=== PATIENT | female | born 1955 | race Caucasian/White ===

== ENCOUNTER → 2018-03-06 11:48 | Outpatient (CLI) | payer OTHER, SELFPAY ==
--- NOTE | 2018-03-06 12:05 | CT_ITS ---
STUDY: CT ABDOMEN AND PELVIS WITH CONTRAST REASON FOR EXAM: Female, 63 years old. History of diverticulitis. RADIATION DOSAGE (If Supplied By Facility): CTDIvol = ( 11.87 ) mGy, DLP = ( 319.41 ) mGycm TECHNIQUE: Transaxial images were obtained from the dome of the diaphragm to the symphysis pubis with oral contrast. 100CC ml of Isovue 300 contrast was administered. Sagittal and coronal images were reconstructed. Individualized dose optimization techniques were used for this CT. COMPARISON: Comparison is made with prior examination dated March 26, 2011. FINDINGS: The visualized lung bases are unremarkable. The visualized portions of the heart are within normal limits. Normal liver. There are surgical clips in the gallbladder fossa consistent with a prior cholecystectomy. Minimal degree of central intrahepatic biliary ductal dilatation. The common bile duct measures 7 mm in transverse dimension. Normal spleen. Normal pancreas. Normal bilateral adrenal glands. Several tiny nonobstructive right intrarenal calculi. There are several tiny nonobstructive left intrarenal calculi. Normal visualized stomach. Normal small intestine. Moderate amount of fecal material is seen in the colon. The appendix is visualized and appears normal. There is diffuse atherosclerotic calcification of the abdominal aorta, without a demonstrated aneurysm. Normal inferior vena cava. Normal retroperitoneum. Normal urinary bladder. Normal abdominal wall. Minimal anterior listhesis of L4 on L5 without spondylolysis. CT/Abdomen/Pelvis WITH Contrast IMPRESSION: Small bilateral nonobstructive intrarenal calculi. Electronically Signed: Amrit Langford MD at 15:44 EDT Tel [phone], Service support ,
[2018-03-06 12:30] LABS: AST(SGOT) 13 U/L (15-37); Alanine Aminotransfer ALT/SGPT 22 U/L (13-56); Albumin, Serum 3.7 g/dL (3.2-5.0); Alkaline Phosphatase 70 U/L (45-117); Anion Gap 3 (5-15); BUN 18 mg/dL (7-18); BUN/Creat Ratio 22.8 RATIO (10-20); Chloride 108 mmol/L (98-107); Creatinine, Serum 0.79 mg/dL (0.55-1.02); EST Glomerular Filtration Rate 78 mL/min (>60); Est Glom Filt Rate - Afr Amer 95 mL/min (>60); Globulin 3.8 g/dL (2.2-4.2); Glucose 111 mg/dL (74-106); Potassium 3.9 mmol/L (3.5-5.1); Protein, Total 7.5 g/dL (6.4-8.2); Sodium Level 141 mmol/L (136-145)
== END ==
PROVIDERS: Family Provider Internal Medicine; PCP Internal Medicine; Visit Provider Nurse Practitioner Gerontology
DX: R10.9 Unspecified abdominal pain (principal); R35.0 Frequency of micturition
CPT/HCPCS: 36415; 74177; 80053; 87086; Q9967

== ENCOUNTER → 2018-04-08 14:41 | Outpatient (CLI) | payer OTHER, SELFPAY | PROVIDERS: Family Provider Internal Medicine; PCP Internal Medicine; Visit Provider Internal Medicine Pulmonary Disease | DX: J44.9 Chronic obstructive pulmonary disease, unspecified (principal); R05 Cough | CPT/HCPCS: 87070; 87077; 87205 ==

== ENCOUNTER → 2018-10-30 12:53 | Outpatient (CLI) | payer OTHER, SELFPAY ==
--- NOTE | 2018-10-30 12:56 | US_ITS ---
STUDY: THYROID ULTRASOUND REASON FOR EXAM: Female, 63 years old. Thyroid nodules TECHNIQUE: Ultrasound evaluation of the thyroid was performed with real-time and static hendrickson-scale imaging. COMPARISON: CT chest 05/15/2017, 08/20/2014. Low-dose CT chest 10/22/2018. FINDINGS: RIGHT LOBE: The right thyroid gland measures 45 x 28 x 25 mm with homogeneous background echotexture is normal vascularity. There is a complex dominant nodule, predominately solid, multiple small cystic components, heterogeneously hypoechoic compared to the surrounding gland, lori-nodular vascular flow, 2.5 x 2.5 x 2.1 cm. LEFT LOBE: The left thyroid measures 41 x 12 x 16 mm with homogeneous echotexture and normal vascularity. There is a lower pole solitary circumscribed oval hypoechoic solid nodule measuring 6.4 x 4 mm with both perinodular and intranodular vascular flow. ISTHMUS: The isthmus measures 2 mm, normal echotexture . US/Thyroid IMPRESSION: The solid left pulmonary nodule with a greatest dimension of 6 mm falls into the Intermediate Suspicion Pattern based on the [place] [employer] Guidelines for assessment of thyroid nodules. Based on size criteria, biopsy is not indicated and follow-up surveillance imaging in one year would be appropriate. The dominant right thyroid nodule with a greatest dimension of 25 mm falls into the High Suspicion Pattern, hypoechoic solid nodule with partially cystic components. Based on echo features and size criteria, biopsy is indicated. In comparison to CT scans, that nodule has enlarged since prior CT chest imaging of 08/20/2014. Malignancy must be excluded. Ultrasound guided FNA biopsy is recommended. Electronically Signed: Kvng Irizarry MD at 12:08 EDT Tel , Service support ,
--- NOTE | 2018-10-30 13:24 | CT_ITS ---
STUDY: LOW DOSE CT LUNG CANCER SCREENING REASON FOR EXAM: Female, 63 years old. Smoking 2 packs per day, 45 years. Lung cancer screening. RADIATION DOSAGE (If Supplied By Facility): CTDIvol = ( 2.01 ) mGy, DLP = ( 70.47 ) mGycm TECHNIQUE: No contrast was administered. Low dose technique was utilized (average mAS-38 and kVp 120). 1.25 mm axial source images with a slice interval of 1.25-mm were reconstructed in lung windows. Coronal and sagittal 2-D MPR. Nodule measured using lung windows on PACS and/or independent workstation with automated measurement of minimum and maximum diameter. Nodule measurement reported as average diameter rounded to the nearest whole number. Growth is defined as an increase ins size of greater than 1.5 mm. COMPARISON: CT chest 05/15/2017, 08/20/2014. Chest x-ray 11/10/2015.. FINDINGS: Supraclavicular: Dominant nodule right thyroid measuring approximately 2.2 cm. This was present on prior imaging of 08/20/2014 measuring 1.7 cm at that time. Ultrasound characterization is required to assess malignant potential for this enlarging thyroid nodule. Body wall soft tissues: No acute process. Upper abdomen: No acute process. Osseous structures: Osteopenia, kyphoscoliosis, mild thoracic spondylosis, no lytic or blastic lesions. Mediastinum: Normal esophagus. Several small lymph nodes, none pathologically enlarged, similar pattern seen on prior imaging, acute lymphadenopathy not suspected. Heart: No cardiomegaly or pericardial effusion. Prominent three-vessel coronary calcifications. Aorta: Nondilated, mild arch atherosclerosis. Pulmonary arteries: Nondilated. Lungs: There is generalized hyperlucency and hyperinflation of the lungs, mild features of centrilobular emphysema the apices, minimal features of paraseptal emphysema at the apices, stable pattern of COPD concordant with smoking history. The pulmonary pattern of scattered subpleural reticulation, and apical pleural parenchymal scar is stable. Subpleural fissural nodule right lower lobe apical segment series 2 image 82, measuring approximately 3 mm, unchanged since 2017. There is a 3 mm endobronchial lesion within the left lower lobe segmental bronchus centered on axial image 129, sagittal image 174, vogel image saved to the PACS archive. This is very slightly increased conspicuity since imaging of 2017. Endobronchial 3 mm pulmonary nodule right lower lobe lateral basilar segmental bronchus, axial image 152, sagittal image 86, increased in conspicuity/size since imaging of 2017. There are no other discrete pulmonary nodules in the left lung. CT/Low Dose CT Lung Screening IMPRESSION: 1. The pattern of a few tiny intraparenchymal pulmonary nodules, subpleural reticulation and apical subpleural scarring is stable compared to prior imaging of 2017. COPD, mild features of centrilobular and paraseptal emphysema at the apices. 2. Endobronchial nodular lesions are identified, left lower lobe subsegmental bronchus, right lower lobe subsegmental bronchus. Each measures approximately 3 mm. These have increased in size and conspicuity as compared to imaging of 2017. On prior imaging these were nearly and visible, much smaller. 3. Prominent three-vessel coronary atherosclerosis. L4 Enlarging right thyroid nodule. AND characterization is recommended to assess malignant potential. Based on size criteria alone, biopsy is likely indicated. IMPORTANT NOTES FOR USE: ACR Lung-RADS Version 1.0 Assessment Categories Release Date: November 30, 2013 Category: Coded 0-4 bases on nodule(s) with highest degree of suspicion. Negative screen is defined as categories 1 and 2; a positive screen is defined as categories 3 and 4. Category 3 and 4A nodules that are unchanged on interval CT should be coded as category 2, and individuals returned to screening in 12 months. Category 4X: Category 3 or 4 nodules with additional imaging findings that increase the suspicion of lung cancer, such as spiculation, GGN that doubles in size in 1 year, enlarged lymph notes, etc. Category Modifiers: S (significant finding unrelated to lung cancer) and C (prior history of treated lung cancer) may be added to the 0-4 Lung-RADS Electronically Signed: Kvng Irizarry MD at 11:44 EDT Tel , Service support ,
== END ==
PROVIDERS: Family Provider Internal Medicine; PCP Internal Medicine; Referring Provider Internal Medicine; Visit Provider Internal Medicine
DX: E04.1 Nontoxic single thyroid nodule (principal); J44.9 Chronic obstructive pulmonary disease, unspecified
CPT/HCPCS: 76536; G0297

== ENCOUNTER → 2018-11-14 15:48 | Outpatient (CLI) | payer OTHER, SELFPAY ==
--- NOTE | 2018-11-14 | ASPS_PTH ---
PATIENT: LIBBY NAIDU LOC: NURY U#:[id number] AGE/SX: 70/F ROOM: RE11/14/[address]: Dr. Benny Koehler MD : 1955 BED: DIS: SPEC #: [id number] RECD: 11/14/18 15:36 STATUS: JACQUE ANGELINA #: [id number] BC: 11/14/18 00:[address]: Benny Koehler DEPT: CYTOLOGY RECD BY: Sedrick Yi ENTERED: 11/17/18 12:58 SP TYPE: ASPIRATION OTHR DR: Dr. Esther Malik, DO Tissues: Thyroid gland, NOS Procedures: Special Stain Group II Cytology Other HEADER OPERATION: Ultrasound-guided fine needle aspiration right thyroid PRE-OP DIAGNOSIS: Multinodular goiter E04.2 TISSUE SUBMITTED: Fine needle aspiration right thyroid slides x12 DIAGNOSIS CYTOLOGY Right thyroid nodule, ultrasound-guided FNA (smears): Consistent with benign colloid nodule. Adequate for evaluation. SJ:rg 11/18/18 COMMENT Correlation with clinical, radiologic findings and appropriate follow up are necessary. Please make reference to previous specimen ([id number]) right thyroid, FNA with diagnosis of consistent with adenomatoid colloid nodule. CYTOLOGY STUDY Slides are reviewed. CYTOLOGY GROSS Received are 12 smears labeled with the patient's name and designated per the requisition as right thyroid. Submitted for staining. / 11/18/18 TC:5 CPT: 53768
== END ==
PROVIDERS: Family Provider Internal Medicine; PCP Internal Medicine; Referring Provider Surgery; Visit Provider Surgery
DX: E04.2 Nontoxic multinodular goiter (principal)
CPT/HCPCS: 88161; 88313

== ENCOUNTER → 2019-03-03 06:28 | Outpatient (CLI) | payer OTHER, SELFPAY ==
--- NOTE | 2019-03-03 09:33 | STRESSREP_ITS ---
Stress Test Report Date: 03-03-19 Procedure: Exercise tolerance test/imaging study Indications: Chest pain Consent: Per the patient Procedure: The patient exercised on a Kyree protocol for 7 minutes and 45 seconds completing Stage II and 1 minute and 45 seconds of Stage III achieving a peak heart rate of 141 bpm (90 % predicted maximal heart rate) with a peak blood pressure 142/82 mmHg and a peak MET capacity of 9 METs. The baseline ECG demonstrated normal sinus rhythm. The peak exercise ECG demonstrated no obvious ECG changes. There were no cardiac dysrhythmias pretest, during exercise, or recovery. The functional capacity was considered good. There was no complaint of chest discomfort during exercise or recovery. The examination was discontinued secondary to leg discomfort and dyspnea. Impression: 1. Technically adequate (percent predicted maximal heart rate greater than 85%) exercise tolerance test 2. Peak exercise ECG demonstrated no obvious ECG changes 3. There were no cardiac dysrhythmias pretest, during exercise, or recovery 4. Nuclear images pending Myocardial perfusion imaging study: Technique: The patient was injected with 11.1 mCi of technetium 99m Cardiolite and subsequently rest SPECT Cardiolite nuclear imaging was obtained in the horizontal long, vertical long, and short axis views. The patient exercised on a Kyree protocol for 7 minutes and 45 seconds completing Stage II and 1 minute and 45 seconds of Stage III achieving a peak heart rate of 141 bpm (90 % predicted maximal heart rate) with a peak blood pressure 142/82 mmHg and a peak MET capacity of 9 METs. The patient was injected with 31.8 mCi of technetium 99m Cardiolite and subsequently stress SPECT Cardiolite nuclear imaging was obtained in the horizontal long, vertical long, and short axis views. A gated Cardiolite study at peak stress was obtained. Interpretation: Rest and stress SPECT Cardiolite nuclear imaging status post realignment, normalization, and attenuation correction, demonstrates the appearance of relative uniform tracer uptake and myocardial perfusion appearing within normal limits. There is end systolic thickening and brightening. The gated Cardiolite study demonstrates myocardial thickening and inward wall motion. The reported LVEF is 76 %. Impression: 1. Rest and stress SPECT Cardiolite nuclear imaging demonstrate relative uniform tracer uptake and myocardial perfusion appearing within normal limits. 2. The gated Cardiolite study reports an LVEF of 76 %. This note was generated with [employer] software. It may contain incorrect words, spelling, and punctuation that were not noted in checking the note before signing.
== END ==
PROVIDERS: Family Provider Internal Medicine; PCP Internal Medicine; Referring Provider Internal Medicine Cardiovascular Disease; Visit Provider Internal Medicine Cardiovascular Disease
DX: R07.9 Chest pain, unspecified (principal); R06.02 Shortness of breath; R93.1 Abnormal findings on diagnostic imaging of heart and coronary circulation
CPT/HCPCS: 78452; 93017; A9500; A4216

== ENCOUNTER → 2019-03-19 13:59 | Outpatient (CLI) | payer OTHER, SELFPAY ==
--- NOTE | 2019-03-19 14:01 | ART_ITS ---
Reason For Study: claudication Left Segmental Pressures Left brachial= 123mmHg. Left posterior tibial artery = 139mmHg. Left dorsalis pedis artery = 131mmHg. The left dorsalis pedis waveforms are triphasic. The left posterior tibial artery waveforms are triphasic. Right Segmental Pressures Right brachial= 116mmHg. Right posterior tibial artery = 139mmHg. Right dorsalis pedis artery = 134mmHg. The right dorsalis pedis waveforms are triphasic. The right posterior tibial artery waveforms are triphasic. Indices The right ankle brachial index by the dorsalis pedis is 1.09. The right ankle brachial index by the posterior tibial artery is 1.13. The right ankle brachial index by the posterior tibial artery post exercise is 1.07. The left ankle brachial index by the dorsalis pedis is 1.07. The left ankle brachial index by the posterior tibial artery is 1.13. The left posterior tibial artery index post exercise is 1.05. Interpretation Summary Triphasic Doppler waveforms are noted at ankle level bilaterally. Pulse-volume recording waveform amplitudes are satisfactory at ankle level bilaterally. Resting ankle-brachial indices are normal bilaterally. Following a period of exercise, ankle pressures are sustained bilaterally. There is no evidence of significant arterial occlusive disease in the lower extremities bilaterally. Ordering Physician: Esther Malik Performed By: YOLETTE HOLT T
== END ==
PROVIDERS: Family Provider Internal Medicine; PCP Internal Medicine; Referring Provider Internal Medicine; Visit Provider Internal Medicine
DX: I73.9 Peripheral vascular disease, unspecified (principal)
CPT/HCPCS: 93922

== ENCOUNTER → 2019-12-10 12:27 | Outpatient (CLI) | payer MEDICARE, SELFPAY ==
[2019-05-18 13:57] VITALS: BMI 21.0
--- NOTE | 2019-12-10 12:29 | BI_ITS ---
MAMMOGRAPHY - BILATERAL SCREENING REASON FOR EXAM: Female, 64 years old. Routine annual screening examination. PERTINENT HISTORY: Non-contributory. Minimal right excisional breast biopsy. TECHNIQUE: Digital bilateral breast kaitlin (3D mammographic acquisition) in the CC and MLO projections. 2-D mediolateral oblique (MLO) and craniocaudad (CC) views of both breasts were obtained. CAD: Full Field Digital Mammography with Computer Added Detection was performed. COMPARISON: Comparison is made with prior study dated February 24, 2018 and May 14, 2016. FINDINGS: Breast Composition: The breasts are extremely dense, which lowers the sensitivity of mammography. There are no dominant masses or suspicious calcifications. Stable bilateral calcifications. No other significant abnormalities are identified. There has been no significant change since the prior study. BI/SCREEN MAMM (CAD) W/KAITLIN BILAT IMPRESSION: Stable bilateral screening mammogram. Yearly follow-up mammogram recommended. (A) ASSESSMENT CATEGORY: BIRADS Category 2: Benign. A letter regarding these results will be sent to the patient by the facility within 30 days. Approximately 10% of breast cancers are not detected by mammography. A normal mammogram should not delay biopsy of a clinically suspicious abnormality. [id number] Electronically Signed: Amrit Langford, at 13:27 EDT , Service support ,
--- NOTE | 2019-12-10 12:33 | BD_ITS ---
STUDY: DUAL ENERGY X-RAY ABSORPTIOMETRY / DXA REASON FOR EXAM: Female, 64 years old. 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 COMPARISON: Comparison is made with prior study dated August 27, 2017. FINDINGS: Lumbar Spine (L1-L4): g/cm2 (0.697) / T-score (-3.9) / Z-score (-2.3) Findings are suggestive of osteoporosis with a high fracture risk. Left Femur Total: g/cm2 (0.691) / T-score (-2.5) / Z-score (-1.3) Left Femoral Neck: g/cm2 (0.729) / T-score (-2.2) / Z-score (-0.8) Right Femur Total: g/cm2 (0.716) / T-score (-2.3) / Z-score (-1.1) Right Femoral Neck: g/cm2 (0.707) / T-score (-2.4) / Z-score (-0.9) The T-Scores on the most recent prior examination were: Lumbar Spine (L1-L4): There has been improvement of bone density since the previous examination. Left Femur Total: which represents an improvement of 1.3%. Right Femur Total: which represents a worsening of 1.6%. BD/Dexa Bone Density Study IMPRESSION: The patient is considered osteoporotic as outlined below according to World Omero Organization (WHO) criteria with a high fracture risk. There has been improvement of bone density since the previous examination. Reference Information: The T-score is the number of standard deviations above or below the standard which is normal for young adults at their peak bone mineral density. The World Health Organization (WHO) interprets the T-scores as follows: Above -1 Normal bone density Between -1 and -2.5 Osteopenia Equal to / or below -2.5 Osteoporosis As a practical clinical guideline, osteopenia may be graded as follows: Mild -1 through -1.5 Moderate -1.6 through -2.0 Severe -2.1 through -2.4 The Z-score is the number of standard deviations above or below age-matched controls. A Z-score of less than -1.5 would be considered abnormal. References: 1. NIH Osteoporosis and Related Bone Diseases http://www.osteo.org 2. International Society for Clinical Densitometry http://www.iscd.org 3. National Osteoporosis Foundation http://www.nof.org Electronically Signed: Amrit Langford, at 13:42 EDT , Service support ,
== END ==
PROVIDERS: PCP Internal Medicine; Referring Provider Internal Medicine; Visit Provider Internal Medicine
DX: Z12.31 Encounter for screening mammogram for malignant neoplasm of breast (principal); Z78.0 Asymptomatic menopausal state; M81.0 Age-related osteoporosis without current pathological fracture
CPT/HCPCS: 77063; 77067; 77080

== ENCOUNTER → 2019-12-19 | Outpatient (CLI) | payer MEDICARE, BC, SELFPAY ==
[2019-05-18 13:57] VITALS: BMI 21.0
== END | disposition home or self-care (01) ==
LOC: LAB 11:41 → LABSPEC 11:42
PROVIDERS: PCP Internal Medicine; Referring Provider Internal Medicine Pulmonary Disease; Visit Provider Internal Medicine Pulmonary Disease
DX: R05 Cough (principal); J44.9 Chronic obstructive pulmonary disease, unspecified
CPT/HCPCS: 87070; 87205

== ENCOUNTER → 2019-12-23 11:53 | Outpatient (CLI) | payer MEDICARE, BC, SELFPAY ==
[2019-05-18 13:57] VITALS: BMI 21.0
--- NOTE | 2019-12-23 11:56 | RAD_ITS ---
STUDY: X-RAY CHEST REASON FOR EXAM: Female, 64 years old. COPD TECHNIQUE: PA and lateral views of the chest. COMPARISON: 2015 FINDINGS: The lungs are mildly hyperexpanded.. There is no demonstrated pleural abnormality. Normal size heart. Normal mediastinum and janessa. Normal visualized pulmonary arteries. Normal visualized aortic arch and descending thoracic aorta. There are diffuse degenerative changes of the visualized thoracic spine. Normal visualized ribs, clavicles, and shoulders. There is no demonstrated abnormality of the visualized soft tissue structures of the upper abdomen. RAD/Chest PA and Lateral IMPRESSION: Hyperexpanded lungs, no superimposed acute pulmonary process. Electronically Signed: Gregory Rivers MD at 12:09 EDT , Service support ,
== END ==
PROVIDERS: PCP Internal Medicine; Referring Provider Internal Medicine Pulmonary Disease; Visit Provider Internal Medicine Pulmonary Disease
DX: J44.9 Chronic obstructive pulmonary disease, unspecified (principal)
CPT/HCPCS: 71046

== ENCOUNTER → 2020-02-25 13:56 | Outpatient (CLI) | payer MEDICARE, BC, SELFPAY ==
[2020-02-23 13:27] VITALS: BMI 21.0
[2020-02-25 14:08] VITALS: BP 108/58; PULSE 90; RESP 16; TEMP 36.5; O2SAT 93; BMI 21.2
[2020-02-25] MEDS: DENOSUMAB 60 MG/ML SQ (14:20)
== END ==
PROVIDERS: PCP Internal Medicine; Referring Provider Internal Medicine Endocrinology, Diabetes & Metabolism; Visit Provider Internal Medicine Endocrinology, Diabetes & Metabolism
DX: M81.0 Age-related osteoporosis without current pathological fracture (principal)
CPT/HCPCS: 96372; J0897

== ENCOUNTER → 2020-03-17 13:27 | Outpatient (CLI) | payer MEDICARE, BC, SELFPAY ==
[2020-02-25 14:08] VITALS: BMI 21.2
[2020-03-17 15:36] LABS: Free T3 1.6 pg/mL (2.18-3.98); T4 Free Direct 0.92 ng/dL (0.76-1.46); Thyroid Stim Hormone (TSH) 0.59 uIU/mL (0.358-3.74)
== END ==
PROVIDERS: PCP Internal Medicine; Referring Provider Internal Medicine Endocrinology, Diabetes & Metabolism; Visit Provider Internal Medicine Endocrinology, Diabetes & Metabolism
DX: E05.20 Thyrotoxicosis with toxic multinodular goiter without thyrotoxic crisis or storm (principal); E04.1 Nontoxic single thyroid nodule
CPT/HCPCS: 36415; 84439; 84443; 84481

== ENCOUNTER → 2020-04-29 11:19 | Outpatient (CLI) | payer MEDICARE, BC, SELFPAY ==
[2020-02-25 14:08] VITALS: BMI 21.2
== END ==
PROVIDERS: PCP Internal Medicine; Referring Provider Internal Medicine Pulmonary Disease; Visit Provider Internal Medicine Pulmonary Disease
DX: J44.9 Chronic obstructive pulmonary disease, unspecified (principal); R05 Cough
CPT/HCPCS: 87070; 87205

== ENCOUNTER → 2020-05-19 13:15 | Outpatient (CLI) | payer MEDICARE, BC, SELFPAY ==
[2020-02-25 14:08] VITALS: BMI 21.2
[2020-05-16 11:09] VITALS: BMI 22.8
--- NOTE | 2020-05-19 13:16 | CT_ITS ---
STUDY: LOW DOSE CT LUNG CANCER SCREENING REASON FOR EXAM: Female, 65 years old. CURRENT SMOKER, 2 PPD X 45 YEARS. H/O COPD RADIATION DOSAGE (If Supplied By Facility): CTDIvol = ( 1.70 ) mGy, DLP = ( 62.53 ) mGycm TECHNIQUE: No contrast was administered. Low dose technique was utilized (average mAS-38 and kVp 120). 1.25 mm axial source images with a slice interval of 1.25-mm were reconstructed in lung windows. 2.5 mm axial source images with a slice interval of 2.5-mm were reconstructed in lung windows. 5.0 mm axial source images with a slice interval of 5.0-mm were reconstructed in soft tissue windows. Nodule measured using lung windows on PACS and/or independent workstation with automated measurement of minimum and maximum diameter. Nodule measurement reported as average diameter rounded to the nearest whole number. Growth is defined as an increase ins size of greater than 1.5 mm. COMPARISON: Comparison is made with prior study of 10/30/2018. NODULES: Stable scarring in the lung apices bilaterally more prominent along the peripheral aspect of the right upper lobe. There has been no change. Emphysema: Hyperinflation. Mild degree of emphysematous changes more prominent in the upper lobes. Aorta: Atherosclerotic plaque formation. Coronary arteries: Coronary artery calcification. Mediastinal nodes: Small benign appearing mediastinal lymph nodes. Other chest and abdominal findings: Degenerative changes of the thoracic spine. CT/Low Dose CT Lung Screening IMPRESSION: Lung-RADS category 2 - Continue annual screening with LDCT in 12 months. IMPORTANT NOTES FOR USE: ACR Lung-RADS Version 1.0 Assessment Categories Release Date: November 30, 2013 Category: Coded 0-4 bases on nodule(s) with highest degree of suspicion. Negative screen is defined as categories 1 and 2; a positive screen is defined as categories 3 and 4. Category 3 and 4A nodules that are unchanged on interval CT should be coded as category 2, and individuals returned to screening in 12 months. Category 4X: Category 3 or 4 nodules with additional imaging findings that increase the suspicion of lung cancer, such as spiculation, GGN that doubles in size in 1 year, enlarged lymph notes, etc. Category Modifiers: S (significant finding unrelated to lung cancer) and C (prior history of treated lung cancer) may be added to the 0-4 Lung-RADS Electronically Signed: Amrit Langford, at 14:38 EDT , Service support ,
== END ==
PROVIDERS: PCP Internal Medicine; Referring Provider Internal Medicine Pulmonary Disease; Visit Provider Internal Medicine Pulmonary Disease
DX: Z87.891 Personal history of nicotine dependence (principal)
CPT/HCPCS: G0297

== ENCOUNTER 2020-10-14 10:08 | Outpatient (RCR) | payer MEDICARE, BC, SELFPAY ==
[2020-05-16 11:09] VITALS: BMI 22.8
[2020-10-14] MEDS: COVID-19 VACC, MRNA(PFIZER)/PF 30 MCG/0.3 ML SYRINGE IM (14:17)
[2020-11-04] MEDS: COVID-19 VACC, MRNA(PFIZER)/PF 30 MCG/0.3 ML SYRINGE IM (14:10)
== END 2021-01-10 23:59 ==
LOC: IMMUN 10:08
PROVIDERS: PCP Internal Medicine; Visit Provider Family Medicine
DX: Z23 Encounter for immunization (principal)
CPT/HCPCS: 0001A; 0002A; 91300

== ENCOUNTER → 2020-12-02 14:42 | Outpatient (CLI) | payer MEDICARE, BC, SELFPAY ==
[2020-05-16 11:09] VITALS: BMI 22.8
--- NOTE | 2020-12-02 14:49 | RAD_ITS ---
STUDY: X-RAY - RIGHT FEMUR REASON FOR STUDY: Female, 65 years old. Thigh pain. TECHNIQUE: 4 view(s) of the femur. COMPARISON: None. FINDINGS: Normal visualized femur. Normal visualized soft tissue structure. RAD/Femur Min 2 Views IMPRESSION: No abnormality of the right femur. Electronically Signed: Gilberto Ramos MD at 15:13 EDT , Service support ,
--- NOTE | 2020-12-02 14:49 | RAD_ITS ---
STUDY: X-RAY - LUMBAR SPINE REASON FOR EXAM: Female, 65 years old. Leg and thigh pain for months. No known injury. TECHNIQUE: 5 view(s) of the lumbar spine were obtained. COMPARISON: None FINDINGS: Normal lumbar lordosis. Mild levoscoliosis. 6 mm of anterolisthesis of L4 on L5 from facet degeneration. Normal vertebral bodies and endplates. Diffuse facet sclerosis. Marked intervertebral disc space narrowing at L4-5 with subchondral sclerosis and osteophyte formation. Cholecystectomy clips. Vascular calcification. RAD/L/S Spine Min 4 Views IMPRESSION: Levoscoliosis with lower lumbar spondylosis most marked at L4-5, as described. No acute abnormality. Electronically Signed: Gilberto Ramos MD at 15:15 EDT , Service support ,
== END ==
PROVIDERS: PCP Internal Medicine; Referring Provider Internal Medicine; Visit Provider Internal Medicine
DX: M79.651 Pain in right thigh (principal)
CPT/HCPCS: 72110; 73552

== ENCOUNTER → 2020-12-05 13:56 | Outpatient (CLI) | payer MEDICARE, BC, SELFPAY ==
[2020-05-16 11:09] VITALS: BMI 22.8
--- NOTE | 2020-12-05 13:58 | US_ITS ---
STUDY: ULTRASOUND OF THE FEMALE PELVIS - COMPLETE REASON FOR EXAM: Female, 65 years old. PELVIC PAIN LMP: The patient is postmenopausal. TECHNIQUE: Transabdominal and Transvaginal TECHNICAL QUALITY: Adequate. COMPARISON: None. FINDINGS: The uterus is anteverted and is in a midline position. The uterus measures 5.1 cm x 4 cm x 2.3 cm. Normal uterine cervix. The endometrium measures 3 mm in thickness, and is hyperechoic. There is no demonstrated endometrial mass. There is no demonstrated myometrial mass. I.U.D. - The patient does not have an I.U.D. The right ovary is visualized. The right ovary measures 2.5 cm x 2.2 cm x 1.1 cm. There is no right ovarian cyst or ovarian mass. There is no visualized right adnexal mass or complex lesion. There is normal arterial and normal venous vascularity. The left ovary is visualized. The left ovary measures 1.7 cm x 1.9 cm x 1 cm. There is no left ovarian cyst or ovarian mass. There is no visualized left adnexal mass or complex lesion. There is normal arterial and normal venous vascularity. There is no fluid in the cul-de-sac. The pre void volume of the bladder was 131 ml. US/Transvaginal Non- IMPRESSION: Normal female pelvis. Electronically Signed: Amrit Langford MD at 15:17 EDT , Service support ,
--- NOTE | 2020-12-05 13:58 | US_ITS ---
STUDY: ULTRASOUND OF THE FEMALE PELVIS - COMPLETE REASON FOR EXAM: Female, 65 years old. PELVIC PAIN LMP: The patient is postmenopausal. TECHNIQUE: Transabdominal and Transvaginal TECHNICAL QUALITY: Adequate. COMPARISON: None. FINDINGS: The uterus is anteverted and is in a midline position. The uterus measures 5.1 cm x 4 cm x 2.3 cm. Normal uterine cervix. The endometrium measures 3 mm in thickness, and is hyperechoic. There is no demonstrated endometrial mass. There is no demonstrated myometrial mass. I.U.D. - The patient does not have an I.U.D. The right ovary is visualized. The right ovary measures 2.5 cm x 2.2 cm x 1.1 cm. There is no right ovarian cyst or ovarian mass. There is no visualized right adnexal mass or complex lesion. There is normal arterial and normal venous vascularity. The left ovary is visualized. The left ovary measures 1.7 cm x 1.9 cm x 1 cm. There is no left ovarian cyst or ovarian mass. There is no visualized left adnexal mass or complex lesion. There is normal arterial and normal venous vascularity. There is no fluid in the cul-de-sac. The pre void volume of the bladder was 131 ml. US/Pelvic (Non ) IMPRESSION: Normal female pelvis. Electronically Signed: Amrit Langford MD at 15:17 EDT , Service support ,
== END ==
PROVIDERS: PCP Internal Medicine; Referring Provider Internal Medicine; Visit Provider Internal Medicine
DX: R10.2 Pelvic and perineal pain (principal)
CPT/HCPCS: 76830; 76856

== ENCOUNTER → 2020-12-21 12:57 | Outpatient (CLI) | payer MEDICARE, BC, SELFPAY ==
[2020-05-16 11:09] VITALS: BMI 22.8
--- NOTE | 2020-12-21 13:00 | CT_ITS ---
STUDY: CT ABDOMEN AND PELVIS WITHOUT CONTRAST REASON FOR EXAM: Female, 65 years old. RLQ ABD PAIN RADIATION DOSAGE (If Supplied By Facility): CTDIvol = ( 6.06 ) mGy, DLP = ( 261.92 ) mGycm TECHNIQUE: Transaxial images were obtained from the dome of the diaphragm to the symphysis pubis without oral contrast, and without intravenous contrast. Sagittal and coronal images were reconstructed. Individualized dose optimization techniques were used for this CT. COMPARISON: 2017 FINDINGS: The visualized lung bases are unremarkable. The visualized portions of the heart are within normal limits. Normal liver. There are surgical clips in the gallbladder fossa consistent with a prior cholecystectomy. Normal spleen. Normal pancreas. Normal bilateral adrenal glands. Stable bilateral nonobstructing nephrolithiasis. No obstructive uropathy or suspicious solid lesion noted. Normal visualized stomach. Normal small intestine. Retained stool noted throughout the colon. There is non-visualization of the appendix. There is diffuse atherosclerotic calcification of the abdominal aorta, without a demonstrated aneurysm. Normal inferior vena cava. Normal retroperitoneum. Normal urinary bladder. Uterus is present, the endometrium cannot be accurately evaluated with CT. Normal abdominal wall. There are diffuse degenerative changes of the visualized lumbar spine, and pelvis. CT/Abdomen/Pelvis without Cont IMPRESSION: Bilateral nonobstructing nephrolithiasis No free intraperitoneal fluid, air, or suspicious adenopathy Retained stool in the colon Electronically Signed: Gregory Rivers MD at 13:26 EDT , Service support ,
== END ==
PROVIDERS: PCP Internal Medicine; Referring Provider Internal Medicine; Visit Provider Internal Medicine
DX: R10.30 Lower abdominal pain, unspecified (principal)
CPT/HCPCS: 74176

== ENCOUNTER → 2021-02-17 14:19 | Outpatient (CLI) | payer MEDICARE, BC, SELFPAY ==
[2020-05-16 11:09] VITALS: BMI 22.8
[2021-02-17 16:43] LABS: Free T3 2.3 pg/mL (2.18-3.98); T4 Free Direct 0.83 ng/dL (0.76-1.46); Thyroid Stim Hormone (TSH) 0.82 uIU/mL (0.358-3.74)
== END ==
PROVIDERS: PCP Internal Medicine; Referring Provider Nurse Practitioner Family; Visit Provider Nurse Practitioner Family
DX: E05.90 Thyrotoxicosis, unspecified without thyrotoxic crisis or storm (principal)
CPT/HCPCS: 36415; 84439; 84443; 84481

== ENCOUNTER 2021-03-29 13:30 | Outpatient (RCR) | payer MEDICARE, BC, SELFPAY ==
[2020-05-16 11:09] VITALS: BMI 22.8
--- NOTE | 2021-03-01 14:07 | HP.PTEVAL_ITS ---
Patient's Visit Information LIBBY NAIDU is a 66 year old F referred to Physical Therapy by Dr. Esther Hobbs, with a diagnosis of SCIATICA AND LBP WITH RADICULOPATHY. Date of Evaluation: 03/01/21 Physical Therapist: Olena Lares, PT, Cert MDT - Visit Plan Frequency: 2-3x /Week Duration: 4-6 Weeks Plan: US. POSTURE CORRECTION/STRENGTHENING, INSTRUCTION IN APPROPRIATE BODY MECHANICS AND ACTIVITY MODIFICATIONS. DLS STARTING WITH A NEUTRAL SPINE PROGRESSING ROM TOLERATED. LEODAN LE ROM, STRETCHING AND STRENGTHENING. HEP INSTRUCTION. 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 Present symptoms: LOW BACK R > L. RIGHT THIGH DULL PAIN. NO NUMBNESS OR TINGLIING. Present since: APPROX DECEMBER 2020. Pain Scale: WORST 8/10, LEAST 1/10. Currently: 3/10. Commenced as a result of: VACUUMING AND REACHED DOWN TO PICK SOMETHING UP OFF THE FLOOR ON February. A COUPLE MONTHS BEFORE THAT WAS FEELING A DULL ACHE IN RIGHT THIGH IN THE MORNIGS. Symptoms at onset: RIGHT THIGH. Worse: SITTING FOR A LONG TIME, ANY BENDING, PICKING ANYTHING UP OFF THE FLOOR, BENDING DOWN TO SCRATCH THE DOG, BEDNING DOWN TO GET LAUNDRY OUT OF WASHER OR DRYER, BENDING DOWN TO HOOK DOG UP TO PUT HIM OUTSIDE. RISING FROM SITTING. INCREASED PAIN TRYING TO LIFT RIGHT LEG TO WALK AND TO GET IN/OUT OF CAR. THESE THINGS ALSO HURT BACK. 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 Disturbed sleep: YES. Previous history/Previous treatment: CHRONIC INTERMITTENT LBP. MAINLY TREATED BY CHIROPRACTOR. LAST CHIROPRACTIC VISIT WAS ABOUT 2 WEEKS AGO - IT HELPED A LITTLE. NO BACK SURGERY. NO RIGHT LE SX. NO BACK OR HIP INJECTIONS. WENT TO DR. HOBBS BACK IN DECEMBER 2020 FOR PAIN IN LEG AND CAT SCAN SHOWED ARTHRITIS. PT CONSULT LAST WEEK ORDERED BY DR. HOBBS. Coughing/sneezing/straining: POSITIVE. Gait: PATIENT REPORTS SHE HAS TO LIMP A LITTLE BIT TO FAVOR HER RIGHT LEG TO TOLERATE THE PAIN. STATES THAT WHEN HER BACK IS REALLY FLARED UP SHE WALKS BENT OVER. AT TIMES SHE CAN ALMOST WALK STRAIGHT BUT ALWAYS LIMPS ON RIGHT LE. Difficulty initiating urinatin: NO. Accidents: NO. Unexplained weight loss: NO. Imaging: NORMAL X-RAY IN NOVEMBER 2020 OF R [facility]. LUMBAR X-RAY NOVEMBER 2020 - Levoscoliosis with lower lumbar spondylosis most marked at L4-5, as. described. No acute abnormality. . Electronically Signed: Gilberto Ramos MD. . PMH/Recent major surgery: COPD, OSTEOPENIA, PRE-DIABETIC. OTHER: PATIENT REPORTS SHE WAS ALSO HAVING SOME ABDOMINAL PAIN AND TESTING WAS NORMAL AND THAT PAIN IS GONE NOW. C/O CHRONIC KNEE PAIN FOR ABOUT 2 YEARS - ESPECIALLY GOING UP STAIRS. - Objective Sitting/Standing Posture: SCOLIOSIS. RIGHT ILIAC CREST HIGHER THAN LEFT. Lordosis: REDUCED. Lateral shift: NO. Relevant shift: N/A. Active Correction of posture: WORSE. Other Observations: INDEP GAIT INTO PT LIMPING ON R LE, DECREASED CADANCE AND INCREASED TRUNK FLEXION. DIFFICULTY TRANSITIONING FROM SIT TO STAND WITHOUT UE'S AND DIFFICULTY INITIATINIG GAIT AFTER SITTING. Motor deficit: LEODAN LE'S GROSSLY 5/5 WITH MMT'ING EXCEPT HIPS GRADED 4-/5 RIGHT AND 4/5 LEFT. Sensory deficit: LEODAN LE LIGHT TOUCH SENSATION INTACT AND SYMMETRICAL. ROM deficit: TIGHTNESS LEODAN HIP FLEXORS. Reflexes: 3/3 LEODAN LE'S. Dural Signs: POSITIVE RIGHT LE. Lumbar mvmt loss: flex - MIN. RIGHT RIB HUMP EVIDENT. INCREASED PAIN RETURN TO STANDING. ext - LEROY. R SG - MIN. L SG - MOD. INCREASED C/O PAIN WITH LUMBAR ROM TESTING ALL PLANES. Core strength: POOR. Palpation: TENDERNESS WITH LIGHT PALPATION OF THE [id number] REGIONS. INCREASED MUSCLE TONE LEODAN LUMBAR PARASPINALS. TREATMENT: NEUROMUSCULAR REEDUCATION - RETRAINING OF MVMT AND POSTURE FOR SITTING, LYING AND STANDING ACTIVITIES. - Balance/Special Test Scores Oswestry Low Back Score: 27 - Goals Goal 1:: DECREASE C/O LOW BACK AND RIGHT LE SX'S. Goal Time Frame: 4-6 Weeks Goal 2:: IMPROVE PERSONAL CARE, LIFTING, WALKING, SITTING, STANDING, SLEEP, SOCIAL LIFE, TRAVEL AND HOMEMAKING FUNCTION. Goal Time Frame: 4-6 Weeks Goal 3:: INSTRUCT IN PROPHYLAXIS Goal Time Frame: 4-6 Weeks - Anticipated Interventions Patient/Client Instruction: Educate patient on: Condition, Plan of Care, Risk Factors, Benefits of Fitness Program For the Purpose of:: To improve self management Therapeutic Exercise to Include: Strength training, Body mechanics, Postural training, Flexibilty training, Neuromotor development, Dynamic Lumbar Stabilization Comment: PATIENT HAS A POOL BUT REFUSED AQUATIC THERAPY. For the Purpose of:: To decrease pain, To improve muscle performance and motor function, To increase tolerance to activity/condition/position, To improve ability of physical actions for home/community/work/leisure, To improve gait and locomotor functions Cryotherapy (ice pack, ice massage): Yes Thermo therapy (hot pack): Yes Ultrasound (thermal/non thermal): Yes For the Purpose of:: To decrease pain, To improve nutrient delivery to tissue Thank you for the opportunity to evaluate your patient. For Medicare and Medicare HMO plans, please review the plan of care and approve it. It will need to be FAXED BACK to us at [phone] for Medicare purposes. For Medicare only, by signing this I certify the plan of care. Please let me know if there are questions or concerns regarding this plan of care. Physician Signature: Date:
--- NOTE | 2021-03-30 10:01 | HP.PTDCSUM ---
It has been my pleasure to treat LIBBY NAIDU referred by Dr. Esther Malik DO, with the diagnosis of SCIATICA AND LBP WITH RADICULOPATHY for a total of 9 visit(s). Discharge Date: Please see the following information for a summary of their discharge status. Subjective: PATIENT REPORTS SHE IS ABOUT 85% BETTER AND WANTS TO CONTINUE HER HEP ON HER OWN AT THIS POINT AND GIVE IT MORE TIME TO GET BETTER BEFORE DOING ANYTHING ELSE. LBP Pain Intensity (Out of 10): 2 RIGHT LE Pain Intensity (Out of 10): 0 % Improvement: 85 Objective/Function: PATIENT WAS SEEN TODAY FOR RE-ASSESSMENT OF PROGRESS TOWARD THE SET PT GOALS AND THE NEED FOR FURTHER PHYSICAL THERAPY VS READINESS FOR DISCHARGE. PATIENT IS MAKING PROGRESS TOWARD GOALS BUT STILL HAS SIGNIFICANT FUNCTINAL LIMITATIONS AND LE SX'S ARE OF CONCERN. THIS WAS COMMUNICATED TO PATIENT. PATIENT IS TOLERATING CURRENT HEP WELL BUT ATTEMPTS AT PROGRESSION INCREASE PAIN. TRIED PRONE HIP EXT AND BRIDGES TODAY BUT STOPPED DUE TO PROVOKING PAIN. OVER-ALL SHE IS MUCH BETTER AND SHE HAS INCREASED PAINFREE LUMBAR ROM. THIS PT RECOMMENDS PHYSICIAN FOLLOW UP IF SX'S DO NOT COMPLETELY RESOLVE OR REQUESTED BY PHYSICIAN. UPON EXAM TODAY: LUMBAR MVMT LOSS: FLEX - NIL. EXT - MOD. R SG - MIN TO MOD. L SG - VERY MINIMAL Goal 1:: DECREASE C/O LOW BACK AND RIGHT LE SX'S. Goal Progress: Progressing Goal 2:: IMPROVE PERSONAL CARE, LIFTING, WALKING, SITTING, STANDING, SLEEP, SOCIAL LIFE, TRAVEL AND HOMEMAKING FUNCTION. Goal Progress: Progressing Goal 3:: INSTRUCT IN PROPHYLAXIS Goal Progress: Progressing Plan: D/C TO INDEP EX. PATIENT IS AGREEABLE. If there are questions or concerns regarding this patient's physical therapy, please feel free to call me at [phone]. Thank you for the referral of this patient. Sincerely, Olena Lares, PT, Cert MDT Balance/Gait/Functional tests - Balance/Special Test Scores Oswestry Low Back Score: 25
== END 2021-03-29 19:00 | disposition home or self-care (01) ==
LOC: PT 13:30
PROVIDERS: PCP Internal Medicine; Referring Provider Internal Medicine; Visit Provider Internal Medicine
DX: M54.40 Lumbago with sciatica, unspecified side (principal); M54.16 Radiculopathy, lumbar region
CPT/HCPCS: 97035; 97110; 97112; 97162; 97164; 97530

== ENCOUNTER → 2021-05-19 12:47 | Outpatient (CLI) | payer MEDICARE, BC, SELFPAY ==
[2020-05-16 11:09] VITALS: BMI 22.8
--- NOTE | 2021-05-19 12:49 | CT_ITS ---
STUDY: LOW DOSE CT LUNG CANCER SCREENING REASON FOR EXAM: Female, 66 years old. TOBACCO USE. 2 packs per day for 45 years. History of COPD. RADIATION DOSAGE (If Supplied By Facility): CTDIvol = ( 2.01 ) mGy, DLP = ( 70.22 ) mGycm TECHNIQUE: No contrast was administered. Low dose technique was utilized (average mAS-38 and kVp 120). 1.25 mm axial source images with a slice interval of 1.25-mm were reconstructed in lung windows. 2.5 mm axial source images with a slice interval of 2.5-mm were reconstructed in lung windows. 5.0 mm axial source images with a slice interval of 5.0-mm were reconstructed in soft tissue windows. Nodule measured using lung windows on PACS and/or independent workstation with automated measurement of minimum and maximum diameter. Nodule measurement reported as average diameter rounded to the nearest whole number. Growth is defined as an increase ins size of greater than 1.5 mm. COMPARISON: Comparison is made with prior study dated 05/19/2020. NODULES: No suspicious nodular densities seen. Stable scarring at the lung apices. This is more prominent along the peripheral aspect of the right upper lobe. Emphysema: Stable emphysematous changes. Endobronchial lesion: None Aorta: Atherosclerotic calcification of the aortic arch. Coronary arteries: Coronary artery calcification. Heart: Unremarkable Pulmonary artery: Unremarkable Mediastinal nodes: Stable small benign-appearing mediastinal lymph nodes. Other chest and abdominal findings: Degenerative changes of the thoracic vertebrae. CT/Low Dose CT Lung Screening IMPRESSION: Lung-RADS category 2 - Continue annual screening with LDCT in 12 months. IMPORTANT NOTES FOR USE: ACR Lung-RADS Version 1.1 Assessment Categories Release Date: 2018 Category: Coded 0-4 bases on nodule(s) with highest degree of suspicion. Negative screen is defined as categories 1 and 2; a positive screen is defined as categories 3 and 4. Category 3 and 4A nodules that are unchanged on interval CT should be coded as category 2, and individuals returned to screening in 12 months. Category 4X: Category 3 or 4 nodules with additional imaging findings that increase the suspicion of lung cancer, such as spiculation, GGN that doubles in size in 1 year, enlarged lymph notes, etc. Category Modifiers: S (significant finding unrelated to lung cancer) Electronically Signed: Amrit Langford MD at 15:19 EDT , Service support ,
== END ==
PROVIDERS: PCP Internal Medicine; Visit Provider Internal Medicine Pulmonary Disease
DX: Z87.891 Personal history of nicotine dependence (principal); Z12.2 Encounter for screening for malignant neoplasm of respiratory organs
CPT/HCPCS: 71271

== ENCOUNTER 2021-10-05 13:28 | Outpatient (CLI) | payer MEDICARE, BC, SELFPAY ==
[2021-10-05 16:08] LABS: Free T3 1.3 pg/mL (2.18-3.98); T4 Free Direct 0.81 ng/dL (0.76-1.46); Thyroid Stim Hormone (TSH) 0.81 uIU/mL (0.358-3.74)
[2021-10-05 16:15] LABS: Vitamin D,25 Hydroxy 54.9 ng/mL
== END 2021-10-05 23:59 | disposition home or self-care (01) ==
LOC: BIMLAB 13:29
PROVIDERS: PCP Internal Medicine; Referring Provider Internal Medicine Endocrinology, Diabetes & Metabolism; Visit Provider Internal Medicine Endocrinology, Diabetes & Metabolism
DX: E05.90 Thyrotoxicosis, unspecified without thyrotoxic crisis or storm (principal); F41.9 Anxiety disorder, unspecified; E55.9 Vitamin D deficiency, unspecified
CPT/HCPCS: 36415; 82306; 84439; 84443; 84481

== ENCOUNTER → 2021-12-28 | Outpatient (CLI) | payer MEDICARE, BC, SELFPAY ==
[2021-12-28 15:58] LABS: Erythrocyte Sedimentation Rate 12 mm/hr (0-30)
[2021-12-28 16:47] LABS: Hemoglobin A1c 5.7 % (3.8-5.6)
[2021-12-28 16:53] LABS: CRP < 2.90 mg/L (0.0-3.0)
== END | disposition home or self-care (01) ==
LOC: LAB 14:35
PROVIDERS: PCP Internal Medicine; Referring Provider Ophthalmology; Visit Provider Ophthalmology
DX: H35.11 Retinopathy of prematurity, stage 0 (principal)
CPT/HCPCS: 36415; 83036; 85652; 86140

== ENCOUNTER → 2022-01-05 | Outpatient (CLI) | payer MEDICARE, BC, SELFPAY ==
[2022-01-05 17:17] LABS: Absolute Neutrophil Count 3.8 X10^3/uL (2.0-7.7); Basophil# 0.09 X10^3/uL; Basophil% 1.4 % (0-1); Eosinophil# 0.23 X10^3/uL; Eosinophils% 3.6 % (0-5); Hematocrit 43.2 % (37-47); Hemoglobin 14.1 g/dL (12.0-15.0); Lymphocyte % 27.9 % (19-41); Mean Corp Hgb Conc 32.6 g/dL (32-36); Mean Corpuscular Hgb 31.5 pg (27.0-32.0); Mean Corpuscular Volume 96.4 fL (81-99); Mean Platelet Vol. 11.3 fl (6.2-12.0); Monocyte# 0.49 X10^3/uL; Monocyte% 7.6 % (0-10); NRBC Flagged by Analyzer 0 % (0-5); Neutrophil # 3.83 X10^3/uL (2.7-7.7); Neutrophil % 59.2 % (47-70); Platelet Count 252 K/mm3 (150-450); RBC Distribution Width CV 13.3 % (11.6-14.6); RBC Distribution Width SD 47.5 fl (35.1-43.9); Red Blood Count 4.48 M/mm3 (4.2-5.4); White Blood Count 6.5 K/mm3 (4.4-11.0)
[2022-01-05 17:31] LABS: Hemoglobin A1c 5.7 % (3.8-5.6)
[2022-01-05 18:13] LABS: CRP < 2.90 mg/L (0.0-3.0)
== END | disposition home or self-care (01) ==
LOC: LAB 14:45
PROVIDERS: PCP Internal Medicine; Visit Provider Ophthalmology
DX: H35.81 Retinal edema (principal)
CPT/HCPCS: 36415; 83036; 85025; 86140

== ENCOUNTER → 2022-03-13 | Outpatient (CLI) | payer MEDICARE, BC, SELFPAY ==
--- NOTE | 2022-03-12 | MISC_PTH ---
PATIENT: LIBBY NAIDU LOC: NURY U#:[id number] AGE/SX: 67/F ROOM: RE03/13/[address]: Dr. Ángel Dove DDS : 1955 BED: DIS: 03/13/2022 SPEC #: [id number] RECD: 03/13/22 11:48 STATUS: JACQUE REVirgil #: [id number] BC: 03/12/22 00:[address]: Ángel Dove DEPT: SURGICAL PATHOLOGY RECD BY: Sedrick Yi ENTERED: 03/13/22 11:49 SP TYPE: MISC OTHR DR: Dr. Esther Malik DO Tissues: Cheek, NOS Procedures: Special Stain Group I Surgery Specimen Level IV GMS Stain (control) HEADER OPERATION: Biopsy left cheek PRE-OP DIAGNOSIS: Chronic pain, did not respond to topical steroid rinse TISSUE SUBMITTED: Left cheek MICROSCOPIC DIAGNOSIS Skin of left cheek, biopsy: Verrucoid keratosis, inflamed. Negative for fungal organisms. See comment. AM:arlene 03/14/2022 COMMENT GMS stain with matched control was used in the evaluation of this case. MICROSCOPIC DESCRIPTION Slides are reviewed. GROSS DESCRIPTION Received in fixative is one container labeled with the patient's name and designated cheek. The specimen consists of a piece of márquez-white skin measuring 0.7 x 0.6 x 0.3 cm. The specimen is inked, bisected and submitted entirely in one cassette. / SJ:arlene 03/13/2022 TC:5 CPT: 70266, 65910
== END | disposition home or self-care (01) ==
LOC: LABSPEC 10:58
PROVIDERS: PCP Internal Medicine; Referring Provider Dentist Oral and Maxillofacial Surgery; Visit Provider Dentist Oral and Maxillofacial Surgery
DX: L57.0 Actinic keratosis (principal)
CPT/HCPCS: 88305; 88312

== ENCOUNTER → 2022-04-02 | Outpatient (CLI) | payer MEDICARE, BC, SELFPAY ==
[2022-04-02 18:32] LABS: Free T3 2.9 pg/mL (2.18-3.98); T4 Free Direct 0.96 ng/dL (0.76-1.46); Thyroid Stim Hormone (TSH) 0.14 uIU/mL (0.358-3.74)
== END | disposition home or self-care (01) ==
LOC: MTLAB 14:43
PROVIDERS: PCP Internal Medicine; Visit Provider Internal Medicine Endocrinology, Diabetes & Metabolism
DX: E05.20 Thyrotoxicosis with toxic multinodular goiter without thyrotoxic crisis or storm (principal); F41.9 Anxiety disorder, unspecified
CPT/HCPCS: 36415; 84439; 84443; 84481

== ENCOUNTER → 2022-09-14 | Outpatient (CLI) | payer MEDICARE, BC, SELFPAY ==
[2022-09-14 15:06] LABS: Free T3 1.9 pg/mL (2.18-3.98); T4 Free Direct 0.79 ng/dL (0.76-1.46); Thyroid Stim Hormone (TSH) 3.09 uIU/mL (0.358-3.74)
== END | disposition home or self-care (01) ==
LOC: LAB 14:00
PROVIDERS: PCP Internal Medicine; Visit Provider Internal Medicine Endocrinology, Diabetes & Metabolism
DX: E05.20 Thyrotoxicosis with toxic multinodular goiter without thyrotoxic crisis or storm (principal); R73.03 Prediabetes; F41.9 Anxiety disorder, unspecified
CPT/HCPCS: 36415; 84439; 84443; 84481

== ENCOUNTER → 2022-11-28 | Outpatient (CLI) | payer MEDICARE, BC, SELFPAY ==
--- NOTE | 2022-11-28 13:57 | BI_ITS ---
MAMMOGRAPHY - BILATERAL SCREENING REASON FOR EXAM: Female, 67 years old. Routine annual screening examination. PERTINENT HISTORY: Non-contributory. Remote right excisional breast biopsy. TECHNIQUE: Digital bilateral breast kaitlin (3D mammographic acquisition) in the CC and MLO projections. 2-D mediolateral oblique (MLO) and craniocaudad (CC) views of both breasts were obtained. CAD: Full Field Digital Mammography with Computer Added Detection was performed. COMPARISON: Comparison is made with prior study dated December 10, 2019 and August 27, 2017. FINDINGS: Breast Composition: The breasts are extremely dense, which lowers the sensitivity of mammography. There are no dominant masses or suspicious calcifications. Stable scattered bilateral macrocalcifications. Stable appearance of the bilateral axillary lymph nodes. No other significant abnormalities are identified. There has been no significant change since the prior study. BI/SCRN MAMM (CAD)W/KAITLIN BILAT IMPRESSION: Stable bilateral screening mammogram. Yearly follow-up mammogram recommended. (A) ASSESSMENT CATEGORY: BIRADS Category 2: Benign. A letter regarding these results will be sent to the patient by the facility within 30 days. Approximately 10% of breast cancers are not detected by mammography. A normal mammogram should not delay biopsy of a clinically suspicious abnormality. [id number] Electronically Signed: Amrit Langford MD at 14:41 EDT ,
== END | disposition home or self-care (01) ==
LOC: OPBI 13:56
PROVIDERS: PCP Internal Medicine; Referring Provider Internal Medicine; Visit Provider Internal Medicine
DX: Z12.31 Encounter for screening mammogram for malignant neoplasm of breast (principal)
CPT/HCPCS: 77063; 77067

== ENCOUNTER → 2022-12-21 | Outpatient (CLI) | payer MEDICARE, BC, SELFPAY ==
--- NOTE | 2022-12-21 13:00 | CT_ITS ---
STUDY: LOW DOSE CT LUNG CANCER SCREENING REASON FOR EXAM: Female, 67 years old. PERSONAL HISTORY OF NICOTINE DEPENDENCE. Patient smoked 1 pack per day for 56 years. RADIATION DOSAGE (If Supplied By Facility): CTDIvol = ( 2.01 ) mGy, DLP = ( 72.48 ) mGycm TECHNIQUE: No contrast was administered. Low dose technique was utilized (average mAS-38 and kVp 120). 1.25 mm axial source images with a slice interval of 1.25-mm were reconstructed in lung windows. 2.5 mm axial source images with a slice interval of 2.5-mm were reconstructed in lung windows. 5.0 mm axial source images with a slice interval of 5.0-mm were reconstructed in soft tissue windows. COMPARISON: Comparison is made with prior study May 19, 2021. NODULES: Emphysema: Hyperinflation. Stable scarring in the lung apices are prominent within the right upper lobe. Small bullous formation in the medial aspect of the left upper lobe. Endobronchial lesion: Unremarkable. Aorta: Atherosclerotic calcific plaques of the aortic arch. CORONARY ARTERIES: Coronary artery calcification is seen. Heart: Unremarkable. Pulmonary artery: Unremarkable. Mediastinal nodes: Stable small benign appearing mediastinal lymph nodes. Other chest and abdominal findings: CT/Low Dose CT Lung Screening IMPRESSION: IMPORTANT NOTES FOR USE: ACR Lung-RADS Version 1.1 Assessment Categories Release Date: 2018 Category: Coded 0-4 bases on nodule(s) with highest degree of suspicion. Negative screen is defined as categories 1 and 2; a positive screen is defined as categories 3 and 4. Category 3 and 4A nodules that are unchanged on interval CT should be coded as category 2, and individuals returned to screening in 12 months. Category 4X: Category 3 or 4 nodules with additional imaging findings that increase the suspicion of lung cancer, such as spiculation, GGN that doubles in size in 1 year, enlarged lymph notes, etc. Category Modifiers: S (significant finding unrelated to lung cancer) Electronically Signed: Amrit Langford MD at 13:19 EDT ,
== END | disposition home or self-care (01) ==
LOC: CT 12:47
PROVIDERS: PCP Internal Medicine; Referring Provider Internal Medicine Pulmonary Disease; Visit Provider Internal Medicine Pulmonary Disease
DX: Z87.891 Personal history of nicotine dependence (principal)
CPT/HCPCS: 71271

== ENCOUNTER → 2023-01-03 | Outpatient (CLI) | payer MEDICARE, BC, SELFPAY ==
--- NOTE | 2023-01-03 13:07 | BD_ITS ---
STUDY: DUAL ENERGY X-RAY ABSORPTIOMETRY / DXA REASON FOR EXAM: Female, 68 years old. [id number] TECHNIQUE: Bone Mineral Density (BMD) measurements of lumbar spine and bilateral hips were obtained. COMPARISON: Comparison is made with prior study dated December 10, 2019. FINDINGS: Lumbar Spine (L1-L4): g/cm2 (0.634) / T-score (-3.1) / Z-score (-1.3) Findings are suggestive of osteoporosis with a high fracture risk. Left Femur Total: g/cm2 (0.657) / T-score (-2.3) / Z-score (-0.9) Left Femoral Neck: g/cm2 (0.568) / T-score (-2.5) / Z-score (-0.9) Right Femur Total: g/cm2 (0.678) / T-score (-2.2) / Z-score (-0.8) Right Femoral Neck: g/cm2 (0.582) / T-score (-2.4) / Z-score (-0.7) The T-Scores on the most recent prior examination were: Lumbar Spine (L1-L4): There has been improvement of bone density since the previous examination. Left Femur Total: which represents an improvement of 3.7%. Right Femur Total: which represents an improvement of 3%. BD/Dexa Bone Density Study IMPRESSION: The patient is considered osteoporotic as outlined below according to World Omero Organization (WHO) criteria with a high fracture risk. There has been improvement of bone density since the previous examination. Reference Information: The T-score is the number of standard deviations above or below the standard which is normal for young adults at their peak bone mineral density. The World Health Organization (WHO) interprets the T-scores as follows: Above -1 Normal bone density Between -1 and -2.5 Osteopenia Equal to / or below -2.5 Osteoporosis As a practical clinical guideline, osteopenia may be graded as follows: Mild -1 through -1.5 Moderate -1.6 through -2.0 Severe -2.1 through -2.4 The Z-score is the number of standard deviations above or below age-matched controls. A Z-score of less than -1.5 would be considered abnormal. References: 1. NIH Osteoporosis and Related Bone Diseases www osteo.org 2. International Society for Clinical Densitometry www iscd.org 3. National Osteoporosis Foundation www nof.org Electronically Signed: Amrit Langford MD at 14:38 EDT ,
== END | disposition home or self-care (01) ==
LOC: OPBD 12:56
PROVIDERS: PCP Internal Medicine; Referring Provider Internal Medicine; Visit Provider Internal Medicine
DX: Z78.0 Asymptomatic menopausal state (principal)
CPT/HCPCS: 77080

== ENCOUNTER → 2023-01-24 | Outpatient (CLI) | payer MEDICARE, BC, SELFPAY ==
[2023-01-24 16:40] LABS: Free T3 2.7 pg/mL (2.18-3.98); T4 Free Direct 0.71 ng/dL (0.76-1.46); Thyroid Stim Hormone (TSH) 3.63 uIU/mL (0.358-3.74)
== END | disposition home or self-care (01) ==
LOC: LAB 14:39
PROVIDERS: PCP Internal Medicine; Referring Provider Nurse Practitioner Family; Visit Provider Nurse Practitioner Family
DX: E05.90 Thyrotoxicosis, unspecified without thyrotoxic crisis or storm (principal)
CPT/HCPCS: 36415; 84439; 84443; 84481

== ENCOUNTER → 2023-03-26 | Outpatient (CLI) | payer MEDICARE, BC, SELFPAY ==
[2023-03-26 15:59] LABS: Vitamin D,25 Hydroxy 126.4 ng/mL
[2023-03-26 16:20] LABS: ALB/GLOB Ratio 0.9 RATIO (0.9-2.4); AST(SGOT) 15 U/L (15-37); Alanine Aminotransfer ALT/SGPT 19 U/L (13-56); Albumin, Serum 3.4 g/dL (3.2-5.0); Alkaline Phosphatase 86 U/L (45-117); Anion Gap 7 (5-15); BUN 22 mg/dL (7-18); BUN/Creat Ratio 27.3 RATIO (10-20); Calcium,Total 9.2 mg/dL (8.5-10.1); Chloride 107 mmol/L (98-107); EST Glomerular Filtration Rate 75 mL/min (>60); Est Glom Filt Rate - Afr Amer 91 mL/min (>60); Free T3 2.7 pg/mL (2.18-3.98); Globulin 3.7 g/dL (2.2-4.2); Glucose 97 mg/dL (74-106); Potassium 3.8 mmol/L (3.5-5.1); Protein, Total 7.1 g/dL (6.4-8.2); Sodium Level 142 mmol/L (136-145); T4 Free Direct 0.77 ng/dL (0.76-1.46); Thyroid Stim Hormone (TSH) 2.25 uIU/mL (0.358-3.74)
== END | disposition home or self-care (01) ==
LOC: BIMLAB 14:12
PROVIDERS: PCP Internal Medicine; Referring Provider Internal Medicine Endocrinology, Diabetes & Metabolism; Visit Provider Internal Medicine Endocrinology, Diabetes & Metabolism
DX: E05.90 Thyrotoxicosis, unspecified without thyrotoxic crisis or storm (principal); E55.9 Vitamin D deficiency, unspecified; M81.0 Age-related osteoporosis without current pathological fracture
CPT/HCPCS: 36415; 80053; 82306; 84439; 84443; 84481

== ENCOUNTER → 2023-05-14 | Outpatient (CLI) | payer MEDICARE, BC, SELFPAY ==
[2023-05-14 16:06] LABS: Vitamin D,25 Hydroxy 75.4 ng/mL
[2023-05-14 16:14] LABS: Free T3 2.7 pg/mL (2.18-3.98); T4 Free Direct 0.77 ng/dL (0.76-1.46); Thyroid Stim Hormone (TSH) 2.68 uIU/mL (0.358-3.74)
== END | disposition home or self-care (01) ==
LOC: BIMLAB 13:58
PROVIDERS: PCP Internal Medicine; Visit Provider Internal Medicine Endocrinology, Diabetes & Metabolism
DX: E05.90 Thyrotoxicosis, unspecified without thyrotoxic crisis or storm (principal); E55.9 Vitamin D deficiency, unspecified
CPT/HCPCS: 36415; 82306; 84439; 84443; 84481

== ENCOUNTER 2023-06-06 07:16 | Inpatient (IN) | payer MEDICARE, BC, SELFPAY ==
--- NOTE | 2023-05-22 13:30 | RAD_ITS ---
INDICATION: PRE OP EXAMINATION/TECHNIQUE: X-RAY - XR Chest 2 Views COMPARISON: December 23, 2019 FINDINGS: LINES/DEVICES: None. LUNGS: No consolidation, edema or effusion. No pneumothorax. MEDIASTINUM AND CARDIOVASCULAR STRUCTURES: Cardiac silhouette not enlarged. Central airways and mediastinal contour are unremarkable. BONES AND SOFT TISSUES: Unremarkable. RAD/Chest PA and Lateral IMPRESSION: No radiographic evidence of acute cardiopulmonary disease. Electronically Signed: Hallie Braswell MD at 13:47 EDT ,
[2023-05-22 14:23] LABS: Absolute Lymphocyte Count 1.44 X10^3/uL (0.83-4.51); Basophil# 0.09 X10^3/uL; Basophil% 1.5 % (0-1); Eosinophil# 0.13 X10^3/uL; Eosinophils% 2.1 % (0-5); Hematocrit 43.3 % (37-47); Hemoglobin 13.8 g/dL (12.0-15.0); Lymphocyte # 1.44 X10^3/ul (0.83-4.51); Lymphocyte % 23.5 % (19-41); Mean Corp Hgb Conc 31.9 g/dL (32-36); Mean Corpuscular Hgb 30.5 pg (27.0-32.0); Mean Corpuscular Volume 95.6 fL (81-99); Mean Platelet Vol. 10.5 fl (6.2-12.0); Monocyte# 0.44 X10^3/uL; Monocyte% 7.2 % (0-10); NRBC Flagged by Analyzer 0 % (0-5); Neutrophil # 4.03 X10^3/uL (2.7-7.7); Neutrophil % 65.5 % (47-70); Platelet Count 261 K/mm3 (150-450); RBC Distribution Width CV 13.4 % (11.6-14.6); RBC Distribution Width SD 47.6 fl (35.1-43.9); Red Blood Count 4.53 M/mm3 (4.2-5.4); White Blood Count 6.1 K/mm3 (4.4-11.0)
[2023-05-22 14:33] LABS: Partial Thromboplast Time 25.1 Seconds (24.1-36.2)
[2023-05-22 14:52] LABS: Anion Gap 4 (5-15); BUN 26 mg/dL (7-18); BUN/Creat Ratio 26.1 RATIO (10-20); Calcium,Total 9.4 mg/dL (8.5-10.1); Chloride 109 mmol/L (98-107); EST Glomerular Filtration Rate 59 mL/min (>60); Est Glom Filt Rate - Afr Amer 71 mL/min (>60); Glucose 100 mg/dL (74-106); Sodium Level 142 mmol/L (136-145)
[2023-06-06] VITALS (15 sets, daily range): BP systolic 113–128; BP diastolic 46–73; PULSE 83–94; RESP 14–18; TEMP 36.4–37; O2SAT 94–99; BMI 22.4
[2023-06-06] MEDS: Lactated Ringers 1,000 ML 15 ML IV (06:20)
--- NOTE | 2023-06-06 07:13 | DS.PCM_ITS ---
Providers Date of Admission: 06/06/23 Primary Care Physician: Dr. Esther Malik, DO Reason For Visit: LUMBAR 3 - LUMBAR 4, LUMBAR 4 - LUM Medications at Discharge Home Medications citalopram 20 mg tablet 20 mg PO DAILY anxiety 11/10/15 albuterol sulfate 2.5 mg/3 mL (0.083 %) solution for nebulization 2.5 mg inhalation Q6H PRN Wheezing 01/20/20 fluticasone fur. 100 mcg-umeclid 62.5 mcg-vilant 25 mcg inhalat.powder 1 ea IH DAILY COPD 02/25/20 denosumab 60 mg/mL subcutaneous syringe (Prolia) 60 mg subcut [id number] thinning of the arteries 05/16/20 multivitamin (Daily Multi-Vitamin tablet) 2 tab PO DAILY supplement 04/06/21 rosuvastatin 10 mg tablet 10 mg PO DAILY cholesterol 04/06/21 zinc 50 mg tablet 50 mg PO DAILY supplement 04/06/21 esomeprazole magnesium 20 mg capsule,delayed release (Nexium) 40 mg PO DAILY stomach 06/16/21 sucralfate 1 gram tablet 1 g PO BID stomach 06/16/21 ondansetron 4 mg disintegrating tablet 2 mg PO Q12H PRN nausea and vomiting 06/20/22 acetaminophen 650 mg tablet,extended release (Tylenol Arthritis Pain) 650 mg PO DAILY arthritis pain 03/15/23 Lactobacillus acidophilus 20 billion cell capsule (Florajen Acidophilus) 100 mmu cells PO DAILY probiotic 05/24/23 calcium polycarbophil 625 mg tablet (Fiber-Tabs) 1,250 mg PO DAILY digestion 05/24/23 cyanocobalamin (vitamin B-12) 1,000 mcg tablet (Vitamin B-12) 1,000 mcg PO DAILY supplement 05/24/23 methimazole 5 mg tablet 5 mg PO DAILY thyroid 05/24/23 lorazepam 0.5 mg tablet 0.5 mg PO DAILY PRN anxiety 06/09/23 Hospital Course Operations - (L3-4, L4-5 posterior lumbar interbody fusion, decompression, posterior spinal fusion with instrumentation, use of allograft) Summary of Care Provided Minutes Spent on Discharge: 15 Hospital Course: The patient is a 68-year-old female who underwent L3-L5 fusion on 06/06/2023. She was subsequently admitted. The hospitalist was consulted for medical management. The patient progressed well. Her pain was controlled and she was mobilizing well. Her drain was pulled on postoperative day 1. No significant medical issues were reported. She was subsequently discharged home on 06/08/2023 to follow-up with Dr. Morley in 3 weeks Physical Exam Const alert, oriented x3 and no apparent distress General Appearance: cooperative, comfortable and well kempt Neck full ROM General: normal visual inspection Chest inspection of chest normal and palpation of chest normal Resp normal respiratory effort and normal air movement Effort and Inspection: able to speak in complete sentences Cardio regular rate and peripheral pulses 2+ throughout GI soft to palpation, non-tender and non-distended Back/Spine Back/Spine Narrative: Dressing clean dry and intact. Incision well approximated with interrupted sutures in place. No tenderness erythema drainage or fluctuance. Drain removed Cervical Spine: cervical ROM normal Thoracic Spine / Upper Back: normal to inspection Lumbar Spine / Lower Back: normal to inspection Extremity normal to inspection, full ROM, normal capillary refill, no clubbing, cyanosis or edema and no calf tenderness Skin no rashes or lesions noted General Skin Exam: no breakdown Neuro oriented x3, CN's II-XII intact bilaterally, moves all extremities, no focal motor deficits, no sensory deficits noted and deep tendon reflexes 2+ bilateral ly Motor Exam: strength 5/5 throughout and muscle tone normal throughout Weight / BMI Weight Weight: 119 lb 0.794 oz Body Mass Index (BMI) 22.4 ABG / Lab / Microbiology Data 05/22/23 13:42 05/22/23 13:42 D/C Instructions Discharge Diet: No restrictions Additional Activity Instructions: Wear back brace at all times. No repetitive bending twisting or lifting greater than 5 pounds. Okay to remove brace to s leep Call your doctor if your incision/area has: Continuous Slow Oozing, Sudden Increased Bleeding, Increased Pain/ Swelling, Increased Redness, Foul Smelling Discharge and Swelling at the incision site Call your doctor if you observe: Fever of 101 or Higher, Coldness, Increased Pain, Numbness or Tingling, Change in Color, Inability to urinate, Inability to have a bowel movement, Using more than 1 pad per hour, Shortness of breath, Dizziness, Fainting spells, Swelling in the ankles, Chest pain, Prolonged hiccupping, Increased palpitations (irregular heartbeat), Calf discomfort and Uncontrolled pain Cleanse incision/area with: Do not get Incision Wet and Keep Dressing Clean & Dry Additional Dressing/Incision Instructions: Change dressing daily with iodine gauze and tape. Use waterproof dressing to shower Additional Instructions: 1. During your procedure, you received sedation through your IV. Please follow these instructions for the next 24 hours: Do not drive a motor vehicle, do not drink any alcoholic beverages, and do not sign any legal documents or make personal or business decisions. A responsible adult should stay with you at least 6 hours after the procedure. 2. Keep your surgical site/incision clean and the dressing dry and intact. You may use an ice pack at the surgical site to reduce any swelling or discomfort. 3. Monitor the incision site for any signs or symptoms of infection. Watch for redness, excessive swelling or drainage, or continued pain at the incision site after 3 days. Contact your physician immediately for a fever, chills or a temperature of 101.5? F or greater. 4. Take your medication exactly as prescribed by your physician. Do not attempt to wean yourself off any of your medications even though your pain is improving. This process needs to be carefully monitored by your doctor. Take any antibiotics prescribed exactly as directed and until they are gone. 5. Avoid stretching, bending, pulling, twisting or any sudden movements. Do not bend or twist at the waist. Wear back brace at all times 6. No lifting greater than 5 pounds. 7. Do not operate a motor vehicle, equipment or a power tool while taking pain medication 8. Do not have any manipulation done by a chiropractor or any other physician without first consulting with the surgeon 9. Please contact our office if you are even scheduled for a CT scan or an MRI. 10. Please call us if you have any questions, problems or concerns. Please Follow Up With: Chinmay Morley DO When: 3 weeks Meaningful Use Info Meaningful Use Diagnoses (Choose all that apply): None applicable Discharge Plan Admission Admit Date/Time: 06/06/23 07:16 Primary Reason for Your Visit: lumbar 3- lumbar-4 Attending Provider: Chinmay Morley Primary Care Provider: Esther Malik Consulting Providers: Jose Sow Discharge Orders/Prescriptions Prescriptions: Continued esomeprazole magnesium [Nexium] 20 mg capsule,delayed release(DR/EC) 40 mg PO DAILY Prolia 60 mg/mL syringe 60 mg SC [id number] albuterol sulfate 2.5 mg /3 mL (0.083 %) solution for nebulization 2.5 mg INHALATION Q6H PRN (Reason: Wheezing) Patient Comments: has not used in forever rosuvastatin 10 mg tablet 10 mg PO DAILY Patient Comments: unsure of dosage multivitamin [Daily Multi-Vitamin] Tablet 2 tab PO DAILY zinc 50 mg tablet 50 mg PO DAILY ondansetron 4 mg tablet,disintegrating 2 mg PO Q12H PRN (Reason: nausea and vomiting) Patient Comments: patient states she only takes 1/2 tablet acetaminophen [Tylenol Arthritis Pain] 650 mg tablet extended release 650 mg PO DAILY citalopram 20 MG tablet 20 mg PO DAILY Patient Comments: depression sucralfate 1 gram tablet 1 g PO BID Patient Comments: patient takes 1 tablet twice a day, while script states to take 4 times day. unsure of dosage [id number] 1 EACH blister with device 1 ea IH DAILY calcium polycarbophil [Fiber-Tabs] 625 mg tablet 1,250 mg PO DAILY cyanocobalamin (vitamin B-12) [Vitamin B-12] 1,000 mcg tablet 1,000 mcg PO DAILY Florajen Acidophilus 20 billion cell capsule 100 mmu cells PO DAILY methimazole 5 mg tablet 5 mg PO DAILY Patient Comments: script states to take 1/2 tab daily while pt states she takes 1 tab daily. unsure of dosage Discontinued lorazepam 0.5 MG tablet 0.5 mg PO DAILY PRN PRN (Reason: Anxiety) Patient Comments: anxiety aspirin 81 MG tablet,delayed release (DR/EC) 81 mg PO DAILY Qty: 30 1RF Patient Comments: heart health No Action lorazepam 0.5 mg tablet 0.5 mg PO DAILY PRN (Reason: anxiety) Patient Comments: script states to take 1 tablet daily prn, pt states only states 1/2 tablet prn Referrals / Follow Up: Chinmay Morley DO [Med Staff - Active Staff] - Esther Malik DO [Primary Care Provider] - Disposition Disposition (needs filled in before D/C Order can be placed): Home, Self Care
--- NOTE | 2023-06-06 07:13 | PN.ORTHO_ITS ---
Subjective Subjective Seen and examined postop. Resting comfortably. Pain controlled. No complaints Objective Data Objective Data Vital Signs: Vital Signs Temp Pulse Resp BP Pulse Ox O2 Del Method 97.8 F 92 18 127/69 H 96 Room Air 06/06/23 06:20 06/06/23 06:20 06/06/23 06:20 06/06/23 06:20 06/06/23 06:20 06/06/23 06:20 Oxygen Delivery Method Room Air Weight: 119 lb 0.794 oz Body Mass Index (BMI) 22.4 Lab / Micro Data 05/22/23 13:42 05/22/23 13:42 Physical Exam Const alert and no apparent distress General Appearance: cooperative, comfortable and well kempt HEENT normocephalic and head/scalp atraumatic Head and Scalp: normal to inspection Eyes EOMs intact bilaterally and conjunctivae normal Neck full ROM General: normal visual inspection Chest inspection of chest normal and palpation of chest normal Resp normal respiratory effort and normal air movement Cardio regular rate, regular rhythm and peripheral pulses 2+ throughout GI soft to palpation, non-tender and non-distended Back/Spine Back/Spine Narrative: Dressing clean dry and intact. Drain in place and functioning Cervical Spine: cervical ROM normal Thoracic Spine / Upper Back: normal to inspection Lumbar Spine / Lower Back: normal to inspection Extremity normal to inspection, full ROM, normal capillary refill, no clubbing, cyanosis or edema and no calf tenderness Skin no rashes or lesions noted General Skin Exam: no breakdown Neuro oriented x3, CN's II-XII intact bilaterally, moves all extremities, no focal motor deficits, no sensory deficits noted and deep tendon reflexes 2+ bilate rally Motor Exam: muscle tone normal throughout Assessment & Plan Assessment/Plan (1) Lumbar stenosis: PLAN: Okay to admit See orders Discharge planning, likely home tomorrow
--- NOTE | 2023-06-06 07:13 | OP.PCM_ITS ---
Report of Operation Date of Procedure: 06/06/23 Description of Surgical Findings:: Preop diagnosis: 1. Lumbar stenosis, L3-4, L4-5 with spondylosis 2. Lumbar degenerative disc disease L3-4, L4-5 3. L4-5 spondylolisthesis Postop diagnosis: 1. Lumbar stenosis, L3-4, L4-5 with spondylosis 2. Lumbar degenerative disc disease L3-4, L4-5 3. L4-5 spondylolisthesis 4. Durotomy Procedures performed: 1. L3-4 posterior lumbar interbody fusion 2. L4-5 posterior lumbar interbody fusion 3. Insertion of intervertebral biomechanical device x2 3. Structural allograft for spinal fusion 4. L3 bilateral laminectomies, foraminotomies, facetectomies, decompression of bilateral nerve roots 5. L4 bilateral laminectomies, foraminotomies, facetectomies, decompression of bilateral nerve roots 6. L5 partial bilateral laminectomies, foraminotomies, facetectomies, decompression of bilateral nerve roots 7. L3-4 posterolateral fusion 8. L4-5 posterolateral fusion 9. Pedicle screw fixation 10. Local autograft for spinal fusion 11. Neuro monitoring bilateral upper and bilateral lower extremities 12. Repair of durotomy Statement of medical necessity: The patient is a 68-year-old female with intractable back and leg pain. Image studies confirm the above diagnoses. They have failed conservative treatments to include medications physical therapy and injections and have opted for operative intervention understanding the risk to include but not limited to infection, bleeding, damage to nerves arteries and veins, possibility of spinal fluid leak, nonunion, hardware failure, continued pain, need for further surgery, deep vein thrombosis, pulmonary embolism, heart attack, risk of stroke or . Description of the procedure: The patient was identified in the preoperative holding area. There they received preoperative IV antibiotics and was then transferred to the operative suite. Once in the operative suite after general endotracheal anesthesia was established, the patient was positioned prone on the [place] operating table. All bony prominences were padded accordingly. The lumbar spine was prepped and draped in a standard fashion. Bear hugger's were not turned on until the drapes were placed and sealed with Ioban. A midline incision was made and taken down to the fascia. The fascia was divided and subperiosteal dissection was taken down to the level of the transverse processes of L3, L4, and L5 bilaterally. Deep retractors were placed. A bone scalpel was used to make cuts in the lamina and then a series of rongeurs and Kerrisons were used removing the spinous process and lamina of L3, L4, and partially of L5. Then facetectomies of greater than 50% were performed as well as foraminotomies decompressing the bilateral nerve roots. Given the severity of the stenosis I needed to perform wide bilateral laminectomies and near complete facetectomies in order to decompress the neural elements. Disc created instability necessitating the fusion. I then proceeded with interbody fusion. At this time a small durotomy was noted on the dorsal dural sac to the right of the midline. This was repaired without complication using 6-0 silk suture. A Valsalva maneuver was then done which showed no CSF leakage. The nerve roots and dura were identified and retracted medially. A knife was utilized to perform an annulotomy at L3-4 on the right. Endplate elevators, curettes, and pituitaries were utilized to remove disc material. Endplates were prepared with a rasp. An appropriate sized intervertebral peek cage device measuring 8 mm was packed with structural allograft and impacted into position completing the posterior lumbar interbody fusion at the L3-4 level. The same steps were repeated at the L4-5 level and an intervertebral peek cage device measuring 8 mm was packed with structural allograft and impacted into position completing the posterior lumbar interbody fusion at the L4-5 level. I then proceeded with pedicle screw fixation. Starting points were found at the junction of the superior articular process and transverse processes of L3, L4, and L5 bilaterally. A power bur was used for the starting points. Pedicle probes were placed bilaterally and then 6.5 x 50 mm screws were placed bilaterally at L3, L4, and L5. The screws were tested with intraoperative neurophysiologic monitoring and tested within normal limits. Connector rods were applied and secured with set screws. I then proceeded with the posterolateral fusion. This was accomplished by decorticating the transverse processes bilaterally at L3, L4, and L5. This decorticated bone was then bridged with local autograft from the decompression as well as morselized cancellous allograft completing the posterolateral fusion of the L3-4 and L4-5 levels. The incision was thoroughly irrigated. Tisseel was placed over the dura as a hemostatic agent. A deep drain was placed. The fascia was closed with #1 Vicryl, subcutaneous with 2-0 Vicryl and skin with 2-0 nylon. A sterile dressing was applied with 4 x 4's ABD and tape. Sponge instrument and needle counts were correct at the end of the case. Neurophysiologic monitoring was maintained at baseline throughout the duration of the case. The patient was extubated and taken to the PACU without incident Surgeon: Chinmay Morley Type of Anesthesia: General Drains: Hemovac Estimated Blood Loss (mL): 325 cc Fluids Replaced: 2000 cc Grafts/Implants Used: Unified spine Complications None Admit VTE Documentation VTE Present on Admission: No
[2023-06-06] MEDS: Heparin 10,000 UNITS/10 ML Vial 10000 UNITS (07:30)
[2023-06-06] MEDS: Cefazolin 2 GM in 0.9% Normal Saline (100mL Bag) 100 ML IV (07:30)
--- NOTE | 2023-06-06 07:43 | RAD_ITS ---
INDICATION: L3-4, L4-5 POSTERIOR FUSION EXAMINATION/TECHNIQUE: X-RAY - XR Spine Lumbar 2 or 3 Views COMPARISON: Prior study dated: 12/02/2022. FINDINGS: 5 views of the lumbar spine were obtained intraoperatively. Status post fusion of L4, L5 and S1 considering 5 lumbar type vertebrae. The examination was not performed for diagnostic purposes and is not diagnostic. RAD/Lumbar Spine 2 or 3 Views IMPRESSION: Intraoperative exam as described above. Electronically Signed: Sunil Mojica MD at 13:51 EDT ,
[2023-06-06] MEDS: THROMBIN (RECOMBINANT) 20,000 UNIT VIAL 20000 UNIT TOPICAL (09:05)
[2023-06-06] MEDS: Bupivacaine 0.25% 30 ML Vial (11:35)
[2023-06-06] MEDS: Morphine 4 MG/ML Syringe IV ×2 (16:03→21:31)
--- NOTE | 2023-06-06 16:14 | PN.HOSP_ITS ---
Reason for Visit Reason for Visit: Diagnoses Spinal stenosis, lumbar region without neurogenic claudication (06/06/23) Subjective Subjective Patient was seen and examined today, she is postop lumbar fusion at L3-4 and L4- L5 posterior lumbar fusion, she is complaining of back pain at this time and some tingling in her left foot. Patient's medical history includes COPD, GERD, chronic depression, chronic anxiety, hyperlipidemia, and hyperthyroidism. I have reviewed her medications at this time and will make adjustments as needed. Objective Data Objective Data Vital Signs: Vital Signs Temp Pulse Resp BP Pulse Ox O2 Del Method O2 Flow Rate 98.2 F 88 16 121/57 H 97 Nasal Cannula 2 06/06/23 14:00 06/06/23 14:00 06/06/23 14:00 06/06/23 14:00 06/06/23 14:00 06/06/23 14:00 06/06/23 14:00 Oxygen Flow Rate (L/min) 2 Oxygen Delivery Method Nasal Cannula Weight: 54 kg Body Mass Index (BMI) 22.4 Intake & Output: Intake and Output for Last 24 Hours 06/04/23 06/05/23 06/06/23 23:59 23:59 23:59 Intake Total 1110 / 1110 Output Total 475 / 475 Balance 635 / 635 Lab / Micro Data 05/22/23 13:42 05/22/23 13:42 Radiography Diagnostic Testing: Radiology Impression Lumbar Spine X-Ray 06/06/23 07:43 IMPRESSION: Intraoperative exam as described above. Electronically Signed: Sunil Mojica MD at 13:51 EDT , Physical Exam Const alert, oriented x3, average body habitus and healthy appearing Constitutional Narrative: Patient is resting in bed at this time, she is in moderate pain due to incisional pain General Appearance: cooperative, well kempt and well developed Orientation / Consciousness: awake, oriented to person, oriented to place and oriented to time HEENT normocephalic, head/scalp atraumatic and moist oral mucous membranes Eyes PERRL, EOMs intact bilaterally and conjunctivae normal Neck supple, no JVD, thyroid normal and no carotid bruits General: trachea midline Resp normal respiratory effort, no retractions, no use of accessory muscles and clear to auscultation bilaterally Auscultation: Negative for rales, rhonchi or wheezes Cardio regular rate, regular rhythm, S1 normal heart sound, S2 normal heart sound, no murmurs, no rub and no gallops GI normal to inspection, nondistended, normoactive bowel sounds, soft to palpation, non-tender and non-distended Extremity no clubbing, cyanosis or edema Skin no rashes or lesions noted General Skin Exam: no breakdown Neuro oriented x3, CN's II-XII intact bilaterally, moves all extremities, no focal motor deficits and no sensory deficits noted Sensorium / Orientation: awake, alert, oriented to person, oriented to place and oriented to time Speech: speech normal Psych affect normal Assessment & Plan Assessment/Plan (1) COPD (chronic obstructive pulmonary disease): PLAN: Plan 1. Chronic obstructive pulmonary disease-patient is on a trilogy inhaler, I will place her on budesonide aerosol treatments twice daily and DuoNeb aerosols every 6 hours while awake, she will be given albuterol aerosols as needed #2 chronic depression-patient is on Celexa at this time, this will be continued #3 hyperlipidemia-patient is on a statin #4 GERD-patient is on a PPI and Carafate #5 hypothyroidism-patient is on methimazole #6 degenerative joint disease of the lumbar spine-postop day 0 L3-L4 and L4-L5 posterior fusion-PT and OT will see the patient, spinal surgery is participating in her care, I discussed with the family the need for her to have a commode riser when she was at home Total clinical time spent by myself addressing the patient's medical issues, reviewing all of her data, and collaborating with patient's care team: 35- minutes Charges/Coding Visit Charges Inpatient E&M: 74472 Subs Hosp L2
[2023-06-06] MEDS: Cefazolin 1 GM/50 ML BAG IV ×2 (16:24→23:30)
[2023-06-06] MEDS: Lactated Ringers 1,000 ML 100 ML IV (16:24)
[2023-06-06] MEDS: oxyCODONE 5 MG Tablet PO ×2 (18:41→23:30)
[2023-06-06] MEDS: Budesonide Respules 0.5 MG/2 ML AMPUL.NEB. INHALATION (19:33)
[2023-06-06] MEDS: Ipratropium/Albuterol Sulfate 3 ML AMPUL.NEB INHALATION (19:33)
[2023-06-06] MEDS: Atorvastatin Calcium 40 MG Tablet PO (21:29)
[2023-06-06] MEDS: Acetaminophen 500 MG Tablet 1000 MG PO (21:29)
[2023-06-07] VITALS (7 sets, daily range): BP systolic 103–128; BP diastolic 47–57; PULSE 75–90; RESP 15–18; TEMP 36.7–37.2; O2SAT 90–95
[2023-06-07] MEDS: Lactated Ringers 1,000 ML 100 ML IV (03:41)
[2023-06-07] MEDS: oxyCODONE 5 MG Tablet PO ×4 (03:46→18:29)
[2023-06-07] MEDS: Ondansetron ODT 4 MG Tablet PO ×2 (03:51→18:26)
[2023-06-07] MEDS: Sucralfate 1 GM Tablet PO ×2 (06:23→16:27)
[2023-06-07] MEDS: Acetaminophen 500 MG Tablet 1000 MG PO ×3 (06:24→21:23)
[2023-06-07] MEDS: Ipratropium/Albuterol Sulfate 3 ML AMPUL.NEB INHALATION (07:12)
[2023-06-07] MEDS: Budesonide Respules 0.5 MG/2 ML AMPUL.NEB. INHALATION ×2 (07:15→19:37)
--- NOTE | 2023-06-07 07:47 | PCM.PN.ORT ---
Subjective Subjective The patient was seen and examined postoperative day 1. She is lying in bed resting comfortably. She is complaining of some pain and discomfort in the lower back at her surgery site. She also complains of some paresthesias in the right anterior thigh. She states she has not yet been out of bed walking because of subjective weakness in her legs. She denies any other complaints at this time. Objective Data Objective Data Vital Signs: Vital Signs Temp Pulse Resp BP Pulse Ox O2 Del Method O2 Flow Rate 98.4 F 90 15 110/56 L 90 Room Air 2 06/07/23 03:30 06/07/23 07:12 06/07/23 07:12 06/07/23 03:30 06/07/23 07:12 06/07/23 07:12 06/06/23 19:06 Oxygen Flow Rate (L/min) 2 Oxygen Delivery Method Room Air Weight: 119 lb 0.794 oz Body Mass Index (BMI) 22.4 Intake & Output: Intake and Output for Last 24 Hours 06/05/23 06/06/23 06/07/23 23:59 23:59 23:59 Intake Total 1511.67 / 1511.67 1626.66 / 1626.66 Output Total 475 / 475 650 / 650 Balance 1036.67 / 1036.67 976.66 / 976.66 Lab / Micro Data 05/22/23 13:42 05/22/23 13:42 Radiography Diagnostic Testing: Radiology Impression Lumbar Spine X-Ray 06/06/23 07:43 IMPRESSION: Intraoperative exam as described above. Electronically Signed: Sunil Mojica MD at 13:51 EDT , Physical Exam Const alert, oriented x3 and no apparent distress General Appearance: cooperative, comfortable and well kempt Neck full ROM General: normal visual inspection Resp normal respiratory effort and normal air movement Effort and Inspection: able to speak in complete sentences Cardio regular rate and peripheral pulses 2+ throughout GI soft to palpation, non-tender and non-distended Back/Spine no CVA tenderness Back/Spine Narrative: Dressing clean dry and intact. Incision well approximated with interrupted sutures in place. Drain was removed without complication Cervical Spine: cervical ROM normal Thoracic Spine / Upper Back: normal to inspection Lumbar Spine / Lower Back: normal to inspection Extremity normal to inspection, full ROM, normal capillary refill, no clubbing, cyanosis or edema and no calf tenderness Skin no rashes or lesions noted General Skin Exam: no breakdown Neuro oriented x3, CN's II-XII intact bilaterally, moves all extremities, no focal motor deficits, no sensory deficits noted and deep tendon reflexes 2+ bilaterally Neuro Narrative: 4 out of 5 strength in right hip flexion. Otherwise 5- out of 5 strength throughout the lower extremities Motor Exam: muscle tone normal throughout Assessment & Plan Assessment/Plan (1) Lumbar stenosis: PLAN: I had a lengthy discussion with the patient. I did remove her drain. I do encourage her to work with physical therapy today. If her pain is controlled and she is mobilizing well I am okay with her going home today. I do recommend a walker for her at home and she told me that she does have one. However if her pain is not controlled and she is not mobilizing well I recommend staying another day. We will see how she does today. She understands and agrees with the treatment plan
[2023-06-07] MEDS: Multivitamins,Therapeutic Tablet 1 TABLET PO (08:06)
[2023-06-07] MEDS: Citalopram 20 MG Tablet PO (08:07)
[2023-06-07] MEDS: Cyanocobalamin 500 MCG Tablet 1000 MCG PO (08:08)
[2023-06-07] MEDS: Zinc Sulfate 50 mg zinc (220 mg) ORAL capsule PO (08:08)
[2023-06-07] MEDS: Pantoprazole Sodium 40 MG Tablet PO (08:09)
--- NOTE | 2023-06-07 08:25 | NURSING ---
pt dropped 1 vit b on floor. this nurse pulled 2 from 5by and gave 1 to pt.
--- NOTE | 2023-06-07 08:46 | NURSING ---
pox 88% on ra, o2@2l applied, pox 92%. will notify dr jimenez
--- NOTE | 2023-06-07 10:28 | CASEMGMT ---
MANOLO GUILLERMO Assessment: Face to Face with pt for initial transition planning/care coordination assessment. MANOLO GUILLERMO introduced self and role at [facility], pt voices understanding and consents to assessment. Pt is A&O x4 and answers all questions appropriately at this time. Pt sitting up in chair with oxygen on in no distress. Care providers, pharmacy, and demographics verified/updated. Admitting Dx: lumbar stenosis PCP:King Specialists:cecilia Morley; Za pulquin; meryl Martin [facility]erred [facility]: [facility] Benef[facility]: yes LNOK: Benny Otero, Living Arrangements: Pt lives with in a two story home with 2 steps to enter without a rail. Pt reports she will be staying on the first floor initially. able to assist. Pt denies concerns at home. Transportation: Pt drives self and denies concerns with transportation. Pt family will transport pt until she can drive again. DME:Nebulizer, FWW HHC/SNF: Denies hx of Pt states no concerns with going home at time of dc. Pt has not had oxygen before. Pt states no further concerns/needs. CM to follow. Advised pt to ask CM if any further question/concerns/needs arise, voices understanding. Pt Goal: Home Plan: Home, follow for oxygen
[2023-06-07] MEDS: methIMAzole 5 MG TABLET PO (10:39)
--- NOTE | 2023-06-07 10:47 | PN_ITS ---
Subjective Subjective Patient seen and examined. She complained of pain at the site of the surgery. Review of systems is otherwise Objective Data Objective Data Vital Signs: Vital Signs Temp Pulse Resp BP Pulse Ox O2 Del Method O2 Flow Rate 98.5 F 81 17 110/47 L 93 Nasal Cannula 1 06/07/23 09:11 06/07/23 09:11 06/07/23 09:11 06/07/23 09:11 06/07/23 09:11 06/07/23 09:11 06/07/23 10:00 Oxygen Flow Rate (L/min) 1 Oxygen Delivery Method Nasal Cannula Weight: 119 lb 0.794 oz Body Mass Index (BMI) 22.4 Intake & Output: Intake and Output for Last 24 Hours 06/05/23 06/06/23 06/07/23 23:59 23:59 23:59 Intake Total 1511.67 / 1511.67 1626.66 / 1626.66 Output Total 475 / 475 1050 / 1050 Balance 1036.67 / 1036.67 576.66 / 576.66 Lab / Micro Data 05/22/23 13:42 05/22/23 13:42 Radiography Diagnostic Testing: Radiology Impression Lumbar Spine X-Ray 06/06/23 07:43 IMPRESSION: Intraoperative exam as described above. Electronically Signed: Sunil Mojica MD at 13:51 EDT , Physical Exam Const alert, oriented x3 and no apparent distress General Appearance: cooperative HEENT normocephalic, head/scalp atraumatic, moist oral mucous membranes and oropharynx normal Eyes PERRL and EOMs intact bilaterally Neck no lymphadenopathy and supple Lymph Lymphatic: no lymphadenopathy noted and no lymphedema noted Resp normal respiratory effort, normal air movement and clear to auscultation bilaterally Cardio regular rate, regular rhythm, S1 normal heart sound, S2 normal heart sound and no murmurs GI normal to inspection, nondistended, normoactive bowel sounds, soft to palpation, non-tender and non-distended GI Narrative: abdominal binder in place. Extremity normal capillary refill, no clubbing, cyanosis or edema and no calf tenderness General Extremity: no tenderness to palpation of joints or extremities Skin General Skin Exam: no breakdown Neuro CN's II-XII intact bilaterally, no focal motor deficits, no sensory deficits noted and deep tendon reflexes 2+ bilaterally Motor Exam: strength 5/5 throughout Psych thought process normal and cooperative Appearance: appropriate Assessment & Plan Assessment/Plan (1) Lumbar stenosis: PLAN: Plan #Lumbar stenosis s/p L3-4 and L4-5 * complains of pain. * management as per orthopedics * on PO tylenol, PO oxycodone and IV morphine prn for pain. * PT/OT on board * fall precautions * #COPD: on breathing treatments with bronchodilators #GERD: on PPI and carafate #Hypothyroidism: on methimazole DVT prophylaxis: SCDs Charges/Coding Visit Charges Inpatient E&M: 44156 Subs Hosp L2
[2023-06-07] MEDS: Bisacodyl 10 MG Suppository RC (15:22)
[2023-06-07] MEDS: Atorvastatin Calcium 40 MG Tablet PO (21:23)
[2023-06-07] MEDS: Docusate Sodium 100 MG Capsule PO (21:23)
[2023-06-08] MEDS: oxyCODONE 5 MG Tablet PO ×3 (02:11→14:38)
[2023-06-08 02:15] VITALS: BP 137/61; PULSE 92; RESP 16; TEMP 36.9; O2SAT 94
[2023-06-08] MEDS: Ondansetron ODT 4 MG Tablet PO (04:52)
[2023-06-08] MEDS: Budesonide Respules 0.5 MG/2 ML AMPUL.NEB. INHALATION (07:18)
[2023-06-08 07:19] VITALS: PULSE 90; RESP 18; O2SAT 97
[2023-06-08 08:00] VITALS: O2SAT 95
[2023-06-08] MEDS: Sucralfate 1 GM Tablet PO (09:03)
[2023-06-08] MEDS: Multivitamins,Therapeutic Tablet 1 TABLET PO (09:04)
[2023-06-08] MEDS: Pantoprazole Sodium 40 MG Tablet PO (10:30)
[2023-06-08] MEDS: Citalopram 20 MG Tablet PO (10:30)
[2023-06-08] MEDS: Cyanocobalamin 500 MCG Tablet 1000 MCG PO (10:31)
[2023-06-08] MEDS: Docusate Sodium 100 MG Capsule PO (10:31)
[2023-06-08] MEDS: methIMAzole 5 MG TABLET PO (10:32)
[2023-06-08] MEDS: Zinc Sulfate 50 mg zinc (220 mg) ORAL capsule PO (10:32)
--- NOTE | 2023-06-08 10:40 | CPS ---
only pulmicort given. Patient currently refusing duoneb and albuterol due to making her HR increase, and becoming jittery
[2023-06-08 13:09] VITALS: O2SAT 86; O2SAT 87; O2SAT 92
[2023-06-08 15:10] VITALS: BP 129/65; PULSE 91; RESP 16; TEMP 36.6; O2SAT 94
--- NOTE | 2023-06-10 14:49 | PCM.PN.ORT ---
Subjective Subjective Seen and examined. Accompanied by her family. Pt complains of paresthesias and weakness in the right lower leg and had urinary incontinence at home after discharge. She presented to the ED and was subsequently admitted. Lumbar MRI performed. Her pain is well controlled at this time. She is lying in bed resting comfortably. She states that when she tries to ambulate, her right leg gives out. Objective Data Objective Data Vital Signs: Vital Signs Temp Pulse Resp BP Pulse Ox O2 Del Method O2 Flow Rate 97.9 F 91 16 129/65 H 94 Nasal Cannula 1 06/08/23 15:10 06/08/23 15:10 06/08/23 15:10 06/08/23 15:10 06/08/23 15:10 06/08/23 15:10 06/08/23 15:10 Oxygen Flow Rate (L/min) [ 1 AMBULATING with Oxygen #1] Oxygen Flow Rate (L/min) [ 0 AMBULATING on Room Air] Oxygen Flow Rate (L/min) [At 0 REST on Room Air] Oxygen Flow Rate (L/min) 1 Oxygen Delivery Method Nasal Cannula Weight: 119 lb 0.794 oz Body Mass Index (BMI) 22.4 Intake & Output: Intake and Output for Last 24 Hours 06/09/23 06/09/23 06/10/23 00:59 23:59 23:59 Intake Total Output Total Balance Lab / Micro Data 05/22/23 13:42 05/22/23 13:42 Physical Exam Const alert, oriented x3 and no apparent distress General Appearance: cooperative, comfortable and well kempt Neck full ROM General: normal visual inspection Resp normal respiratory effort and normal air movement Effort and Inspection: able to speak in complete sentences Cardio regular rate and peripheral pulses 2+ throughout GI soft to palpation, non-tender and non-distended Back/Spine Back/Spine Narrative: dressing CDI. incision well approximated. No TTP, erythema, or fluctuance Cervical Spine: cervical ROM normal Thoracic Spine / Upper Back: normal to inspection Lumbar Spine / Lower Back: normal to inspection Extremity normal to inspection, full ROM, normal capillary refill, no clubbing, cyanosis or edema and no calf tenderness Neuro oriented x3, CN's II-XII intact bilaterally, moves all extremities and deep tendon reflexes 2+ bilaterally Neuro Narrative: decreased sensation to the right anterior reardon and dorsum of the foot. weakness in right hip flexion and knee extension of 4+/5, right ankle DF and EHL of 3/5. LLE Strength 5/5 Motor Exam: muscle tone normal throughout Assessment & Plan Assessment/Plan (1) Lumbar stenosis: PLAN: I had a lengthy discussion with the patient. I reviewed her lumbar MRI with her which was normal. I recommend placement for inpatient rehab as she is having difficulty with ambulation. Pain control and PT until then. Patient can follow up with me in clinic in 3 weeks for suture removal. she understands and agrees with the treatment plan
== END 2023-06-08 15:28 | disposition home or self-care (01) | DRG 454 ==
LOC: SDC 14:02 → MS3 17:41
PROVIDERS: Admitting Provider Orthopaedic Surgery; PCP Internal Medicine; Referring Provider Orthopaedic Surgery; Visit Provider Orthopaedic Surgery
PROC: 0SG10AJ Fusion of 2 or more Lumbar Vertebral Joints with Interbody Fusion Device, Posterior Approach, Anterior Column, Open Approach (ICD-10-PCS; CPT 22630; principal; 2023-06-06 07:00)
DX: M48.061 Spinal stenosis, lumbar region without neurogenic claudication (principal); G97.41 Accidental puncture or laceration of dura during a procedure; M41.86 Other forms of scoliosis, lumbar region; J43.9 Emphysema, unspecified; E11.9 Type 2 diabetes mellitus without complications; M46.96 Unspecified inflammatory spondylopathy, lumbar region; M46.98 Unspecified inflammatory spondylopathy, sacral and sacrococcygeal region; E03.9 Hypothyroidism, unspecified; F32.A Depression, unspecified; M43.16 Spondylolisthesis, lumbar region; M47.26 Other spondylosis with radiculopathy, lumbar region; M51.36 Other intervertebral disc degeneration, lumbar region; F41.9 Anxiety disorder, unspecified; E78.00 Pure hypercholesterolemia, unspecified; K21.9 Gastro-esophageal reflux disease without esophagitis; F17.210 Nicotine dependence, cigarettes, uncomplicated; Z79.899 Other long term (current) drug therapy; Y92.234 Operating room of hospital as the place of occurrence of the external cause
CPT/HCPCS: 36415; 71046; 72100; 76000; 80048; 85025; 85610; 85730; 94640; 94668; 97116; 97162; 97530; 99252; 99406; C1713; J7120; G0463; J2405; J3475

== ENCOUNTER 2023-06-09 14:14 | Inpatient (IN) | payer MEDICARE, BC, SELFPAY ==
[2023-06-09 14:17] VITALS: BP 119/57; PULSE 86; RESP 18; TEMP 36.6; O2SAT 95
[2023-06-09 14:30] VITALS: BMI 22.6
[2023-06-09 15:02] LABS: Bacteria 0 SEEN /hpf (None Seen); Mucous, Urine 0 SEEN /hpf (<or=2+)
[2023-06-09 15:06] LABS: Color, Urine Yellow (Yellow); Glucose, Dipstick Normal (Normal); Ketone-Dipstick 50 mg/dl (Negative); Leukocyte Esterase-Dipstick 25 /ul (Negative); Nitrite-Dipstick Negative (Negative); Occult Blood-Urine 10 /ul (Negative); Protein-Dipstick 15 mg/dl (Negative); Specific Gravity, Urine 1.015 (1.002-1.030); Urine Bilirubin Dipstick Negative (Negative); Urine Clarity Clear (Clear); Urine Urobilinogen Normal (Normal)
--- NOTE | 2023-06-09 15:09 | MRI_ITS ---
EXAM: MR LUMBAR SPINE WITHOUT INTRAVENOUS CONTRAST CLINICAL INDICATION: recent surgery, concern for cauda equina syndrome -- acute urinary retention, leg weakness TECHNIQUE: Multiplanar and multisequence MR images of the lumbar spine without intravenous contrast. COMPARISON: X-ray L-spine 12/02/2020. FINDINGS: VERTEBRAE: Unremarkable. Vertebral body heights are preserved. Normal vertebral bodies and posterior elements. Normal alignment. No spondylolisthesis. There is preservation of the normal lumbar lordosis. SPINAL CORD: Unremarkable. Normal position and signal intensity of the conus medullaris. SOFT TISSUES: Unremarkable. DISCS/SPINAL CANAL/NEURAL FORAMINA: T12-L1: Normal disc height and morphology. Normal bilateral facet joints. Normal central canal. Normal bilateral lateral recesses. Normal intervertebral neural foramina. L1-2: Normal disc height and morphology. Normal bilateral facet joints. Normal central canal. Normal bilateral lateral recesses. Normal intervertebral neural foramina. L2-3: Disc dehydration. Normal bilateral facet joints. Normal central canal. Normal bilateral lateral recesses. Normal intervertebral neural foramina. L3-4: Disc dehydration and mild disc space narrowing. Prior laminectomy and posterior instrumentation. Normal central canal. Foramina are patent. L4-5: Mild disc space narrowing. Prior laminectomy and posterior instrumentation. Normal central canal. Mild left foraminal encroachment due to spurring and facet hypertrophy. L5-S1: Normal disc height and morphology. Normal bilateral facet joints. Normal central canal. Normal bilateral lateral recesses. Normal intervertebral neural foramina. 3.8 x 1.9 cm fluid collection in the posterior soft tissues at the L3-L5 levels. MRI/Spine Lumbar (Routine) IMPRESSION: Postsurgical changes at L3-4 and L4-5. Fluid collection in the posterior soft tissues, likely postsurgical fluid. Clinical correlation is required to exclude abscess. Electronically Signed: Niharika Young MD at 18:05 EST Reading Location ID and State: [id number] / Tel , Service support ,
[2023-06-09] MEDS: 0.9% Normal Saline (1000mL) 1,000 ML 1000 ML IV (15:20)
[2023-06-09] MEDS: Morphine 4 MG/ML Syringe IV ×2 (15:21→16:52)
[2023-06-09 15:31] LABS: Absolute Lymphocyte Count 0.93 X10^3/uL (0.83-4.51); Absolute Neutrophil Count 6.3 X10^3/uL (2.0-7.7); Basophil# 0.02 X10^3/uL; Basophil% 0.3 % (0-1); Eosinophil# 0.03 X10^3/uL; Eosinophils% 0.4 % (0-5); Hematocrit 31.9 % (37-47); Hemoglobin 10.6 g/dL (12.0-15.0); Lymphocyte # 0.93 X10^3/ul (0.83-4.51); Lymphocyte % 11.6 % (19-41); Mean Corp Hgb Conc 33.2 g/dL (32-36); Mean Corpuscular Hgb 31.4 pg (27.0-32.0); Mean Corpuscular Volume 94.4 fL (81-99); Mean Platelet Vol. 10.3 fl (6.2-12.0); Monocyte# 0.73 X10^3/uL; Monocyte% 9.1 % (0-10); NRBC Flagged by Analyzer 0 % (0-5); Neutrophil # 6.25 X10^3/uL (2.7-7.7); Neutrophil % 78.2 % (47-70); Platelet Count 183 K/mm3 (150-450); RBC Distribution Width SD 44.6 fl (35.1-43.9); Red Blood Count 3.38 M/mm3 (4.2-5.4)
[2023-06-09 15:33] LABS: Amorphous Sediment 1+ URATE; Red Blood Cells-Urine 0-5 SEEN /hpf (0-5); Squamous Epithelial Cells - UA 0-5 SEEN /hpf (5-10); White Blood Cells 0-5 SEEN /hpf (0-5)
[2023-06-09] MEDS: LORazepam 0.5 MG Tablet PO (15:39)
[2023-06-09] MEDS: Ondansetron 4 MG/2 ML Vial IV (15:39)
--- NOTE | 2023-06-09 15:46 | EX.ED.DYSGE1 ---
HPI History of Present Illness Chief Complaint: Complaint Informant: patient Narrative Narrative: Patient is a 68-year-old female status post L3/L4 and L4/L5 lumbar fusion performed on 06/06/2023 (3 days postop) performed by Dr. Morley presenting with urinary incontinence and leg weakness. Patient states that she has been unable to urinate for the last 24 hours. She is having a lot of pressure in her suprapubic region and has a sensation of needing to urinate. She states the only time she pees is when she stands up and then she has some urinary incontinence. It is on a significant amount. She notes that over her life span she has had a couple episodes of urinary retention but not like this. In addition she is having significant weakness and pain. She states that she is having some numbness in her right leg has been present since the surgery. In addition she cannot stand up even with the aid of a walker for more than a couple seconds before her legs give out. She feels it is a mixture of weakness and pain. Denies any stool incontinence. Denies any fever or chills. Denies any increase in her incisional pain. Denies any vomiting but had some mild nausea. Was discharged home from the hospital yesterday. Patient was discharged on home O2. [facility] Medical History Abnormal cardiac CT angiography Abnormal GTT (glucose tolerance test) Abnormal thyroid ultrasound Abnormal TSH Anxiety Arthritis Back pain Cancer Cardiology follow-up encounter Chronic cough COPD (chronic obstructive pulmonary disease) Depression Emphysema of lung Gastric reflux GERD (gastroesophageal reflux disease) History of pain when walking History of skin cancer History of stress test HLD (hyperlipidemia) Hyperthyroidism Insomnia Migraine Osteopenia Post-menopausal Pre-diabetes Pre-diabetes Restless legs Shortness of breath on exertion Smoker Thyroid disease Thyroid nodule Wears glasses Home Medications citalopram 20 mg tablet 20 mg PO DAILY 11/10/15 [History Last Taken 11/09/15] albuterol sulfate 2.5 mg/3 mL (0.083 %) solution for nebulization 2.5 mg inhalation Q6H PRN Wheezing 01/20/20 [History Last Taken 06/06/23 05:00] fluticasone fur. 100 mcg-umeclid 62.5 mcg-vilant 25 mcg inhalat.powder 1 ea IH DAILY 02/25/20 [History Last Taken Unknown] denosumab 60 mg/mL subcutaneous syringe (Prolia) 60 mg subcut [id number] 05/16/20 [History Last Taken Unknown] multivitamin (Daily Multi-Vitamin tablet) 2 tab PO DAILY 04/06/21 [History Last Taken Unknown] rosuvastatin 10 mg tablet 10 mg PO DAILY 04/06/21 [History Last Taken Unknown] zinc 50 mg tablet 50 mg PO DAILY 04/06/21 [History Last Taken Unknown] esomeprazole magnesium 20 mg capsule,delayed release (Nexium) 40 mg PO DAILY 06/16/21 [History Last Taken 06/06/23 05:00] sucralfate 1 gram tablet 1 g PO BID 06/16/21 [History Last Taken Unknown] ondansetron 4 mg disintegrating tablet 4 mg PO Q12H PRN nausea and vomiting 06/20/22 [History Last Taken 06/06/23 05:00] acetaminophen 650 mg tablet,extended release (Tylenol Arthritis Pain) 650 mg PO DAILY 03/15/23 [History Last Taken Unknown] Lactobacillus acidophilus 20 billion cell capsule (Florajen Acidophilus) 100 mmu cells PO DAILY 05/24/23 [History Last Taken Unknown] calcium polycarbophil 625 mg tablet (Fiber-Tabs) 1,250 mg PO DAILY 05/24/23 [History Last Taken Unknown] cyanocobalamin (vitamin B-12) 1,000 mcg tablet (Vitamin B-12) 1,000 mcg PO DAILY 05/24/23 [History Last Taken Unknown] methimazole 5 mg tablet 5 mg PO DAILY 05/24/23 [History Last Taken 06/06/23 05:00] hydrocodone-acetaminophen 5-325mg 5mg-325mg 1 tab PO Q6H 7 days #28 tabs 06/06/23 [Rx Last Taken Unknown] Allergy/AdvReac Type Severity Reaction Status Date / Time Tetracyclines AdvReac Unknown GI upset Verified 06/09/23 14:16 sulfamethoxazole AdvReac Upset Verified 06/09/23 14:16 [From Bactrim] Stomach trimethoprim [From Bactrim] AdvReac Upset Verified 06/09/23 14:16 Stomach Family History Brother Heart disease Father Cirrhosis Mother Cancer lung Grandmother Cancer leukemia Grandmother CVA (cerebral vascular accident) Other Alcoholism Diabetes H/O emotional problems Liver disease Surgical History History of cholecystectomy History of colonoscopy History of dilation and curettage History of esophagogastroduodenoscopy (EGD) History of lumpectomy History of surgery on wrist Status post biopsy of thyroid gland (~11/2018) Social History Smoking Status: Current every day smoker tobacco type: cigarettes alcohol intake: never substance use type: does not use caffeine: Yes Type: carbonated beverages Number of servings: 1 ROS ROS ED Constitutional Constitutional ED: Denies chills or fever(s) Cardiovascular Cardiovascular: Denies chest pain Respiratory/Chest Respiratory/Chest: Denies cough Gastrointestinal Gastrointestinal: Reports abdominal pain and nausea; Denies vomiting Genitourinary Genitourinary ED: Reports other Details: Urinary incontinence, urinary retention Musculoskeletal Musculoskeletal: Reports back pain and other Details: Postoperative back pain ; Denies arthralgias or myalgias Integumentary Denies rash Neurologic Neurologic: Reports paresthesias RLE and weakness; Denies headache(s) Psychiatric Psychiatric: Denies anxiety Hematologic/Lymphatic Hematologic/Lymphatic: Denies easy bleeding or easy bruising EXAM Physical Exam Const Vital Signs: 06/09/23 14:17 06/09/23 17:50 Temperature 97.9 F Temperature Source Temporal Pulse Rate 86 87 Respiratory Rate 18 16 Blood Pressure 119/57 L 110/97 H Blood Pressure Mean 77 101 Pulse Ox 95 93 Oxygen Delivery Method Room Air Nasal Cannula Oxygen Flow Rate (L/min) 1 Positive well nourished and well developed General Appearance ED: well developed HEENT Reports moist mucous membranes Eyes PERRL and EOMs intact bilaterally Neck supple Chest Wall inspection of chest normal and palpation of chest normal Resp normal respiratory effort and clear to auscultation bilaterally Cardio regular rate, regular rhythm and no murmurs GI normal to inspection, nondistended, normoactive bowel sounds and non-tender GI Narrative: Izquierdo catheter in place on my exam, normal rectal tone Narrative: Izquierdo catheter in place with greater than 500 cc of urine out. Dark urine. Back/Spine Back/Spine Narrative: Mild tenderness around approximately L4. Midline lumbar surgical incision present. No associated drainage. No abnormal erythema present. Extremity normal to inspection General Extremety ED: Negative for edema or tenderness General Extremity: Negative for edema Neuro oriented x3 Neuro Narrative: Subjective paresthesias diffusely of the right lower extremity. 5/5 strength with plantar and dorsiflexion of the feet. Patient is able to raise her left leg off the bed but struggles with raising her right leg. Psych mental status grossly normal Skin Skin Narrative: Midline lumbar surgical incision, sutures in place. No associated drainage or abnormal erythema at this time MDM MDM MDM Narrative Medical decision making narrative: Patient is evaluated for urinary incontinence as well as weakness of her right leg greater than left. She is status post L3-L5 surgery. Differential includes urinary retention, medication reaction, cauda equina syndrome and less likely infection. She is not having any fever, chills or other infectious symptoms. Case discussed with Dr. Morley, her surgeon. He recommends MRI without contrast. He recommends Izquierdo catheter and Flomax. Likely patient will need admission for rehab if she does not have cauda equina syndrome. He thinks is less likely but does think it needs to be ruled out. Patient is given IV morphine, Zofran and IV fluids in the ER. Patient is given 1 dose of 0.5 mg oral Ativan prior to MRI to help her tolerate it better. On the MRI table she does require another dose of IV morphine (4 mg). CBC shows a normal white blood cell count with no acute shift. There is mild neutrophil predominance. Hemoglobin shows a mild anemia with level of 10.6 which I suspect is postoperative and expected anemia. BMP largely normal with no signs of CARMELITA despite her urinary retention. Urinalysis is not consistent with UTI but did show some findings of mild dehydration. MRI does not show any acute cauda equina syndrome and does show postsurgical changes, there is a fluid collection in the posterior soft tissues which is most likely postsurgical fluid. Given she does not have a fever, external signs of abscess or cellulitis I have a low suspicion for an acute postsurgical infection. Discussed admission versus discharge home. Given patient generalized debility and inability to even stand with a walker because of pain I do think she would benefit from evaluation for PT/OT and possible rehab placement. Patient and family agreeable this plan of care. Patient is given her home [place] as well in the ER. Will be admitted to medicine service. She is agreeable this plan of care. Urinary retention might be due to medications received during her hospitalization however at this time I do not think it is secondary to cauda equina syndrome given her MRI results. Lab Data Attestation: I reviewed the patient's lab results. Labs: Laboratory Results - last 24 hr 06/09/23 06/09/23 14:57 15:12 WBC 8.0 RBC 3.38 L Hgb 10.6 L Hct 31.9 L MCV 94.4 MCH 31.4 MCHC 33.2 RDW Std Deviation 44.6 H RDW Coeff of Wilder 13.0 Plt Count 183 MPV 10.3 Immature Gran % (Auto) 0.400 Neut % (Auto) 78.2 H Lymph % (Auto) 11.6 L Mckean % (Auto) 9.1 Eos % (Auto) 0.4 Baso % (Auto) 0.3 Absolute Neuts (auto) 6.3 Absolute Lymphs (auto) 0.93 Nucleated RBC % 0 Sodium 139 Potassium 3.3 L Chloride 102 Carbon Dioxide 33.0 H Anion Gap 4 L BUN 19 H Creatinine 0.62 Estim Creat Clear Calc 40.63 Est GFR (MDRD) Af Amer 122 Est GFR (MDRD) Non-Af 101 BUN/Creatinine Ratio 30.5 H Glucose 128 H Calcium 8.6 Urine Color Yellow Urine Clarity Clear Urine pH 6.0 Ur Specific [place] 1.015 Urine Protein 15 H Urine Glucose (UA) Normal Urine Ketones 50 H Urine Occult Blood 10 H Urine Nitrite Negative Urine Bilirubin Negative Urine Urobilinogen Normal Ur Leukocyte Esterase 25 H Urine RBC 0-5 SEEN Urine WBC 0-5 SEEN Ur Squamous Epith Cells 0-5 SEEN Amorphous Sediment 1+ URATE Urine Bacteria 0 SEEN Urine Mucus 0 SEEN Radiography Diagnostic Testing: Clinical Impression(s) from Imaging Studies Lumbar Spine MRI 06/09/23 15:09 IMPRESSION: Postsurgical changes at L3-4 and L4-5. Fluid collection in the posterior soft tissues, likely postsurgical fluid. Clinical correlation is required to exclude abscess. Electronically Signed: Niharika Young MD at 18:05 EST Reading Location ID and State: [id number] / Tel , Service support , Management Discussion w/another healthcare provider: Hospitalist and Maintenance Mgr (Spine-Dr. Morley) Discharge Plan Triage Chief Complaint: Complaint ED Provider: Sandhya Sauceda Dx/Rx/DC Orders Clinical Impression: Debility, Leg weakness, Acute urinary retention Primary Care Provider: Esther Malik Disposition Disposition: Acute Care Hospital [facility]
[2023-06-09 15:49] LABS: Anion Gap 4 (5-15); BUN 19 mg/dL (7-18); BUN/Creat Ratio 30.5 RATIO (10-20); Calcium,Total 8.6 mg/dL (8.5-10.1); Chloride 102 mmol/L (98-107); Creatinine, Serum 0.62 mg/dL (0.55-1.02); EST Glomerular Filtration Rate 101 mL/min (>60); Est Glom Filt Rate - Afr Amer 122 mL/min (>60); Estimated Creatinine Clearance 40.63 ml/min; Glucose 128 mg/dL (74-106); Potassium 3.3 mmol/L (3.5-5.1); Sodium Level 139 mmol/L (136-145)
[2023-06-09 17:50] VITALS: BP 110/97; PULSE 87; RESP 16; O2SAT 93
[2023-06-09] MEDS: HYDROcodone Bitartrate/Apap 5/325 Tablet PO (18:35)
--- NOTE | 2023-06-09 18:43 | HP.PCM.HOS_ITS ---
HPI - General General Date of Admission: 06/09/23 Date of Service: 06/09/23 Chief Complaint: Urinary retention, back pain, weakness HPI Narrative LIBBY NAIDU, is a 68-year-old female history of GERD, hyperthyroidism, mood disorder, lumbar stenosis with fusion 06/06/2023 and subsequently discharged 06/08 who presented to [facility] 06/09/2023 with loss of bladder control/inability to urinate x24 hrs with leaking and distention with additional complaints of bilateral leg pain and weakness with inability to ambulate effectively. Patient's surgeon was contacted in the ED who recommended Izquierdo catheter and Flomax and MRI w/o contrast to r/o cauda equina syndrome. MRI demonstrated unremarkable spinal cord with normal position and signal intensity of conus medullaris but did note a 3.8 x 1.9 cm fluid collection posterior soft tissues and L3-L5 which is likely postsurgical fluid but recommended clinical correlation to exclude abscess, given lack of infectious signs or symptoms it is felt that this is postsurgical in nature, monitor closely. Given lack of cauda equina syndrome it was recommended hospitalist be contacted for admission as patient will likely require placement. Patient evaluated at bedside with family present. She reports that the numb spots on her right leg are actually improved from previous but the pain and weakness is somewhat worse/not improving. Patient has not had bowel movement additionally since last and has been having some abdominal cramping and generalized pain as well as the fullness from her inability to urinate which she did report she has had intermittently in the past, also has intermittent problems initiating swallowing pills and gags on occasion. Denied any new focal complaints. FOR[facility]LY [facility], LATER [facility] Medical History Abnormal cardiac CT angiography Abnormal GTT (glucose tolerance test) Abnormal thyroid ultrasound Abnormal TSH Anxiety Arthritis Back pain Cancer Cardiology follow-up encounter Chronic cough COPD (chronic obstructive pulmonary disease) Depression Emphysema of lung Gastric reflux GERD (gastroesophageal reflux disease) History of pain when walking History of skin cancer History of stress test HLD (hyperlipidemia) Hyperthyroidism Insomnia Migraine Osteopenia Post-menopausal Pre-diabetes Pre-diabetes Restless legs Shortness of breath on exertion Smoker Thyroid disease Thyroid nodule Wears glasses Home Medications citalopram 20 mg tablet 20 mg PO DAILY 11/10/15 [History Last Taken 11/09/15] albuterol sulfate 2.5 mg/3 mL (0.083 %) solution for nebulization 2.5 mg inhalation Q6H PRN Wheezing 01/20/20 [History Last Taken 06/06/23 05:00] fluticasone fur. 100 mcg-umeclid 62.5 mcg-vilant 25 mcg inhalat.powder 1 ea IH DAILY 02/25/20 [History Last Taken Unknown] denosumab 60 mg/mL subcutaneous syringe (Prolia) 60 mg subcut [id number] 05/16/20 [History Last Taken Unknown] multivitamin (Daily Multi-Vitamin tablet) 2 tab PO DAILY 04/06/21 [History Last Taken Unknown] rosuvastatin 10 mg tablet 10 mg PO DAILY 04/06/21 [History Last Taken Unknown] zinc 50 mg tablet 50 mg PO DAILY 04/06/21 [History Last Taken Unknown] esomeprazole magnesium 20 mg capsule,delayed release (Nexium) 40 mg PO DAILY 07/25 [History Last Taken 06/06/23 05:00] sucralfate 1 gram tablet 1 g PO BID 06/16/21 [History Last Taken Unknown] ondansetron 4 mg disintegrating tablet 4 mg PO Q12H PRN nausea and vomiting 06/20/22 [History Last Taken 06/06/23 05:00] acetaminophen 650 mg tablet,extended release (Tylenol Arthritis Pain) 650 mg PO DAILY 03/15/23 [History Last Taken Unknown] Lactobacillus acidophilus 20 billion cell capsule (Florajen Acidophilus) 100 mmu cells PO DAILY 05/24/23 [History Last Taken Unknown] calcium polycarbophil 625 mg tablet (Fiber-Tabs) 1,250 mg PO DAILY 05/24/23 [History Last Taken Unknown] cyanocobalamin (vitamin B-12) 1,000 mcg tablet (Vitamin B-12) 1,000 mcg PO DAILY 05/24/23 [History Last Taken Unknown] methimazole 5 mg tablet 5 mg PO DAILY 05/24/23 [History Last Taken 06/06/23 05:00] hydrocodone-acetaminophen 5-325mg 5mg-325mg 1 tab PO Q6H 7 days #28 tabs 06/06/23 [Rx Last Taken Unknown] Allergy/AdvReac Type Severity Reaction Status Date / Time Tetracyclines AdvReac Unknown GI upset Verified 06/09/23 14:16 sulfamethoxazole AdvReac Upset Verified 06/09/23 14:16 [From Bactrim] Stomach trimethoprim [From Bactrim] AdvReac Upset Verified 06/09/23 14:16 Stomach Family History Brother Heart disease Father Cirrhosis Mother Cancer lung Grandmother Cancer leukemia Grandmother CVA (cerebral vascular accident) Other Alcoholism Diabetes H/O emotional problems Liver disease Surgical History History of cholecystectomy History of colonoscopy History of dilation and curettage History of esophagogastroduodenoscopy (EGD) History of lumpectomy History of surgery on wrist Status post biopsy of thyroid gland (~11/2018) Social History Smoking Status: Current every day smoker tobacco type: cigarettes alcohol intake: never substance use type: does not use caffeine: Yes Type: carbonated beverages Number of servings: 1 ROS ROS Narrative General: Denies fever/chills HENT: Denies headache, denies stuffy nose, denies sore throat EYES: Denies changes in vision Resp: Chronic slight cough, denies shortness of breath Cardiac: Denies chest pain GI: No BM in several days, some abdominal cramping : Difficulty with urination over the past day with abdominal fullness Extremity: Denies swelling MSK: Bilateral lower extremity weakness does feel right is greater than left Neuro: Patches of numbness in right leg improving Heme: Denies any bleeding or bruising Skin: Denies rashes Psychiatric: No complaints voiced Vital Signs Vital Signs Vital Signs: 06/09/23 14:17 06/09/23 17:50 Temperature 97.9 F Temperature Source Temporal Pulse Rate 86 87 Respiratory Rate 18 16 Blood Pressure 119/57 L 110/97 H Blood Pressure Mean 77 101 Pulse Ox 95 93 Oxygen Delivery Method Room Air Nasal Cannula Oxygen Flow Rate (L/min) 1 Weight Weight: 54.431 kg Body Mass Index (BMI) 22.6 Physical Exam Narrative General: Alert, oriented, no apparent distress though slow to answer questions on occasion HEENT: Atraumatic, normocephalic Eyes: Anicteric, normal conjunctiva, extraocular movements grossly intact Neck: Supple Respiratory: Clear to auscultation bilaterally, normal respiratory effort Cardiovascular: Regular rate and rhythm GI: Soft, nontender, nondistended Extremities: No edema Musculoskeletal: Moving all extremities, resistant to me lifting up right leg and holding it she reports it is weak and would not even tried to move it, was able to lift and hold left leg without significant difficulty, was able to push down on hands bilaterally with good and symmetric strength Neuro: No overt focal neurological deficits, no sustained clonus in lower extremities, no significant a symmetry reflexes Skin: No rashes appreciated Psych: Cooperative Results Lab / Micro Data 06/09/23 15:12 06/09/23 15:12 Labs: Laboratory Results - last 24 hr 06/09/23 14:57: Urine Color Yellow, Urine Clarity Clear, Urine pH 6.0, Ur Specific [place] 1.015, Urine Protein 15 H, Urine Glucose (UA) Normal, Urine Ketones 50 H, Urine Occult Blood 10 H, Urine Nitrite Negative, Urine Bilirubin Negative, Urine Urobilinogen Normal, Ur Leukocyte Esterase 25 H, Urine RBC 0-5 SEEN, Urine WBC 0-5 SEEN, Ur Squamous Epith Cells 0-5 SEEN, Amorphous Sediment 1+ URATE, Urine Bacteria 0 SEEN, Urine Mucus 0 SEEN 06/09/23 15:12: WBC 8.0, RBC 3.38 L, Hgb 10.6 L, Hct 31.9 L, MCV 94.4, MCH 31.4, MCHC 33.2, RDW Std Deviation 44.6 H, RDW Coeff of Wilder 13.0, Plt Count 183, MPV 10.3, Immature Gran % (Auto) 0.400, Neut % (Auto) 78.2 H, Lymph % (Auto) 11.6 L, [place] % (Auto) 9.1, Eos % (Auto) 0.4, Baso % (Auto) 0.3, Absolute Neuts (auto) 6.3, Absolute Lymphs (auto) 0.93, Nucleated RBC % 0, Sodium 139, Potassium 3.3 L , Chloride 102, Carbon Dioxide 33.0 H, Anion Gap 4 L, BUN 19 H, Creatinine 0.62, Estim Creat Clear Calc 40.63, Est GFR (MDRD) Af Amer 122, Est GFR (MDRD) Non-Af 101, BUN/Creatinine Ratio 30.5 H, Glucose 128 H, Calcium 8.6 Radiology Impression Lumbar Spine MRI 06/09/23 15:09 IMPRESSION: Postsurgical changes at L3-4 and L4-5. Fluid collection in the posterior soft tissues, likely postsurgical fluid. Clinical correlation is required to exclude abscess. Electronically Signed: Niharika Young MD at 18:05 EST , Assessment & Plan Assessment/Plan (1) Lumbar stenosis: (2) Urinary retention: (3) Leg weakness: PLAN: Plan #Bilateral leg weakness and pain -MRI lumbar w/o contrast demonstrated unremarkable spinal cord with normal position and normal signal intensity of conus medullaris -did note a 3.8 x 1.9 cm fluid collection posterior soft tissues and L3-L5 which is likely postsurgical fluid, patient with no infectious signs or symptoms, given patient is postsurgical suspect ESR and CRP would still be elevated, can always consider obtaining and trending if concerns for infection arise however again suspect this postsurgical changes -Pt seen by her surgeon 06/07 -Symptom control -Consult Ortho -PT/OT #Urinary leakage/difficulty voiding and distention -UA not suggestive of infection -No spinal cord impingement -Izquierdo placed in ED and placed on Flomax per instructions -Pt has had this problem before -Suspect constipation may play a role, hasn't had BP since and has some abd cramping, bowel regimen #Hx hyperthyroidism -Continue home medications #GERD -Continue PPI #Hypokalemia -Replaced #DVT ppx: SCDS Radhika Reed MD Time spent in the patient's overall evaluation,decision-making process, review of diagnostic data, adjustment of management, discussion with other providers, nursing nursing and ancillary staff involved in patient's care documentation, 56 Minutes Charges/Coding Visit Charges Inpatient E&M: 40548 Init Hosp L2
--- NOTE | 2023-06-09 18:50 | ED.RN ---
Food given to patient. Awaiting bed assignment
[2023-06-09 19:44] VITALS: BP 112/57; PULSE 76; RESP 16; O2SAT 95
[2023-06-09 20:07] VITALS: BMI 22.7
[2023-06-09 20:08] VITALS: BP 116/61; PULSE 85; RESP 18; TEMP 37.3; O2SAT 97
[2023-06-09] MEDS: Potassium Chloride Oral Soln 20 MEQ/15 ML UDC 40 MEQ PO (22:23)
[2023-06-09] MEDS: Acetaminophen 500 MG Tablet 1000 MG PO (22:23)
[2023-06-09] MEDS: Atorvastatin Calcium 20 MG Tablet PO (22:23)
[2023-06-09] MEDS: MELATONIN 3 MG TABLET PO (22:24)
[2023-06-09] MEDS: Psyllium 1 PACKET PO (22:24)
[2023-06-10] VITALS (7 sets, daily range): BP systolic 107–114; BP diastolic 54–73; PULSE 72–95; RESP 16–18; TEMP 36.7–37.3; O2SAT 88–98
[2023-06-10] MEDS: Acetaminophen 500 MG Tablet 1000 MG PO ×3 (05:29→21:41)
[2023-06-10] MEDS: Psyllium 1 PACKET PO ×3 (05:30→21:41)
[2023-06-10 07:20] LABS: Absolute Lymphocyte Count 1.16 X10^3/uL (0.83-4.51); Absolute Neutrophil Count 4.5 X10^3/uL (2.0-7.7); Basophil# 0.02 X10^3/uL; Basophil% 0.3 % (0-1); Eosinophil# 0.12 X10^3/uL; Eosinophils% 1.9 % (0-5); Hemoglobin 9.3 g/dL (12.0-15.0); Lymphocyte # 1.16 X10^3/ul (0.83-4.51); Lymphocyte % 18.2 % (19-41); Mean Corp Hgb Conc 32.1 g/dL (32-36); Mean Corpuscular Hgb 30.7 pg (27.0-32.0); Mean Corpuscular Volume 95.7 fL (81-99); Mean Platelet Vol. 10.7 fl (6.2-12.0); Monocyte# 0.53 X10^3/uL; Monocyte% 8.3 % (0-10); NRBC Flagged by Analyzer 0 % (0-5); Neutrophil # 4.51 X10^3/uL (2.7-7.7); Neutrophil % 70.7 % (47-70); Platelet Count 218 K/mm3 (150-450); RBC Distribution Width CV 13.1 % (11.6-14.6); RBC Distribution Width SD 45.8 fl (35.1-43.9); Red Blood Count 3.03 M/mm3 (4.2-5.4); White Blood Count 6.4 K/mm3 (4.4-11.0)
[2023-06-10 08:08] LABS: Anion Gap 4 (5-15); BUN 21 mg/dL (7-18); BUN/Creat Ratio 37.1 RATIO (10-20); Calcium,Total 8.4 mg/dL (8.5-10.1); Chloride 108 mmol/L (98-107); Creatinine, Serum 0.57 mg/dL (0.55-1.02); EST Glomerular Filtration Rate 113 mL/min (>60); Est Glom Filt Rate - Afr Amer 137 mL/min (>60); Estimated Creatinine Clearance 40.63 ml/min; Glucose 109 mg/dL (74-106); Potassium 3.7 mmol/L (3.5-5.1); Sodium Level 140 mmol/L (136-145)
--- NOTE | 2023-06-10 08:43 | PN.HOSP_ITS ---
Reason for Visit Reason for Visit: Diagnoses Spinal stenosis, lumbar region without neurogenic claudication (06/09/23) Other symptoms and signs involving the musculoskeletal system (06/09/23) Retention of urine, unspecified (06/09/23) Subjective Subjective Patient feeling better than yesterday but still feeling somewhat weak and tired, she is agreeable to placement today Objective Data Objective Data Vital Signs: Vital Signs Temp Pulse Resp BP Pulse Ox O2 Del Method O2 Flow Rate 99.1 F 95 18 114/73 97 Nasal Cannula 2 06/10/23 02:25 06/10/23 02:25 06/10/23 02:25 06/10/23 02:25 06/10/23 07:40 06/10/23 07:40 06/10/23 07:40 Oxygen Flow Rate (L/min) 2 Oxygen Delivery Method Nasal Cannula Weight: 54.6 kg Body Mass Index (BMI) 22.7 Intake & Output: Intake and Output for Last 24 Hours 06/09/23 06/09/23 06/10/23 00:59 23:59 23:59 Intake Total 260 / 260 Output Total 225 / 225 Balance 35 / 35 Lab / Micro Data 06/10/23 06:40 06/10/23 06:40 Labs: Laboratory Results - last 24 hr 06/09/23 14:57: Urine Color Yellow, Urine Clarity Clear, Urine pH 6.0, Ur Specific [place] 1.015, Urine Protein 15 H, Urine Glucose (UA) Normal, Urine Ketones 50 H, Urine Occult Blood 10 H, Urine Nitrite Negative, Urine Bilirubin Negative, Urine Urobilinogen Normal, Ur Leukocyte Esterase 25 H, Urine RBC 0-5 SEEN, Urine WBC 0-5 SEEN, Ur Squamous Epith Cells 0-5 SEEN, Amorphous Sediment 1+ URATE, Urine Bacteria 0 SEEN, Urine Mucus 0 SEEN 06/09/23 15:12: WBC 8.0, RBC 3.38 L, Hgb 10.6 L, Hct 31.9 L, MCV 94.4, MCH 31.4, MCHC 33.2, RDW Std Deviation 44.6 H, RDW Coeff of Wilder 13.0, Plt Count 183, MPV 10.3, Immature Gran % (Auto) 0.400, Neut % (Auto) 78.2 H, Lymph % (Auto) 11.6 L, [place] % (Auto) 9.1, Eos % (Auto) 0.4, Baso % (Auto) 0.3, Absolute Neuts (auto) 6.3, Absolute Lymphs (auto) 0.93, Nucleated RBC % 0, Sodium 139, Potassium 3.3 L , Chloride 102, Carbon Dioxide 33.0 H, Anion Gap 4 L, BUN 19 H, Creatinine 0.62, Estim Creat Clear Calc 40.63, Est GFR (MDRD) Af Amer 122, Est GFR (MDRD) Non-Af 101, BUN/Creatinine Ratio 30.5 H, Glucose 128 H, Calcium 8.6 06/10/23 06:40: WBC 6.4, RBC 3.03 L, Hgb 9.3 L, Hct 29.0 L, MCV 95.7, MCH 30.7, MCHC 32.1, RDW Std Deviation 45.8 H, RDW Coeff of Wilder 13.1, Plt Count 218, MPV 10.7, Immature Gran % (Auto) 0.600, Neut % (Auto) 70.7 H, Lymph % (Auto) 18.2 L, [place] % (Auto) 8.3, Eos % (Auto) 1.9, Baso % (Auto) 0.3, Absolute Neuts (auto) 4.5, Absolute Lymphs (auto) 1.16, Nucleated RBC % 0, Sodium 140, Potassium 3.7, Chloride 108 H, Carbon Dioxide 28.0, Anion Gap 4 L, BUN 21 H, Creatinine 0.57, Estim Creat Clear Calc 40.63, Est GFR (MDRD) Af Amer 137, Est GFR (MDRD) Non-Af 113, BUN/Creatinine Ratio 37.1 H, Glucose 109 H, Calcium 8.4 L Radiography Diagnostic Testing: Radiology Impression Lumbar Spine MRI 06/09/23 15:09 IMPRESSION: Postsurgical changes at L3-4 and L4-5. Fluid collection in the posterior soft tissues, likely postsurgical fluid. Clinical correlation is required to exclude abscess. Electronically Signed: Niharika Young MD at 18:05 EST Reading Location ID and State: [id number] / Tel , Service support , Physical Exam Narrative General: Alert, oriented, no apparent distress HEENT: Atraumatic, normocephalic Eyes: Anicteric, normal conjunctiva, extraocular movements grossly intact Neck: Supple Respiratory: Clear to auscultation bilaterally, normal respiratory effort Cardiovascular: Regular rate and rhythm GI: Soft, nontender, nondistended Extremities: No edema Musculoskeletal: Moving all extremities Neuro: Upon side of bed with back brace moving all extremities Skin: No rashes appreciated Psych: Cooperative Assessment & Plan Assessment/Plan (1) Lumbar stenosis: (2) Urinary retention: (3) Leg weakness: PLAN: Plan #Bilateral leg weakness and pain -MRI lumbar w/o contrast demonstrated unremarkable spinal cord with normal position and normal signal intensity of conus medullaris -did note a 3.8 x 1.9 cm fluid collection posterior soft tissues and L3-L5 which is likely postsurgical fluid, patient with no infectious signs or symptoms, given patient is postsurgical suspect ESR and CRP would still be elevated, can always consider obtaining and trending if concerns for infection arise however again suspect this postsurgical changes -Pt seen by her surgeon 06/07 -Symptom control -Consult Ortho -PT/OT -06/10: Spoke with Ortho yesterday, it is felt that fluid collection is all postsurgical, patient initially planned to go back home however after working with physical therapy and speaking with orthopedics patient changed her mind and is now agreeable to placement which I think she would benefit from #Urinary leakage/difficulty voiding and distention -UA not suggestive of infection -No spinal cord impingement -Izquierdo placed in ED and placed on Flomax per instructions -Pt has had this problem before -Suspect constipation may play a role, hasn't had BP since and has some abd cramping, bowel regimen -06/10: We will maintain Izquierdo and continue Flomax #Hx hyperthyroidism -Continue home medications #GERD -Continue PPI #Hypokalemia -Replaced #DVT ppx: SCDS Radhika Reed MD Time spent in the patient's overall evaluation,decision-making process, review of diagnostic data, adjustment of management, discussion with other providers, nursing nursing and ancillary staff involved in patient's care documentation, 36 Minutes Charges/Coding Visit Charges Inpatient E&M: 11483 Subs Hosp L2
[2023-06-10] MEDS: Polyethylene Glycol 3350 17 GM PACKET PO (10:27)
[2023-06-10] MEDS: methIMAzole 5 MG TABLET PO (10:27)
[2023-06-10] MEDS: Pantoprazole Sodium 40 MG Tablet PO (10:27)
[2023-06-10] MEDS: Citalopram 20 MG Tablet PO (10:27)
--- NOTE | 2023-06-10 11:22 | CASEMGMT ---
Addendum entered by Seda Levy 06/10/23 16:51: Received notification from hospitalist that pt would like SNF. Updated SW. Original Note: MANOLO GUILLERMO Chart Review Index Diagnosis:lumbar stenosis with planned surgery Index Admission Dates:06/06/23-06/08/23 Disposition: Home with oxygen and assist Current Diagnosis: urinary retention, intractable pain and weakness Admission Date: 06/09/23 Pt had planned surgery and was dc'd home with use of walker and assist as well as oxygen through [employer]. Pt reports once home, she needed the walker and two assist to ambulate. She also reports that her right leg was numb and kept buckling and she could not urinate so she reported back to ER. Pt currently lying in bed in no distress with dtr at bedside. Pt has villagomez in and is on RA. Pt reports she was taking all of her medications as ordered. Pt feels her strength has improved since being at home initially. She states she feels she can return home with her 's help as long as she can urinate. MANOLO GUILLERMO to follow. DC Plan: Home
[2023-06-10] MEDS: oxyCODONE 5 MG Tablet PO ×2 (13:12→20:26)
[2023-06-10] MEDS: Tamsulosin HCl 0.4 MG Capsule PO (17:44)
--- NOTE | 2023-06-10 18:37 | CASEMGMT ---
Social Work This hand sign writer apprised by physician and RN MIMA that patient is now requesting to somewhere for short term rehab. Met with patient, introducing to self and social work role. Explored with patient home versus a facility, and what patient thinks is needed in order to return home. Patient reports to feel to need just a few more days of care and recovery before being home, and is concerned about managing at this point. Patient reported that hoped could stat at [facility] for some type of rehab. Educated to inpatient RU level of care, need for 3 hours of therapy daily, and then to retirement level of care. This hand sign writer had a list of SNF's in patient's geographic region, including quality star and data ratings from Medicare, in patient's insurance network. Educated patient to Medicare coverage for SNF and requirement for 3 midnight inpatient stay to qualify for Medicare covered SNF stay. Answered patient's question and offered supportive listening. Educated to approximate cost to private pay at SNF. Patient asked about private duty home care to help with personal care. Educated to approximate cost for this. Briefly touched on skilled home therapy at [facility], under Medicare benefit. Patient reports would like SW to explore [facility] TCU as first choice. If patient can be accepted and has a qualifying stay, would want this. If cannot be accepted to TCU, patient agreed to have other choices from list for SW tomorrow. Patient expressed understanding that may not get qualifying stay at hospital for SNF. If this is the case, then patient reports would go home and would like Skilled HHC if able, and a private duty HHC list. Message left for Ariadna at [facility] admissions regarding referral. Plan: SNF vs home with support from and home care. -RAFIQ Crews
[2023-06-10] MEDS: 0.9% Saline Lock 10 ML Syringe IV (21:40)
[2023-06-10] MEDS: MELATONIN 3 MG TABLET PO (21:40)
[2023-06-10] MEDS: Atorvastatin Calcium 20 MG Tablet PO (21:41)
[2023-06-11 05:15] VITALS: BP 125/57; PULSE 81; RESP 18; TEMP 36.6; O2SAT 94
[2023-06-11] MEDS: Psyllium 1 PACKET PO ×2 (05:19→21:06)
[2023-06-11] MEDS: Acetaminophen 500 MG Tablet 1000 MG PO ×3 (05:20→21:06)
[2023-06-11 08:03] VITALS: BP 110/54; PULSE 80; RESP 16; TEMP 36.7; O2SAT 91
[2023-06-11 08:03] LABS: Absolute Lymphocyte Count 1.29 X10^3/uL (0.83-4.51); Absolute Neutrophil Count 3.9 X10^3/uL (2.0-7.7); Basophil# 0.03 X10^3/uL; Basophil% 0.5 % (0-1); Eosinophil# 0.16 X10^3/uL; Eosinophils% 2.7 % (0-5); Hematocrit 30.1 % (37-47); Hemoglobin 9.9 g/dL (12.0-15.0); Lymphocyte # 1.29 X10^3/ul (0.83-4.51); Lymphocyte % 21.8 % (19-41); Mean Corp Hgb Conc 32.9 g/dL (32-36); Mean Corpuscular Hgb 31.2 pg (27.0-32.0); Monocyte% 8.4 % (0-10); NRBC Flagged by Analyzer 0 % (0-5); Neutrophil # 3.93 X10^3/uL (2.7-7.7); Neutrophil % 66.4 % (47-70); Platelet Count 243 K/mm3 (150-450); RBC Distribution Width CV 12.9 % (11.6-14.6); RBC Distribution Width SD 45.1 fl (35.1-43.9); Red Blood Count 3.17 M/mm3 (4.2-5.4); White Blood Count 5.9 K/mm3 (4.4-11.0)
[2023-06-11 08:30] LABS: Anion Gap 2 (5-15); BUN 18 mg/dL (7-18); BUN/Creat Ratio 31.6 RATIO (10-20); Calcium,Total 8.2 mg/dL (8.5-10.1); Chloride 106 mmol/L (98-107); Creatinine, Serum 0.57 mg/dL (0.55-1.02); EST Glomerular Filtration Rate 112 mL/min (>60); Est Glom Filt Rate - Afr Amer 136 mL/min (>60); Estimated Creatinine Clearance 40.63 ml/min; Glucose 110 mg/dL (74-106); Potassium 3.5 mmol/L (3.5-5.1); Sodium Level 138 mmol/L (136-145)
[2023-06-11] MEDS: oxyCODONE 5 MG Tablet PO ×3 (09:39→21:19)
[2023-06-11] MEDS: Citalopram 20 MG Tablet PO (09:39)
[2023-06-11] MEDS: Pantoprazole Sodium 40 MG Tablet PO (09:39)
[2023-06-11] MEDS: methIMAzole 5 MG TABLET PO (09:39)
[2023-06-11] MEDS: Bisacodyl 10 MG Suppository RC (11:34)
[2023-06-11] MEDS: Fleet Enema 1 ML RC (14:06)
[2023-06-11 14:20] VITALS: BP 106/50; PULSE 81; RESP 18; TEMP 36.9; O2SAT 96
--- NOTE | 2023-06-11 15:27 | PN.HOSP_ITS ---
Reason for Visit Reason for Visit: Diagnoses Spinal stenosis, lumbar region without neurogenic claudication (06/09/23) Other symptoms and signs involving the musculoskeletal system (06/09/23) Retention of urine, unspecified (06/09/23) Subjective Subjective Patient still having a lot of pain that is limiting her mobility, Izquierdo remains in place and patient reports she has not had a bowel movement in several days and is having some abdominal discomfort Objective Data Objective Data Vital Signs: Vital Signs Temp Pulse Resp BP Pulse Ox O2 Del Method O2 Flow Rate 98.4 F 81 18 106/50 L 96 Room Air 2 06/11/23 14:20 06/11/23 14:20 06/11/23 14:20 06/11/23 14:20 06/11/23 14:20 06/11/23 14:44 06/10/23 07:40 Oxygen Flow Rate (L/min) 2 Oxygen Delivery Method Room Air Weight: 54.6 kg Body Mass Index (BMI) 22.7 Intake & Output: Intake and Output for Last 24 Hours 06/09/23 06/10/23 06/11/23 23:59 23:59 23:59 Intake Total 1160 / 1160 200 / 200 Output Total 1475 / 1475 650 / 650 Balance -315 / -315 -450 / -450 Lab / Micro Data 06/11/23 07:40 06/11/23 07:40 Labs: Laboratory Results - last 24 hr 06/11/23 07:40: WBC 5.9, RBC 3.17 L, Hgb 9.9 L, Hct 30.1 L, MCV 95.0, MCH 31.2, MCHC 32.9, RDW Std Deviation 45.1 H, RDW Coeff of Wilder 12.9, Plt Count 243, MPV 10.0, Immature Gran % (Auto) 0.200, Neut % (Auto) 66.4, Lymph % (Auto) 21.8, [place] % (Auto) 8.4, Eos % (Auto) 2.7, Baso % (Auto) 0.5, Absolute Neuts (auto) 3.9, Absolute Lymphs (auto) 1.29, Nucleated RBC % 0, Sodium 138, Potassium 3.5, Chloride 106, Carbon Dioxide 30.0, Anion Gap 2 L, BUN 18, Creatinine 0.57, Estim Creat Clear Calc 40.63, Est GFR (MDRD) Af Amer 136, Est GFR (MDRD) Non-Af 112, BUN/Creatinine Ratio 31.6 H, Glucose 110 H, Calcium 8.2 L Physical Exam Narrative General: Alert, oriented, no apparent distress HEENT: Atraumatic, normocephalic Eyes: Anicteric, normal conjunctiva, extraocular movements grossly intact Neck: Supple Respiratory: Clear to auscultation bilaterally, normal respiratory effort Cardiovascular: Regular rate and rhythm GI: Soft, a bit firm without rebound, guarding, rigidity Extremities: No edema Musculoskeletal: Moving all extremities Neuro: No overt focal neurological deficits Skin: No rashes appreciated Psych: Cooperative Assessment & Plan Assessment/Plan (1) Lumbar stenosis: (2) Urinary retention: (3) Leg weakness: PLAN: Plan #Bilateral leg weakness and pain -MRI lumbar w/o contrast demonstrated unremarkable spinal cord with normal position and normal signal intensity of conus medullaris -did note a 3.8 x 1.9 cm fluid collection posterior soft tissues and L3-L5 which is likely postsurgical fluid, patient with no infectious signs or symptoms, given patient is postsurgical suspect ESR and CRP would still be elevated, can always consider obtaining and trending if concerns for infection arise however again suspect this postsurgical changes -Pt seen by her surgeon 06/07 -Symptom control -Consult Ortho -PT/OT -06/10: Spoke with Ortho yesterday, it is felt that fluid collection is all postsurgical, patient initially planned to go back home however after working with physical therapy and speaking with orthopedics patient changed her mind and is now agreeable to placement which I think she would benefit from -06/11: Still continues to have a lot of pain and feels her leg gives out and has some generalized weakness on top of this, patient surgeon and I both think will be necessary for patient to go to SNF prior to going home for safe discharge. #Urinary leakage/difficulty voiding and distention -UA not suggestive of infection -No spinal cord impingement -Izquierdo placed in ED and placed on Flomax per instructions -Pt has had this problem before -Suspect constipation may play a role, hasn't had BP since and has some abd cramping, bowel regimen -06/10: We will maintain Izquierdo and continue Flomax -06/11: Considering void trial given the thought that this was not due to any lumbar pathology specifically but probably a combination of patient's intermittent problems with retention in addition to postop and constipation however need patient have decent sized bowel movement prior to taking out Izquierdo as I suspect if she does not move her bowels she will continue to have retention. Given suppository and enema on top of her oral medications without significant bowel movement, will further escalate bowel regimen #Hx hyperthyroidism -Continue home medications #GERD -Continue PPI #Hypokalemia -Replaced #DVT ppx: SCDS Radhika Reed MD Time spent in the patient's overall evaluation,decision-making process, review of diagnostic data, adjustment of management, discussion with other providers, nursing nursing and ancillary staff involved in patient's care documentation, 36 Minutes Charges/Coding Visit Charges Inpatient E&M: 95154 Subs Hosp L2
[2023-06-11] MEDS: Tamsulosin HCl 0.4 MG Capsule PO (17:31)
[2023-06-11] MEDS: Senna/Docusate Sodium 1 Tablet 2 TABLET PO (21:05)
[2023-06-11] MEDS: MELATONIN 3 MG TABLET PO (21:05)
[2023-06-11] MEDS: Polyethylene Glycol 3350 17 GM PACKET PO (21:06)
[2023-06-11] MEDS: Atorvastatin Calcium 20 MG Tablet PO (21:06)
[2023-06-11] MEDS: Ondansetron 4 MG/2 ML Vial IV (21:21)
[2023-06-11 21:26] VITALS: BP 112/48; PULSE 84; RESP 16; TEMP 36.5; O2SAT 96
[2023-06-12 03:58] VITALS: BP 109/54; PULSE 81; RESP 16; TEMP 36.6; O2SAT 94
[2023-06-12] MEDS: Psyllium 1 PACKET PO (05:46)
[2023-06-12] MEDS: Acetaminophen 500 MG Tablet 1000 MG PO (05:46)
[2023-06-12 07:07] VITALS: O2SAT 96
[2023-06-12 08:14] VITALS: BP 107/53; PULSE 78; RESP 16; TEMP 37.1; O2SAT 96
[2023-06-12 09:00] VITALS: RESP 18
[2023-06-12] MEDS: oxyCODONE 5 MG Tablet PO (09:11)
[2023-06-12] MEDS: Polyethylene Glycol 3350 17 GM PACKET PO (09:12)
[2023-06-12] MEDS: Pantoprazole Sodium 40 MG Tablet PO (09:12)
[2023-06-12] MEDS: Senna/Docusate Sodium 1 Tablet 2 TABLET PO (09:12)
[2023-06-12] MEDS: Citalopram 20 MG Tablet PO (09:13)
--- NOTE | 2023-06-12 10:44 | TREXTCAR_ITS ---
Diet Diet Order/Speech Therapy: 06/09/23 20:07 Diet: Regular - General Food consistency:: Regular Liquid Consistency:: Regular/Thin Type of Dietary Supplement:: Ensure Plus High Protein Diet Comments: 8 oz chocolate w/ lunch Routine Orders/Code Status Suppository Type: Dulcolax 10mg Suppository Frequency: Daily PRN O2 Liters per Minute: 2 O2 Frequency: Continuous Keep PO Greater than or Equal to (%): 92 Code Status: Full Code Wound(s) Back: Wound Type: Surgical Incision Therapies Physical Therapy: Eval and Treat Occupational Therapy: Eval and Treat Problem/Diagnosis (1) Lumbar stenosis: Status: Acute Code(s): M48.061 - Spinal stenosis, lumbar region without neurogenic claudication (2) Urinary retention: Status: Acute Code(s): R33.9 - Retention of urine, unspecified (3) Leg weakness: Status: Acute Code(s): R29.898 - Other symptoms and signs involving the musculoskeletal system Plan #Bilateral leg weakness and pain #Urinary leakage/difficulty voiding and distention- urinary retention #Hx hyperthyroidism #GERD #Hypokalemia- resolved LIBBY NAIDU, is a 68-year-old female history of GERD, hyperthyroidism, mood disorder, lumbar stenosis with fusion 06/06/2023 and subsequently discharged 06/08 who presented to [facility] 06/09/2023 with loss of bladder control/inability to urinate x24 hrs with leaking and distention with additional complaints of bilateral leg pain and weakness with inability to urinate effectively. Patient's surgeon was contacted in the ED who recommended Izquierdo catheter and Flomax and MRI w/o contrast to r/o cauda equina syndrome. MRI demonstrated unremarkable spinal cord with normal position and signal intensity of conus medullaris but did note a 3.8 x 1.9 cm fluid collection posterior soft tissues and L3-L5 which is likely postsurgical fluid. Patient required Izquierdo catheter placement and did have some significant constipation for which bowel regimen was started prior to considering removing Izquierdo for void trial. Patient worked with physical therapy and it was deemed she would benefit from SNF prior to DC which patient was agreeable. Patient transferred to SNF in stable condition. Allergies/Procedures Done in Hospital Allergies Tetracyclines Adverse Reaction (Unknown, Verified 06/09/23 14:16) GI upset sulfamethoxazole [From Bactrim] Adverse Reaction (Verified 06/09/23 14:16) Upset Stomach trimethoprim [From Bactrim] Adverse Reaction (Verified 06/09/23 14:16) Upset Stomach Type of Care/Length of Stay Estimated LOS: Convalescent Care Less Than 30 days Type of Care Needed: Skilled Rehab Potential: Fair Prognosis: Fair Additional Orders/Day of Discharge Day of Discharge: 06/12/23 Dietary and Speech Recommendations Dietitian Recommendations/Changes: Will continue liberal Regular diet to help optimize pt po intake Will provide 8 oz chocolate ensure plus high protein w/ lunch per pt request Continue to follow and monitor for changes in pt nutritional status Discharge Plan Admission Admit Date/Time: 06/09/23 18:43 Primary Reason for Your Visit: Intractable back pain and urinary retention Attending Provider: Radhika Reed Primary Care Provider: Esther Malik Consulting Providers: Chinmay Morley Instructions Patient Instructions: ED Fall Prevention Additional Instructions / Restrictions: DISCHARGE INSTRUCTIONS PLEASE READ *Please take this with you to your next doctors appointment* -Please follow with Dr. Morley in the clinic in 3 weeks -Continue Flomax, you will be discharged with Izquierdo catheter- can consider void trial in next 1 to 2 days if constipation improves, if unable to proceed with void trial or if there is uncertainty can follow-up with urology -Please call your primary care provider's office upon discharge to schedule a hospital follow up within 1 week. -For any concerning signs or symptoms please call 911 or proceed to the nearest emergency department Discharge Orders/Prescriptions Prescriptions: New polyethylene glycol 3350 17 gram Powder In Packet 17 g PO BID Qty: 0 0RF tamsulosin 0.4 mg Capsule 0.4 mg PO DAILY Qty: 0 0RF oxycodone 5 mg Tablet 5 mg PO Q4H PRN PRN (Reason: Pain Score 4-10) 3 Days Qty: 12 0RF gabapentin 100 mg Capsule 100 mg PO TIDCM 3 Days Qty: 9 0RF Continued esomeprazole magnesium [Nexium] 20 mg capsule,delayed release(DR/EC) 40 mg PO DAILY Prolia 60 mg/mL syringe 60 mg SC [id number] albuterol sulfate 2.5 mg /3 mL (0.083 %) solution for nebulization 2.5 mg INHALATION Q6H PRN (Reason: Wheezing) Patient Comments: has not used in forever rosuvastatin 10 mg tablet 10 mg PO DAILY Patient Comments: unsure of dosage multivitamin [Daily Multi-Vitamin] Tablet 2 tab PO DAILY zinc 50 mg tablet 50 mg PO DAILY ondansetron 4 mg tablet,disintegrating 2 mg PO Q12H PRN (Reason: nausea and vomiting) Patient Comments: patient states she only takes 1/2 tablet acetaminophen [Tylenol Arthritis Pain] 650 mg tablet extended release 650 mg PO DAILY citalopram 20 MG tablet 20 mg PO DAILY Patient Comments: depression sucralfate 1 gram tablet 1 g PO BID Patient Comments: patient takes 1 tablet twice a day, while script states to take 4 times day. unsure of dosage fzktllcfbah-hflsdjlye-hcpunscl 1 EACH blister with device 1 ea IH DAILY calcium polycarbophil [Fiber-Tabs] 625 mg tablet 1,250 mg PO DAILY cyanocobalamin (vitamin B-12) [Vitamin B-12] 1,000 mcg tablet 1,000 mcg PO DAILY Florajen Acidophilus 20 billion cell capsule 100 mmu cells PO DAILY methimazole 5 mg tablet 5 mg PO DAILY Patient Comments: script states to take 1/2 tab daily while pt states she takes 1 tab daily. unsure of dosage Held lorazepam 0.5 mg tablet 0.5 mg PO DAILY PRN (Reason: anxiety) Hold Instructions: Resume on 06/14/23. Hold while still requiring narcotics if possible Patient Comments: script states to take 1 tablet daily prn, pt states only states 1/2 tablet prn Referrals / Follow Up: Anish Andrade MD [Med Staff - Active Staff] - Chinmay Morley DO [Med Staff - Active Staff] - Within 2 Weeks Esther Malik DO [Primary Care Provider] - Within 1 Week Disposition Disposition (needs filled in before D/C Order can be placed): Detention Facility
--- NOTE | 2023-06-12 10:48 | DS.PCM_ITS ---
Providers Date of Admission: 06/09/23 Date of Discharge: 06/12/23 Primary Care Physician: Dr. Esther Malik, Consultations 06/09/23 20:07 Consult: Orthopedics Routine Consulting Provider: Chinmay Morley Reason for Consult: post lumbar surgery, intractable pain and weakness EMERGENT Consult: No MD Notified: Yes Date Notified: 06/09/23 Time Notified: 18:49 Method of Notification: ED Physician Initiated Reason For Visit: URINARY RETENTION, INTRACTABLE PAIN & WEAKNESS Diagnosis Discharge Diagnosis (1) Lumbar stenosis: Status: Acute Code(s): M48.061 - Spinal stenosis, lumbar region without neurogenic claudication (2) Urinary retention: Status: Acute Code(s): R33.9 - Retention of urine, unspecified (3) Leg weakness: Status: Acute Code(s): R29.898 - Other symptoms and signs involving the musculoskeletal system Plan #Bilateral leg weakness and pain after surgery for lumbar stenosis #Urinary leakage/difficulty voiding and distention- urinary retention #Hx hyperthyroidism #GERD #Hypokalemia- resolved Medications at Discharge Home Medications citalopram 20 mg tablet 20 mg PO DAILY anxiety 11/10/15 albuterol sulfate 2.5 mg/3 mL (0.083 %) solution for nebulization 2.5 mg inhalation Q6H PRN Wheezing 01/20/20 fluticasone fur. 100 mcg-umeclid 62.5 mcg-vilant 25 mcg inhalat.powder 1 ea IH DAILY COPD 02/25/20 denosumab 60 mg/mL subcutaneous syringe (Prolia) 60 mg subcut [id number] thinning of the arteries 05/16/20 multivitamin (Daily Multi-Vitamin tablet) 2 tab PO DAILY supplement 04/06/21 rosuvastatin 10 mg tablet 10 mg PO DAILY cholesterol 04/06/21 zinc 50 mg tablet 50 mg PO DAILY supplement 04/06/21 esomeprazole magnesium 20 mg capsule,delayed release (Nexium) 40 mg PO DAILY stomach 06/16/21 sucralfate 1 gram tablet 1 g PO BID stomach 06/16/21 ondansetron 4 mg disintegrating tablet 2 mg PO Q12H PRN nausea and vomiting 06/20/22 acetaminophen 650 mg tablet,extended release (Tylenol Arthritis Pain) 650 mg PO DAILY arthritis pain 03/15/23 Lactobacillus acidophilus 20 billion cell capsule (Florajen Acidophilus) 100 mmu cells PO DAILY probiotic 05/24/23 calcium polycarbophil 625 mg tablet (Fiber-Tabs) 1,250 mg PO DAILY digestion 05/24/23 cyanocobalamin (vitamin B-12) 1,000 mcg tablet (Vitamin B-12) 1,000 mcg PO DAILY supplement 05/24/23 methimazole 5 mg tablet 5 mg PO DAILY thyroid 05/24/23 lorazepam 0.5 mg tablet 0.5 mg PO DAILY PRN anxiety 06/09/23 gabapentin 100 mg capsule 100 mg PO TIDCM 3 days #9 caps 06/12/23 oxycodone 5 mg tablet 5 mg PO Q4H PRN PRN Pain Score 4-10 3 days #12 tabs 06/12/23 polyethylene glycol 3350 17 gram oral powder packet 17 g PO BID #0 ea 06/12/23 tamsulosin 0.4 mg capsule 0.4 mg PO DAILY #0 caps 06/12/23 Hospital Course Summary of Care Provided Minutes Spent on Discharge: 32 Hospital Course: LIBBY NAIDU, is a 68-year-old female history of GERD, hyperthyroidism, mood disorder, lumbar stenosis with fusion 06/06/2023 and subsequently discharged 06/08 who presented to [facility] 06/09/2023 with loss of bladder co ntrol/inability to urinate x24 hrs with leaking and distention with additional complaints of bilateral leg pain and weakness with inability to urinate effectively. Patient's surgeon was contacted in the ED who recommended Izquierdo catheter and Flomax and MRI w/o contrast to r/o cauda equina syndrome. MRI demonstrated unremarkable spinal cord with normal position and signal intensity of conus medullaris but did note a 3.8 x 1.9 cm fluid collection posterior soft tissues and L3-L5 which is likely postsurgical fluid. Patient required Izquierdo catheter placement and did have some significant constipation for which bowel regimen was started prior to considering removing Izquierdo for void trial. Patient worked with physical therapy and it was deemed she would benefit from SNF prior to DC which patient was agreeable. Patient transferred to SNF in stable condition. Physical Exam Narrative General: Alert, oriented, no apparent distress HEENT: Atraumatic, normocephalic Eyes: Anicteric, normal conjunctiva, extraocular movements grossly intact Neck: Supple Respiratory: Clear to auscultation bilaterally, normal respiratory effort Cardiovascular: Regular rate and rhythm GI: Soft, a bit firm without rebound, guarding, rigidity Extremities: No edema Musculoskeletal: Moving all extremities Neuro: No overt focal neurological deficits Skin: No rashes appreciated Psych: Cooperative Weight / BMI Weight Weight: 54.6 kg Body Mass Index (BMI) 22.7 ABG / Lab / Microbiology Data 06/11/23 07:40 06/11/23 07:40 D/C Instructions Discharge Diet: No restrictions Meaningful Use Info Meaningful Use Diagnoses (Choose all that apply): None applicable Discharge Plan Admission Admit Date/Time: 06/09/23 18:43 Primary Reason for Your Visit: Intractable back pain and urinary retention Attending Provider: Radhika Reed Primary Care Provider: Esther Malik Consulting Providers: Chinmay Morley Instructions Patient Instructions: ED Fall Prevention Additional Instructions / Restrictions: DISCHARGE INSTRUCTIONS PLEASE READ *Please take this with you to your next doctors appointment* -Please follow with Dr. Morley in the clinic in 3 weeks -Continue Flomax, you will be discharged with Izquierdo catheter- can consider void trial in next 1 to 2 days if constipation improves, if unable to proceed with void trial or if there is uncertainty can follow-up with urology -Please call your primary care provider's office upon discharge to schedule a hospital follow up within 1 week. -For any concerning signs or symptoms please call 911 or proceed to the nearest emergency department Discharge Orders/Prescriptions Prescriptions: New polyethylene glycol 3350 17 gram Powder In Packet 17 g PO BID Qty: 0 0RF tamsulosin 0.4 mg Capsule 0.4 mg PO DAILY Qty: 0 0RF oxycodone 5 mg Tablet 5 mg PO Q4H PRN PRN (Reason: Pain Score 4-10) 3 Days Qty: 12 0RF gabapentin 100 mg Capsule 100 mg PO TIDCM 3 Days Qty: 9 0RF Continued esomeprazole magnesium [Nexium] 20 mg capsule,delayed release(DR/EC) 40 mg PO DAILY Prolia 60 mg/mL syringe 60 mg SC [id number] albuterol sulfate 2.5 mg /3 mL (0.083 %) solution for nebulization 2.5 mg INHALATION Q6H PRN (Reason: Wheezing) Patient Comments: has not used in forever rosuvastatin 10 mg tablet 10 mg PO DAILY Patient Comments: unsure of dosage multivitamin [Daily Multi-Vitamin] Tablet 2 tab PO DAILY zinc 50 mg tablet 50 mg PO DAILY ondansetron 4 mg tablet,disintegrating 2 mg PO Q12H PRN (Reason: nausea and vomiting) Patient Comments: patient states she only takes 1/2 tablet acetaminophen [Tylenol Arthritis Pain] 650 mg tablet extended release 650 mg PO DAILY citalopram 20 MG tablet 20 mg PO DAILY Patient Comments: depression sucralfate 1 gram tablet 1 g PO BID Patient Comments: patient takes 1 tablet twice a day, while script states to take 4 times day. unsure of dosage ezsosyjkeic-yeihmnwby-kvjdxowh 1 EACH blister with device 1 ea IH DAILY calcium polycarbophil [Fiber-Tabs] 625 mg tablet 1,250 mg PO DAILY cyanocobalamin (vitamin B-12) [Vitamin B-12] 1,000 mcg tablet 1,000 mcg PO DAILY Florajen Acidophilus 20 billion cell capsule 100 mmu cells PO DAILY methimazole 5 mg tablet 5 mg PO DAILY Patient Comments: script states to take 1/2 tab daily while pt states she takes 1 tab daily. unsure of dosage Held lorazepam 0.5 mg tablet 0.5 mg PO DAILY PRN (Reason: anxiety) Hold Instructions: Resume on 06/14/23. Hold while still requiring narcotics if possible Patient Comments: script states to take 1 tablet daily prn, pt states only states 1/2 tablet prn Referrals / Follow Up: Anish Andrade MD [Med Staff - Active Staff] - Chinmay Morley DO [Med Staff - Active Staff] - Within 2 Weeks Esther Malik DO [Primary Care Provider] - Within 1 Week Disposition Disposition (needs filled in before D/C Order can be placed): [facility] Facility Charges/Coding Visit Charges Inpatient E&M: 84800 Disch Hosp >30min
--- NOTE | 2023-06-12 11:09 | CASEMGMT ---
Social Work Per physician, pt is ready for discharge today. EDUARDO notified Ariadna in TCU that pt will admit and discharge orders faxed. EDUARDO met with pt and and dgt and notified of discharge to TCU today and pt is agreeable. Nursing updated. Disposition: TCU, skilled level of care ADRIANNE i[facility]
[2023-06-12] MEDS: Gabapentin 100 MG Capsule PO (12:04)
[2023-06-12] MEDS: methIMAzole 5 MG TABLET PO (12:04)
--- NOTE | 2023-06-12 12:32 | PCM.HOSP.N ---
Hospitalist Note The date of this entry is 06/06/2023: Patient is ambulatory in the home and community and requires home oxygen with portability, she requires 1 L of oxygen per nasal cannula.
[2023-06-12 13:36] VITALS: BP 103/80; PULSE 70; RESP 18; TEMP 37; O2SAT 98
== END 2023-06-12 13:53 | disposition skilled nursing facility (03) | DRG 392 ==
LOC: ED 18:35 → MS3 18:53
PROVIDERS: Admitting Provider Internal Medicine; Emergency Provider Emergency Medicine; PCP Internal Medicine; Visit Provider Internal Medicine
DX: K59.00 Constipation, unspecified (principal); E05.90 Thyrotoxicosis, unspecified without thyrotoxic crisis or storm; J43.9 Emphysema, unspecified; E78.5 Hyperlipidemia, unspecified; M48.061 Spinal stenosis, lumbar region without neurogenic claudication; K21.9 Gastro-esophageal reflux disease without esophagitis; E87.6 Hypokalemia; F17.210 Nicotine dependence, cigarettes, uncomplicated; R33.9 Retention of urine, unspecified; R29.898 Other symptoms and signs involving the musculoskeletal system; R53.81 Other malaise; Z79.899 Other long term (current) drug therapy
CPT/HCPCS: 36415; 72148; 80048; 81001; 85025; 94668; 97162; 97166; 97530; 97535; 97802; 99283; 99406; J7030; A4216; J2405

== ENCOUNTER 2023-06-12 14:00 | Inpatient (IN) | payer MEDICARE, BC, SELFPAY ==
[2023-06-12 14:31] VITALS: BP 107/46; PULSE 66; RESP 18; TEMP 36.3; O2SAT 96; BMI 22.7
[2023-06-12] MEDS: Gabapentin 100 MG Capsule PO (17:10)
[2023-06-12] MEDS: Tamsulosin HCl 0.4 MG Capsule PO (17:10)
[2023-06-12] MEDS: oxyCODONE 5 MG Tablet PO (17:10)
[2023-06-12] MEDS: Ondansetron ODT 4 MG Tablet PO (17:31)
[2023-06-12] MEDS: Magnesium Citrate 300 ML PO (19:03)
[2023-06-12 19:55] VITALS: PULSE 96; RESP 16; O2SAT 97
--- NOTE | 2023-06-12 21:28 | HP.PCM_ITS ---
HPI - General General Date of Admission: 06/12/23 Date of Service: 06/12/23 Chief Complaint: Here for rehabilitation. HPI Narrative 06/09/2023 LIBBY NAIDU, is a 68 Female who presents to [facility] Emergency Department with urinary incontinence, leg weakness. 06/06/2023 Dr. Morley performed L3/L4, L4/L5 fusion surgery. Unable to urinate for 24 hours, suprapubic pressure, feels like she has to urinate. Urinary incontinence with standing. History of mild intermittent urinary retention. Right leg pain, unable to stand due to leg weakness. Mixture of leg pain and leg weakness. Morphine, Zofran, IV fluids, Ativan given, Urinalysis negative. MRI LS spine negative for cauda equina syndrome, shows post surgical changes, post surgical fluid. 06/09/2023 Admit to Hospital. PT/OT for debility. Villagomez, Tamsulosin for urinary retention. 06/10/2023 Feeling better, weak, tired, agreeable to placement. PT/OT for placement. 06/10/2023 Dr. Morley recommended placement for rehabilitation. 06/11/2023 Pain limiting mobility, villagomez in place, constipated. Enema, oral laxatives given for constipation. Voiding trial after constipation resolved. 06/12/2023 Admit to TCU with debility, here for rehabilitation, strengthening, prior to discharge home with . [facility] Medical History (Updated 06/12/23 @ 21:[address] Amador Yeung MD) Abnormal cardiac CT angiography Abnormal GTT (glucose tolerance test) Abnormal thyroid ultrasound Abnormal TSH Anxiety Arthritis Back pain Cancer Cardiology follow-up encounter Chronic cough COPD (chronic obstructive pulmonary disease) Depression Emphysema of lung Gastric reflux GERD (gastroesophageal reflux disease) History of pain when walking History of skin cancer History of stress test HLD (hyperlipidemia) Hyperthyroidism Insomnia Migraine Osteopenia Post-menopausal Pre-diabetes Pre-diabetes Restless legs Shortness of breath on exertion Smoker Thyroid disease Thyroid nodule Wears glasses Home Medications citalopram 20 mg tablet 20 mg PO DAILY anxiety 11/10/15 [History Last Taken 11/09/15] albuterol sulfate 2.5 mg/3 mL (0.083 %) solution for nebulization 2.5 mg inhalation Q6H PRN Wheezing 01/20/20 [History Last Taken 06/06/23 05:00] fluticasone fur. 100 mcg-umeclid 62.5 mcg-vilant 25 mcg inhalat.powder 1 ea IH DAILY COPD 02/25/20 [History Last Taken Unknown] denosumab 60 mg/mL subcutaneous syringe (Prolia) 60 mg subcut [id number] thinning of the arteries 05/16/20 [History Last Taken Unknown] multivitamin (Daily Multi-Vitamin tablet) 2 tab PO DAILY supplement 04/06/21 [History Last Taken Unknown] rosuvastatin 10 mg tablet 10 mg PO DAILY cholesterol 04/06/21 [History Last Taken Unknown] zinc 50 mg tablet 50 mg PO DAILY supplement 04/06/21 [History Last Taken Unkn own] esomeprazole magnesium 20 mg capsule,delayed release (Nexium) 40 mg PO DAILY stomach 06/16/21 [History Last Taken 06/06/23 05:00] sucralfate 1 gram tablet 1 g PO BID stomach 06/16/21 [History Last Taken Unknown] ondansetron 4 mg disintegrating tablet 2 mg PO Q12H PRN nausea and vomiting 06/20/22 [History Last Taken 06/06/23 05:00] acetaminophen 650 mg tablet,extended release (Tylenol Arthritis Pain) 650 mg PO DAILY arthritis pain 03/15/23 [History Last Taken Unknown] Lactobacillus acidophilus 20 billion cell capsule (Florajen Acidophilus) 100 mmu cells PO DAILY probiotic 05/24/23 [History Last Taken Unknown] calcium polycarbophil 625 mg tablet (Fiber-Tabs) 1,250 mg PO DAILY digestion 05/24/23 [History Last Taken Unknown] cyanocobalamin (vitamin B-12) 1,000 mcg tablet (Vitamin B-12) 1,000 mcg PO DAILY supplement 05/24/23 [History Last Taken Unknown] methimazole 5 mg tablet 5 mg PO DAILY thyroid 05/24/23 [History Last Taken 06/06/23 05:00] lorazepam 0.5 mg tablet 0.5 mg PO DAILY PRN anxiety 06/09/23 [History Last Taken 06/09/23] gabapentin 100 mg capsule 100 mg PO TIDCM nerve pain 3 days #9 caps 06/12/23 [Rx Last Taken 06/12/23] oxycodone 5 mg tablet 5 mg PO Q4H PRN PRN Pain Score 4-10 3 days #12 tabs 06/12/23 [Rx Last Taken 06/12/23] polyethylene glycol 3350 17 gram oral powder packet 17 g PO BID stool softner #0 ea 06/12/23 [Rx Last Taken 06/12/23] tamsulosin 0.4 mg capsule 0.4 mg PO DAILY retention #0 caps 06/12/23 [Rx Last Taken 06/12/23] Allergy/AdvReac Type Severity Reaction Status Date / Time Tetracyclines AdvReac Unknown GI upset Verified 06/09/23 14:16 sulfamethoxazole AdvReac Upset Verified 06/09/23 14:16 [From Bactrim] Stomach trimethoprim [From Bactrim] AdvReac Upset Verified 06/09/23 14:16 Stomach Family History Brother Heart disease Father Cirrhosis Mother Cancer lung Grandmother Cancer leukemia Grandmother CVA (cerebral vascular accident) Other Alcoholism Diabetes H/O emotional problems Liver disease Surgical History (Updated 06/12/23 @ 21:[address] Amador Yeung MD) History of cholecystectomy History of colonoscopy History of dilation and curettage History of esophagogastroduodenoscopy (EGD) History of lumpectomy History of surgery on wrist Status post biopsy of thyroid gland (~11/2018) Social History (Updated 06/12/23 @ 21:[address] Amador Yeung MD) household members: spouse Smoking Status: Current every day smoker tobacco type: cigarettes and e- cigarettes alcohol intake: never substance use type: does not use caffeine: Yes Type: carbonated beverages Number of servings: 1 ROS Constitutional Constitutional: Denies chills, fever(s) or weight gain ENT HEENT: Denies headache(s), nasal congestion or nasal discharge Cardiovascular Cardiovascular: Denies chest pain or palpitations Respiratory/Chest Respiratory/Chest: Denies cough, excessive phlegm production or shortness of breath with exertion Gastrointestinal Gastrointestinal: Denies abdominal pain, nausea or vomiting Genitourinary Genitourinary: Denies dysuria Musculoskeletal Musculoskeletal: Denies joint pain or joint swelling Integumentary Integumentary: Denies rash or wounds Neurologic Neurologic: Denies focal weakness, numbness or tingling Psychiatric Psychiatric: Denies anxiety, auditory hallucinations, depression, homicidal ideation or suicidal ideation Vital Signs Vital Signs Vital Signs: 06/12/23 14:31 06/12/23 19:55 Temperature 97.4 F L Temperature Source Temporal Pulse Rate 66 96 Pulse Rhythm Regular Pulse Strength Normal (2+) Respiratory Rate 18 16 Respiratory Effort Normal Non-Labored Respiratory Depth Normal Respiratory Pattern Normal Blood Pressure 107/46 L Blood Pressure Mean 66 Blood Pressure Source Monitor Blood Pressure Position Semi-Fowlers Blood Pressure Location Left Arm Pulse Ox 96 97 Oxygen Delivery Method Room Air Room Air Weight Weight: 54.658 kg Body Mass Index (BMI) 22.7 Physical Exam Const alert General Appearance: cooperative HEENT normocephalic Eyes PERRL and EOMs intact bilaterally Neck supple, no JVD and no carotid bruits Resp normal respiratory effort, normal air movement and clear to auscultation bilaterally Cardio regular rate and regular rhythm GI normal to inspection, nondistended, normoactive bowel sounds, non-tender and non-distended Bladder / Kidney Exam: catheter in place urethral Extremity normal capillary refill General Extremity: Negative for edema Skin no rashes or lesions noted General Skin Exam: no breakdown Psych affect normal Appearance: appropriate Assessment & Plan Assessment/Plan (1) Debility: (2) Acute urinary retention: (3) Leg weakness: (4) Lumbar stenosis: (5) Fecal impaction of colon: (6) Status post lumbar spinal fusion: (7) Depression: (8) COPD (chronic obstructive pulmonary disease): (9) Osteoporosis: QUALIFIERS: Osteoporosis type: age-related Presence of current pathological fracture: without current pathological fracture Qualified Code(s): M81.0 - Age-related osteoporosis without current pathological fracture (10) HLD (hyperlipidemia): (11) GERD (gastroesophageal reflux disease): (12) Hyperthyroidism: (13) Tobacco abuse: PLAN: Plan 68 year old female status post lumbar spinal surgery, hospitalized for urinary retention, weakness of legs, cauda equina ruled out, admitted to TCU with debility, here for rehabilitation, strengthening, prior to discharge home with . * Debility - PT/OT. * Pain - Tylenol 1000mg q8, Tramadol 50mg q6 prn pain (1-5), Oxycodone 5mg q4 prn pain (6-10). * Bowel - Miralax 17gm daily, senna/colace 2 tablets bid, Magnesium citrate 300ml po daily prn. * Adult immunization - Administer pneumonia vaccine, covid19 vaccine, flu vaccine as appropriate. * DVT prophylaxis - Lovenox 40mg sc daily. * COPD - Advair 1 puff bid, Incruse 1 puff daily, Albuterol 2.5mg q6h prn. * Hyperlipidemia - Atorvastatin 20mg qhs. * Calcium deficiency - Calcium 1250mg daily. 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 * Vitamin B12 deficiency - B12 1000mcg daily. * Nutrition - Ensure 120ml po tidcm, MVI 1 tablet daily. * Neuropathic pain - Gabapentin 100mg tidcm. * GI prophylaxis - Lactobacillus 1 tablet daily. 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 * Hyperthyroidism - Methimazole 5mg daily. * Nausea - Zofran odt 4mg q8 prn. * GERD - Pantoprazole 40mg daily, Sucralfate 1gm bidac. * Urinary retention - Tamsulosin 0.4mg daily, indwelling villagomez catheter, voiding trials per protocol. * Zinc deficiency - Zinc 50mg daily.
[2023-06-12] MEDS: Atorvastatin Calcium 20 MG Tablet PO (21:42)
[2023-06-12] MEDS: Acetaminophen 500 MG Tablet 1000 MG PO (22:55)
[2023-06-12] MEDS: traMADol 50 MG Tablet PO (22:57)
--- NOTE | 2023-06-12 23:49 | NURSING ---
Pt requesting polar care be unplugged. Assisted to turn to rt side per pt request. Pt notes her daughter thought she was warm. Temp 98.6- temporal. Also questions when Mag Citrate will take effect. Abdomen distended and firm. Bowel sounds mildly hyperactive x 4 quadrants. Has been passing gas. Pt thinks her last bm was on Saturday. Informed pt if no results by am, will need to update Dr. Yeung for additional orders. Encouraged intake of fluids- water pitcher is within reach. Will continue to monitor.
[2023-06-12 23:53] VITALS: TEMP 37
[2023-06-13 06:00] LABS: Absolute Lymphocyte Count 1.61 X10^3/uL (0.83-4.51); Absolute Neutrophil Count 3.7 X10^3/uL (2.0-7.7); Basophil# 0.05 X10^3/uL; Basophil% 0.8 % (0-1); Eosinophil# 0.24 X10^3/uL; Eosinophils% 3.9 % (0-5); Hematocrit 29.2 % (37-47); Hemoglobin 9.3 g/dL (12.0-15.0); Lymphocyte # 1.61 X10^3/ul (0.83-4.51); Lymphocyte % 26.2 % (19-41); Mean Corp Hgb Conc 31.8 g/dL (32-36); Mean Corpuscular Hgb 30.5 pg (27.0-32.0); Mean Corpuscular Volume 95.7 fL (81-99); Mean Platelet Vol. 9.8 fl (6.2-12.0); Monocyte# 0.54 X10^3/uL; Monocyte% 8.8 % (0-10); NRBC Flagged by Analyzer 0 % (0-5); Neutrophil # 3.69 X10^3/uL (2.7-7.7); Platelet Count 300 K/mm3 (150-450); RBC Distribution Width CV 13.1 % (11.6-14.6); RBC Distribution Width SD 45.5 fl (35.1-43.9); Red Blood Count 3.05 M/mm3 (4.2-5.4); White Blood Count 6.2 K/mm3 (4.4-11.0)
[2023-06-13 06:28] LABS: Anion Gap 3 (5-15); BUN 20 mg/dL (7-18); BUN/Creat Ratio 37.2 RATIO (10-20); Calcium,Total 8.2 mg/dL (8.5-10.1); Chloride 106 mmol/L (98-107); Creatinine, Serum 0.54 mg/dL (0.55-1.02); EST Glomerular Filtration Rate 120 mL/min (>60); Est Glom Filt Rate - Afr Amer 145 mL/min (>60); Estimated Creatinine Clearance 40.63 ml/min; Glucose 102 mg/dL (74-106); Potassium 3.7 mmol/L (3.5-5.1); Sodium Level 140 mmol/L (136-145)
[2023-06-13] MEDS: Enoxaparin 40 MG/0.4 ML Syringe SC (06:50)
[2023-06-13] MEDS: Acetaminophen 500 MG Tablet 1000 MG PO ×3 (06:51→20:53)
[2023-06-13] MEDS: Sucralfate 1 GM Tablet PO ×2 (06:52→16:28)
[2023-06-13] MEDS: oxyCODONE 5 MG Tablet PO ×2 (06:53→18:26)
[2023-06-13] MEDS: Gabapentin 100 MG Capsule PO ×3 (08:45→17:40)
[2023-06-13] MEDS: Ensure Plus High Protein 120 ML LIQUID PO ×3 (08:45→17:40)
[2023-06-13] MEDS: Cyanocobalamin 500 MCG Tablet 1000 MCG PO (08:47)
[2023-06-13] MEDS: Senna/Docusate Sodium 1 Tablet 2 TABLET PO ×2 (08:47→20:54)
[2023-06-13] MEDS: Multivitamins,Therapeutic Tablet 1 TABLET PO (08:47)
[2023-06-13] MEDS: Zinc Sulfate 50 mg zinc (220 mg) ORAL capsule PO (08:48)
[2023-06-13] MEDS: Citalopram 20 MG Tablet PO (08:48)
[2023-06-13] MEDS: Umeclidinium Bromide Inhaler 1 PUFF INHALATION (08:49)
[2023-06-13] MEDS: Pantoprazole Sodium 40 MG Tablet PO (08:49)
[2023-06-13] MEDS: Methimazole 5 MG Tablet PO (08:50)
[2023-06-13] MEDS: Tuberculin,Purif.prot.deriv. 50 TU/ML Vial 0.1 ML ID (08:51)
--- NOTE | 2023-06-13 15:17 | CASEMGMT ---
Social Work Met with patient to complete initial assessment. Pt granted permission for dtr, Yuko, to remain present. Introduced self and role. Verified/updated contacts. Pt confirmed full code. Pt agreeable for to provide copies of advanced directives. Educated to Medicare benefit and copay coverage. Pt's goal is to return home at [facility]. Pt concerned about lack of movement/strength in legs and new villagomez. SW provided supportive listening and empathized with feelings. SW will continue to follow for DC planning and support. NATHAN ColónW
[2023-06-13 15:39] VITALS: BP 98/51; PULSE 85; RESP 16; TEMP 36.5; O2SAT 96
[2023-06-13] MEDS: Tamsulosin HCl 0.4 MG Capsule PO (17:40)
[2023-06-13] MEDS: traMADol 50 MG Tablet PO (20:52)
[2023-06-13] MEDS: Atorvastatin Calcium 20 MG Tablet PO (20:54)
[2023-06-13] MEDS: MELATONIN 10 MG TABLET PO (20:54)
[2023-06-13 21:03] VITALS: O2SAT 93
[2023-06-14] MEDS: Acetaminophen 500 MG Tablet 1000 MG PO ×3 (06:12→21:05)
[2023-06-14] MEDS: Sucralfate 1 GM Tablet PO ×2 (06:12→16:49)
[2023-06-14] MEDS: Enoxaparin 40 MG/0.4 ML Syringe SC (06:12)
[2023-06-14] MEDS: traMADol 50 MG Tablet PO ×2 (06:25→12:33)
--- NOTE | 2023-06-14 06:35 | NURSING ---
Indwelling catheter removed per policy. Pt tolerated well. Bladder scans scheduled for every 8 hours.
[2023-06-14] MEDS: oxyCODONE 5 MG Tablet PO ×4 (08:08→21:04)
[2023-06-14] MEDS: Ensure Plus High Protein 120 ML LIQUID PO ×3 (08:09→16:49)
[2023-06-14] MEDS: LORazepam 0.5 MG Tablet PO (08:12)
[2023-06-14] MEDS: Gabapentin 100 MG Capsule PO ×3 (08:20→16:49)
[2023-06-14] MEDS: Senna/Docusate Sodium 1 Tablet 2 TABLET PO ×2 (08:21→21:06)
[2023-06-14] MEDS: Polyethylene Glycol 3350 17 GM PACKET PO (08:22)
[2023-06-14] MEDS: Zinc Sulfate 50 mg zinc (220 mg) ORAL capsule PO (08:22)
[2023-06-14] MEDS: Umeclidinium Bromide Inhaler 1 PUFF INHALATION (08:22)
[2023-06-14] MEDS: Pantoprazole Sodium 40 MG Tablet PO (08:23)
[2023-06-14] MEDS: Citalopram 20 MG Tablet PO (08:23)
[2023-06-14] MEDS: Multivitamins,Therapeutic Tablet 1 TABLET PO (08:23)
[2023-06-14] MEDS: Methimazole 5 MG Tablet PO (08:23)
[2023-06-14] MEDS: Cyanocobalamin 500 MCG Tablet 1000 MCG PO (08:24)
--- NOTE | 2023-06-14 11:41 | NURSING ---
Commercial Lines Underwriter Note; Activity Asset: Brady Lobato is independent in her choice of daily activities. When not resting, in therapy or visiting w/family and friends she will work on crossword puzzles, read her book and newspaper or watch tv. She welcomes visits from the therapy dog however stated she prefers to just have visit from Father Keshawn at [facility]. Staff will remind her of daily activities and respect her right to say no. Her son was in the room and was informed that they can take her outside and off the floor if they let staff know.
--- NOTE | 2023-06-14 11:54 | NURSING ---
Addendum entered by Cecille Douglas 06/14/23 12:16: entered pt room to assess pt and pt was eating lunch. explained to pt that this nurse would be back to change dressing and pt mentioned that she just got off phone with Dr Morley & stated I just talked to them and told them my dressing had not been changed and then after I hung up phone I thought, maybe it did Explained to pt that I will return when she is done eating her meal. Pt states that she has been wearing her back brace. Brace intact while she is eating in recliner chair. 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 also that sutures will be removed at f/u appt on 06/24 at 1330. All orders in as per dr Morley post op sheet that was faxed.
--- NOTE | 2023-06-14 13:00 | NS ---
MST score = 1. Food dislikes - all vegetables except corn, broccoli, potatoes and lettuce. Able to order foods that she likes.
[2023-06-14 13:17] VITALS: RESP 16
[2023-06-14 15:05] VITALS: BP 112/54; PULSE 88; RESP 18; TEMP 36.9; O2SAT 94
[2023-06-14] MEDS: Fluticasone/Salmeterol 232-14 Inhaler 1 PUFF INHALATION (15:19)
--- NOTE | 2023-06-14 15:53 | NURSING ---
Clarified order with Dr Morley nurse, ok for back brace to be off While in bed, but needs to be on at all times when OOB
--- NOTE | 2023-06-14 16:08 | PCM.PN.DRR ---
Documented by User: Britton Manzo 06/14/23 16:16 TCU RX Drug Regimen Review Subjective/Objective Subjective/Objective: Subjective: 68 year old female status post lumbar spinal surgery, hospitalized for urinary retention, weakness of legs, cauda equina ruled out, admitted to TCU with debility, here for rehabilitation, strengthening, prior to discharge home with . Objective: Allergies Tetracyclines Adverse Reaction (Unknown, Verified 06/09/23 14:16) GI upset sulfamethoxazole [From Bactrim] Adverse Reaction (Verified 06/09/23 14:16) Upset Stomach trimethoprim [From Bactrim] Adverse Reaction (Verified 06/09/23 14:16) Upset Stomach Current Medications Generic Name Dose Route Start Last Admin Trade Name Freq PRN Reason Stop Dose Admin Acetaminophen 1,000 mg 06/12/23 22:00 06/14/23 14:47 Acetaminophen 500 Mg Tablet PO 1,000 mg Q8 KUN Administration Albuterol Sulfate 2.5 mg 06/12/23 16:28 Albuterol 2.5 Mg/3 Ml Vial.Neb. INHALATION Q6H PRN Wheezing Atorvastatin Calcium 20 mg 06/12/23 22:00 06/13/23 20:54 Atorvastatin Calcium 20 Mg Tablet PO 20 mg QHS KUN Administration Calcium Polycarbophil 1,250 mg 06/13/23 10:00 06/14/23 08:23 Calcium Polycarbophil 625 Mg Tablet PO 1,250 mg DAILY KUN Administration Citalopram Hydrobromide 20 mg 06/13/23 10:00 06/14/23 08:23 Citalopram 20 Mg Tablet PO 20 mg DAILY KUN Administration Cyanocobalamin 1,000 mcg 06/13/23 08:00 06/14/23 08:24 Cyanocobalamin 500 Mcg Tablet PO 1,000 mcg DAILYCM KUN Administration Enoxaparin Sodium 40 mg 06/13/23 06:00 06/14/23 06:12 Enoxaparin 40 Mg/0.4 Ml Syringe SC 40 mg DAILY@0600 KUN Administration Gabapentin 100 mg 06/12/23 17:45 06/14/23 12:11 Gabapentin 100 Mg Capsule PO 100 mg TIDCM KUN Administration Lactobacillus Acidophilus 1 tablet 06/13/23 10:00 06/14/23 08:21 Lactobacillus Acidophilus PO 1 tablet DAILY KUN Administration Lorazepam 0.5 mg 06/12/23 16:28 06/14/23 08:12 Lorazepam 0.5 Mg Tablet PO 0.5 mg DAILY PRN Administration anxiety Magnesium Citrate 300 ml 06/12/23 21:49 Magnesium Citrate 300 Ml PO DAILY PRN Constipation Melatonin 10 mg 06/13/23 22:00 06/13/23 20:54 Melatonin 10 Mg Tablet PO 10 mg QHS KUN Administration Methimazole 5 mg 06/13/23 10:00 06/14/23 08:23 Methimazole 5 Mg Tablet PO 5 mg DAILY KUN Administration Multivitamins 1 tablet 06/13/23 08:00 06/14/23 08:23 Multivitamins,Therapeutic Tablet PO 1 tablet DAILYCM KUN Administration Nutritional Formula (Lactose Free) 120 ml 06/12/23 17:45 06/14/23 12:10 Ensure Plus High Protein 120 Ml Liquid PO 120 ml TIDCM KUN Administration Ondansetron HCl 4 mg 06/12/23 16:28 06/12/23 17:31 Ondansetron Odt 4 Mg Tablet PO 4 mg Q12H PRN Administration nausea and vomiting Oxycodone HCl 5 mg 06/12/23 21:52 06/14/23 12:11 Oxycodone 5 Mg Tablet PO 5 mg Q4H PRN PRN Administration Pain Score 6-10 Pantoprazole Sodium 40 mg 06/13/23 10:00 06/14/23 08:23 Pantoprazole Sodium 40 Mg Tablet PO 40 mg DAILY KUN Administration Polyethylene Glycol 17 gm 06/12/23 22:00 06/14/23 08:22 Polyethylene Glycol 3350 17 Gm Packet PO 17 gm BID KUN Administration Fluticasone/Salmeterol 1 puff 06/14/23 10:00 06/14/23 15:19 Fluticasone/Salmeterol 232-14 Inhaler INHALATION 1 puff DAILY KUN Administration Senna/Docusate Sodium 2 tablet 06/12/23 22:00 06/14/23 08:21 Senna/Docusate Sodium 1 Tablet PO 2 tablet BID KUN Administration Sucralfate 1 gm 06/13/23 07:00 06/14/23 06:12 Sucralfate 1 Gm Tablet PO 1 gm BIDAC KUN Administration Tamsulosin HCl 0.4 mg 06/12/23 17:30 06/13/23 17:40 Tamsulosin Hcl 0.4 Mg Capsule PO 0.4 mg DAILY@1730 KUN Administration Tramadol HCl 50 mg 06/12/23 21:49 06/14/23 12:33 Tramadol 50 Mg Tablet PO 50 mg Q6H PRN PRN Administration Pain Score 1-5 Tuberculin PPD 0.1 ml 06/20/23 10:00 Tuberculin,Purif.Prot.Deriv. 50 Tu/Ml Vial ID 06/20/23 10:01 X1 ONE Umeclidinium Loyal 1 puff 06/13/23 10:00 06/14/23 08:22 Umeclidinium Loyal Inhaler INHALATION 1 puff DAILY KUN Administration Zinc Sulfate 50 mg 06/13/23 08:00 06/14/23 08:22 Zinc Sulfate 50 Mg Zinc (220 Mg) Oral Capsule PO 50 mg DAILYCM KUN Administration Problem List (Updated 06/12/23 @ 21:[address] Amador Yeung MD) Tobacco abuse (Acute) Depression (Acute) Status post lumbar spinal fusion (Acute) Fecal impaction of colon (Acute) Acute urinary retention (Acute) Debility (Acute) Leg weakness (Acute) Lumbar stenosis (Acute) Osteoporosis (Chronic) HLD (hyperlipidemia) (Acute) Hyperthyroidism (Chronic) GERD (gastroesophageal reflux disease) (Chronic) COPD (chronic obstructive pulmonary disease) (Chronic) Vital Signs Temp Pulse Resp BP Pulse Ox O2 Del Method O2 Flow Rate 98.5 F 88 18 112/54 L 94 Room Air 93 06/14/23 15:05 06/14/23 15:05 06/14/23 15:05 06/14/23 15:05 06/14/23 15:05 06/14/23 15:05 06/14/23 13:17 Oxygen Flow Rate (L/min) 93 Oxygen Delivery Method Room Air Weight: 54.658 kg Body Mass Index (BMI) 22.7 Sodium 140 mmol/L (136-145) 06/13/23 05:28 Potassium 3.7 mmol/L (3.5-5.1) 06/13/23 05:28 Chloride 106 mmol/L (98-107) 06/13/23 05:28 Carbon Dioxide 31.0 mmol/L (21.0-32.0) 06/13/23 05:28 Anion Gap 3 (5-15) L 06/13/23 05:28 BUN 20 mg/dL (7-18) H 06/13/23 05:28 Creatinine 0.54 mg/dL (0.55-1.02) L 06/13/23 05:28 Est GFR (MDRD) Af Amer 145 mL/min (>60) 06/13/23 05:28 Est GFR (MDRD) Non-Af 120 mL/min (>60) 06/13/23 05:28 BUN/Creatinine Ratio 37.2 RATIO (10-20) H 06/13/23 05:28 Glucose 102 mg/dL (74-106) 06/13/23 05:28 Assessment/Plan: 1. Pain- Tylenol 1000 mg PO Q8H, Tramadol 50 mg PO Q6H as needed for pain (1-5), Oxycodone 5 mg PO Q4H as needed for pain (6-10). Gabapentin 100 mg PO TID. Tramadol has been given 3 times during this admission. Oxycodone has been given 3 times during this admission. Make sure to monitor ALT/AST (ALT 19 U/L on 03/26/23 and AST 15 U/L on same date.), constipation, dizziness, drowsiness, respiratory depression, and pain levels. 2. Bowel- Miralax 17 g PO daily, senna/colace 2 tablets PO twice a day, magnesium citrate 300 ml PO daily as needed. Magnesium Citrate PRN has not been administered during this visit. Monitor for constipation, diarrhea, and PRN medication usage. The patient's last bowel movement was 06/13/23. 3. Urinary Retention- Tamsulosin 0.4 mg PO daily. Monitor for orthostatic hypotension, dizziness, and headache. 4. Hyperlipidemia- Atorvastatin 20 mg PO at bedtime. Monitor for muscle pain, ALT/AST??(ALT 19 U/L on 03/26/23 and AST 15 U/L on same date.), and lipid levels (LDL 124 in 2017 and Total Cholesterol was 224 in 2017). Would recommend getting a new lipid panel drawn as the patient has not had a new level in ~ 6 years. 5. COPD Advair 1 puff daily, Incruse 1 puff daily, Albuterol 2.5 mg Q6H as needed. Monitor for shortness of breath, tremors, tachycardia. 6. Hyperthyroidism- Methimazole 5 mg PO Daily. Monitor for edema, skin rash, and thyroid levels. (TSH 2.68 uIU/mL , T4 0.77 ng/dl, and T3 2.7 pg/dl, all drawn 05/14/23.) 7. GERD- Pantoprazole PO 40 mg daily, Sucralfate PO 1 gm twice a day with meals.?Monitor for diarrhea, abdominal pain, constipation, and increased triglycerides. 8. DVT prophylaxis- Lovenox 40 mg SQ daily. Monitor for and signs of bleeding and bruising as well as for s/s of a DVT such as lower extremity erythema/pain/swelling and hemoglobin levels (Hgb = 9.3 g/dL on 06/13/23). 9. GI prophylaxis- Lactobacillus 1 tablet PO daily. 10. Calcium deficiency- Calcium 1250 mcg PO daily. Monitor calcium levels (Calcium was 8.2 mg/dl on 06/13/23.) 11. Vitamin B12 Deficiecny- Cyanocobalamin 1,000 mcg PO daily. Monitor for s/s B 12 deficiency. 12. Zinc deficiency- Zinc Sulfate 50 mg PO daily. Monitor for s/s zinc deficiency. 13. Nutrition- Ensure 120 mL PO TID with meals, Multivitamin 1 tablet PO once a day. Monitor nutritional status. 14. Insomnia- Melatonin 10 mg PO QHS. Monitor for drowsiness and insomnia. 15. Nausea- Ondansetron 4 mg PO Q12H as needed for nausea. Monitor for nausea. Assessment/Plan for indications treated with psychotropic medications: 1. 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 2. Anxiety - Lorazepam 0.5mg PO daily prn.?Monitor usage, dizziness, and drowsiness.?Patient has been given one dose during this admission. 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 Medical chart and medication regimen reviewed. The following medication irregularities or issues were identified: 1. Hyperlipidemia- Atorvastatin 20 mg PO at bedtime. Would recommend getting a new lipid panel drawn as the patient has not had a new level in ~ 6 years. Date Date of Note:: 11/10/23 Documented by User: Dr. Amador Yeung MD 06/14/23 16:18 TCU RX Drug Regimen Review Provider Comments Provider responsibility Provider Comments to Recommendations by Pharmacy: Agree
[2023-06-14] MEDS: Tamsulosin HCl 0.4 MG Capsule PO (16:49)
--- NOTE | 2023-06-14 17:09 | NURSING ---
family came to desk with advance directive copies, place in chart. pt wants to be full code.
[2023-06-14] MEDS: MELATONIN 10 MG TABLET PO (21:04)
[2023-06-14] MEDS: Atorvastatin Calcium 20 MG Tablet PO (21:05)
[2023-06-15] MEDS: oxyCODONE 5 MG Tablet PO ×5 (02:19→21:12)
[2023-06-15] MEDS: Enoxaparin 40 MG/0.4 ML Syringe SC (06:41)
[2023-06-15] MEDS: Acetaminophen 500 MG Tablet 1000 MG PO ×3 (06:46→21:09)
[2023-06-15] MEDS: Sucralfate 1 GM Tablet PO ×2 (06:46→16:55)
[2023-06-15 10:17] VITALS: BP 104/53; PULSE 86; RESP 17; TEMP 36.6; O2SAT 93
[2023-06-15] MEDS: Multivitamins,Therapeutic Tablet 1 TABLET PO (10:45)
[2023-06-15] MEDS: Cyanocobalamin 500 MCG Tablet 1000 MCG PO (10:45)
[2023-06-15] MEDS: Pantoprazole Sodium 40 MG Tablet PO (10:46)
[2023-06-15] MEDS: Polyethylene Glycol 3350 17 GM PACKET PO (10:46)
[2023-06-15] MEDS: Citalopram 20 MG Tablet PO (10:46)
[2023-06-15] MEDS: Senna/Docusate Sodium 1 Tablet 2 TABLET PO ×2 (10:46→21:09)
[2023-06-15] MEDS: Methimazole 5 MG Tablet PO (10:46)
[2023-06-15] MEDS: Zinc Sulfate 50 mg zinc (220 mg) ORAL capsule PO (10:47)
[2023-06-15] MEDS: Fluticasone/Salmeterol 232-14 Inhaler 1 PUFF INHALATION (10:47)
[2023-06-15] MEDS: Umeclidinium Bromide Inhaler 1 PUFF INHALATION (10:48)
[2023-06-15] MEDS: Ensure Plus High Protein 120 ML LIQUID PO ×2 (10:53→16:55)
[2023-06-15] MEDS: Gabapentin 100 MG Capsule PO ×2 (12:31→16:55)
[2023-06-15] MEDS: Tamsulosin HCl 0.4 MG Capsule PO (16:55)
--- NOTE | 2023-06-15 17:04 | NURSING ---
Patient refused straight cath at this time. Patient agrees to bladder scan again later this evening and if needed agrees to straight cath at that time.
[2023-06-15] MEDS: traMADol 50 MG Tablet PO (18:28)
[2023-06-15 21:00] VITALS: PULSE 90; RESP 18; O2SAT 92
[2023-06-15] MEDS: MELATONIN 10 MG TABLET PO (21:09)
[2023-06-15] MEDS: Atorvastatin Calcium 20 MG Tablet PO (21:10)
[2023-06-15] MEDS: Miconazole Nitrate 43 GM Bottle 1 APPLIC TOPICAL (21:22)
[2023-06-16] MEDS: oxyCODONE 5 MG Tablet PO ×4 (02:21→20:16)
[2023-06-16] MEDS: Sucralfate 1 GM Tablet PO ×2 (06:17→15:01)
[2023-06-16] MEDS: traMADol 50 MG Tablet PO ×2 (06:17→17:50)
[2023-06-16] MEDS: Enoxaparin 40 MG/0.4 ML Syringe SC (06:17)
[2023-06-16] MEDS: Acetaminophen 500 MG Tablet 1000 MG PO ×3 (06:17→20:51)
--- NOTE | 2023-06-16 07:50 | NURSING ---
Notified Dr. Yeung, patient c/o burning with urination, retaining some urine after voiding, urine cloudy with foul order. New order for UA C&S.
[2023-06-16 08:05] LABS: Mucous, Urine 0 SEEN /hpf (<or=2+); Red Blood Cells-Urine 0 SEEN /hpf (0-5); Squamous Epithelial Cells - UA 0 SEEN /hpf (5-10)
[2023-06-16 08:13] LABS: Color, Urine Yellow (Yellow); Glucose, Dipstick Normal (Normal); Ketone-Dipstick 5 mg/dl (Negative); Leukocyte Esterase-Dipstick 500 /ul (Negative); Nitrite-Dipstick Positive (Negative); Occult Blood-Urine 50 /ul (Negative); Protein-Dipstick 30 mg/dl (Negative); Specific Gravity, Urine 1.015 (1.002-1.030); Urine Bilirubin Dipstick Negative (Negative); Urine Clarity Cloudy (Clear); Urine Urobilinogen Normal (Normal); Urine pH 6.5 (5.0 - 8.0)
[2023-06-16 08:23] LABS: Bacteria 2+ /hpf (None Seen); White Blood Cells >100 SEEN /hpf (0-5)
[2023-06-16 08:26] VITALS: BP 103/58; PULSE 88; RESP 16; TEMP 37.1; O2SAT 92
[2023-06-16] MEDS: Ensure Plus High Protein 120 ML LIQUID PO ×3 (08:28→16:59)
[2023-06-16] MEDS: Gabapentin 100 MG Capsule PO ×3 (08:28→16:59)
[2023-06-16] MEDS: Cyanocobalamin 500 MCG Tablet 1000 MCG PO (08:29)
[2023-06-16] MEDS: Zinc Sulfate 50 mg zinc (220 mg) ORAL capsule PO (08:29)
[2023-06-16] MEDS: Multivitamins,Therapeutic Tablet 1 TABLET PO (08:29)
[2023-06-16] MEDS: Polyethylene Glycol 3350 17 GM PACKET PO (08:30)
[2023-06-16] MEDS: Citalopram 20 MG Tablet PO (08:30)
[2023-06-16] MEDS: Fluticasone/Salmeterol 232-14 Inhaler 1 PUFF INHALATION (08:30)
[2023-06-16] MEDS: Umeclidinium Bromide Inhaler 1 PUFF INHALATION (08:30)
[2023-06-16] MEDS: Methimazole 5 MG Tablet PO (08:31)
[2023-06-16] MEDS: Senna/Docusate Sodium 1 Tablet 2 TABLET PO ×2 (08:31→20:51)
[2023-06-16] MEDS: Pantoprazole Sodium 40 MG Tablet PO (08:31)
[2023-06-16] MEDS: Miconazole Nitrate 43 GM Bottle 1 APPLIC TOPICAL ×2 (08:32→20:53)
[2023-06-16] MEDS: Nitrofurantoin Macrocrystals 100 MG Capsule PO ×2 (11:12→20:52)
[2023-06-16] MEDS: Ondansetron ODT 4 MG Tablet PO (15:04)
[2023-06-16] MEDS: Tamsulosin HCl 0.4 MG Capsule PO (16:59)
[2023-06-16] MEDS: MELATONIN 10 MG TABLET PO (20:52)
[2023-06-16] MEDS: Atorvastatin Calcium 20 MG Tablet PO (20:52)
[2023-06-16 21:00] VITALS: PULSE 88; RESP 16; O2SAT 95
--- NOTE | 2023-06-16 21:41 | NURSING ---
Spoke w/ Dr. Yeung via phone to update on continued issues w/ retention. PVRs have ranged from 197-364 ml. Pt informed staff she has seen a urologist approximately 15+ years ago for interstitial cystitis, was tx w/ a low dose ATB for 3 months which resolved the issue, and has not seen a urologist since. Pt unsure of the name of the urologist she saw. New order received and read back to consult Dr. Williamson tomorrow.
[2023-06-17] MEDS: traMADol 50 MG Tablet PO ×2 (02:12→20:52)
[2023-06-17] MEDS: oxyCODONE 5 MG Tablet PO ×4 (06:27→18:58)
[2023-06-17] MEDS: Sucralfate 1 GM Tablet PO ×2 (06:27→16:06)
[2023-06-17] MEDS: Enoxaparin 40 MG/0.4 ML Syringe SC (06:27)
[2023-06-17] MEDS: Acetaminophen 500 MG Tablet 1000 MG PO ×3 (06:27→20:38)
[2023-06-17] MEDS: Gabapentin 100 MG Capsule PO ×3 (08:12→17:23)
[2023-06-17] MEDS: Ensure Plus High Protein 120 ML LIQUID PO (08:12)
[2023-06-17] MEDS: Multivitamins,Therapeutic Tablet 1 TABLET PO (08:12)
[2023-06-17] MEDS: Cyanocobalamin 500 MCG Tablet 1000 MCG PO (08:13)
[2023-06-17] MEDS: Zinc Sulfate 50 mg zinc (220 mg) ORAL capsule PO (08:13)
[2023-06-17] MEDS: Citalopram 20 MG Tablet PO (10:39)
[2023-06-17] MEDS: Pantoprazole Sodium 40 MG Tablet PO (10:40)
[2023-06-17] MEDS: Nitrofurantoin Macrocrystals 100 MG Capsule PO ×2 (10:40→20:37)
[2023-06-17] MEDS: Methimazole 5 MG Tablet PO (10:41)
[2023-06-17] MEDS: Miconazole Nitrate 43 GM Bottle 1 APPLIC TOPICAL ×2 (10:41→20:38)
[2023-06-17] MEDS: Fluticasone/Salmeterol 232-14 Inhaler 1 PUFF INHALATION (10:47)
[2023-06-17] MEDS: Umeclidinium Bromide Inhaler 1 PUFF INHALATION (10:48)
[2023-06-17] MEDS: Polyethylene Glycol 3350 17 GM PACKET PO (10:53)
[2023-06-17] MEDS: Senna/Docusate Sodium 1 Tablet 2 TABLET PO ×2 (10:53→20:37)
--- NOTE | 2023-06-17 11:20 | NURSING ---
Did not offer covid vaccine, previous covid vaccine less than a month ago.
[2023-06-17 14:13] VITALS: BP 105/56; PULSE 82; RESP 16; TEMP 36.3; O2SAT 92
[2023-06-17] MEDS: Tamsulosin HCl 0.4 MG Capsule PO (16:08)
[2023-06-17] MEDS: MELATONIN 10 MG TABLET PO (20:37)
[2023-06-17] MEDS: Atorvastatin Calcium 20 MG Tablet PO (20:37)
[2023-06-18] MEDS: oxyCODONE 5 MG Tablet PO ×4 (03:49→22:32)
[2023-06-18] MEDS: Sucralfate 1 GM Tablet PO ×2 (06:08→16:10)
[2023-06-18] MEDS: Acetaminophen 500 MG Tablet 1000 MG PO ×3 (06:09→20:47)
[2023-06-18] MEDS: Enoxaparin 40 MG/0.4 ML Syringe SC (06:09)
--- NOTE | 2023-06-18 06:17 | NURSING ---
pt bladder scanned at 341ml after voiding 150ml. Pt states she does not want to be straight cathed at this time and will wait until next time
[2023-06-18] MEDS: Miconazole Nitrate 43 GM Bottle 1 APPLIC TOPICAL ×2 (08:50→20:47)
[2023-06-18] MEDS: Multivitamins,Therapeutic Tablet 1 TABLET PO (08:50)
[2023-06-18] MEDS: Pantoprazole Sodium 40 MG Tablet PO (08:52)
[2023-06-18] MEDS: Zinc Sulfate 50 mg zinc (220 mg) ORAL capsule PO (08:52)
[2023-06-18] MEDS: Cyanocobalamin 500 MCG Tablet 1000 MCG PO (08:52)
[2023-06-18] MEDS: Citalopram 20 MG Tablet PO (08:52)
[2023-06-18] MEDS: Senna/Docusate Sodium 1 Tablet 2 TABLET PO ×2 (08:53→20:47)
[2023-06-18] MEDS: Nitrofurantoin Macrocrystals 100 MG Capsule PO ×2 (08:53→20:46)
[2023-06-18] MEDS: Methimazole 5 MG Tablet PO (08:54)
[2023-06-18] MEDS: Gabapentin 100 MG Capsule PO ×3 (08:57→17:52)
[2023-06-18] MEDS: Umeclidinium Bromide Inhaler 1 PUFF INHALATION (09:00)
[2023-06-18] MEDS: Fluticasone/Salmeterol 232-14 Inhaler 1 PUFF INHALATION (09:00)
[2023-06-18 09:03] VITALS: BP 112/47; PULSE 86
[2023-06-18 11:10] VITALS: BMI 23.1
--- NOTE | 2023-06-18 11:32 | NURSING ---
FOUND PT UP WITH FAMILY MEMBER WALKING TO BATH ROOM WITH OUT BACK BRACE.. FAMILY MEMBER WAS OK'D PER THERAPY TO WALK PT. EDUCATED PT AND FAMILY MEMBER THAT PT IS TO HAVE BACK BRACE ON WHEN UP. PT AND FAMILY MEMBER STATED THEY UNDER STOOD.
[2023-06-18] MEDS: Ensure Plus High Protein 120 ML LIQUID PO (13:11)
--- NOTE | 2023-06-18 13:18 | NURSING ---
PT VOIDED X2, BLADDER SCANNED AT 1315 FOR 298.
[2023-06-18 14:47] VITALS: BP 104/48; PULSE 84; RESP 14; TEMP 36.8; O2SAT 95
--- NOTE | 2023-06-18 17:24 | PCM.CONS.GEN ---
Assessment & Plan Assessment/Plan (1) Acute urinary retention: (2) Urinary tract infection: (3) Fecal impaction of colon: PLAN: Plan continue aggressive management of constipation complete antibiotics for urinary tract infection continue physical therapy continue Flomax for now will need out patient follow up after discharge ok to follow residuals without villagomez at this time. HPI Consult Data Date of Consult: 06/18/23 HPI Narrative Reason for Consultation: urinary retention HPI Narrative: LIBBY NAIDU, is a 68 F who presents for rehabilitation after lumbar fusion. She is struggling with urinary retention, was unable to void for 24hrs and was having overflow incontinence. She has been having constipation and is on management for this. She is also being treated for an acute urinary tract infection. Her catheter was removed on Saturday. She reports that her postvoid residuals are about 250cc. History of urinary tract infections, less than 3 in a year. She was seen by urology about 15yrs ago, had a cystoscopy and was told she had interstitial cystitis. She improved after 3 months of nightly antibiotics. She has always struggled with constipation. At home she took probiotic, fiber gummies, Miralax and a suppository daily in order to have a normal bowel movement. She feels she is still not yet going well here, and she is being managed with multiple things. She rarely leaks, but has been on the way to the bathroom particularly at night since the villagomez was removed. She does not have a sensation of prolapse. She has had kidney stones, passed about 6 or 7 in her lifetime. [facility] Medical History Abnormal cardiac CT angiography Abnormal GTT (glucose tolerance test) Abnormal thyroid ultrasound Abnormal TSH Anxiety Arthritis Back pain Cancer Cardiology follow-up encounter Chronic cough COPD (chronic obstructive pulmonary disease) Depression Emphysema of lung Gastric reflux GERD (gastroesophageal reflux disease) History of pain when walking History of skin cancer History of stress test HLD (hyperlipidemia) Hyperthyroidism Insomnia Migraine Osteopenia Post-menopausal Pre-diabetes Pre-diabetes Restless legs Shortness of breath on exertion Smoker Thyroid disease Thyroid nodule Urinary tract infection Wears glasses Home Medications citalopram 20 mg tablet 20 mg PO DAILY anxiety 11/10/15 [History Last Taken 11/09/15] albuterol sulfate 2.5 mg/3 mL (0.083 %) solution for nebulization 2.5 mg inhalation Q6H PRN Wheezing 01/20/20 [History Last Taken 06/06/23 05:00] fluticasone fur. 100 mcg-umeclid 62.5 mcg-vilant 25 mcg inhalat.powder 1 ea IH DAILY COPD 02/25/20 [History Last Taken Unknown] denosumab 60 mg/mL subcutaneous syringe (Prolia) 60 mg subcut [id number] thinning of the arteries 05/16/20 [History Last Taken Unknown] multivitamin (Daily Multi-Vitamin tablet) 2 tab PO DAILY supplement 04/06/21 [History Last Taken Unknown] rosuvastatin 10 mg tablet 10 mg PO DAILY cholesterol 04/06/21 [History Last Taken Unknown] zinc 50 mg tablet 50 mg PO DAILY supplement 04/06/21 [History Last Taken Unknown] esomeprazole magnesium 20 mg capsule,delayed release (Nexium) 40 mg PO DAILY stomach 06/16/21 [History Last Taken 06/06/23 05:00] sucralfate 1 gram tablet 1 g PO BID stomach 06/16/21 [History Last Taken Unknown] ondansetron 4 mg disintegrating tablet 2 mg PO Q12H PRN nausea and vomiting 06/20/22 [History Last Taken 06/06/23 05:00] acetaminophen 650 mg tablet,extended release (Tylenol Arthritis Pain) 650 mg PO DAILY arthritis pain 03/15/23 [History Last Taken Unknown] Lactobacillus acidophilus 20 billion cell capsule (Florajen Acidophilus) 100 mmu cells PO DAILY probiotic 05/24/23 [History Last Taken Unknown] calcium polycarbophil 625 mg tablet (Fiber-Tabs) 1,250 mg PO DAILY digestion 05/24/23 [History Last Taken Unknown] cyanocobalamin (vitamin B-12) 1,000 mcg tablet (Vitamin B-12) 1,000 mcg PO DAILY supplement 05/24/23 [History Last Taken Unknown] methimazole 5 mg tablet 5 mg PO DAILY thyroid 05/24/23 [History Last Taken 06/06/23 05:00] lorazepam 0.5 mg tablet 0.5 mg PO DAILY PRN anxiety 06/09/23 [History Last Taken 06/09/23] gabapentin 100 mg capsule 100 mg PO TIDCM nerve pain 3 days #9 caps 06/12/23 [Rx Last Taken 06/12/23] oxycodone 5 mg tablet 5 mg PO Q4H PRN PRN Pain Score 4-10 3 days #12 tabs 06/12/23 [Rx Last Taken 06/12/23] polyethylene glycol 3350 17 gram oral powder packet 17 g PO BID stool softner #0 ea 06/12/23 [Rx Last Taken 06/12/23] tamsulosin 0.4 mg capsule 0.4 mg PO DAILY retention #0 caps 06/12/23 [Rx Last Taken 06/12/23] Allergy/AdvReac Type Severity Reaction Status Date / Time Tetracyclines AdvReac Unknown GI upset Verified 06/09/23 14:16 sulfamethoxazole AdvReac Upset Verified 06/09/23 14:16 [From Bactrim] Stomach trimethoprim [From Bactrim] AdvReac Upset Verified 06/09/23 14:16 Stomach Family History Brother Heart disease Father Cirrhosis Mother Cancer lung Grandmother Cancer leukemia Grandmother CVA (cerebral vascular accident) Other Alcoholism Diabetes H/O emotional problems Liver disease Surgical History History of cholecystectomy History of colonoscopy History of dilation and curettage History of esophagogastroduodenoscopy (EGD) History of lumpectomy History of surgery on wrist Status post biopsy of thyroid gland (~11/2018) Social History household members: spouse Smoking Status: Current every day smoker tobacco type: cigarettes and e-cigarettes alcohol intake: never substance use type: does not use caffeine: Yes Type: carbonated beverages Number of servings: 1 ROS Constitutional Constitutional: Reports systems reviewed and no addt'l complaints, except as documented Eyes Eyes: Reports systems reviewed and no addt'l complaints, except as documented ENT HEENT: Reports systems reviewed and no addt'l complaints, except as documented Cardiovascular Cardiovascular: Reports systems reviewed and no addt'l complaints, except as documented Respiratory/Chest Respiratory/Chest: Reports systems reviewed and no addt'l complaints, except as documented Gastrointestinal Gastrointestinal: Reports constipation Genitourinary Genitourinary: Reports difficulty urinating, dribbling and nocturia; Denies hematuria Integumentary Integumentary: Reports systems reviewed and no addt'l complaints, except as documented Neurologic Neurologic: Reports systems reviewed and no addt'l complaints, except as documented Psychiatric Psychiatric: Reports systems reviewed and no addt'l complaints, except as documented Endocrine Endocrinology: Reports systems reviewed and no addt'l complaints, except as documented Physical Exam Const alert, oriented x3 and no apparent distress General Appearance: cooperative and comfortable HEENT normocephalic, head/scalp atraumatic, hearing grossly normal bilaterally, external ears normal, external nose normal and moist oral mucous membranes Eyes General Eye: normal appearance of both eyes Neck supple General: normal visual inspection and trachea midline Chest inspection of chest normal Resp normal respiratory effort, normal air movement and no retractions Cardio regular rate GI soft to palpation and non-tender Narrative: villagomez removed. Back/Spine Back/Spine Narrative: wearing brace/binder Skin no rashes or lesions noted Neuro oriented x3, CN's II-XII intact bilaterally and moves all extremities Psych mental status grossly normal, thought process normal, cooperative and affect normal Lab / Micro Data 06/13/23 05:28 06/13/23 05:28 Micro: Microbiology 06/16/23 02:00 Urine, Clean Catch Urine Culture - Final Presumptive E. coli
[2023-06-18] MEDS: Tamsulosin HCl 0.4 MG Capsule PO (17:52)
--- NOTE | 2023-06-18 17:54 | NURSING ---
IN TO SEE PT.
[2023-06-18] MEDS: Atorvastatin Calcium 20 MG Tablet PO (20:45)
[2023-06-18] MEDS: MELATONIN 10 MG TABLET PO (20:46)
[2023-06-18] MEDS: Polyethylene Glycol 3350 17 GM PACKET PO (20:47)
[2023-06-19] MEDS: oxyCODONE 5 MG Tablet PO ×3 (02:54→22:05)
[2023-06-19] MEDS: Acetaminophen 500 MG Tablet 1000 MG PO ×3 (05:54→21:51)
[2023-06-19] MEDS: Enoxaparin 40 MG/0.4 ML Syringe SC (05:55)
[2023-06-19] MEDS: Sucralfate 1 GM Tablet PO ×2 (05:55→16:29)
[2023-06-19] MEDS: traMADol 50 MG Tablet PO ×2 (05:58→13:38)
[2023-06-19] MEDS: Senna/Docusate Sodium 1 Tablet 2 TABLET PO ×2 (08:35→21:51)
[2023-06-19] MEDS: Gabapentin 100 MG Capsule PO ×3 (08:35→18:15)
[2023-06-19] MEDS: Ensure Plus High Protein 120 ML LIQUID PO (08:35)
[2023-06-19] MEDS: Multivitamins,Therapeutic Tablet 1 TABLET PO (08:35)
[2023-06-19] MEDS: Zinc Sulfate 50 mg zinc (220 mg) ORAL capsule PO (08:35)
[2023-06-19] MEDS: Citalopram 20 MG Tablet PO (08:36)
[2023-06-19] MEDS: Polyethylene Glycol 3350 17 GM PACKET PO ×2 (08:36→21:50)
[2023-06-19] MEDS: Pantoprazole Sodium 40 MG Tablet PO (08:36)
[2023-06-19] MEDS: Miconazole Nitrate 43 GM Bottle 1 APPLIC TOPICAL ×2 (08:37→21:48)
[2023-06-19] MEDS: Cyanocobalamin 500 MCG Tablet 1000 MCG PO (08:37)
[2023-06-19] MEDS: Umeclidinium Bromide Inhaler 1 PUFF INHALATION (08:38)
[2023-06-19] MEDS: Fluticasone/Salmeterol 232-14 Inhaler 1 PUFF INHALATION (08:38)
[2023-06-19] MEDS: Methimazole 5 MG Tablet PO (08:38)
[2023-06-19] MEDS: Nitrofurantoin Macrocrystals 100 MG Capsule PO ×2 (08:38→21:50)
[2023-06-19 08:49] VITALS: BP 119/55; PULSE 89; RESP 18; O2SAT 96
[2023-06-19 10:00] VITALS: PULSE 89; RESP 16
--- NOTE | 2023-06-19 12:51 | CASEMGMT ---
Social Work BIMS () and PHQ-9 (07/01) completed for MDS assessment. Pt reports positive responses d/t recent surgery and 'complications' from surgery. pt remains hopeful for recovery. SW provided supportive listening and offered ongoing supportive visits. Yanely Curran, NATHAN PARSONSW
[2023-06-19 16:00] VITALS: BP 141/66; PULSE 75; RESP 17; TEMP 36; O2SAT 95
[2023-06-19] MEDS: Tamsulosin HCl 0.4 MG Capsule PO (18:14)
[2023-06-19] MEDS: Atorvastatin Calcium 20 MG Tablet PO (21:49)
[2023-06-19] MEDS: MELATONIN 10 MG TABLET PO (21:50)
[2023-06-20] MEDS: Sucralfate 1 GM Tablet PO ×2 (05:47→16:14)
[2023-06-20] MEDS: Enoxaparin 40 MG/0.4 ML Syringe SC (05:48)
[2023-06-20] MEDS: Acetaminophen 500 MG Tablet 1000 MG PO ×3 (05:48→20:27)
[2023-06-20] MEDS: Citalopram 20 MG Tablet PO (08:14)
[2023-06-20] MEDS: Pantoprazole Sodium 40 MG Tablet PO (08:14)
[2023-06-20] MEDS: Polyethylene Glycol 3350 17 GM PACKET PO (08:14)
[2023-06-20] MEDS: Zinc Sulfate 50 mg zinc (220 mg) ORAL capsule PO (08:14)
[2023-06-20] MEDS: Nitrofurantoin Macrocrystals 100 MG Capsule PO ×2 (08:14→20:26)
[2023-06-20] MEDS: Gabapentin 100 MG Capsule PO ×3 (08:14→17:48)
[2023-06-20] MEDS: Senna/Docusate Sodium 1 Tablet 2 TABLET PO (08:14)
[2023-06-20] MEDS: Cyanocobalamin 500 MCG Tablet 1000 MCG PO (08:14)
[2023-06-20] MEDS: Methimazole 5 MG Tablet PO (08:15)
[2023-06-20] MEDS: Multivitamins,Therapeutic Tablet 1 TABLET PO (08:15)
[2023-06-20] MEDS: Umeclidinium Bromide Inhaler 1 PUFF INHALATION (08:18)
[2023-06-20] MEDS: Ondansetron ODT 4 MG Tablet PO (08:18)
[2023-06-20] MEDS: oxyCODONE 5 MG Tablet PO ×4 (08:18→22:07)
[2023-06-20] MEDS: Fluticasone/Salmeterol 232-14 Inhaler 1 PUFF INHALATION (08:18)
[2023-06-20] MEDS: Miconazole Nitrate 43 GM Bottle 1 APPLIC TOPICAL ×2 (08:28→20:28)
[2023-06-20] MEDS: Tuberculin,Purif.prot.deriv. 50 TU/ML Vial 0.1 ML ID (10:57)
[2023-06-20 14:21] VITALS: BP 108/50; PULSE 87; RESP 16; TEMP 36.3; O2SAT 97
[2023-06-20] MEDS: traMADol 50 MG Tablet PO (16:12)
[2023-06-20] MEDS: Tamsulosin HCl 0.4 MG Capsule PO (17:48)
[2023-06-20] MEDS: Atorvastatin Calcium 20 MG Tablet PO (20:26)
[2023-06-20] MEDS: MELATONIN 10 MG TABLET PO (20:26)
[2023-06-21] MEDS: Sucralfate 1 GM Tablet PO ×2 (05:26→17:03)
[2023-06-21] MEDS: Acetaminophen 500 MG Tablet 1000 MG PO ×3 (05:26→21:34)
[2023-06-21] MEDS: Enoxaparin 40 MG/0.4 ML Syringe SC (05:27)
[2023-06-21 08:23] VITALS: BP 96/44; PULSE 82; RESP 16; TEMP 36.6; O2SAT 93
[2023-06-21] MEDS: oxyCODONE 5 MG Tablet PO ×3 (08:25→21:37)
[2023-06-21] MEDS: Gabapentin 100 MG Capsule PO ×3 (08:25→17:03)
[2023-06-21] MEDS: Cyanocobalamin 500 MCG Tablet 1000 MCG PO (08:26)
[2023-06-21] MEDS: Zinc Sulfate 50 mg zinc (220 mg) ORAL capsule PO (08:26)
[2023-06-21] MEDS: Multivitamins,Therapeutic Tablet 1 TABLET PO (08:26)
[2023-06-21] MEDS: Umeclidinium Bromide Inhaler 1 PUFF INHALATION (08:27)
[2023-06-21] MEDS: Fluticasone/Salmeterol 232-14 Inhaler 1 PUFF INHALATION (08:27)
[2023-06-21] MEDS: Citalopram 20 MG Tablet PO (08:27)
[2023-06-21] MEDS: Pantoprazole Sodium 40 MG Tablet PO (08:28)
[2023-06-21] MEDS: Nitrofurantoin Macrocrystals 100 MG Capsule PO (08:28)
[2023-06-21] MEDS: Methimazole 5 MG Tablet PO (08:29)
--- NOTE | 2023-06-21 09:30 | NURSING ---
Call from Dr. Chowdary's office, requesting for TCU nurse to speak with MD. This RN spoke with Dr. Morley, he said he had a note that patient had been re-admitted and couldn't walk. Discussed how she's doing in therapy, her walking distances, that she is having pain. Told him she's had some issues with urinary retention and that Dr. Williamson is following. He asked if family had any questions, told him they were asking about most recent MRI. Dr. Chowdary's didn't have concerns from the MRI. Gave this nurse his number if patient of family wants to contact him with questions before the follow-up appt. Updated patient that physician can be called for any questions if she or family wishes.
--- NOTE | 2023-06-21 11:12 | PCM.PN.GU ---
Subjective Subjective Sitting up in chair, family present. She has been urinating without her Izquierdo but the residuals have remained elevated between 303 50 mostly. We had a long discussion about why we follow bladder postvoid residuals and how elevated residuals can affect the risk for infection as well as renal function. At this time she is emptying incompletely but not enough to require intervention. We discussed that she will follow-up in the office approximately 2 weeks after discharge and I will be happy to see her again here if needed. Objective Data Objective Data Vital Signs: Vital Signs Temp Pulse Resp BP Pulse Ox O2 Del Method O2 Flow Rate 97.9 F 82 16 96/44 L 93 Room Air 93 06/21/23 08:23 06/21/23 08:23 06/21/23 08:23 06/21/23 08:23 06/21/23 08:23 06/21/23 08:35 06/14/23 13:17 Oxygen Flow Rate (L/min) 93 Oxygen Delivery Method Room Air Weight: 55.656 kg Body Mass Index (BMI) 23.1 Intake & Output: Intake and Output for Last 24 Hours 06/19/23 06/20/23 06/21/23 23:59 23:59 23:59 Intake Total 480 / 480 640 / 640 240 / 240 Balance 480 / 480 640 / 640 240 / 240 Lab / Micro Data Attestation: I reviewed the patient's lab results. 06/13/23 05:28 06/13/23 05:28 Micro: Microbiology 06/16/23 02:00 Urine, Clean Catch Urine Culture - Final Presumptive E. coli Physical Exam Const alert, oriented x3 and no apparent distress HEENT normocephalic, head/scalp atraumatic, hearing grossly normal bilaterally, external ears normal, external nose normal and moist oral mucous membranes Eyes General Eye: normal appearance of both eyes Neck supple General: normal visual inspection and trachea midline Chest inspection of chest normal Resp normal respiratory effort, normal air movement and no retractions Cardio regular rate Narrative: No Izquierdo catheter. Skin no rashes or lesions noted and no wounds Neuro oriented x3, CN's II-XII intact bilaterally and moves all extremities Psych mental status grossly normal, thought process normal and cooperative Assessment & Plan Assessment/Plan (1) Acute urinary retention: PLAN: Plan Continue aggressive management of constipation Timed voiding every 2 hours during the day Continue Flomax at discharge Follow-up in the office approximately 2 weeks after discharge Please call with questions or concerns
--- NOTE | 2023-06-21 13:26 | CASEMGMT ---
Social Work IDT met with patient, dtr Licha, and for care plan meeting. Discussed patient's progress in PT/OT/SN. Educated to Medicare benefit and copay coverage. IDT answered family's questions to best of scope of practice and directed to appropriate alliance party otherwise. attending therapy session tomorrow. Pt has f/u appt with surgeon on 06/24; family and IDT anticipating further answers to recovery after that appt. Pt and family are aware pt will need assistance at home at this time, and will need assistance with is working. SW provided resources for nonskilled FINANCIAL ADVISOR, medical alert, home delivered meals, handrails/grab bars, in case anything is needed once discharged. Family appreciative. SW will continue to follow. NATHAN Colón
[2023-06-21] MEDS: Amox/Clavulanate 875 MG Tablet PO ×2 (14:17→21:34)
--- NOTE | 2023-06-21 15:00 | RAD_ITS ---
STUDY: X-RAY CHEST REASON FOR EXAM: Female, 68 years old. cough TECHNIQUE: PA and lateral COMPARISON: May 22, 2023 FINDINGS: Mild increased parenchymal markings in left lower lobe since prior study and may be consistent with acute inflammatory changes. There is no demonstrated pleural abnormality. Normal size heart. Normal mediastinum and janessa. Normal visualized pulmonary arteries. Mildly calcified aortic arch and descending thoracic aorta. Dorsal spine demonstrates scoliosis and mild degenerative change. Normal visualized ribs, clavicles, and shoulders. Postsurgical change status post cholecystectomy. Mild nonspecific bowel distention. RAD/Chest PA and Lateral IMPRESSION: Mild nonspecific interstitial prominence is new finding since prior exam which may be consistent with acute inflammatory changes. Electronically Signed: Chinmay Jimenez MD at 16:05 EST ,
--- NOTE | 2023-06-21 15:15 | NURSING ---
Patient c/o a productive cough. States it started a couple days ago. Patient states she is bringing up thick, green sputum. New orders entered by Dr. Yeung chest xray, D/C Macrobid, Augmentin x7 days and sputum culture.
[2023-06-21] MEDS: Tamsulosin HCl 0.4 MG Capsule PO (17:03)
[2023-06-21] MEDS: traMADol 50 MG Tablet PO (19:03)
[2023-06-21] MEDS: Atorvastatin Calcium 20 MG Tablet PO (21:34)
[2023-06-21] MEDS: MELATONIN 10 MG TABLET PO (21:34)
[2023-06-21] MEDS: Miconazole Nitrate 43 GM Bottle 1 APPLIC TOPICAL (21:35)
[2023-06-22] MEDS: oxyCODONE 5 MG Tablet PO ×3 (06:14→22:14)
[2023-06-22] MEDS: Enoxaparin 40 MG/0.4 ML Syringe SC (06:14)
[2023-06-22] MEDS: Acetaminophen 500 MG Tablet 1000 MG PO ×3 (06:14→22:15)
[2023-06-22] MEDS: Sucralfate 1 GM Tablet PO ×2 (06:14→16:52)
[2023-06-22] MEDS: Gabapentin 100 MG Capsule PO ×3 (08:18→17:39)
[2023-06-22] MEDS: Multivitamins,Therapeutic Tablet 1 TABLET PO (08:20)
[2023-06-22] MEDS: Cyanocobalamin 500 MCG Tablet 1000 MCG PO (08:20)
[2023-06-22] MEDS: Amox/Clavulanate 875 MG Tablet PO ×2 (08:21→22:15)
[2023-06-22] MEDS: Citalopram 20 MG Tablet PO (08:22)
[2023-06-22] MEDS: Zinc Sulfate 50 mg zinc (220 mg) ORAL capsule PO (08:22)
[2023-06-22] MEDS: Polyethylene Glycol 3350 17 GM PACKET PO (08:24)
[2023-06-22] MEDS: Pantoprazole Sodium 40 MG Tablet PO (08:24)
[2023-06-22] MEDS: Methimazole 5 MG Tablet PO (08:25)
[2023-06-22] MEDS: Umeclidinium Bromide Inhaler 1 PUFF INHALATION (08:27)
[2023-06-22] MEDS: Fluticasone/Salmeterol 232-14 Inhaler 1 PUFF INHALATION (08:28)
--- NOTE | 2023-06-22 13:43 | NURSING ---
PT NOT DRINKING MUCH WATER. EDUCATED AND IN COURAGED PT TO DRINK MORE WATER. WILL CONTINUE TO MONITOR.
[2023-06-22 16:00] VITALS: BP 111/60; PULSE 80; RESP 16; TEMP 36.6; O2SAT 97
[2023-06-22] MEDS: Tamsulosin HCl 0.4 MG Capsule PO (17:39)
[2023-06-22] MEDS: Senna/Docusate Sodium 1 Tablet 2 TABLET PO (22:15)
[2023-06-22] MEDS: Atorvastatin Calcium 20 MG Tablet PO (22:15)
[2023-06-22] MEDS: MELATONIN 10 MG TABLET PO (22:15)
[2023-06-22] MEDS: Miconazole Nitrate 43 GM Bottle 1 APPLIC TOPICAL (22:20)
[2023-06-23] MEDS: Enoxaparin 40 MG/0.4 ML Syringe SC (05:56)
[2023-06-23] MEDS: Acetaminophen 500 MG Tablet 1000 MG PO ×3 (05:56→21:45)
[2023-06-23] MEDS: Sucralfate 1 GM Tablet PO ×2 (05:57→16:54)
[2023-06-23] MEDS: traMADol 50 MG Tablet PO ×2 (06:01→17:36)
[2023-06-23] MEDS: Ondansetron ODT 4 MG Tablet PO (06:33)
[2023-06-23] MEDS: Umeclidinium Bromide Inhaler 1 PUFF INHALATION (08:58)
[2023-06-23] MEDS: Fluticasone/Salmeterol 232-14 Inhaler 1 PUFF INHALATION (08:58)
[2023-06-23] MEDS: Polyethylene Glycol 3350 17 GM PACKET PO (08:59)
[2023-06-23] MEDS: Gabapentin 100 MG Capsule PO ×3 (09:03→17:15)
[2023-06-23] MEDS: Citalopram 20 MG Tablet PO (09:04)
[2023-06-23] MEDS: Amox/Clavulanate 875 MG Tablet PO ×2 (09:04→21:45)
[2023-06-23] MEDS: Miconazole Nitrate 43 GM Bottle 1 APPLIC TOPICAL ×2 (09:05→21:47)
[2023-06-23] MEDS: Methimazole 5 MG Tablet PO (09:06)
[2023-06-23] MEDS: Pantoprazole Sodium 40 MG Tablet PO (09:06)
[2023-06-23 16:00] VITALS: BP 106/51; PULSE 85; RESP 16; TEMP 36.6; O2SAT 96
[2023-06-23] MEDS: Tamsulosin HCl 0.4 MG Capsule PO (17:15)
[2023-06-23] MEDS: oxyCODONE 5 MG Tablet PO (21:45)
[2023-06-23] MEDS: MELATONIN 10 MG TABLET PO (21:45)
[2023-06-23] MEDS: Atorvastatin Calcium 20 MG Tablet PO (21:45)
[2023-06-23] MEDS: Senna/Docusate Sodium 1 Tablet 2 TABLET PO (21:45)
[2023-06-24] MEDS: Acetaminophen 500 MG Tablet 1000 MG PO ×3 (05:57→21:58)
[2023-06-24] MEDS: Sucralfate 1 GM Tablet PO ×2 (05:57→16:16)
[2023-06-24] MEDS: Enoxaparin 40 MG/0.4 ML Syringe SC (05:58)
[2023-06-24 08:50] VITALS: BP 114/78; PULSE 93; RESP 18; TEMP 36.7; O2SAT 98
[2023-06-24] MEDS: oxyCODONE 5 MG Tablet PO ×2 (08:59→18:23)
[2023-06-24] MEDS: Gabapentin 100 MG Capsule PO ×3 (08:59→17:22)
[2023-06-24] MEDS: Zinc Sulfate 50 mg zinc (220 mg) ORAL capsule PO (09:01)
[2023-06-24] MEDS: Citalopram 20 MG Tablet PO (09:01)
[2023-06-24] MEDS: Methimazole 5 MG Tablet PO (09:01)
[2023-06-24] MEDS: Amox/Clavulanate 875 MG Tablet PO ×2 (09:01→21:58)
[2023-06-24] MEDS: Cyanocobalamin 500 MCG Tablet 1000 MCG PO (09:02)
[2023-06-24] MEDS: Senna/Docusate Sodium 1 Tablet 2 TABLET PO (09:02)
[2023-06-24] MEDS: Pantoprazole Sodium 40 MG Tablet PO (09:02)
[2023-06-24] MEDS: Polyethylene Glycol 3350 17 GM PACKET PO (09:03)
[2023-06-24] MEDS: Miconazole Nitrate 43 GM Bottle 1 APPLIC TOPICAL ×2 (09:08→22:02)
[2023-06-24] MEDS: Umeclidinium Bromide Inhaler 1 PUFF INHALATION (09:09)
[2023-06-24] MEDS: Fluticasone/Salmeterol 232-14 Inhaler 1 PUFF INHALATION (09:09)
--- NOTE | 2023-06-24 11:44 | MDS.RN ---
Information for the mds was obtained from review of the clinical record, interview of resident, staff, and direct observation of resident's care.
[2023-06-24] MEDS: traMADol 50 MG Tablet PO ×2 (13:06→21:58)
--- NOTE | 2023-06-24 13:25 | NURSING ---
Addendum entered by Celi Kapadia 06/24/23 16:13: Pt returns with from appointment at ~1515. No comments/complaints at this time. Original Note: Patient leaves unit with for appointment with Dr. Morley.
[2023-06-24 16:12] VITALS: BP 140/69; PULSE 84; RESP 16; TEMP 36.6; O2SAT 98
[2023-06-24] MEDS: Tamsulosin HCl 0.4 MG Capsule PO (17:22)
[2023-06-24] MEDS: MELATONIN 10 MG TABLET PO (21:58)
[2023-06-24] MEDS: Atorvastatin Calcium 20 MG Tablet PO (21:59)
[2023-06-25] MEDS: Acetaminophen 500 MG Tablet 1000 MG PO ×3 (05:40→21:54)
[2023-06-25] MEDS: Sucralfate 1 GM Tablet PO ×2 (05:40→16:58)
[2023-06-25] MEDS: Enoxaparin 40 MG/0.4 ML Syringe SC (05:40)
[2023-06-25] MEDS: Amox/Clavulanate 875 MG Tablet PO ×2 (09:08→21:54)
[2023-06-25] MEDS: Pantoprazole Sodium 40 MG Tablet PO (09:08)
[2023-06-25] MEDS: Citalopram 20 MG Tablet PO (09:08)
[2023-06-25] MEDS: Methimazole 5 MG Tablet PO (09:09)
[2023-06-25] MEDS: Umeclidinium Bromide Inhaler 1 PUFF INHALATION (09:09)
[2023-06-25] MEDS: Fluticasone/Salmeterol 232-14 Inhaler 1 PUFF INHALATION (09:09)
[2023-06-25] MEDS: Gabapentin 100 MG Capsule PO ×2 (09:09→12:55)
[2023-06-25] MEDS: oxyCODONE 5 MG Tablet PO ×2 (09:12→21:54)
[2023-06-25] MEDS: Miconazole Nitrate 43 GM Bottle 1 APPLIC TOPICAL ×2 (09:17→21:59)
[2023-06-25 12:50] VITALS: BMI 23.1
--- NOTE | 2023-06-25 13:01 | NURSING ---
Received Fax from Dr. Chowdary's regarding pt's appt on 06/24/23. N.O. received to increase Gabapentin 200mg TID. Pt is to continue to wear brace but can remove it when in chair or lying donw. Pt is to follow up in 3 weeks with x-rays.
[2023-06-25 14:05] VITALS: BP 113/62; PULSE 83; RESP 16; TEMP 36.4; O2SAT 96
[2023-06-25] MEDS: Tamsulosin HCl 0.4 MG Capsule PO (16:58)
[2023-06-25] MEDS: Gabapentin 100 MG Capsule 200 MG PO (16:58)
[2023-06-25 20:15] VITALS: PULSE 90; RESP 16; O2SAT 97
[2023-06-25] MEDS: Atorvastatin Calcium 20 MG Tablet PO (21:54)
[2023-06-25] MEDS: MELATONIN 10 MG TABLET PO (21:58)
[2023-06-25] MEDS: Menthol/Lanolin/Calamine/Znox 113 GM Tube 1 APPLIC TOPICAL (22:00)
[2023-06-26 05:48] LABS: Absolute Lymphocyte Count 1.43 X10^3/uL (0.83-4.51); Absolute Neutrophil Count 2.4 X10^3/uL (2.0-7.7); Basophil# 0.08 X10^3/uL; Basophil% 1.7 % (0-1); Eosinophil# 0.18 X10^3/uL; Eosinophils% 3.9 % (0-5); Hematocrit 31.5 % (37-47); Hemoglobin 10.1 g/dL (12.0-15.0); Lymphocyte # 1.43 X10^3/ul (0.83-4.51); Lymphocyte % 31.1 % (19-41); Mean Corp Hgb Conc 32.1 g/dL (32-36); Mean Corpuscular Hgb 30.8 pg (27.0-32.0); Mean Platelet Vol. 9.4 fl (6.2-12.0); Monocyte% 10.9 % (0-10); NRBC Flagged by Analyzer 0 % (0-5); Neutrophil % 52.2 % (47-70); Platelet Count 454 K/mm3 (150-450); RBC Distribution Width CV 13.4 % (11.6-14.6); RBC Distribution Width SD 47.9 fl (35.1-43.9); Red Blood Count 3.28 M/mm3 (4.2-5.4); White Blood Count 4.6 K/mm3 (4.4-11.0)
[2023-06-26] MEDS: Sucralfate 1 GM Tablet PO ×2 (06:13→16:02)
[2023-06-26] MEDS: traMADol 50 MG Tablet PO (06:13)
[2023-06-26] MEDS: Acetaminophen 500 MG Tablet 1000 MG PO ×3 (06:13→21:59)
[2023-06-26 06:14] LABS: Anion Gap 4 (5-15); BUN 16 mg/dL (7-18); BUN/Creat Ratio 27.1 RATIO (10-20); Calcium,Total 8.5 mg/dL (8.5-10.1); Chloride 108 mmol/L (98-107); Creatinine, Serum 0.59 mg/dL (0.55-1.02); EST Glomerular Filtration Rate 108 mL/min (>60); Est Glom Filt Rate - Afr Amer 130 mL/min (>60); Estimated Creatinine Clearance 40.63 ml/min; Glucose 87 mg/dL (74-106); Sodium Level 142 mmol/L (136-145)
[2023-06-26] MEDS: Enoxaparin 40 MG/0.4 ML Syringe SC (06:14)
[2023-06-26 06:28] VITALS: PULSE 93; RESP 16; O2SAT 93
[2023-06-26] MEDS: Gabapentin 100 MG Capsule 200 MG PO ×3 (08:27→16:50)
[2023-06-26] MEDS: Cyanocobalamin 500 MCG Tablet 1000 MCG PO (08:29)
[2023-06-26] MEDS: Amox/Clavulanate 875 MG Tablet PO ×2 (08:30→21:59)
[2023-06-26] MEDS: Citalopram 20 MG Tablet PO (08:30)
[2023-06-26] MEDS: Pantoprazole Sodium 40 MG Tablet PO (08:31)
[2023-06-26] MEDS: Methimazole 5 MG Tablet PO (08:32)
[2023-06-26] MEDS: Senna/Docusate Sodium 1 Tablet 2 TABLET PO ×2 (08:34→21:59)
[2023-06-26] MEDS: Umeclidinium Bromide Inhaler 1 PUFF INHALATION (08:37)
[2023-06-26] MEDS: Fluticasone/Salmeterol 232-14 Inhaler 1 PUFF INHALATION (08:37)
[2023-06-26] MEDS: Miconazole Nitrate 43 GM Bottle 1 APPLIC TOPICAL ×2 (08:38→22:01)
[2023-06-26] MEDS: Menthol/Lanolin/Calamine/Znox 113 GM Tube 1 APPLIC TOPICAL ×2 (08:46→22:02)
[2023-06-26 14:18] VITALS: BP 110/56
[2023-06-26 16:00] VITALS: PULSE 82; RESP 18; TEMP 36.1; O2SAT 97
[2023-06-26] MEDS: Tamsulosin HCl 0.4 MG Capsule PO (16:51)
[2023-06-26] MEDS: Ondansetron ODT 4 MG Tablet PO (21:52)
[2023-06-26] MEDS: oxyCODONE 5 MG Tablet PO (21:57)
[2023-06-26] MEDS: Atorvastatin Calcium 20 MG Tablet PO (21:58)
[2023-06-26] MEDS: MELATONIN 10 MG TABLET PO (21:59)
[2023-06-27] MEDS: Sucralfate 1 GM Tablet PO ×2 (05:43→16:26)
[2023-06-27] MEDS: Enoxaparin 40 MG/0.4 ML Syringe SC (05:44)
[2023-06-27] MEDS: Acetaminophen 500 MG Tablet 1000 MG PO ×3 (05:44→20:45)
[2023-06-27] MEDS: Ondansetron ODT 4 MG Tablet PO (08:53)
[2023-06-27] MEDS: Gabapentin 100 MG Capsule 200 MG PO ×3 (09:25→17:45)
[2023-06-27] MEDS: Miconazole Nitrate 43 GM Bottle 1 APPLIC TOPICAL ×2 (09:27→20:45)
[2023-06-27] MEDS: Menthol/Lanolin/Calamine/Znox 113 GM Tube 1 APPLIC TOPICAL ×2 (09:27→20:45)
[2023-06-27] MEDS: Amox/Clavulanate 875 MG Tablet PO ×2 (09:49→20:44)
[2023-06-27] MEDS: Pantoprazole Sodium 40 MG Tablet PO (09:50)
[2023-06-27] MEDS: Citalopram 20 MG Tablet PO (09:50)
[2023-06-27] MEDS: Fluticasone/Salmeterol 232-14 Inhaler 1 PUFF INHALATION (09:51)
[2023-06-27] MEDS: Umeclidinium Bromide Inhaler 1 PUFF INHALATION (09:51)
[2023-06-27] MEDS: Methimazole 5 MG Tablet PO (09:52)
[2023-06-27] MEDS: traMADol 50 MG Tablet PO (13:47)
[2023-06-27 15:18] VITALS: BP 97/55; PULSE 92; RESP 14; TEMP 36.8; O2SAT 98
[2023-06-27] MEDS: Tamsulosin HCl 0.4 MG Capsule PO (17:45)
[2023-06-27] MEDS: Atorvastatin Calcium 20 MG Tablet PO (20:44)
[2023-06-27] MEDS: MELATONIN 10 MG TABLET PO (20:45)
[2023-06-27 20:56] VITALS: BP 113/73; PULSE 87
[2023-06-27] MEDS: oxyCODONE 5 MG Tablet PO (21:54)
[2023-06-28] MEDS: Enoxaparin 40 MG/0.4 ML Syringe SC (05:06)
[2023-06-28] MEDS: Acetaminophen 500 MG Tablet 1000 MG PO ×3 (05:06→20:59)
[2023-06-28] MEDS: Sucralfate 1 GM Tablet PO ×2 (07:45→16:48)
[2023-06-28] MEDS: Gabapentin 100 MG Capsule 200 MG PO ×3 (08:46→17:42)
[2023-06-28] MEDS: Amox/Clavulanate 875 MG Tablet PO (08:48)
[2023-06-28] MEDS: Senna/Docusate Sodium 1 Tablet 2 TABLET PO ×2 (08:49→20:59)
[2023-06-28] MEDS: Pantoprazole Sodium 40 MG Tablet PO (08:49)
[2023-06-28] MEDS: Fluticasone/Salmeterol 232-14 Inhaler 1 PUFF INHALATION (08:50)
[2023-06-28] MEDS: Umeclidinium Bromide Inhaler 1 PUFF INHALATION (08:50)
[2023-06-28] MEDS: Citalopram 20 MG Tablet PO (08:51)
[2023-06-28] MEDS: Miconazole Nitrate 43 GM Bottle 1 APPLIC TOPICAL ×2 (08:57→21:01)
[2023-06-28] MEDS: Menthol/Lanolin/Calamine/Znox 113 GM Tube 1 APPLIC TOPICAL ×2 (08:57→21:01)
[2023-06-28] MEDS: Methimazole 5 MG Tablet PO (12:42)
[2023-06-28 16:55] VITALS: BP 120/60; PULSE 81; RESP 18; TEMP 36.7; O2SAT 96
[2023-06-28] MEDS: traMADol 50 MG Tablet PO (17:42)
[2023-06-28] MEDS: Tamsulosin HCl 0.4 MG Capsule PO (17:43)
[2023-06-28] MEDS: oxyCODONE 5 MG Tablet PO (20:59)
[2023-06-28] MEDS: MELATONIN 10 MG TABLET PO (20:59)
[2023-06-28] MEDS: Atorvastatin Calcium 20 MG Tablet PO (20:59)
[2023-06-29 05:50] VITALS: PULSE 74; RESP 16; O2SAT 95
[2023-06-29] MEDS: Sucralfate 1 GM Tablet PO ×2 (05:50→17:45)
[2023-06-29] MEDS: Enoxaparin 40 MG/0.4 ML Syringe SC (05:50)
[2023-06-29] MEDS: traMADol 50 MG Tablet PO (05:51)
[2023-06-29] MEDS: Acetaminophen 500 MG Tablet 1000 MG PO ×3 (05:51→21:36)
[2023-06-29] MEDS: Methimazole 5 MG Tablet PO (09:19)
[2023-06-29] MEDS: Umeclidinium Bromide Inhaler 1 PUFF INHALATION (09:20)
[2023-06-29] MEDS: Senna/Docusate Sodium 1 Tablet 2 TABLET PO ×2 (09:20→21:37)
[2023-06-29] MEDS: Pantoprazole Sodium 40 MG Tablet PO (09:20)
[2023-06-29] MEDS: Fluticasone/Salmeterol 232-14 Inhaler 1 PUFF INHALATION (09:20)
[2023-06-29] MEDS: Gabapentin 100 MG Capsule 200 MG PO ×3 (09:20→17:45)
[2023-06-29] MEDS: Citalopram 20 MG Tablet PO (09:20)
[2023-06-29] MEDS: Miconazole Nitrate 43 GM Bottle 1 APPLIC TOPICAL ×2 (09:26→21:38)
[2023-06-29] MEDS: Menthol/Lanolin/Calamine/Znox 113 GM Tube 1 APPLIC TOPICAL ×2 (09:27→21:38)
[2023-06-29 14:45] VITALS: BP 106/50; PULSE 86; RESP 16; TEMP 36.4; O2SAT 95
[2023-06-29] MEDS: Polyethylene Glycol 3350 17 GM PACKET PO (17:45)
[2023-06-29] MEDS: Tamsulosin HCl 0.4 MG Capsule PO (17:45)
--- NOTE | 2023-06-29 17:53 | NURSING ---
Patient had refused some stool softners this am, stating she did not want to have diarrhea. Patient had refused all stool softners yesterday a.m. Later this afternoon patient requested that she would receive a suppository due to no bowel movement in two days. I educated patient that I could give her prune juice or magnesium citrate instead of going right to a suppository. Patient then requested her miralax be given now rather than this evening.
[2023-06-29] MEDS: oxyCODONE 5 MG Tablet PO (21:35)
[2023-06-29] MEDS: MELATONIN 10 MG TABLET PO (21:37)
[2023-06-29] MEDS: Atorvastatin Calcium 20 MG Tablet PO (21:38)
[2023-06-30] MEDS: traMADol 50 MG Tablet PO (06:16)
[2023-06-30] MEDS: Sucralfate 1 GM Tablet PO ×2 (06:17→16:39)
[2023-06-30] MEDS: Enoxaparin 40 MG/0.4 ML Syringe SC (06:17)
[2023-06-30] MEDS: Acetaminophen 500 MG Tablet 1000 MG PO ×3 (06:17→22:16)
[2023-06-30] MEDS: Gabapentin 100 MG Capsule 200 MG PO ×3 (08:20→16:40)
[2023-06-30] MEDS: Polyethylene Glycol 3350 17 GM PACKET PO ×2 (08:20→22:15)
[2023-06-30] MEDS: Pantoprazole Sodium 40 MG Tablet PO (08:21)
[2023-06-30] MEDS: Senna/Docusate Sodium 1 Tablet 2 TABLET PO ×2 (08:21→22:16)
[2023-06-30] MEDS: Methimazole 5 MG Tablet PO (08:22)
[2023-06-30] MEDS: Citalopram 20 MG Tablet PO (08:23)
[2023-06-30] MEDS: Umeclidinium Bromide Inhaler 1 PUFF INHALATION (08:24)
[2023-06-30] MEDS: Fluticasone/Salmeterol 232-14 Inhaler 1 PUFF INHALATION (08:24)
[2023-06-30] MEDS: Menthol/Lanolin/Calamine/Znox 113 GM Tube 1 APPLIC TOPICAL ×2 (08:34→22:14)
[2023-06-30] MEDS: Miconazole Nitrate 43 GM Bottle 1 APPLIC TOPICAL ×2 (08:35→22:14)
[2023-06-30 16:00] VITALS: BP 106/58; PULSE 87; RESP 18; TEMP 37.1; O2SAT 94
[2023-06-30] MEDS: Magnesium Citrate 300 ML PO (16:39)
[2023-06-30] MEDS: Tamsulosin HCl 0.4 MG Capsule PO (16:39)
[2023-06-30] MEDS: Atorvastatin Calcium 20 MG Tablet PO (22:15)
[2023-06-30] MEDS: MELATONIN 10 MG TABLET PO (22:15)
[2023-06-30] MEDS: oxyCODONE 5 MG Tablet PO (22:17)
[2023-07-01] MEDS: Enoxaparin 40 MG/0.4 ML Syringe SC (05:02)
[2023-07-01] MEDS: Sucralfate 1 GM Tablet PO ×2 (05:02→16:57)
[2023-07-01] MEDS: Acetaminophen 500 MG Tablet 1000 MG PO ×3 (05:03→22:29)
[2023-07-01] MEDS: Gabapentin 100 MG Capsule 200 MG PO ×3 (08:40→16:58)
[2023-07-01] MEDS: NIRMATRELVIR/RITONAVIR 1 EACH TABLET 3 EACH PO ×2 (08:40→22:28)
[2023-07-01] MEDS: Citalopram 20 MG Tablet PO (08:41)
[2023-07-01] MEDS: Pantoprazole Sodium 40 MG Tablet PO (08:41)
[2023-07-01] MEDS: Methimazole 5 MG Tablet PO (08:42)
[2023-07-01] MEDS: Polyethylene Glycol 3350 17 GM PACKET PO ×2 (08:42→22:29)
[2023-07-01] MEDS: Senna/Docusate Sodium 1 Tablet 2 TABLET PO ×2 (08:42→22:29)
[2023-07-01] MEDS: Umeclidinium Bromide Inhaler 1 PUFF INHALATION (08:43)
[2023-07-01] MEDS: Ondansetron ODT 4 MG Tablet PO (08:47)
[2023-07-01] MEDS: Menthol/Lanolin/Calamine/Znox 113 GM Tube 1 APPLIC TOPICAL ×2 (09:21→22:30)
[2023-07-01] MEDS: Miconazole Nitrate 43 GM Bottle 1 APPLIC TOPICAL ×2 (09:22→22:31)
--- NOTE | 2023-07-01 10:52 | CASEMGMT ---
Addendum entered by Yanely Curran 07/02/23 13:33: SW followed up with pt on HHC agency. Pt provided 3 choices: [facility], [facility] and [facility]. SW phoned referral to [facility]. Original Note: Social Work Received call from pt requesting to DC home 07/05, regardless of testing COVID positive. and dtr are agreeable, per pt. IDT agreed to DC. Offered HHC vs OP. Pt prefers HHC. SW to provide skilled HHC agency in area with quality and resource data via [employer]. Confirmed no DME needs. Family to transport. Plan: DC home with 07/05, HHC PT/OT/SN. Yanely Curran, NATHAN PARSONSW
[2023-07-01] MEDS: traMADol 50 MG Tablet PO ×2 (13:26→22:44)
[2023-07-01 13:53] VITALS: BP 110/62; PULSE 88; RESP 12; TEMP 36.8; O2SAT 95
--- NOTE | 2023-07-01 17:14 | CASEMGMT ---
Social Work BIMS () and PHQ-2 () completed for MDS assessment. Yanely Curran MSW [employer]AR ENERGY CONSULTANT AND DESIGNER
--- NOTE | 2023-07-01 17:55 | RAD_ITS ---
EXAM: XR ABDOMEN, 1 VIEW CLINICAL INDICATION: nausea/constipation. TECHNIQUE: Frontal supine view of the abdomen/pelvis. COMPARISON: No relevant prior studies available. FINDINGS: LOWER THORAX: No acute pathology. GASTROINTESTINAL TRACT: Moderate amount of gas throughout the colon without signs of obstruction. ORGANS: Unremarkable as visualized. No organomegaly. No abnormal calcifications. BONES/JOINTS: Posterior fusion L3-L5 with pedicle screws and rods. SOFT TISSUES: No acute pathology. RAD/Abdomen Single View IMPRESSION: Moderate amount of gas throughout the colon without signs of obstruction. Electronically Signed: Cornel Garcia MD at 0:19 EST ,
[2023-07-01] MEDS: Bisacodyl 10 MG Suppository RC (18:37)
--- NOTE | 2023-07-01 19:59 | DS.PCM_ITS ---
Providers Date of Admission: 06/12/23 Primary Care Physician: Dr. 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 * Debility - PT/OT. * Pain - Tylenol 1000mg q8, Tramadol 50mg q6 prn pain (1-5), Oxycodone 5mg q4 prn pain (6-10). * Bowel - Miralax 17gm daily, senna/colace 2 tablets bid, Magnesium citrate 300ml po daily prn. * Adult immunization - Administer pneumonia vaccine, covid19 vaccine, flu vaccine as appropriate. * DVT prophylaxis - Lovenox 40mg sc daily. * COPD - Advair 1 puff bid, Incruse 1 puff daily, Albuterol 2.5mg q6h prn. * Hyperlipidemia - Atorvastatin 20mg qhs. * Calcium deficiency - Calcium 1250mg daily. * Depression - Citalopram 20mg daily, stable chronic half-way use, GDR not recommended. * Vitamin B12 deficiency - B12 1000mcg daily. * Nutrition - Ensure 120ml po tidcm, MVI 1 tablet daily. * Neuropathic pain - Gabapentin 100mg tidcm. * GI prophylaxis - Lactobacillus 1 tablet daily. * Anxiety - Lorazepam 0.5mg daily prn, stable chronic half-way use, GDR not recommended. * Hyperthyroidism - Methimazole 5mg daily. * Nausea - Zofran odt 4mg q8 prn. * GERD - Pantoprazole 40mg daily, Sucralfate 1gm bidac. * Urinary retention - Tamsulosin 0.4mg daily, indwelling villagomez catheter, voiding trials per protocol. * Zinc deficiency - Zinc 50mg daily. Medications at Discharge Home Medications citalopram 20 mg tablet 20 mg PO DAILY anxiety 11/10/15 albuterol sulfate 2.5 mg/3 mL (0.083 %) solution for nebulization 2.5 mg inhalation Q6H PRN Wheezing 01/20/20 fluticasone fur. 100 mcg-umeclid 62.5 mcg-vilant 25 mcg inhalat.powder 1 ea IH DAILY COPD 02/25/20 denosumab 60 mg/mL subcutaneous syringe (Prolia) 60 mg subcut [id number] thinning of the arteries 05/16/20 multivitamin (Daily Multi-Vitamin tablet) 2 tab PO DAILY supplement 04/06/21 rosuvastatin 10 mg tablet 10 mg PO DAILY cholesterol 04/06/21 zinc 50 mg tablet 50 mg PO DAILY supplement 04/06/21 esomeprazole magnesium 20 mg capsule,delayed release (Nexium) 40 mg PO DAILY stomach 06/16/21 sucralfate 1 gram tablet 1 g PO BID stomach 06/16/21 Lactobacillus acidophilus 20 billion cell capsule (Florajen Acidophilus) 100 mmu cells PO DAILY probiotic 05/24/23 calcium polycarbophil 625 mg tablet (Fiber-Tabs) 1,250 mg PO DAILY digestion 05/24/23 cyanocobalamin (vitamin B-12) 1,000 mcg tablet (Vitamin B-12) 1,000 mcg PO DAILY supplement 05/24/23 methimazole 5 mg tablet 5 mg PO DAILY thyroid 05/24/23 acetaminophen 500 mg tablet 1,000 mg (2 x 500 mg) PO Q8 #0 tabs 07/01/23 gabapentin 100 mg capsule 200 mg (2 x 100 mg) PO TIDCM 30 days #180 caps 07/01/23 melatonin 10 mg sublingual tablet 10 mg PO QHS #0 tabs 07/01/23 ondansetron 4 mg disintegrating tablet 4 mg PO Q12H PRN nausea and vomiting 7 days #14 tabs 07/01/23 polyethylene glycol 3350 17 gram oral powder packet 17 g PO BID 30 days #60 ea 07/01/23 sennosides 8.6 mg-docusate sodium 50 mg tablet (Stool Softener-Stimulant Laxative) 2 tab PO BID 30 days #120 tabs 07/01/23 tamsulosin 0.4 mg capsule 0.4 mg PO DAILY@1730 30 days #30 caps 07/01/23 tramadol 50 mg tablet 50 mg PO Q6H PRN PRN Pain Score 1-5 7 days #28 tabs 07/01/23 Hospital Course Operations None Procedures None Summary of Care Provided Minutes Spent on Discharge: 35 Hospital Course: 68 year old female status post lumbar spinal surgery, hospitalized for urinary retention, weakness of legs, cauda equina ruled out, admitted to TCU with debility, here for rehabilitation, strengthening, prior to discharge home with . 06/16/2023 E. Coli urinary tract infection treated with Augmentin. 06/21/2023 Dr. Williamson, villagomez removed, mild to moderate retention, discharge on Tamsulosin 0.4mg daily, f/u Dr. Williamson as outpatient. 07/01/2023 Positive covid, treated with Paxlovid. Discharge home with 07/05/2023, [facility] PT/OT/SN. Physical Exam Const alert General Appearance: cooperative HEENT normocephalic Eyes PERRL and EOMs intact bilaterally Neck supple, no JVD and no carotid bruits Resp normal respiratory effort, normal air movement and clear to auscultation bilaterally Cardio regular rate and regular rhythm GI normal to inspection, nondistended, normoactive bowel sounds, non-tender and non-distended Extremity normal capillary refill General Extremity: Negative for edema Skin no rashes or lesions noted General Skin Exam: no breakdown Psych affect normal Appearance: appropriate Weight / BMI Weight Weight: 55.429 kg Body Mass Index (BMI) 23.1 ABG / Lab / Microbiology Data 06/26/23 05:16 06/26/23 05:16 Microbiology: Microbiology 07/01/23 05:06 Nasal Secretion SARS-CoV-2 Antigen (Rapid) - Final SARS-CoV-2 (COVID 19) 06/16/23 02:00 Urine, Clean Catch Urine Culture - Final Presumptive E. coli D/C Instructions Discharge Diet: No restrictions Discharge Activity: Return to Normal Activity, May Shower and Use Walker Weight Bearing Status: Weight bearing as tolerated Call your doctor if you observe: Fever of 101 or Higher, Inability to urinate, Inability to have a bowel movement, Shortness of breath, Dizziness, Fainting spells, Swelling in the ankles, Chest pain and Uncontrolled pain Additional Instructions: Discharge home with 07/05/2023, [facility] PT/OT/SN. Please Follow Up With: Dr Morley When: As scheduled. Meaningful Use Info Meaningful Use Diagnoses (Choose all that apply): None applicable Discharge Plan Admission Admit Date/Time: 06/12/23 14:00 Primary Reason for Your Visit: Debility. Attending Provider: Amador Yeung Chi Primary Care Provider: Esther Malik Instructions Additional Instructions / Restrictions: Discharge home with 07/05/2023, [facility] PT/OT/SN. Discharge Orders/Prescriptions Prescriptions: New polyethylene glycol 3350 17 gram Powder In Packet 17 g PO BID 30 Days Qty: 60 0RF sennosides-docusate sodium [Stool Softener-Stimulant Laxat] 8.6-50 mg Tablet 2 tab PO BID 30 Days Qty: 120 0RF tramadol 50 mg Tablet 50 mg PO Q6H PRN PRN (Reason: Pain Score 1-5) 7 Days Qty: 28 0RF acetaminophen 500 mg Tablet 1,000 mg PO Q8 Qty: 0 0RF tamsulosin 0.4 mg Capsule 0.4 mg PO DAILY@1730 30 Days Qty: 30 0RF gabapentin 100 mg Capsule 200 mg PO TIDCM 30 Days Qty: 180 0RF ondansetron 4 mg Tablet,Disintegrating 4 mg PO Q12H PRN (Reason: nausea and vomiting) 7 Days Qty: 14 0RF melatonin 10 mg Tablet, Sublingual 10 mg PO QHS Qty: 0 0RF Continued esomeprazole magnesium [Nexium] 20 mg capsule,delayed release(DR/EC) 40 mg PO DAILY Prolia 60 mg/mL syringe 60 mg SC [id number] Patient Comments: Per Admission Nurse, this will not be administered while on TCU, Can not go out for injection either albuterol sulfate 2.5 mg /3 mL (0.083 %) solution for nebulization 2.5 mg INHALATION Q6H PRN (Reason: Wheezing) Patient Comments: has not used in forever rosuvastatin 10 mg tablet 10 mg PO DAILY Patient Comments: unsure of dosage multivitamin [Daily Multi-Vitamin] Tablet 2 tab PO DAILY zinc 50 mg tablet 50 mg PO DAILY citalopram 20 MG tablet 20 mg PO DAILY Patient Comments: depression sucralfate 1 gram tablet 1 g PO BID Patient Comments: patient takes 1 tablet twice a day, while script states to take 4 times day. unsure of dosage [id number] 1 EACH blister with device 1 ea IH DAILY calcium polycarbophil [Fiber-Tabs] 625 mg tablet 1,250 mg PO DAILY cyanocobalamin (vitamin B-12) [Vitamin B-12] 1,000 mcg tablet 1,000 mcg PO DAILY Florajen Acidophilus 20 billion cell capsule 100 mmu cells PO DAILY methimazole 5 mg tablet 5 mg PO DAILY Patient Comments: script states to take 1/2 tab daily while pt states she takes 1 tab daily. unsure of dosage Discontinued ondansetron 4 mg tablet,disintegrating 2 mg PO Q12H PRN (Reason: nausea and vomiting) Patient Comments: patient states she only takes 1/2 tablet acetaminophen [Tylenol Arthritis Pain] 650 mg tablet extended release 650 mg PO DAILY lorazepam 0.5 mg tablet 0.5 mg PO DAILY PRN (Reason: anxiety) Hold Instructions: Resume on 06/14/23. Hold while still requiring narcotics if possible Patient Comments: script states to take 1 tablet daily prn, pt states only states 1/2 tablet prn polyethylene glycol 3350 17 gram Powder In Packet 17 g PO BID Qty: 0 0RF tamsulosin 0.4 mg Capsule 0.4 mg PO DAILY Qty: 0 0RF oxycodone 5 mg Tablet 5 mg PO Q4H PRN PRN (Reason: Pain Score 4-10) 3 Days Qty: 12 0RF gabapentin 100 mg Capsule 100 mg PO TIDCM 3 Days Qty: 9 0RF Referrals / Follow Up: Keena Williamson MD [Med Staff - Active Staff] - 07/18/23 4:00 pm (Schedule follow-up for urinary retention) Chinmay Morley DO [Med Staff - Active Staff] - Esther Malik DO [Primary Care Provider] - 07/08/23 12:30 pm Disposition Disposition (needs filled in before D/C Order can be placed): Home Health Service
[2023-07-01 22:26] VITALS: PULSE 86; O2SAT 98
[2023-07-01] MEDS: MELATONIN 10 MG TABLET PO (22:28)
[2023-07-02] MEDS: Acetaminophen 500 MG Tablet 1000 MG PO ×3 (06:26→22:39)
[2023-07-02] MEDS: Enoxaparin 40 MG/0.4 ML Syringe SC (06:26)
[2023-07-02] MEDS: Pantoprazole Sodium 40 MG Tablet PO (09:42)
[2023-07-02] MEDS: Polyethylene Glycol 3350 17 GM PACKET PO (09:42)
[2023-07-02] MEDS: Citalopram 20 MG Tablet PO (09:42)
[2023-07-02] MEDS: Methimazole 5 MG Tablet PO (09:43)
[2023-07-02] MEDS: Senna/Docusate Sodium 1 Tablet 2 TABLET PO ×2 (09:43→22:37)
[2023-07-02] MEDS: NIRMATRELVIR/RITONAVIR 1 EACH TABLET 3 EACH PO ×2 (09:43→22:38)
[2023-07-02 09:45] VITALS: PULSE 84; RESP 18; O2SAT 93
[2023-07-02] MEDS: Gabapentin 100 MG Capsule 200 MG PO ×3 (09:57→17:37)
[2023-07-02] MEDS: Umeclidinium Bromide Inhaler 1 PUFF INHALATION (09:58)
[2023-07-02] MEDS: Miconazole Nitrate 43 GM Bottle 1 APPLIC TOPICAL ×2 (10:02→22:50)
[2023-07-02] MEDS: Menthol/Lanolin/Calamine/Znox 113 GM Tube 1 APPLIC TOPICAL ×2 (10:02→22:50)
[2023-07-02 10:07] VITALS: BP 105/46; PULSE 65
--- NOTE | 2023-07-02 10:52 | NURSING ---
PT STATED TO THIS NURSE THAT SHE WAS EATING JOSEPH THIS MORNING AND HER BOTTOM RT SIDE BACK TOOTH BROKE. THIS NURSE LOOKED INSIDE PT MOUTH AND SEEN THAT THERE WAS A PIECE BROKEN OFF. PT STATED SHE DOES NOT HAVE ANY DISCOMFORT AT THIS TIME.
--- NOTE | 2023-07-02 10:56 | NURSING ---
ALL CARE GIVEN IN ROOM DUE TO PT IN PRECAUTIONS FOR COVID.
[2023-07-02] MEDS: Sucralfate 1 GM Tablet PO ×2 (11:01→16:40)
[2023-07-02 13:16] VITALS: BMI 22.8
[2023-07-02 16:00] VITALS: BP 119/54; PULSE 77; RESP 17; TEMP 36.7; O2SAT 97
[2023-07-02] MEDS: oxyCODONE 5 MG Tablet 2.5 MG PO (17:37)
[2023-07-02] MEDS: MELATONIN 10 MG TABLET PO (22:38)
[2023-07-02] MEDS: traMADol 50 MG Tablet PO (22:41)
[2023-07-03] MEDS: traMADol 50 MG Tablet PO ×2 (06:22→21:44)
[2023-07-03] MEDS: Acetaminophen 500 MG Tablet 1000 MG PO ×3 (06:22→21:41)
[2023-07-03] MEDS: Enoxaparin 40 MG/0.4 ML Syringe SC (06:23)
[2023-07-03] MEDS: Sucralfate 1 GM Tablet PO ×2 (06:25→16:20)
[2023-07-03 07:27] LABS: Anion Gap 4 (5-15); BUN 22 mg/dL (7-18); Calcium,Total 8.8 mg/dL (8.5-10.1); Chloride 106 mmol/L (98-107); Creatinine, Serum 0.76 mg/dL (0.55-1.02); Estimated Creatinine Clearance 40.63 ml/min; Glucose 88 mg/dL (74-106); Potassium 3.6 mmol/L (3.5-5.1); Sodium Level 140 mmol/L (136-145)
[2023-07-03 09:03] LABS: Absolute Lymphocyte Count 1.62 X10^3/uL (0.83-4.51); Absolute Neutrophil Count 4.9 X10^3/uL (2.0-7.7); Basophil# 0.04 X10^3/uL; Basophil% 0.6 % (0-1); Eosinophil# 0.13 X10^3/uL; Eosinophils% 1.8 % (0-5); Hematocrit 36.2 % (37-47); Hemoglobin 10.9 g/dL (12.0-15.0); Lymphocyte # 1.62 X10^3/ul (0.83-4.51); Lymphocyte % 22.6 % (19-41); Mean Corp Hgb Conc 30.1 g/dL (32-36); Mean Corpuscular Hgb 29.2 pg (27.0-32.0); Mean Corpuscular Volume 97.1 fL (81-99); Mean Platelet Vol. 9.9 fl (6.2-12.0); Monocyte# 0.45 X10^3/uL; Monocyte% 6.3 % (0-10); NRBC Flagged by Analyzer 0 % (0-5); Neutrophil # 4.91 X10^3/uL (2.7-7.7); Neutrophil % 68.6 % (47-70); Platelet Count 351 K/mm3 (150-450); RBC Distribution Width CV 13.7 % (11.6-14.6); RBC Distribution Width SD 49.3 fl (35.1-43.9); Red Blood Count 3.73 M/mm3 (4.2-5.4); White Blood Count 7.2 K/mm3 (4.4-11.0)
[2023-07-03] MEDS: Gabapentin 100 MG Capsule 200 MG PO ×3 (09:15→17:35)
[2023-07-03] MEDS: Senna/Docusate Sodium 1 Tablet 2 TABLET PO ×2 (09:16→21:41)
[2023-07-03] MEDS: Zinc Sulfate 50 mg zinc (220 mg) ORAL capsule PO (09:16)
[2023-07-03] MEDS: Menthol/Lanolin/Calamine/Znox 113 GM Tube 1 APPLIC TOPICAL ×2 (09:17→21:53)
[2023-07-03] MEDS: Citalopram 20 MG Tablet PO (09:17)
[2023-07-03] MEDS: Pantoprazole Sodium 40 MG Tablet PO (09:17)
[2023-07-03] MEDS: Miconazole Nitrate 43 GM Bottle 1 APPLIC TOPICAL ×2 (09:17→21:53)
[2023-07-03] MEDS: NIRMATRELVIR/RITONAVIR 1 EACH TABLET 3 EACH PO ×2 (09:18→21:41)
[2023-07-03] MEDS: Methimazole 5 MG Tablet PO (09:19)
[2023-07-03] MEDS: Umeclidinium Bromide Inhaler 1 PUFF INHALATION (09:41)
[2023-07-03 09:51] LABS: BUN/Creat Ratio 29.1 RATIO (10-20); EST Glomerular Filtration Rate 81 mL/min (>60); Est Glom Filt Rate - Afr Amer 98 mL/min (>60)
[2023-07-03 10:00] VITALS: RESP 18
--- NOTE | 2023-07-03 11:56 | MDS.RN ---
Information for the mds was obtained from review of the clinical record, interview of resident, staff, and direct observation of resident's care.
[2023-07-03 13:41] VITALS: BP 135/53; PULSE 87; RESP 18; TEMP 36.7; O2SAT 97
[2023-07-03] MEDS: oxyCODONE 5 MG Tablet 2.5 MG PO (13:59)
--- NOTE | 2023-07-03 14:59 | NURSING ---
Updated patient that staff member tested positive for covid. She did not want family updated.
--- NOTE | 2023-07-03 18:35 | NURSING ---
Pt complaining of dysuria and frequency. No foul odor noted to urine, No fever. Dr Gamal farias, received new orders for UA.
[2023-07-03 20:42] LABS: Mucous, Urine 0 SEEN /hpf (<or=2+)
[2023-07-03 20:43] LABS: Color, Urine Yellow (Yellow); Glucose, Dipstick Normal (Normal); Ketone-Dipstick Negative (Negative); Leukocyte Esterase-Dipstick 500 /ul (Negative); Nitrite-Dipstick Positive (Negative); Occult Blood-Urine 150 /ul (Negative); Protein-Dipstick 30 mg/dl (Negative); Specific Gravity, Urine 1.015 (1.002-1.030); Urine Bilirubin Dipstick Negative (Negative); Urine Clarity Cloudy (Clear); Urine Urobilinogen Normal (Normal)
[2023-07-03 20:52] LABS: Bacteria 3+ /hpf (None Seen); Squamous Epithelial Cells - UA 5-10 SEEN /hpf (5-10); White Blood Cells >100 SEEN /hpf (0-5)
[2023-07-03 20:53] LABS: Red Blood Cells-Urine 0-5 SEEN /hpf (0-5)
[2023-07-03] MEDS: MELATONIN 10 MG TABLET PO (21:42)
[2023-07-04] MEDS: Sucralfate 1 GM Tablet PO ×2 (06:03→16:51)
[2023-07-04] MEDS: Acetaminophen 500 MG Tablet 1000 MG PO ×3 (06:03→21:29)
[2023-07-04] MEDS: Enoxaparin 40 MG/0.4 ML Syringe SC (06:03)
[2023-07-04] MEDS: Nitrofurantoin Macrocrystals 100 MG Capsule PO ×2 (09:56→21:27)
[2023-07-04] MEDS: Zinc Sulfate 50 mg zinc (220 mg) ORAL capsule PO (09:57)
[2023-07-04] MEDS: Citalopram 20 MG Tablet PO (09:58)
[2023-07-04] MEDS: Pantoprazole Sodium 40 MG Tablet PO (10:00)
[2023-07-04] MEDS: NIRMATRELVIR/RITONAVIR 1 EACH TABLET 3 EACH PO ×2 (10:00→21:27)
[2023-07-04] MEDS: Methimazole 5 MG Tablet PO (10:01)
[2023-07-04] MEDS: Senna/Docusate Sodium 1 Tablet 2 TABLET PO ×2 (10:01→21:28)
[2023-07-04] MEDS: Gabapentin 100 MG Capsule 200 MG PO ×3 (10:03→18:07)
[2023-07-04] MEDS: traMADol 50 MG Tablet PO ×2 (10:07→18:07)
[2023-07-04] MEDS: Miconazole Nitrate 43 GM Bottle 1 APPLIC TOPICAL ×2 (10:15→21:32)
[2023-07-04] MEDS: Menthol/Lanolin/Calamine/Znox 113 GM Tube 1 APPLIC TOPICAL ×2 (10:15→21:32)
[2023-07-04] MEDS: Umeclidinium Bromide Inhaler 1 PUFF INHALATION (10:17)
[2023-07-04 15:03] VITALS: BP 107/55; PULSE 82; RESP 17; TEMP 36.2; O2SAT 95
--- NOTE | 2023-07-04 18:14 | NURSING ---
ALL CARE GIVEN IN ROOM DUE TO PT IN PRECAUTIONS FOR COVID.
[2023-07-04] MEDS: MELATONIN 10 MG TABLET PO (21:28)
[2023-07-04] MEDS: oxyCODONE 5 MG Tablet 2.5 MG PO (21:52)
[2023-07-04 22:07] VITALS: O2SAT 95
[2023-07-05] MEDS: Acetaminophen 500 MG Tablet 1000 MG PO (05:41)
[2023-07-05] MEDS: Enoxaparin 40 MG/0.4 ML Syringe SC (05:41)
[2023-07-05] MEDS: Sucralfate 1 GM Tablet PO (05:41)
[2023-07-05] MEDS: traMADol 50 MG Tablet PO (05:51)
[2023-07-05 06:02] VITALS: O2SAT 96
[2023-07-05] MEDS: Zinc Sulfate 50 mg zinc (220 mg) ORAL capsule PO (07:43)
[2023-07-05] MEDS: Citalopram 20 MG Tablet PO (07:43)
[2023-07-05] MEDS: Nitrofurantoin Macrocrystals 100 MG Capsule PO (07:43)
[2023-07-05] MEDS: Pantoprazole Sodium 40 MG Tablet PO (07:44)
[2023-07-05] MEDS: Senna/Docusate Sodium 1 Tablet 2 TABLET PO (07:44)
[2023-07-05] MEDS: Methimazole 5 MG Tablet PO (07:45)
[2023-07-05] MEDS: NIRMATRELVIR/RITONAVIR 1 EACH TABLET 3 EACH PO (07:46)
[2023-07-05] MEDS: Gabapentin 100 MG Capsule 200 MG PO (07:48)
[2023-07-05] MEDS: Miconazole Nitrate 43 GM Bottle 1 APPLIC TOPICAL (07:56)
[2023-07-05] MEDS: Menthol/Lanolin/Calamine/Znox 113 GM Tube 1 APPLIC TOPICAL (07:56)
[2023-07-05] MEDS: Umeclidinium Bromide Inhaler 1 PUFF INHALATION (07:58)
[2023-07-05 10:09] VITALS: BP 128/56; PULSE 85; RESP 16; TEMP 36.5; O2SAT 98
== END 2023-07-05 10:45 | disposition home health service (06) | DRG 560 ==
PROVIDERS: Admitting Provider Family Medicine Geriatric Medicine; PCP Internal Medicine; Visit Provider Family Medicine Geriatric Medicine
DX: Z47.89 Encounter for other orthopedic aftercare (principal); N39.0 Urinary tract infection, site not specified; E05.90 Thyrotoxicosis, unspecified without thyrotoxic crisis or storm; J43.9 Emphysema, unspecified; F32.A Depression, unspecified; E53.8 Deficiency of other specified B group vitamins; F41.9 Anxiety disorder, unspecified; M48.061 Spinal stenosis, lumbar region without neurogenic claudication; K21.9 Gastro-esophageal reflux disease without esophagitis; E78.5 Hyperlipidemia, unspecified; F17.210 Nicotine dependence, cigarettes, uncomplicated; F17.290 Nicotine dependence, other tobacco product, uncomplicated; M81.0 Age-related osteoporosis without current pathological fracture; Z79.891 Long term (current) use of opiate analgesic; R33.9 Retention of urine, unspecified; R29.898 Other symptoms and signs involving the musculoskeletal system; Z79.51 Long term (current) use of inhaled steroids; Z98.1 Arthrodesis status; Z79.899 Other long term (current) drug therapy; R73.03 Prediabetes; B96.20 Unspecified Escherichia coli [E. coli] as the cause of diseases classified elsewhere
CPT/HCPCS: 36415; 71046; 74018; 80048; 81001; 85025; 87086; 87088; 87186; 87811; 97110; 97116; 97162; 97166; 97530; 97535

== ENCOUNTER 2023-07-14 07:20 | Emergency (ER) | payer MEDICARE, BC, SELFPAY ==
[2023-07-14 07:21] VITALS: BP 132/69; PULSE 91; RESP 16; TEMP 35.1; O2SAT 96
--- NOTE | 2023-07-14 07:36 | ED.VIS.FEGU ---
HPI HPI - Female History of Present Illness Chief Complaint: Complaint Narrative Narrative: 68-year-old female past medical history of COPD, hyperlipidemia, had L3-L4 and L4-L5 back surgery on 06/06/2023, over a month ago. She states that after her surgery she was having problems with urinary retention, and weakness of her legs, mainly right greater than left. She returned back to to the emergency department 3 days later, and his had ongoing problems with urinary retention and frequent UTIs. She states that she has been on antibiotics twice, and that she was admitted to the TCU for approximately 1 month. She was released on Saturday, 3 days ago. She denies any fevers or chills, no increasing back pain. Her leg weakness is slowly improving, but she is starting to experience urinary frequency again. She had urinated at 4 AM, then again at 6 AM, approximately an hour and a half ago. She started feeling pressure in her bladder again like she has another infection. She denies any saddle anesthesia, no worsening symptoms. She states that she finished Macrobid 2 days ago, and was feeling well until the last 24 hours when she started experiencing the same symptoms. Additionally, she is to follow-up with urology for the continued urinary retention. [facility] Medical History Abnormal cardiac CT angiography Abnormal GTT (glucose tolerance test) Abnormal thyroid ultrasound Abnormal TSH Anxiety Arthritis Back pain Cancer Cardiology follow-up encounter Chronic cough COPD (chronic obstructive pulmonary disease) Depression Emphysema of lung Gastric reflux GERD (gastroesophageal reflux disease) History of pain when walking History of skin cancer History of stress test HLD (hyperlipidemia) Hyperthyroidism Insomnia Migraine Osteopenia Post-menopausal Pre-diabetes Pre-diabetes Restless legs Shortness of breath on exertion Smoker Thyroid disease Thyroid nodule Urinary tract infection Wears glasses Home Medications citalopram 20 mg tablet 20 mg PO DAILY anxiety 11/10/15 [History Last Taken 11/09/15] albuterol sulfate 2.5 mg/3 mL (0.083 %) solution for nebulization 2.5 mg inhalation Q6H PRN Wheezing 01/20/20 [History Last Taken 06/06/23 05:00] fluticasone fur. 100 mcg-umeclid 62.5 mcg-vilant 25 mcg inhalat.powder 1 ea IH DAILY COPD 02/25/20 [History Last Taken Unknown] denosumab 60 mg/mL subcutaneous syringe (Prolia) 60 mg subcut [id number] thinning of the arteries 05/16/20 [History Last Taken Unknown] multivitamin (Daily Multi-Vitamin tablet) 2 tab PO DAILY supplement 04/06/21 [History Last Taken Unknown] rosuvastatin 10 mg tablet 10 mg PO DAILY cholesterol 04/06/21 [History Last Taken Unknown] esomeprazole magnesium 20 mg capsule,delayed release (Nexium) 40 mg PO DAILY stomach 06/16/21 [History Last Taken 06/06/23 05:00] sucralfate 1 gram tablet 1 g PO BID stomach 06/16/21 [History Last Taken Unknown] Lactobacillus acidophilus 20 billion cell capsule (Florajen Acidophilus) 100 mmu cells PO DAILY probiotic 05/24/23 [History Last Taken Unknown] cyanocobalamin (vitamin B-12) 1,000 mcg tablet (Vitamin B-12) 1,000 mcg PO DAILY supplement 05/24/23 [History Last Taken Unknown] methimazole 5 mg tablet 5 mg PO DAILY thyroid 05/24/23 [History Last Taken 06/06/23 05:00] acetaminophen 500 mg tablet 1,000 mg (2 x 500 mg) PO Q8 #0 tabs 07/01/23 [Rx Last Taken Unknown] gabapentin 100 mg capsule 200 mg (2 x 100 mg) PO TIDCM 30 days #180 caps 07/01/23 [Rx Last Taken Unknown] melatonin 10 mg sublingual tablet 10 mg PO QHS #0 tabs 07/01/23 [Rx Last Taken Unknown] ondansetron 4 mg disintegrating tablet 4 mg PO Q12H PRN nausea and vomiting 7 days #14 tabs 07/01/23 [Rx Last Taken Unknown] polyethylene glycol 3350 17 gram oral powder packet 17 g PO BID 30 days #60 ea 07/01/23 [Rx Last Taken Unknown] sennosides 8.6 mg-docusate sodium 50 mg tablet (Stool Softener-Stimulant Laxative) 2 tab PO BID 30 days #120 tabs 07/01/23 [Rx Last Taken Unknown] tamsulosin 0.4 mg capsule 0.4 mg PO DAILY@1730 30 days #30 caps 07/01/23 [Rx Last Taken Unknown] tramadol 50 mg tablet 50 mg PO Q6H PRN PRN Pain Score 1-5 7 days #28 tabs 07/01/23 [Rx Last Taken Unknown] cephalexin 500 mg capsule 500 mg PO Q12H 7 days #14 caps 07/14/23 [Rx Last Taken Unknown] phenazopyridine 100 mg tablet (Pyridium) 100 mg PO TID PRN pain 6 doses #6 tabs 07/14/23 [Rx Last Taken Unknown] Allergy/AdvReac Type Severity Reaction Status Date / Time Tetracyclines AdvReac Unknown GI upset Verified 06/09/23 14:16 sulfamethoxazole AdvReac Upset Verified 06/09/23 14:16 [From Bactrim] Stomach trimethoprim [From Bactrim] AdvReac Upset Verified 06/09/23 14:16 Stomach Family History Brother Heart disease Father Cirrhosis Mother Cancer lung Grandmother Cancer leukemia Grandmother CVA (cerebral vascular accident) Other Alcoholism Diabetes H/O emotional problems Liver disease Surgical History History of cholecystectomy History of colonoscopy History of dilation and curettage History of esophagogastroduodenoscopy (EGD) History of lumpectomy History of surgery on wrist Status post biopsy of thyroid gland (~11/2018) Social History household members: spouse Smoking Status: Former smoker alcohol intake: never substance use type: does not use caffeine: Yes Type: carbonated beverages Number of servings: 1 ROS ROS ED ROS Narrative Constitutional: No fever, no chills. HEENT: No sore throat. No neck pain. No loss of vision. No rhinorrhea. Cardiovascular: No chest pain. No palpitations. No pedal edema. Respiratory: No cough, no shortness of breath. Abdominal: No abdominal pain. No nausea. No vomiting. Genitourinary: Positive urinary frequency, bladder pressure, dysuria. No hematuria. Musculoskeletal: No myalgias. No arthralgias. Improving back pain from surgery over a month ago. Neurologic: No headaches. No dizziness. No lightheadedness. At baseline for leg weakness. No saddle anesthesia. Skin: No rash. No change in color. Psychiatric: No depression. No anxiety. EXAM Physical Exam Narrative Exam Narrative: Afebrile. Vital signs noted. Abdomen is soft and nontender without distended bladder. Regular rate and rhythm. Lungs clear to auscultation bilaterally. Abdomen soft and nontender. Able to move from recumbent position to sitting up. Back incision appears clean, dry, and intact without erythema or fluctuance. Const Vital Signs: 07/14/23 07:21 Temperature 95.2 F L Temperature Source Temporal Pulse Rate 91 Respiratory Rate 16 Blood Pressure 132/69 H Blood Pressure Mean 90 Pulse Ox 96 Oxygen Delivery Method Room Air MDM MDM MDM Narrative Medical decision making narrative: I have low concern for any acute pathology regarding her being status post lumbar fusion. I reviewed her prior records, she had an MRI 3 days after for her urinary retention. I also reviewed her TCU paperwork, and she has had ongoing problems with urinary retention. I discussed catheterization with her but she declined. She does not feel like she has to urinate currently as she last went at 6 AM. In the differential diagnosis is dysuria without infection, UTI, and kidney injury. I will obtain CBC and BMP, she will be bolused normal saline 1 L intravenously. I will send off urine for analysis and culture. Should she start feeling suprapubic discomfort, I will offer catheterization and Izquierdo catheter. I have low concern for cauda equina or infectious etiology pertaining to her back. I reviewed the patient's laboratory work from today and she has normal white count of 6.7, hemoglobin stable 10.9, hematocrit 34.5, platelet count normal at 281. Review of her electrolyte panel shows chloride slightly elevated at 110 which I think is nonspecific, BUN of 19 and creatinine normal at 0.7. She had been bolused normal saline. Glucose is appropriately elevated at 99 with a normal anion gap/low at 4. Urinalysis is positive for nitrites and does show 25-50 WBCs. There is 3+ bacteria. There are red cells present as well. This was sent for culture. I discussed the findings with the patient, and I do not feel that she needs a Izquierdo catheter for urinary retention as she was able to produce a sample. She will be started on cephalexin and given her first dose here. I think she already failed Macrobid as she just stopped taking this 2 days ago upon her discharge from the TCU. She requested Pyridium as well. I wrote her prescription for 100 mg tablets to take for the next 2 days, up to 3 times a day. She was told that it will turn her urine bright orange and she acknowledges an understanding. She will follow-up with urology and her primary care provider. I do not feel she requires observation or readmission. Return instructions to the emergency department were reviewed. Patient and agreeable to the plan. Disposition is discharged home in stable condition. History & Record Review Discussion w/independent historian: Patient Additional record(s) reviewed:: Prior ED visit and Prior labs Lab Data Attestation: I reviewed the patient's lab results. Labs: Laboratory Results - last 24 hr 07/14/23 07/14/23 07:50 08:00 WBC 6.7 RBC 3.65 L Hgb 10.9 L Hct 34.5 L MCV 94.5 MCH 29.9 MCHC 31.6 L RDW Std Deviation 47.6 H RDW Coeff of Wilder 13.7 Plt Count 281 MPV 10.2 Immature Gran % (Auto) 0.300 Neut % (Auto) 69.2 Lymph % (Auto) 20.2 [place] % (Auto) 6.8 Eos % (Auto) 2.6 Baso % (Auto) 0.9 Absolute Neuts (auto) 4.6 Absolute Lymphs (auto) 1.34 Nucleated RBC % 0 Sodium 142 Potassium 3.6 Chloride 110 H Carbon Dioxide 28.0 Anion Gap 4 L BUN 19 H Creatinine 0.70 Est GFR (MDRD) Af Amer 107 Est GFR (MDRD) Non-Af 88 BUN/Creatinine Ratio 27.1 H Glucose 99 Calcium 8.8 Urine Color Yellow Urine Clarity Cloudy Urine pH 7.0 Ur Specific [place] 1.010 Urine Protein 100 H Urine Glucose (UA) Normal Urine Ketones Negative Urine Occult Blood 150 H Urine Nitrite Positive H Urine Bilirubin Negative Urine Urobilinogen Normal Ur Leukocyte Esterase 500 H Urine RBC 10-25 SEEN Urine WBC 25-50 SEEN Ur Squamous Epith Cells 5-10 SEEN Ur Transition Epith Cell 0 SEEN Urine Bacteria 3+ Urine Mucus 0 SEEN Discharge Plan Triage Chief Complaint: Complaint ED Provider: He Flores Dx/Rx/DC Orders Clinical Impression: UTI (urinary tract infection), Dysuria Instructions: ED UTIs Women Prescriptions: New cephalexin 500 mg capsule 500 mg PO Q12H 7 Days Qty: 14 0RF phenazopyridine [Pyridium] 100 mg tablet 100 mg PO TID PRN (Reason: pain) Qty: 6 0RF No Action esomeprazole magnesium [Nexium] 20 mg capsule,delayed release(DR/EC) 40 mg PO DAILY Prolia 60 mg/mL syringe 60 mg SC [id number] Patient Comments: Per Admission Nurse, this will not be administered while on TCU, Can not go out for injection either albuterol sulfate 2.5 mg /3 mL (0.083 %) solution for nebulization 2.5 mg INHALATION Q6H PRN (Reason: Wheezing) Patient Comments: has not used in forever rosuvastatin 10 mg tablet 10 mg PO DAILY Patient Comments: unsure of dosage multivitamin [Daily Multi-Vitamin] Tablet 2 tab PO DAILY citalopram 20 MG tablet 20 mg PO DAILY Patient Comments: depression sucralfate 1 gram tablet 1 g PO BID Patient Comments: patient takes 1 tablet twice a day, while script states to take 4 times day. unsure of dosage [id number] 1 EACH blister with device 1 ea IH DAILY cyanocobalamin (vitamin B-12) [Vitamin B-12] 1,000 mcg tablet 1,000 mcg PO DAILY Florajen Acidophilus 20 billion cell capsule 100 mmu cells PO DAILY methimazole 5 mg tablet 5 mg PO DAILY Patient Comments: script states to take 1/2 tab daily while pt states she takes 1 tab daily. unsure of dosage polyethylene glycol 3350 17 gram Powder In Packet 17 g PO BID 30 Days Qty: 60 0RF sennosides-docusate sodium [Stool Softener-Stimulant Laxat] 8.6-50 mg Tablet 2 tab PO BID 30 Days Qty: 120 0RF tramadol 50 mg Tablet 50 mg PO Q6H PRN PRN (Reason: Pain Score 1-5) 7 Days Qty: 28 0RF acetaminophen 500 mg Tablet 1,000 mg PO Q8 Qty: 0 0RF tamsulosin 0.4 mg Capsule 0.4 mg PO DAILY@1730 30 Days Qty: 30 0RF gabapentin 100 mg Capsule 200 mg PO TIDCM 30 Days Qty: 180 0RF ondansetron 4 mg Tablet,Disintegrating 4 mg PO Q12H PRN (Reason: nausea and vomiting) 7 Days Qty: 14 0RF melatonin 10 mg Tablet, Sublingual 10 mg PO QHS Qty: 0 0RF Primary Care Provider: Esther Malik Referrals: Keena Williamson MD [Med Staff - Active Staff] - As soon as possible Esther Malik DO [Primary Care Provider] - 3-5 Days if not improving Disposition Disposition: Home, Self Care
[2023-07-14] MEDS: 0.9% Normal Saline (1000mL) 1,000 ML 1000 ML IV (08:08)
[2023-07-14 08:09] LABS: Mucous, Urine 0 SEEN /hpf (<or=2+)
[2023-07-14 08:13] LABS: Color, Urine Yellow (Yellow); Glucose, Dipstick Normal (Normal); Ketone-Dipstick Negative (Negative); Leukocyte Esterase-Dipstick 500 /ul (Negative); Nitrite-Dipstick Positive (Negative); Occult Blood-Urine 150 /ul (Negative); Protein-Dipstick 100 mg/dl (Negative); Urine Bilirubin Dipstick Negative (Negative); Urine Clarity Cloudy (Clear); Urine Urobilinogen Normal (Normal)
[2023-07-14 08:14] LABS: Absolute Lymphocyte Count 1.34 X10^3/uL (0.83-4.51); Absolute Neutrophil Count 4.6 X10^3/uL (2.0-7.7); Basophil# 0.06 X10^3/uL; Basophil% 0.9 % (0-1); Eosinophil# 0.17 X10^3/uL; Eosinophils% 2.6 % (0-5); Hematocrit 34.5 % (37-47); Hemoglobin 10.9 g/dL (12.0-15.0); Lymphocyte # 1.34 X10^3/ul (0.83-4.51); Lymphocyte % 20.2 % (19-41); Mean Corp Hgb Conc 31.6 g/dL (32-36); Mean Corpuscular Hgb 29.9 pg (27.0-32.0); Mean Corpuscular Volume 94.5 fL (81-99); Mean Platelet Vol. 10.2 fl (6.2-12.0); Monocyte# 0.45 X10^3/uL; Monocyte% 6.8 % (0-10); NRBC Flagged by Analyzer 0 % (0-5); Neutrophil # 4.61 X10^3/uL (2.7-7.7); Neutrophil % 69.2 % (47-70); Platelet Count 281 K/mm3 (150-450); RBC Distribution Width CV 13.7 % (11.6-14.6); RBC Distribution Width SD 47.6 fl (35.1-43.9); Red Blood Count 3.65 M/mm3 (4.2-5.4); White Blood Count 6.7 K/mm3 (4.4-11.0)
[2023-07-14 08:21] LABS: Bacteria 3+ /hpf (None Seen); Red Blood Cells-Urine 10-25 SEEN /hpf (0-5); White Blood Cells 25-50 SEEN /hpf (0-5)
[2023-07-14 08:23] LABS: Squamous Epithelial Cells - UA 5-10 SEEN /hpf (5-10); Transitional Epithelial - Ur 0 SEEN /hpf (0-5)
[2023-07-14 08:26] LABS: Anion Gap 4 (5-15); BUN 19 mg/dL (7-18); BUN/Creat Ratio 27.1 RATIO (10-20); Calcium,Total 8.8 mg/dL (8.5-10.1); Chloride 110 mmol/L (98-107); EST Glomerular Filtration Rate 88 mL/min (>60); Est Glom Filt Rate - Afr Amer 107 mL/min (>60); Glucose 99 mg/dL (74-106); Potassium 3.6 mmol/L (3.5-5.1); Sodium Level 142 mmol/L (136-145)
[2023-07-14] MEDS: Cephalexin 250 MG Capsule 500 MG PO (09:05)
== END 2023-07-14 09:08 | disposition home or self-care (01) ==
PROVIDERS: Emergency Provider Emergency Medicine; PCP Internal Medicine; Visit Provider Emergency Medicine
DX: N39.0 Urinary tract infection, site not specified (principal); J44.9 Chronic obstructive pulmonary disease, unspecified; E78.5 Hyperlipidemia, unspecified; Z87.891 Personal history of nicotine dependence; Z85.828 Personal history of other malignant neoplasm of skin; F41.9 Anxiety disorder, unspecified; Z79.51 Long term (current) use of inhaled steroids; E05.90 Thyrotoxicosis, unspecified without thyrotoxic crisis or storm; Z90.49 Acquired absence of other specified parts of digestive tract; R30.0 Dysuria
CPT/HCPCS: 80048; 81001; 85025; 87086; 87088; 87186; 99282; A4216

== ENCOUNTER 2023-08-02 09:27 | Emergency (ER) | payer MEDICARE, BC, SELFPAY ==
[2023-08-02 09:28] VITALS: BP 116/71; PULSE 81; RESP 14; TEMP 36.2; O2SAT 99; BMI 22.1
--- NOTE | 2023-08-02 09:49 | EX.ED.DYSGE1 ---
HPI History of Present Illness Chief Complaint: Nausea/Vomiting Informant: patient and family Narrative Narrative: 68-year-old female presenting to the emergency room with nausea. Patient states that she has an underlying fear of vomiting. She states for the past 3 days she has felt particularly nauseous especially in the morning. This morning she took 8 mg of Zofran and a lorazepam which did not help. She states typically she weighs around 117 today 112. Patient states that she has been on citalopram 20 mg for years . A couple months ago the patient underwent a back surgery and had some postoperative complications including neuropathic pain of the legs and recurrent UTI/urinary retention. Patient was placed on a once daily trimethoprim/sulfamethoxazole medication. She thought that perhaps that was causing her nausea and so did not take her dose last night. She states that she was still nauseous this morning does not believe that to be the case. She denies any diarrhea. No fever. Patient states that she has dry heaves but no actual vomiting. She denies any other new medications. She denies headache or change in vision. No speech difficulties. No new neurologic symptoms. She states that the last time she ate well for her was . Patient has had prior cholecystectomy. [facility] Medical History Abnormal cardiac CT angiography Abnormal GTT (glucose tolerance test) Abnormal thyroid ultrasound Abnormal TSH Anxiety Arthritis Back pain Cancer Cardiology follow-up encounter Chronic cough COPD (chronic obstructive pulmonary disease) Depression Emphysema of lung Gastric reflux GERD (gastroesophageal reflux disease) History of pain when walking History of skin cancer History of stress test HLD (hyperlipidemia) Hyperthyroidism Insomnia Migraine Osteopenia Post-menopausal Pre-diabetes Pre-diabetes Restless legs Shortness of breath on exertion Smoker Thyroid disease Thyroid nodule Urinary tract infection Wears glasses Home Medications citalopram 20 mg tablet 20 mg PO DAILY anxiety 11/10/15 [History Last Taken 11/09/15] albuterol sulfate 2.5 mg/3 mL (0.083 %) solution for nebulization 2.5 mg inhalation Q6H PRN Wheezing 01/20/20 [History Last Taken 06/06/23 05:00] fluticasone fur. 100 mcg-umeclid 62.5 mcg-vilant 25 mcg inhalat.powder 1 ea IH DAILY COPD 02/25/20 [History Last Taken Unknown] denosumab 60 mg/mL subcutaneous syringe (Prolia) 60 mg subcut [id number] thinning of the arteries 05/16/20 [History Last Taken Unknown] multivitamin (Daily Multi-Vitamin tablet) 2 tab PO DAILY supplement 04/06/21 [History Last Taken Unknown] rosuvastatin 10 mg tablet 10 mg PO DAILY cholesterol 04/06/21 [History Last Taken Unknown] esomeprazole magnesium 20 mg capsule,delayed release (Nexium) 40 mg PO DAILY stomach 06/16/21 [History Last Taken 06/06/23 05:00] sucralfate 1 gram tablet 1 g PO BID stomach 06/16/21 [History Last Taken Unknown] Lactobacillus acidophilus 20 billion cell capsule (Florajen Acidophilus) 100 mmu cells PO DAILY probiotic 05/24/23 [History Last Taken Unknown] cyanocobalamin (vitamin B-12) 1,000 mcg tablet (Vitamin B-12) 1,000 mcg PO DAILY supplement 05/24/23 [History Last Taken Unknown] methimazole 5 mg tablet 5 mg PO DAILY thyroid 05/24/23 [History Last Taken 06/06/23 05:00] acetaminophen 500 mg tablet 1,000 mg (2 x 500 mg) PO Q8 #0 tabs 07/01/23 [Rx Last Taken Unknown] gabapentin 100 mg capsule 200 mg (2 x 100 mg) PO TIDCM 30 days #180 caps 07/01/23 [Rx Last Taken Unknown] melatonin 10 mg sublingual tablet 10 mg PO QHS #0 tabs 07/01/23 [Rx Last Taken Unknown] ondansetron 4 mg disintegrating tablet 4 mg PO Q12H PRN nausea and vomiting 7 days #14 tabs 07/01/23 [Rx Last Taken Unknown] polyethylene glycol 3350 17 gram oral powder packet 17 g PO BID 30 days #60 ea 07/01/23 [Rx Last Taken Unknown] sennosides 8.6 mg-docusate sodium 50 mg tablet (Stool Softener-Stimulant Laxative) 2 tab PO BID 30 days #120 tabs 07/01/23 [Rx Last Taken Unknown] tamsulosin 0.4 mg capsule 0.4 mg PO DAILY@1730 30 days #30 caps 07/01/23 [Rx Last Taken Unknown] tramadol 50 mg tablet 50 mg PO Q6H PRN PRN Pain Score 1-5 7 days #28 tabs 07/01/23 [Rx Last Taken Unknown] cephalexin 500 mg capsule 500 mg PO Q12H 7 days #14 caps 07/14/23 [Rx Last Taken Unknown] phenazopyridine 100 mg tablet (Pyridium) 100 mg PO TID PRN pain 6 doses #6 tabs 07/14/23 [Rx Last Taken Unknown] promethazine 12.5 mg tablet 12.5 mg PO Q4H PRN nausea and vomiting #20 tabs 08/02/23 [Rx Last Taken Unknown] promethazine 25 mg rectal suppository 25 mg NV Q6H PRN nausea and vomiting #12 ea 08/02/23 [Rx Last Taken Unknown] Allergy/AdvReac Type Severity Reaction Status Date / Time Tetracyclines AdvReac Unknown GI upset Verified 08/02/23 09:28 sulfamethoxazole AdvReac Upset Verified 08/02/23 09:28 [From Bactrim] Stomach trimethoprim [From Bactrim] AdvReac Upset Verified 08/02/23 09:28 Stomach Family History Brother Heart disease Father Cirrhosis Mother Cancer lung Grandmother Cancer leukemia Grandmother CVA (cerebral vascular accident) Other Alcoholism Diabetes H/O emotional problems Liver disease Surgical History History of cholecystectomy History of colonoscopy History of dilation and curettage History of esophagogastroduodenoscopy (EGD) History of lumpectomy History of surgery on wrist Status post biopsy of thyroid gland (~11/2018) Social History household members: spouse Smoking Status: Former smoker alcohol intake: never substance use type: does not use caffeine: Yes Type: carbonated beverages Number of servings: 1 ROS ROS ED Constitutional Constitutional ED: Denies chills, fever(s) or weight loss Eyes Eyes: Denies change in vision or diplopia ENT ENT ED: Denies ear pain, rhinorrhea or sore throat Cardiovascular Cardiovascular: Denies chest pain, orthopnea, palpitations or racing heartbeat Respiratory/Chest Respiratory/Chest: Denies cough, dyspnea or orthopnea Gastrointestinal Gastrointestinal: Reports nausea; Denies abdominal pain, diarrhea or vomiting Genitourinary Genitourinary ED: Reports urinary frequency; Denies dysuria or hematuria Musculoskeletal Musculoskeletal: Reports other Details: Chronic lower extremity pain ; Denies arthralgias or myalgias Integumentary Denies abscess or rash Neurologic Neurologic: Reports paresthesias; Denies headache(s) or weakness Psychiatric Psychiatric: Denies anxiety, depression, suicidal ideation or suicidal thoughts Endocrine Endocrinology: Denies polydipsia, polyphagia or polyuria Allergic/Immunologic Allergic/Immunologic ED: Denies mouth swelling, tongue swelling or urticaria EXAM Physical Exam Const Vital Signs: 08/02/23 09:28 08/02/23 12:51 Temperature 97.1 F L Temperature Source Temporal Pulse Rate 81 80 Respiratory Rate 14 16 Blood Pressure 116/71 118/68 Blood Pressure Mean 86 84 Pulse Ox 99 99 Oxygen Delivery Method Room Air Positive well nourished and well developed General Appearance ED: well developed HEENT Reports normocephalic, head/scalp atraumatic and moist mucous membranes Eyes PERRL and EOMs intact bilaterally Neck no lymphadenopathy, supple and no JVD Resp normal respiratory effort and clear to auscultation bilaterally Cardio regular rate, regular rhythm and no murmurs GI normal to inspection, nondistended, normoactive bowel sounds and non-tender Palpation: soft Back/Spine no CVA tenderness and normal ROM Extremity normal to inspection General Extremety ED: Negative for edema General Extremity: Negative for edema Neuro oriented x3 and CN's II-XII intact bilaterally Sensorium / Orientation: alert Motor Exam: strength 5/5 throughout Psych mental status grossly normal Mood & Affect: anxious; Negative for depressed or tearful Skin no rashes or lesions noted and no wounds MDM MDM MDM Narrative Medical decision making narrative: Basic blood work was pretty much unremarkable. Glucose 116. TSH 1.62. Lipase 78 normal liver enzymes. Urinalysis demonstrated 25-50 white cells 5-10 squamous cells 1+ bacteria. This is negative nitrates for the first time for couple of specimens. CT the brain was obtained due to the persistent nausea which was negative for mass or hemorrhage. I also went ahead and image the abdomen. I do not appreciate any masses. We did not use oral contrast and I clinically do not think the patient has any ascending colon colitis. I talked with the patient about several possible etiologies. She is hesitant on colonoscopy/endoscopy. She does have a lot of anxiety. She has been on Celexa for years. Given the fact now she has some pain in the anxiety/depression would a change to something like Cymbalta help? She has some Phenergan suppositories at home which may be old. She has Zofran ODT. She is willing to try combination Zofran and Phenergan if need be. I will write for some Phenergan tabs. We also talked about her lorazepam use. This is obviously not a simple clear-cut case. I advised them that this would need some follow-up with her PCP and possibly gastroenterology. Family was present. I also advised them it is very difficult to say how much of each drug they can use before they would need to come back to emergency. We talked about respiratory depression altered mental status/confusion. History & Record Review Discussion w/independent historian: Patient and Family Additional record(s) reviewed:: Prior ED visit and Prior labs Lab Data Attestation: I reviewed the patient's lab results. Labs: Laboratory Results - last 24 hr 08/02/23 08/02/23 09:58 10:05 WBC 5.8 RBC 4.45 Hgb 13.1 Hct 41.4 MCV 93.0 MCH 29.4 MCHC 31.6 L RDW Std Deviation 47.0 H RDW Coeff of Wilder 13.9 Plt Count 258 MPV 10.3 Immature Gran % (Auto) 0.200 Neut % (Auto) 80.4 H Lymph % (Auto) 13.2 L [place] % (Auto) 5.0 Eos % (Auto) 0.5 Baso % (Auto) 0.7 Absolute Neuts (auto) 4.7 Absolute Lymphs (auto) 0.77 L Nucleated RBC % 0 Sodium 141 Potassium 3.7 Chloride 107 Carbon Dioxide 26.0 Anion Gap 8 BUN 14 Creatinine 0.78 Estim Creat Clear Calc 40.63 Est GFR (MDRD) Af Amer 95 Est GFR (MDRD) Non-Af 78 BUN/Creatinine Ratio 18.0 Glucose 116 H Calcium 9.0 Total Bilirubin 0.40 AST 17 ALT 18 Alkaline Phosphatase 87 Total Protein 8.0 Albumin 3.8 Globulin 4.2 Albumin/Globulin Ratio 0.9 Lipase 78 H TSH 1.61 Urine Color Yellow Urine Clarity Sl. Cloudy Urine pH 7.0 Ur Specific [place] 1.010 Urine Protein 30 H Urine Glucose (UA) Normal Urine Ketones 50 H Urine Occult Blood 25 H Urine Nitrite Negative Urine Bilirubin Negative Urine Urobilinogen 1 H Ur Leukocyte Esterase 500 H Urine RBC 0-5 SEEN Urine WBC 25-50 SEEN Ur Squamous Epith Cells 5-10 SEEN Urine Bacteria 1+ Urine Mucus 0 SEEN Urine Yeast 1+ Radiography Diagnostic Testing: Clinical Impression(s) from Imaging Studies Abdomen/Pelvis CT 08/02/23 10:35 IMPRESSION: Circumferential wall thickening of the ascending colon which may be partially secondary to its incompletely distended state however cannot exclude colitis. Bilateral nonobstructing renal calculi measuring up to 5.3 mm on the right. Postsurgical changes of the lumbar spine. Atherosclerosis. Electronically Signed: Hallie Braswell MD at 11:29 EST , Discharge Plan Triage Chief Complaint: Nausea/Vomiting ED Provider: Benny Up Dx/Rx/DC Orders Clinical Impression: Anxiety, Nausea Instructions: Anxiety Disorders Tx Prescriptions: New promethazine 12.5 mg tablet 12.5 mg PO Q4H PRN (Reason: nausea and vomiting) Qty: 20 0RF promethazine 25 mg suppository 25 mg NV Q6H PRN (Reason: nausea and vomiting) Qty: 12 1RF No Action esomeprazole magnesium [Nexium] 20 mg capsule,delayed release(DR/EC) 40 mg PO DAILY Prolia 60 mg/mL syringe 60 mg SC [id number] Patient Comments: Per Admission Nurse, this will not be administered while on TCU, Can not go out for injection either albuterol sulfate 2.5 mg /3 mL (0.083 %) solution for nebulization 2.5 mg INHALATION Q6H PRN (Reason: Wheezing) Patient Comments: has not used in forever rosuvastatin 10 mg tablet 10 mg PO DAILY Patient Comments: unsure of dosage multivitamin [Daily Multi-Vitamin] Tablet 2 tab PO DAILY citalopram 20 MG tablet 20 mg PO DAILY Patient Comments: depression sucralfate 1 gram tablet 1 g PO BID Patient Comments: patient takes 1 tablet twice a day, while script states to take 4 times day. unsure of dosage [id number] 1 EACH blister with device 1 ea IH DAILY cephalexin 500 mg capsule 500 mg PO Q12H 7 Days Qty: 14 0RF phenazopyridine [Pyridium] 100 mg tablet 100 mg PO TID PRN (Reason: pain) Qty: 6 0RF cyanocobalamin (vitamin B-12) [Vitamin B-12] 1,000 mcg tablet 1,000 mcg PO DAILY Florajen Acidophilus 20 billion cell capsule 100 mmu cells PO DAILY methimazole 5 mg tablet 5 mg PO DAILY Patient Comments: script states to take 1/2 tab daily while pt states she takes 1 tab daily. unsure of dosage polyethylene glycol 3350 17 gram Powder In Packet 17 g PO BID 30 Days Qty: 60 0RF sennosides-docusate sodium [Stool Softener-Stimulant Laxat] 8.6-50 mg Tablet 2 tab PO BID 30 Days Qty: 120 0RF tramadol 50 mg Tablet 50 mg PO Q6H PRN PRN (Reason: Pain Score 1-5) 7 Days Qty: 28 0RF acetaminophen 500 mg Tablet 1,000 mg PO Q8 Qty: 0 0RF tamsulosin 0.4 mg Capsule 0.4 mg PO DAILY@1730 30 Days Qty: 30 0RF gabapentin 100 mg Capsule 200 mg PO TIDCM 30 Days Qty: 180 0RF ondansetron 4 mg Tablet,Disintegrating 4 mg PO Q12H PRN (Reason: nausea and vomiting) 7 Days Qty: 14 0RF melatonin 10 mg Tablet, Sublingual 10 mg PO QHS Qty: 0 0RF Primary Care Provider: Esther Malik Referrals: Esther Malik DO [Primary Care Provider] - As soon as possible FriendGiovanny DO [Med Staff - Active Staff] - As soon as possible (For gastroenterology) Activity Restrictions/Additional Instructions: I would recommend taking up to 8 mg of Zofran and ODT every 6 hours as needed I would recommend up to 2 Phenergan pills every 6 hours as needed I would recommend 1 Phenergan suppository every 6 hours as needed You could have up to 1 mg of lorazepam every 3 hours if no sedation occurs for your anxiety Phenergan and lorazepam have sedating effects. It is very difficult to know how each person will react on it so please monitor yourself. You can discuss changing dosing with your doctor. As discussed nausea is a very broad complaint. There can be many individual or multifactorial causes. We discussed your anxiety as 1 potential cause. Discussions with your doctorPlease have open and demetrius regarding potential treatments. You may benefit from gastroenterology evaluation. Disposition Disposition: Home, Self Care Discharge Date/Time: 08/02/23 12:52
[2023-08-02 10:04] LABS: Absolute Lymphocyte Count 0.77 X10^3/uL (0.83-4.51); Absolute Neutrophil Count 4.7 X10^3/uL (2.0-7.7); Basophil# 0.04 X10^3/uL; Basophil% 0.7 % (0-1); Eosinophil# 0.03 X10^3/uL; Eosinophils% 0.5 % (0-5); Hematocrit 41.4 % (37-47); Hemoglobin 13.1 g/dL (12.0-15.0); Lymphocyte # 0.77 X10^3/ul (0.83-4.51); Lymphocyte % 13.2 % (19-41); Mean Corp Hgb Conc 31.6 g/dL (32-36); Mean Corpuscular Hgb 29.4 pg (27.0-32.0); Mean Platelet Vol. 10.3 fl (6.2-12.0); Monocyte# 0.29 X10^3/uL; NRBC Flagged by Analyzer 0 % (0-5); Neutrophil % 80.4 % (47-70); Platelet Count 258 K/mm3 (150-450); RBC Distribution Width CV 13.9 % (11.6-14.6); Red Blood Count 4.45 M/mm3 (4.2-5.4); White Blood Count 5.8 K/mm3 (4.4-11.0)
[2023-08-02 10:10] LABS: Mucous, Urine 0 SEEN /hpf (<or=2+)
[2023-08-02 10:18] LABS: Color, Urine Yellow (Yellow); Glucose, Dipstick Normal (Normal); Ketone-Dipstick 50 mg/dl (Negative); Leukocyte Esterase-Dipstick 500 /ul (Negative); Nitrite-Dipstick Negative (Negative); Occult Blood-Urine 25 /ul (Negative); Protein-Dipstick 30 mg/dl (Negative); Urine Bilirubin Dipstick Negative (Negative); Urine Clarity Sl. Cloudy (Clear); Urine Urobilinogen 1 mg/dl (Normal)
[2023-08-02] MEDS: LORazepam 2 MG/ML Syringe 0.5 MG IV (10:19)
[2023-08-02] MEDS: proMETHazine 25 MG Tablet 12.5 MG PO (10:19)
[2023-08-02 10:27] LABS: ALB/GLOB Ratio 0.9 RATIO (0.9-2.4); AST(SGOT) 17 U/L (15-37); Alanine Aminotransfer ALT/SGPT 18 U/L (13-56); Albumin, Serum 3.8 g/dL (3.2-5.0); Alkaline Phosphatase 87 U/L (45-117); Anion Gap 8 (5-15); BUN 14 mg/dL (7-18); Chloride 107 mmol/L (98-107); Creatinine, Serum 0.78 mg/dL (0.55-1.02); EST Glomerular Filtration Rate 78 mL/min (>60); Est Glom Filt Rate - Afr Amer 95 mL/min (>60); Estimated Creatinine Clearance 40.63 ml/min; Globulin 4.2 g/dL (2.2-4.2); Glucose 116 mg/dL (74-106); Lipase 78 U/L (13-75); Potassium 3.7 mmol/L (3.5-5.1); Sodium Level 141 mmol/L (136-145); Thyroid Stim Hormone (TSH) 1.61 uIU/mL (0.358-3.74)
[2023-08-02 10:30] LABS: Bacteria 1+ /hpf (None Seen); Red Blood Cells-Urine 0-5 SEEN /hpf (0-5); Squamous Epithelial Cells - UA 5-10 SEEN /hpf (5-10); White Blood Cells 25-50 SEEN /hpf (0-5); Yeast-Urine 1+ /hpf (None Seen)
--- NOTE | 2023-08-02 10:35 | CT_ITS ---
STUDY: CT ABDOMEN AND PELVIS WITH CONTRAST - URINARY TRACT REASON FOR EXAM: Female, 68 years old. Nausea weight loss RADIATION DOSAGE (If Supplied By Facility): CTDIvol = ( 9.68 ) mGy, DLP = ( 280.69 ) mGycm TECHNIQUE: IV-100 ML ISOVUE 370 was administered. Transaxial images were obtained from the dome of the diaphragm to the symphysis pubis subsequent to intravenous contrast administration. Multiplanar coronal and sagittal images were reformatted. Individualized Dose Optimization Techniques Were Used For This CT. COMPARISON: December 21, [address] of the chest dated December 21, 2022 and lumbar spine MRI dated June 09, 2023 FINDINGS: The visualized lung bases are unremarkable. The visualized portions of the heart are within normal limits. Normal liver. There are surgical clips in the gallbladder fossa consistent with a prior cholecystectomy. Normal spleen. Normal pancreas. Normal bilateral adrenal glands. Normal visualized stomach. Normal small intestine. There is circumferential wall thickening of the ascending colon which is incompletely distended. There is non-visualization of the appendix. There is diffuse atherosclerotic calcification of the abdominal aorta, without a demonstrated aneurysm. No retroperitoneal adenopathy. There are bilateral nonobstructing renal calculi measuring up to 5.3 mm on the right and 3.5 mm on the left. There is a too small to characterize low-attenuation focus within the right kidney which may reflect a cyst. Normal urinary bladder. Normal abdominal wall. There are diffuse degenerative changes of the visualized lumbar spine. There are postsurgical changes of elbow 3 through L5 with multilevel bilateral pedicle screws and posterior spinal rods. There is a levoscoliosis of the lumbar spine. CT/Abdomen/Pelvis W IV Cont ONLY IMPRESSION: Circumferential wall thickening of the ascending colon which may be partially secondary to its incompletely distended state however cannot exclude colitis. Bilateral nonobstructing renal calculi measuring up to 5.3 mm on the right. Postsurgical changes of the lumbar spine. Atherosclerosis. Electronically Signed: Hallie Braswell MD at 11:29 EST ,
[2023-08-02 12:51] VITALS: BP 118/68; PULSE 80; RESP 16; O2SAT 99
== END 2023-08-02 12:52 | disposition home or self-care (01) ==
PROVIDERS: Emergency Provider Emergency Medicine; PCP Internal Medicine; Visit Provider Emergency Medicine
DX: F41.9 Anxiety disorder, unspecified (principal); J43.9 Emphysema, unspecified; R11.0 Nausea; Z87.891 Personal history of nicotine dependence; R33.9 Retention of urine, unspecified; N39.0 Urinary tract infection, site not specified; Z90.49 Acquired absence of other specified parts of digestive tract; R35.0 Frequency of micturition; F32.A Depression, unspecified; R20.2 Paresthesia of skin; Z98.890 Other specified postprocedural states
CPT/HCPCS: 74177; 80053; 81001; 83690; 84443; 85025; 96374; 99283; Q9967; A4216

== ENCOUNTER → 2023-10-12 | Outpatient (CLI) | payer MEDICARE, BC, SELFPAY ==
--- NOTE | 2023-10-12 07:51 | CT_ITS ---
STUDY: CT ABDOMEN AND PELVIS WITHOUT CONTRAST REASON FOR EXAM: Female, 68 years old. BLADDER STONES, UTI''S ? KIDNEY STONES RADIATION DOSAGE (If Supplied By Facility): CTDIvol = ( 6.04 ) mGy, DLP = ( 264.24 ) mGycm TECHNIQUE: Transaxial images were obtained from the dome of the diaphragm to the symphysis pubis without oral contrast, and without intravenous contrast. Sagittal and coronal images were reconstructed. Individualized dose optimization techniques were used for this CT. COMPARISON: 08/02/2023 FINDINGS: The visualized lung bases are unremarkable. The visualized portions of the heart are within normal limits. Normal liver. There are surgical clips in the gallbladder fossa consistent with a prior cholecystectomy. Normal spleen. Normal pancreas. Normal bilateral adrenal glands. Multiple bilateral nonobstructing renal stones. No hydronephrosis, ureteral stone, ureteral dilatation. Normal visualized stomach. Normal small intestine. Large amount of stool within the colon suggestive of constipation. There is non-visualization of the appendix. There is diffuse atherosclerotic calcification of the abdominal aorta, without a demonstrated aneurysm. Normal inferior vena cava. Normal retroperitoneum. Layering calcific density within the dependent portion the bladder may represent tiny stones. Normal abdominal wall. Moderate levoscoliosis lumbar spine. Status post transpedicular fixation from L3 through L5. CT/Abdomen/Pelvis without Cont IMPRESSION: 1. Bilateral nonobstructing renal stones. 2. Suspect tiny bladder stones in the dependent portion the bladder. 3. Suspect constipation. Electronically Signed: Kvng Sotelo MD at 20:14 EST ,
== END | disposition home or self-care (01) ==
LOC: CT 07:49
PROVIDERS: PCP Internal Medicine; Referring Provider Urology; Visit Provider Urology
DX: N21.0 Calculus in bladder (principal); N39.0 Urinary tract infection, site not specified
CPT/HCPCS: 74176

== ENCOUNTER → 2023-10-15 | Outpatient (CLI) | payer MEDICARE, BC, SELFPAY ==
--- NOTE | 2023-10-15 09:37 | RAD_ITS ---
STUDY: X-RAY - ABDOMEN/PELVIS REASON FOR EXAM: Female, 68 years old. Kidney stones. TECHNIQUE: Single AP view of the abdomen / pelvis. COMPARISON: 07/01/2023 FINDINGS: Normal visualized lung bases. Normal bowel gas pattern with air seen to the rectosigmoid. Moderate amount of feces in the colon. Renal outlines not well visualized because of bowel gas and feces. Osteopenia. Small 1 mm in diameter calcification projected over the left renal contour. Cholecystectomy clips. Posterior fusion from L3 to L5, moderate rotatory levoscoliosis of the lumbar spine and intervertebral disc prostheses at L3-4 and L4-5. RAD/Abdomen Single View IMPRESSION: Osteopenia with 1 mm in diameter calcification projected over the left kidney. Remainder of renal outlines compromised by overlying bowel gas and feces. No acute abnormality identified. Electronically Signed: Gilberto Ramos MD at 13:31 EDT ,
== END | disposition home or self-care (01) ==
LOC: MTRAD 09:31
PROVIDERS: PCP Internal Medicine; Referring Provider Urology; Visit Provider Urology
DX: N20.0 Calculus of kidney (principal)
CPT/HCPCS: 74018

== ENCOUNTER 2023-11-21 09:24 | Day surgery (SDC) | payer MEDICARE, BC, SELFPAY ==
--- NOTE | 2023-11-19 14:00 | RAD_ITS ---
INDICATION: PREOP/HX OF EMPHYSEMA EXAMINATION/TECHNIQUE: X-RAY - XR Chest 2 Views COMPARISON: June 21, 2023 FINDINGS: LINES/DEVICES: None. LUNGS: No new consolidation, edema or effusion. There is stable right apical scarring. No pneumothorax. MEDIASTINUM AND CARDIOVASCULAR STRUCTURES: Cardiac silhouette not enlarged. Central airways and mediastinal contour are unremarkable. BONES AND SOFT TISSUES: There are postsurgical changes of the visualized lumbar spine. RAD/Chest PA and Lateral IMPRESSION: No radiographic evidence of acute cardiopulmonary disease. Electronically Signed: Hallie Braswell MD at 8:40 EDT ,
[2023-11-19 14:03] LABS: Hematocrit 39.9 % (37-47); Hemoglobin 12.3 g/dL (12.0-15.0); Mean Corp Hgb Conc 30.8 g/dL (32-36); Mean Corpuscular Hgb 28.1 pg (27.0-32.0); Mean Corpuscular Volume 91.3 fL (81-99); Platelet Count 255 K/mm3 (150-450); RBC Distribution Width CV 15.3 % (11.6-14.6); RBC Distribution Width SD 51.6 fl (35.1-43.9); Red Blood Count 4.37 M/mm3 (4.2-5.4); White Blood Count 5.3 K/mm3 (4.4-11.0)
[2023-11-19 14:30] LABS: Anion Gap 4 (5-15); BUN 27 mg/dL (7-18); BUN/Creat Ratio 32.2 RATIO (10-20); Calcium,Total 9.4 mg/dL (8.5-10.1); Chloride 105 mmol/L (98-107); Creatinine, Serum 0.84 mg/dL (0.55-1.02); EST Glomerular Filtration Rate 72 mL/min (>60); Est Glom Filt Rate - Afr Amer 87 mL/min (>60); Glucose 100 mg/dL (74-106); Sodium Level 140 mmol/L (136-145)
[2023-11-19 15:23] LABS: Free T3 2.3 pg/mL (2.18-3.98); T4 Free Direct 0.84 ng/dL (0.76-1.46); Thyroid Stim Hormone (TSH) 1.38 uIU/mL (0.358-3.74)
[2023-11-21] VITALS (8 sets, daily range): BP systolic 123–145; BP diastolic 71–84; PULSE 71–82; RESP 16; TEMP 36.6–36.7; O2SAT 87–97; BMI 21.2
[2023-11-21] MEDS: Lactated Ringers 1,000 ML 15 ML IV (10:00)
[2023-11-21] MEDS: Cefazolin 2 GM in 0.9% Normal Saline (100mL Bag) 100 ML IV (10:22)
--- NOTE | 2023-11-21 11:20 | DCINST_ITS ---
Discharge Instructions Diet Discharge Diet: No restrictions Activity Discharge Activity: Return to Normal Activity Dressing / Incision Call your doctor if you observe: Fever of 101 or Higher, Inability to urinate and Inability to have a bowel movement Follow Up Care Please Follow Up With: Keena Williamson MD When: The office will contact the patient to set up follow-up. Test Results: Test results from this visit will be discussed in further detail at your follow- up appointment, if applicable. Discharge Plan Admission Attending Provider: Keena Williamson Primary Care Provider: Esther Malik Consulting Providers: Shakeel Martin Discharge Orders/Prescriptions Prescriptions: New oxycodone-acetaminophen [Percocet] 5-325 mg tablet 1 tab PO Q8H PRN (Reason: pain) 3 Days Qty: 10 0RF Continued esomeprazole magnesium [Nexium] 20 mg capsule,delayed release(DR/EC) 40 mg PO DAILY Prolia 60 mg/mL syringe 60 mg SC [id number] Patient Comments: Per Admission Nurse, this will not be administered while on TCU, Can not go out for injection either albuterol sulfate 2.5 mg /3 mL (0.083 %) solution for nebulization 2.5 mg INHALATION Q6H PRN (Reason: Wheezing) Patient Comments: has not used in forever rosuvastatin 10 mg tablet 10 mg PO DAILY Patient Comments: unsure of dosage multivitamin [Daily Multi-Vitamin] Tablet 2 tab PO DAILY methimazole 5 mg tablet 2.5 mg PO DAILY Qty: 45 1RF citalopram 20 MG tablet 30 mg PO DAILY Patient Comments: depression sucralfate 1 gram tablet 1 g PO BID Patient Comments: patient takes 1 tablet twice a day, while script states to take 4 times day. unsure of dosage phenazopyridine [Pyridium] 100 mg tablet 100 mg PO TID PRN (Reason: pain) Qty: 6 0RF Florajen Acidophilus 20 billion cell capsule 100 mmu cells PO DAILY sennosides-docusate sodium [Stool Softener-Stimulant Laxat] 8.6-50 mg Tablet 2 tab PO BID 30 Days Qty: 120 0RF gabapentin 100 mg Capsule 200 mg PO TIDCM 30 Days Qty: 180 0RF promethazine 12.5 mg tablet 12.5 mg PO Q4H PRN (Reason: nausea and vomiting) Qty: 20 0RF promethazine 25 mg suppository 25 mg ND Q6H PRN (Reason: nausea and vomiting) Qty: 12 1RF albuterol sulfate 90 mcg/actuation aerosol powdr breath activated 2 inh inhalation Q6H PRN PRN (Reason: shortness of breath or wheezing) lorazepam 1 mg tablet 1 mg PO Q12H PRN PRN (Reason: anxiety) polyethylene glycol 3350 17 gram Powder In Packet 17 g PO DAILY acetaminophen 500 mg Tablet 1,000 mg PO Q6H PRN PRN (Reason: pain) Macrobid PO Referrals / Follow Up: Esther Malik DO [Primary Care Provider] - Disposition Disposition (needs filled in before D/C Order can be placed): Home, Self Care
--- NOTE | 2023-11-21 12:39 | OP.PCM_ITS ---
Report of Operation Date of Procedure: 11/21/23 Pre-Operative Diagnosis: Right renal stone, bladder stones, urinary tract infec tions Post-Operative Diagnosis: Same, bladder stones have passed Surgery/Procedure Performed:: Cystoscopy with pelvic exam, right renal extracorporal shockwave lithotripsy Surgeon: Keena Williamson Type of Anesthesia: General Description of Procedure: The patient is a 68-year-old female who is having issues with emptying her bladder and urinary tract infections. She was found to have stones within her bladder on office cystoscopy. A CT was then done revealing right renal stones as well. She now presents for definitive intervention. Informed consent was obtained. She was taken to the operating room and placed on the lithotripsy table. Anesthesia monitored the head, neck, airway, IV access and vital signs throughout the case. Once anesthesia was appropriately administered, the patient was placed into dorsolithotomy position and was prepped and draped in usual sterile fashion. The cystoscope was inserted through the urethra under direct visualization into the urinary bladder. The bladder stones seen in the office were no longer present. There was no mass, erythema or other abnormality aside from cystocele present. At this time the cystoscope was removed. She was repositioned on the lithotripsy table. Fluoroscopy was able to identify 2 areas of stone within the right kidney. 3000 shocks were applied to these areas in total. The stones appeared to be well fragmented at the conclusion of the case. The patient was then awakened and taken to the recovery room in good condition. There were no complications during this procedure. Grafts/Implants Used: None Complications None Admit VTE Documentation VTE Present on Admission: Yes VTE Mechan Device Prophylaxis: SCD's VTE Pharm Prophylaxis ordered?: No Reason prophylaxis not ordered:: Treatment Not Indicated
== END 2023-11-21 12:52 | disposition home or self-care (01) ==
LOC: SDC 09:25 → AC 09:26
PROVIDERS: Internal Medicine Endocrinology, Diabetes & Metabolism; PCP Internal Medicine; Referring Provider Urology; Visit Provider Urology
PROC: (CPT 50590; principal; 2023-11-21 10:50)
DX: N20.0 Calculus of kidney (principal); J43.9 Emphysema, unspecified; N39.0 Urinary tract infection, site not specified; E03.9 Hypothyroidism, unspecified; Z79.899 Other long term (current) drug therapy; Z79.51 Long term (current) use of inhaled steroids; E78.5 Hyperlipidemia, unspecified; K21.9 Gastro-esophageal reflux disease without esophagitis; Z79.890 Hormone replacement therapy
CPT/HCPCS: 50590; 52000; 00873; 36415; 71046; 80048; 84439; 84443; 84481; 85027; J7120; J2405

== ENCOUNTER 2023-12-18 13:30 | Outpatient (RCR) | payer MEDICARE, BC, SELFPAY ==
--- NOTE | 2023-08-16 15:49 | HP.PTEVAL_ITS ---
Patient's Visit Information Visit Information Visit Information: LIBBY NAIDU is a 68 year old F referred to Physical Therapy by Dr. Esther Malik DO with a diagnosis of MALAISE. (LUMBAR FUSION 06/05/[address] VERGARA). Date of Evaluation: 08/16/23 Physical Therapist: Olena Lares, PT, Cert MDT Visit Plan Frequency: 2x /Week Duration: 2-4 Months Plan: NO BENDING, LIFTING OR TWISTING. CONTINUE BRACE AND WALKER UNTIL D/C'D BY SURGEON. GAIT BELT FOR SAFETY - R LE KONSTANTIN. FOCUS ON R LE STRENGTHENING INCLUDING ANKLE. R LE ROM/STRETCHING INCLUDING ANKLE. GAIT AND BALANCE TRAINING. LEODAN LE PROPRIOCEPTION TRAINING. LUMBAR STABILIZATION WITH NEUTRAL SPINE IN BRACE. Subjective Subjective: Work/Leisure: RETIRED Present symptoms: LOW BACK PAIN. LEODAN THIGH AND KNEE PAIN. INTERMITTENT RANDOM FLEETING LEG PAINS R > L. LEODAN FOOT NUMBNESS - MOSTLY R FOOT. R FOOT/ANKLE TINGLING. LEODAN LE WEAKNESS R>L. R KNEE INTERMITTENT BUCKLING. Present since: BACK SURGERY JUN 05 2023. PATIENT REPORTS SHE WAS HAVING LOW BACK PAIN FOR ABOUT 2.5 YEARS FROM [place] BEFORE AND GETTING AROUND WITHOUT AN AD AND USING HEAT AND WEARING BACK BELT. DRIVING, DRESSING AND DOING LIGHT HOUSEWORK INDEP'LY PRIOR TO SURGERY. PATIENT REPORTS DR. VERGARA AT [facility] DID HER BACK SURGERY AND FUSED L345 06/05/23 AND SHE STAYED AT [facility] X 2 DAYS. SHE STATES SHE WAS URINE INCONTINENT SO SHE WAS RE-ADMIT TO [facility] TCU X 1 MONTH WITH URINE AND BOWEL PROBLEMS AND LEG WEAKNESS, NUMBNESS AND TINGLING. SHE REPORTS SHE WAS TOLD IT WAS A NERVE PROBLEM FROM SURGERY. D/C'D HOME 07/05/23. SHE REPORTS SHE STILL HAS BOWEL, BLADDER AND LEG PROBLEMS AND NOW HAS STOMACH PROBLEMS. HOME PHYSICAL THERAPY UNTIL ABOUT A WEEK AGO AND SHE REPORTS SHE HAS BEEN GETTING STRONGER. SHE REPORTS SHE CAN WALK WITHOUT THE WALKER BUT SHE IS AFRAID TO BECAUSE HER R LEG STILL GIVES OUT. REPORTS SHE IS SUPPOSED TO CONTINUE THE WALKER UNTIL FOLLOW UP WITH DR. VERGARA 08/26/23. Pain Scale: WORST 4/10, LEAST 2/10 Currently: 3/10 Is it getting better, worse or staying the same: GETTING BETTER - MOVING AROUND BETTER AND BACK PAIN IS GETTING BETTER. NO LONGER HAVING INCONTINENCE. HAS URINARY RETENTION. MULTIPLE UTI'S BUT NONE CURRENT. NO BOWEL INCONTINENCE CURRENTLY. DOES HAVE CONSTIPATION. WAITING TO HEAR FROM GI FOR SWAPNA'T DATE. Worse: PROLONGED STANDING MORE THAN 15 MIN, WALKING AROUND A LOT, BEING ON FEET A LOT. PROLONGED SITTING, PROLONGED LYING. Better: FREQUENT CHANGE OF POSITION. Disturbed sleep: NO - TAKING MEDICATION. Previous history/Previous treatment: PHYSICAL THERAPY 2020. CHIROPRACTIC 2022. LASER TREATMENTS 2022. Treatment this episode: BACK SURGERY. Coughing/sneezing/straining: POSITIVE FOR INCREASED BACK PAIN. Gait: USING FWW FOR SAFETY. GOING UP AND DOWN STEPS ONE STEP AT A TIME LEADING WITH LLE AND USING ONE HR AT HOME. Accidents: NO Unexplained weight loss: ABOUT 12 LBS SINCE THE SURGERY. Imagin WKS PO EVERYTHING LOOKED TO BE WHERE IT IS SUPPOSED TO BE. PMH/Recent major surgery: COPD, LEODAN WRIST SX. CURRENT RESTRICTIONS: CONTINUE WALKER, CONTINUE BRACE. NO BENDING, LIFTING OR TWISTING. NO DRIVING. OTHER: PATIENT REPORTS SHE HAS BEEN HAVING TROUBLE WITH HER STOMACH FOR ABOUT 3 WEEKS AND SHE MAY NEED TO CANCEL SWAPNA'TS AT THE LAST MINUTE DUE TO THIS. Objective Objective: THIS PATIENT AMBULATES INDEP'LY INTO PHYSICAL THERAPY WITH A FWW WEARING A BACK BRACE. NO LOB. SLOW CADANCE. MILD LIMP ON R LE. PATIENT HAS RELATIVELY FLAT AFFECT THROUGHOUT SESSION BUT IS COOPERATIVE AND A GOOD HISTORIAN. Sensory deficit: GROSSLY DECREASED LIGHT TOUCH SENSATION OF R LE COMPARED TO LEFT EXCEPT HYPERSENSATIVITY/TINGLING REPORTED R FOOT COMPARED TO LEFT. ROM deficit: LEODAN LE HIP FLEXOR, HS AND CALF TIGHTNESS R > LEFT. UNABLE TO FULLY EXTEND R KNEE IN SITTING. APPROX 50% DECREASED R FOOT DORSIFLEXION COMPARED TO L. Motor deficit: R HIP 3+/5, KNEE EXT 3-/4, KNEE FLEX 4/5, DF 2+/5, PF 3-/5. L HIP 4-/5, KNEE EXT 4/5, KNEE FLEX 4/5, ANKLE 5/5. PATIENT C/O INCREASED LBP WITH R HIP TESTING BUT NW A RESULT. Reflexes: 2/3 LEODAN LE'S. Lumbar mvmt loss: NT Core Strength: Poor TRANSFERS: UE DEPENDENT TO TRANS STS AND REVERSE. Balance/Special Test Scores Lower Extremity Functional Score: 22 Goals Goal 1:: PATIENT WILL BE INDEP AND SAFE WITH GAIT ON LEVEL SURFACES AND UP AND DOWN STEPS RECIPROCALLY WITH ONE HR WITHOUT AD COMMUNITY DISTANCES. Goal Time Frame: 8-12 Weeks Goal 2:: INCREASE LEODAN LE STRENGTH OF ALL INVOLVED MUSCULATURE BY AT LEAST 1/2 MUSCLE GRADE. Goal Time Frame: 6-8 Weeks Goal 3:: PATIENT WILL DEMONSTRATE A MCID OF > OR EQUAL TO 15 POINTS ON THEIR LEFS SCORE TO IDENTIFY AN INCREASE IN THEIR LE FUNCTION TO AID IN RETURN TO PLOF. Goal Time Frame: 8-12 Weeks Goal 4:: PATIENT WILL COMPLETE TUG IN < 15 SECS WITHOUT AD TO DEMONSTRATE IMPROVED GAIT STABILITY Goal Time Frame: 4-6 Weeks Goal 5:: PATIENT WILL HAVE MIN TO MOD MVMT LOSS OF LUMBAR ROM ALL PLANES ( ALLOWED BY SURGEON) TO HELP IMPROVE ADL FUNCTION. Goal Time Frame: 8-12 Weeks Goal 6:: PATIENT WILL BE INDEP WITH A HEP FOR CONTINUED IMPROVEMENT ONCE FORMAL PHYSICAL THERAPY CONCLUDES. Goal Time Frame: 8-12 Weeks Rehabilitation Potential Physical Therapy Diagnosis: THIS PATIENT PRESENTS TO PT APPROX 10 WKS PO LUMBAR FUSION WITH COMPLICATIONS OF INCONTINENCE AND LE WEAKNESS R >L. SHE PRESENTS WITH HYPOMOBILITY, LBP, CORE WEAKNESS, LEODAN LE PAIN R>L, LEODAN LE WEAKNESS R>L AND LEODAN LE DECREASED ROM. SHE IS A GOOD CANDIDATE FOR PT. Rehabilitation Potential: Good Anticipated Interventions Patient/Client Instruction: Educate patient on: Condition, Plan of Care and Risk Factors For the Purpose of:: To improve self management Therapeutic Exercise to Include: Strength training, Endurance training, Balance training, Body mechanics, Postural training, Flexibilty training, Gait and locomotor training, Neuromotor development and Dynamic Lumbar Stabilization For the Purpose of:: To decrease pain, To increase ROM, To improve muscle performance and motor function, To increase tolerance to activity/condition/position, To improve ability of physical actions for home/community/work/leisure, To improve gait and locomotor functions, To increase flexibility/ROM, To improve endurance, To improve balance, To improve safety with gait, To assume or resume ADL's, To improve self management and To improve ability to perform tasks related to life management Text: Thank you for the opportunity to evaluate your patient. For Medicare and Medicare HMO plans, please review the plan of care and approve it. It will need to be FAXED BACK to us at [phone] for Medicare purposes. For Medicare only, by signing this I certify the plan of care. Please let me know if there are questions or concerns regarding this plan of care. Physician Signature: Date:
--- NOTE | 2023-09-25 14:49 | HP.PTREVAL_ITS ---
Re-Evaluation Intro: Dr. Esther Malik, DO, It has been my pleasure to treat LIBBY NAIDU over the last 8 visits for MALAISE. (LUMBAR FUSION 06/05/[address] VERGARA). Please see the progress note below for an update on the physical therapy plan of care! Subjective Subjective: PATIENT STATES HER LEG IS STRONGER SINCE STARTING THERAPY AND SHE CAN DO MORE MOVEMENT WITH IT WITHOUT HELPING IT WITH HER ARMS. SHE ALSO REPORTS HER KNEE IS GETTING STRONGER BUT IT NEEDS MORE WORK. I'D LIKE TO STRENGTH MY KNEE MORE BECAUSE I STILL NEED TO LOCK IT TO SUPPORT ME. SHE REPORTS SHE CAN'T USE HER R LEG TO STEP UP ON SOMETHING WITHOUT USING HER ARMS A LOT. SHE STATES SHE IS WALKING AROUND AT HOME WITHOUT HER WALKER BUT USING WALKER OUTSIDE HOME. FELL LAST SATURDAY AT HOME ON CARPET ONTO KNEES - HURT KNEES AND BACK - HELPED HER UP - TRIPPED OVER WALKER WHEEL WHILE NOT USING WALKER. STATES SHE WAS ABLE TO GET UP AND WALK AFTER AND DOES NOT THINK SHE DID ANY HARM TO HER BACK. PATIENT STATES THE FALL WAS GRADUAL AND CONTROLLED AND REFUSES NEED FOR PHYSICIAN RECHECK OR X-RAYS. PATIENT STATES SHE THINKS SHE IS HEADED THE RIGHT DIRECTION WITH PHYSICAL THERAPY. PATIENT REPORTS HER BOWEL AND URINARY SX'S ARE GETTING BETTER IN GENERAL AND SHE IS STILL UNDER GOING TESTS AND TREATMENTS. PATIENT REPORTS THAT SHE HAS BEEN OUT OF HER BACK BRACE ABOUT 2-3 WEEKS NOW. SHE DENIES HAVING ANY CURRENT PHYSICIAN RESTRICTIONS THAT SHE IS AWARE OF INCLUDING A LIFTING LIMIT - ACTIVITY TOLERATED. INCREASED PAIN WITH: BENDING, PROLONGED SITTING AND ROLLING OVER IN BED. GETTING UP AND SITTING DOWN HURTS TOO. PATIENT REPORTS DECREASED PAIN WITH USE OF HEATING PAD ON HER LOW BACK AND COLD PACK ON HER BACK TOO. LOW BACK PAIN IS RANGING 2-5/10. Objective Objective/Function: PATIENT WAS SEEN TODAY FOR RE-ASSESSMENT OF PROGRESS TOWARD THE SET PT GOALS AND THE NEED FOR FURTHER PHYSICAL THERAPY VS READINESS FOR DISCHARGE. SHE IS MAKING SLOW PROGRESS TOWARD ALL PT GOALS AND IS A GOOD CANDIDATE TO CONTINUE PT BASED ON PROGRES MADE AND ROOM FOR FURTHER IMPROVEMENT. PATIENT IS AGREEABLE STATING SHE CALLED DR. VERGARA TO ASK FOR MORE THERAPY. UPON EXAM TODAY: THIS PATIENT AMBULATES INDEP'LY INTO PHYSICAL THERAPY WITH LIGHT UE USE ON FWW, EVEN WEIGHT BEARING TIME ON LEODAN LE'S BUT LOCKING RIGHT KNEE IN EXTENSION DURING STANCE PHASE ON THE R. NO LOB. FAIR CADANCE. NO BACK BRACE. Sensory deficit: GROSSLY DECREASED LIGHT TOUCH SENSATION OF R LE COMPARED TO LEFT EXCEPT HYPERSENSATIVITY/TINGLING REPORTED R FOOT COMPARED TO LEFT. ROM deficit: LEODAN LE HIP FLEXOR, HS AND CALF TIGHTNESS R > LEFT. ABLE TO FULLY EXTEND R KNEE IN SITTING NOW. R FOOT DROP. Motor deficit: R HIP 4-/5, KNEE EXT 3+/4, KNEE FLEX 4/5, DF 3-/5, PF 4-/5. L HIP 4/5, KNEE EXT 5/5, KNEE FLEX 5/5, ANKLE 5/5. PATIENT C/O INCREASED LBP WITH B HIP TESTING BUT NW A RESULT. Lumbar mvmt loss: FLEX - MOD EXT - LEROY RSG - LEROY LSG - LEROY PATIENT C/O INCREASED LBP WITH LUMBAR ROM TESTING ALL PLANES BUT NW A RESULT. Core Strength: Poor TRANSFERS: PATIENT IS NOW ABLE TO TRANSFER INDEP'LY SIT TO STAND WITHOUT UE ASSIST. STS TEST: 6 - NO UE ASSIST TUG TIME: 15.97 - FWW. Plan Plan Plan: GAIT BELT FOR SAFETY - R LE KONSTANTIN. FOCUS ON R LE STRENGTHENING INCLUDING ANKLE. R LE ROM/STRETCHING INCLUDING ANKLE. GAIT AND BALANCE TRAINING. LEODAN LE PROPRIOCEPTION TRAINING. LUMBAR STABILIZATION WITH NEUTRAL SPINE. Balance/Gait/Functional tests Balance/Special Test Scores Lower Extremity Functional Score: 26 Goals Goals Goal 1:: PATIENT WILL BE INDEP AND SAFE WITH GAIT ON LEVEL SURFACES AND UP AND DOWN STEPS RECIPROCALLY WITH ONE HR WITHOUT AD COMMUNITY DISTANCES. Goal Time Frame: 8-12 Weeks Goal 2:: INCREASE LEODAN LE STRENGTH OF ALL INVOLVED MUSCULATURE BY AT LEAST 1/2 MUSCLE GRADE. Goal Time Frame: 6-8 Weeks Goal 3:: PATIENT WILL DEMONSTRATE A MCID OF > OR EQUAL TO 15 POINTS ON THEIR LEFS SCORE TO IDENTIFY AN INCREASE IN THEIR LE FUNCTION TO AID IN RETURN TO PLOF. Goal Time Frame: 8-12 Weeks Goal 4:: PATIENT WILL COMPLETE TUG IN < 15 SECS WITHOUT AD TO DEMONSTRATE IMPROVED GAIT STABILITY Goal Time Frame: 4-6 Weeks Goal 5:: PATIENT WILL HAVE MIN TO MOD MVMT LOSS OF LUMBAR ROM ALL PLANES ( ALLOWED BY SURGEON) TO HELP IMPROVE ADL FUNCTION. Goal Time Frame: 8-12 Weeks Goal 6:: PATIENT WILL BE INDEP WITH A HEP FOR CONTINUED IMPROVEMENT ONCE FORMAL PHYSICAL THERAPY CONCLUDES. Goal Time Frame: 8-12 Weeks Anticipated Interventions Anticipated Interventions Patient/Client Instruction: Educate patient on: Condition, Plan of Care and Risk Factors For the Purpose of:: To improve self management Therapeutic Exercise to Include: Strength training, Endurance training, Balance training, Body mechanics, Postural training, Flexibilty training, Gait and locomotor training, Neuromotor development and Dynamic Lumbar Stabilization For the Purpose of:: To decrease pain, To increase ROM, To improve muscle performance and motor function, To increase tolerance to activ ity/condition/position, To improve ability of physical actions for home/community/work/leisure, To improve gait and locomotor functions, To increase flexibility/ROM, To improve endurance, To improve balance, To improve safety with gait, To assume or resume ADL's, To improve self management and To improve ability to perform tasks related to life management Re-Evaluation Ending Re-evaluation ending: Please do not hesitate to contact me at [phone] by phone or if you have questions or concerns regarding this new plan of care! Sincerely, Olena Lares, PT, Cert MDT
--- NOTE | 2023-11-08 15:09 | HP.PTREVAL ---
Re-Evaluation Intro: Dr. Esther Malik, DO, It has been my pleasure to treat LIBBY NAIDU over the last 17 visits for MALAISE. (LUMBAR FUSION 06/05/[address] VERGARA). Please see the progress note below for an update on the physical therapy plan of care! Subjective Subjective: PATIENT REPORTS SHE IS FEELING STRONGER. HER RIGHT LEG HAS NOT BEEN BUCKLING, SHE HASN'T FALLEN AND SHE HASN'T HAD FEAR OF FALLING. STATES SHE HASN'T BEEN USING THE WALKER AT ALL AND ONLY USES THE CANE WHEN SHE GOES OUT - JUST A LITTLE LEARING WHEN OUT OF THE HOUSE. SHE REPORTS SHE IS DOING A LOT BETTER AND FEELS 90% BETTER SINCE STARTING PT. SHE IS ASKING IF SHE COULD TAKE A BREAK FROM PT AND COME BACK IF SHE NEEDS TOO. SHE STATES ALL THE DOCTOR SWAPNA'TS CAN GET OVERWHELMING. STILL NUMB IN FRONT OF R THIGH, IN LOWER R LEG AND TOES ARE TINGLY. LOW BACK AND R LE PAIN RANGING 1-5/10. STATES SHE HAS BEEN DOING EVERYTHING AROUND THE HOUSE THAT SHE USE TO DO BUT IT IS PAINFUL - LIKE LIFTING A BASKET OF CLOTHER, SWEEPING AND VACUUMING. STATES SHE IS GOING INTO THE HOSPITAL 11/21/23 TO HAVE BLADDER STONES REMOVED AND A KIDNEY STONE ZAPPED. STATES SHE HAS A FOLLOW UP SWAPNA'T WITH DR. HARMON NEXT WK BEFORE THE PROCEEDURE. Objective Objective/Function: PATIENT WAS SEEN TODAY FOR RE-ASSESSMENT OF PROGRESS TOWARD THE SET PT GOALS AND THE NEED FOR FURTHER PHYSICAL THERAPY VS READINESS FOR DISCHARGE. UPON EXAM TODAY: SHE IS CONTINUING TO MAKE SLOW PROGRESS TOWARD ALL PT GOALS AND IS A GOOD CANDIDATE TO CONTINUE PT BASED ON PROGRES MADE AND ROOM FOR FURTHER IMPROVEMENT. THIS WAS DISCUSSED WITH HER AND SHE DECIDED SHE WOULD LIKE TO GO AHEAD AND CONTINUE KNOWING SHE CAN TAKE A BREAK IF NEEDED. UPON EXAM TODAY: THIS PATIENT AMBULATES INDEP'LY INTO PHYSICAL THERAPY WITH LIGHT USE OF A STRAIGHT CANE AND NO LOB BUT A MILD LIMP ON THE RIGHT LE. NO BACK BRACE. Sensory deficit: GROSSLY DECREASED LIGHT TOUCH SENSATION OF R LE COMPARED TO LEFT EXCEPT HYPERSENSATIVITY/TINGLING REPORTED R FOOT COMPARED TO LEFT. ROM deficit: LEODAN LE HIP FLEXOR, HS AND CALF TIGHTNESS R > LEFT. FULL R KNEE EXT IN SITTING. PARTIAL R FOOT DROP. Motor deficit: R HIP 4-/5, KNEE EXT 4-/5, KNEE FLEX 4/5, DF 3-/5, PF 4/5. L HIP 4+/5, KNEE EXT 5/5, KNEE FLEX 5/5, ANKLE 5/5. PATIENT C/O INCREASED LBP WITH B HIP TESTING BUT NW A RESULT. Lumbar mvmt loss: FLEX - MOD EXT - LEROY RSG - LEROY LSG - LEROY PATIENT C/O INCREASED LBP WITH LUMBAR ROM TESTING ALL PLANES BUT NW A RESULT. Core Strength: Poor STS TEST: 9 - NO UE ASSIST TUG TIME: 12.95 SEC WITHOUT AD (PATIENT STATING SHE CAN DO IT WITHOUT THE CANE). Plan Plan Plan: CONTINUE PT 2X'S A WK X 5-6 WKS (CONTINUE TO WORK ON R ANKLE STRENGTHENING) CORE STRENGTHENING GAIT AND BALANCE TRAINING R LE PROPRIOCEPTION TRAINING. LEOADN LE ROM, STRETCHING AND STRENGTHENING. WORK TOWARD INDEP HEP Balance/Gait/Functional tests Balance/Special Test Scores Lower Extremity Functional Score: 31 Goals Goals Goal 1:: PATIENT WILL BE INDEP AND SAFE WITH GAIT ON LEVEL SURFACES AND UP AND DOWN STEPS RECIPROCALLY WITH ONE HR WITHOUT AD COMMUNITY DISTANCES. Goal Time Frame: 8-12 Weeks Goal Progress: Progressing Goal 2:: INCREASE LEODAN LE STRENGTH OF ALL INVOLVED MUSCULATURE BY AT LEAST 1/2 MUSCLE GRADE. Goal Time Frame: 6-8 Weeks Goal Progress: Progressing Goal 3:: PATIENT WILL DEMONSTRATE A MCID OF > OR EQUAL TO 15 POINTS ON THEIR LEFS SCORE TO IDENTIFY AN INCREASE IN THEIR LE FUNCTION TO AID IN RETURN TO PLOF. Goal Time Frame: 8-12 Weeks Goal Progress: Progressing Goal 4:: PATIENT WILL COMPLETE TUG IN < 15 SECS WITHOUT AD TO DEMONSTRATE IMPROVED GAIT STABILITY - GOAL MET NEW GOAL: PATIENT WILL COMPLETE TUG IN < 10 SECS WITHOUT AD TO DEMONSTRATE IMPROVED GAIT STABILITY Goal Time Frame: 4-6 Weeks Goal Progress: Progressing Goal 5:: PATIENT WILL HAVE MIN TO MOD MVMT LOSS OF LUMBAR ROM ALL PLANES ( ALLOWED BY SURGEON) TO HELP IMPROVE ADL FUNCTION. Goal Time Frame: 8-12 Weeks Goal 6:: PATIENT WILL BE INDEP WITH A HEP FOR CONTINUED IMPROVEMENT ONCE FORMAL PHYSICAL THERAPY CONCLUDES. Goal Time Frame: 8-12 Weeks Anticipated Interventions Anticipated Interventions Patient/Client Instruction: Educate patient on: Condition, Plan of Care and Risk Factors For the Purpose of:: To improve self management Therapeutic Exercise to Include: Strength training, Endurance training, Balance training, Body mechanics, Postural training, Flexibilty training, Gait and locomotor training, Neuromotor development and Dynamic Lumbar Stabilization For the Purpose of:: To decrease pain, To increase ROM, To improve muscle performance and motor function, To increase tolerance to activity/condition/position, To improve ability of physical actions for home/community/work/leisure, To improve gait and locomotor functions, To increase flexibility/ROM, To improve endurance, To improve balance, To improve safety with gait, To assume or resume ADL's, To improve self management and To improve ability to perform tasks related to life management Re-Evaluation Ending Re-evaluation ending: Please do not hesitate to contact me at [phone] by phone or if you have questions or concerns regarding this new plan of care! Sincerely, Olena Lares, PT, Cert MDT
--- NOTE | 2023-12-18 15:19 | HP.PTDCSUM ---
Discharge Summary D/C summary: It has been my pleasure to treat LIBBY NAIDU referred by Dr. Esther Hobbs DO, with the diagnosis of MALAISE. (LUMBAR FUSION 06/05/[address] VERGARA) for a total of 22 visit(s). Discharge Date: 12/18/23 Please see the following information for a summary of their discharge status. Subjective Subjective: PATIENT REPORTS SHE DID 7,000 STEPS YESTERDAY AND HER LEG IS GETTING A LOT OF WORKOUT. SHE STATES SHE THINKS HER R LEG AND KNEE ARE GETTING STRONGER BUT THE MORE SHE DOES THE MORE IT HURTS. SHE REPORTS 90% IMPROVEMENT IN TERMS OF R LEG STRENGTH COMPARED TO 85% AT LAST RE-CHECK BUT MORE PAIN IN THE HIP. SHE REPORTS SHE SPENT THE WEEKEND ON THE COUCH WITH A SICK STOMACH AND THEN HER BACK AND LEG DIDN'T HURT. PATIENT PRESENTS TO PT STATING SHE WANTS TO TAKE A BREAK FROM PT. STATES SHE PLANS TO SEE A CHIROPRACTOR TO SEE WHAT IS GOING ON WITH HER R HIP. SHE STATES THE CHIROPRACTOR DID LASER TREATMENTS ON HER BACK LAST SUMMER BEFORE BACK SURGERY. SHE STATES SHE DID NOT SCHEDULE WITH THE NEUROLOGIST THAT DR. VERGARA RECOMMENDED. SHE REPORTS DR. HOBBS RECOMMENDED ANOTHER NEUROLOGIST AND SHE HAS NOT SCHEDULED WITH THEM YET EITHER. PATIENT REPORTS HER HER BACK IS MOVING BETTER AND SHE CAN ACTUALLY BEND ENOUGH TO REACH TO SCATCH HER DOG LAYING ON THE FLOOR NOW. Pain Bilateral Back: Pain Intensity (Out of 10): 2 R THIGH: Pain Intensity (Out of 10): 3 Overall Improvement % Improvement: 90 Objective Objective/Function: PATIENT WAS SEEN TODAY FOR RE-ASSESSMENT OF PROGRESS TOWARD THE SET PT GOALS AND THE NEED FOR FURTHER PHYSICAL THERAPY VS READINESS FOR DISCHARGE. THIS PATIENT AMBULATES INDEP'LY INTO PT TODAY WITH HER STRAIGHT CANE BUT NOT DEPENDENT ON IT, WITH NO LOB AND NO OBSERVED KNEE BUCKLING. SHE DEMONSTRATES INCREASED LUMBAR ROM AND INCREASED R LE STRENGHT UPON EXAM TODAY BUT R LE IS STILL WEAKER THAN L AND SHE IS REPORTING INCREASED PAIN IN R LE COMPARED TO LAST RE-CHECK. LEFS SCORE WAS IMPROVING UNTIL TODAY. TODAY'S LEFS SCORE IS THE SAME AT INITIAL EVAL. STEPS NOT OBSERVED TODAY BUT SHE REPORTS SHE IS PULLING HERSELF UP WITH TWO HANDS ON ONE RAIL WHEN SHE TRIES TO LEAD UP WITH THE R LEG. SHE IS REQUESTING DISCHARGE FROM PT TODAY. UPON EXAM TODAY: ROM deficit: Patient now has active R ankle Dorsiflex symmetrical with L upon initial several attempts but then fatigues quickly. Motor deficit: Strength measured today with strain zhou in lbs of peak force: hip flex R 13.5, L 14.5 hip abd R 19.3, L 23.2 hip add R 11.9, L 12.2 hip ext R 17.7, L 20.8 knee flex R17.6, L 22.8 knee ext R 19.3, L 28.3 ankle dorsi R 12.1, L 16.4 ankle plantar R 19.4, L 20.3 Lumbar mvmt loss: FLEX - MIN EXT - MOD RSG - LEROY LSG - MOD PATIENT C/O A LITTLE BIT OF R LBP WITH LUMBAR ROM TESTING ALL PLANES BUT NW A RESULT. Core Strength: Fair PATIENT REPORTS PARTIAL COMPLIANCE WITH HEP AND STATES SHE DOES NOT HAVE ANY QUESTIONS ABOUT IT. STS TEST: 9 - NO UE ASSIST TUG TIME: 12.96 SEC WITHOUT AD (PATIENT STATING SHE CAN DO IT WITHOUT THE CANE AND REPORTS SHE ONLY USES THE CANE WHEN SHE GOES OUT). LEFS: 22 Goals Goal 1:: PATIENT WILL BE INDEP AND SAFE WITH GAIT ON LEVEL SURFACES AND UP AND DOWN STEPS RECIPROCALLY WITH ONE HR WITHOUT AD COMMUNITY DISTANCES. Goal Progress: Not Progressing Goal 2:: INCREASE LEODAN LE STRENGTH OF ALL INVOLVED MUSCULATURE BY AT LEAST 1/2 MUSCLE GRADE. Goal Progress: Progressing Goal 3:: PATIENT WILL DEMONSTRATE A MCID OF > OR EQUAL TO 15 POINTS ON THEIR LEFS SCORE TO IDENTIFY AN INCREASE IN THEIR LE FUNCTION TO AID IN RETURN TO PLOF. Goal Progress: Not Progressing Goal 4:: PATIENT WILL COMPLETE TUG IN < 15 SECS WITHOUT AD TO DEMONSTRATE IMPROVED GAIT STABILITY - GOAL MET NEW GOAL: PATIENT WILL COMPLETE TUG IN < 10 SECS WITHOUT AD TO DEMONSTRATE IMPROVED GAIT STABILITY Goal Progress: Not Progressing Goal 5:: PATIENT WILL HAVE MIN TO MOD MVMT LOSS OF LUMBAR ROM ALL PLANES ( ALLOWED BY SURGEON) TO HELP IMPROVE ADL FUNCTION. Goal Progress: Goal Met Goal 6:: PATIENT WILL BE INDEP WITH A HEP FOR CONTINUED IMPROVEMENT ONCE FORMAL PHYSICAL THERAPY CONCLUDES. Goal Progress: Not Progressing Plan Plan: D/C AT PATIENTS REQUEST. D/C Information d/c sentence: If there are questions or concerns regarding this patient's physical therapy, please feel free to call me at [phone]. Thank you for the referral of this patient. Sincerely, Olena Lares, PT, Cert MDT Balance/Gait/Functional tests Balance/Special Test Scores Lower Extremity Functional Score: 22 Improvement % Improvement: 90
== END 2023-12-18 19:00 | disposition home or self-care (01) ==
LOC: PT 13:30
PROVIDERS: PCP Internal Medicine; Referring Provider Internal Medicine; Visit Provider Internal Medicine
DX: M48.061 Spinal stenosis, lumbar region without neurogenic claudication (principal); M47.896 Other spondylosis, lumbar region; M51.36 Other intervertebral disc degeneration, lumbar region; R53.81 Other malaise; Z98.890 Other specified postprocedural states
CPT/HCPCS: 97110; 97162; 97164; J2405

== ENCOUNTER → 2023-12-25 | Outpatient (CLI) | payer MEDICARE, BC, SELFPAY ==
--- NOTE | 2023-12-25 13:21 | BI_ITS ---
MAMMOGRAPHY - BILATERAL SCREENING 3-D TOMOSYNTHESIS REASON FOR EXAM: Female, 68 years old. screening PERTINENT HISTORY: No significant family history. TECHNIQUE: 2-D mammograms and 3-D Tomosynthesis of the breast (s) were performed. CAD was performed. COMPARISON: 11/28/2022 FINDINGS: The breast composition is Extermely dense tissue. Scattered benign calcifications are seen. No dense spiculated masses or suspicious microcalcifications are identified. No architectural distortion is identified. There is no skin thickening or retraction. There has been no significant change since the prior study. BI/SCRN MAMM (CAD)W/KAITLIN BILAT IMPRESSION: No mammographic signs of malignancy. Routine yearly mammograms recommended. ASSESSMENT CATEGORY: BIRADS Category 1: Negative. A letter regarding these results will be sent to the patient by the facility within 30 days. FOLLOW UP RECOMMENDATION: Yearly follow up mammogram recommended. (A) Approximately 10% of breast cancers are not detected by mammography. A normal mammogram should not delay biopsy of a clinically suspicious abnormality. Electronically Signed: Kvng Sotelo MD at 14:36 EDT ,
== END | disposition home or self-care (01) ==
LOC: OPBI 13:21
PROVIDERS: PCP Internal Medicine; Referring Provider Internal Medicine; Visit Provider Internal Medicine
DX: Z12.31 Encounter for screening mammogram for malignant neoplasm of breast (principal)
CPT/HCPCS: 77063; 77067

== ENCOUNTER → 2024-04-01 | Outpatient (CLI) | payer MEDICARE, BC, SELFPAY ==
--- NOTE | 2024-04-01 13:49 | US_ITS ---
STUDY: ULTRASOUND OF THE FEMALE PELVIS - COMPLETE REASON FOR EXAM: Female, 69 years old. Uterine and bladder prolapse LMP: Patient is postmenopausal. TECHNIQUE: Transabdominal and Transvaginal TECHNICAL QUALITY: Adequate. COMPARISON: None. FINDINGS: The uterus is anteverted and is in a midline position. The uterus measures 6.8 cm x 4.1 cm x 3.1 cm. Normal uterine cervix. The endometrium is thickened and measures 4 mm in thickness, and is fluid distended. There is no demonstrated endometrial mass. Heterogeneous appearance of the myometrium suggesting fibroid change of bone no focal fibroid is seen. I.U.D. - The patient does not have an I.U.D. The right ovary is non-visualized. The left ovary is visualized. The left ovary measures 3.8 cm x 1.8 cm x 1.8 cm. There is no left ovarian cyst or ovarian mass. There is no visualized left adnexal mass or complex lesion. There is normal arterial and normal venous vascularity. There is no fluid in the cul-de-sac. The pre void volume of the bladder was 127 ml. US/Pelvic w/ Transvaginal IMPRESSION: Mild degree of endometrial thickening. Heterogeneous appearance of the myometrium suggestive of fibroid change although no focal fibroid is seen. Electronically Signed: Amrit Langford MD at 15:28 EDT ,
== END | disposition home or self-care (01) ==
LOC: US 13:47
PROVIDERS: PCP Internal Medicine; Referring Provider Obstetrics & Gynecology; Visit Provider Obstetrics & Gynecology
DX: N81.2 Incomplete uterovaginal prolapse (principal); Z78.0 Asymptomatic menopausal state
CPT/HCPCS: 76830; 76856

== ENCOUNTER → 2024-04-22 | Outpatient (CLI) | payer MEDICARE, BC, SELFPAY ==
--- NOTE | 2024-04-22 | EMB_PTH ---
PATIENT: LIBBY ANIDU LOC: NURY U#:[id number] AGE/SX: 69/F ROOM: RE04/22/[address]: HORTENCIA Najera : 1955 BED: DIS: 04/22/2024 SPEC #: [id number] RECD: 04/22/24 14:01 STATUS: JACQUE REVirgil #: [id number] BC: 04/22/24 00:[address]: Bindu Hernandez NP DEPT: SURGICAL PATHOLOGY RECD BY: Amol Sainz ENTERED: 04/23/24 10:21 SP TYPE: ENDOM BX/C STACI DR: Dr. Esther Malik DO Tissues: Endometrium, NOS Procedures: Surgery Specimen Level IV HEADER OPERATION: Endometrial biopsy PRE-OP DIAGNOSIS: Thickened endometrium TISSUE SUBMITTED: Endometrial lining MICROSCOPIC DIAGNOSIS Endometrium, biopsy: Scant strips of benign glandular mucosa and mucoid material. AM.mr 04/24/2024 COMMENT Case has been reviewed in consultation with Dr. Chi who concurs with the above diagnosis. IDC:[id number] MICROSCOPIC DESCRIPTION Slides are reviewed. GROSS DESCRIPTION Received is one container labeled with the patient's name and not further designated. The specimen consists of multiple irregular fragments of márquez mucoid tissue that in aggregate measure 1.0 x 1.0 x 0.1 cm. The specimen is totally submitted in one cassette. 04/23/2024 TC:5 CPT:81965
== END | disposition home or self-care (01) ==
LOC: LABSPEC 14:22
PROVIDERS: PCP Internal Medicine; Referring Provider Nurse Practitioner Women's Health; Visit Provider Nurse Practitioner Women's Health
DX: R93.89 Abnormal findings on diagnostic imaging of other specified body structures (principal)
CPT/HCPCS: 88305

== ENCOUNTER → 2024-05-05 | Outpatient (CLI) | payer MEDICARE, BC, SELFPAY ==
--- NOTE | 2024-05-05 16:21 | STRESSREP ---
Stress Test Report Exercise myocardial perfusion stress test. 69-year-old lady with a history of preoperative cardiac evaluation Stress protocol: Resting EKG demonstrates normal sinus rhythm with a rate of 79 bpm resting blood pressure is 144/70 mmHg. The patient exercised according to the regular Kyree protocol for a total duration of 5 minutes attaining a maximum heart rate of 126 bpm which was 83% of maximum predicted heart rate; the maximum workload was 7 metabolic equivalents. At rest there were no ST or T wave changes noted to suggest ischemia and at peak exercise upsloping ST changes only were noted which did not meet the criteria for ischemia. No clinical angina was noted the test was terminated due to the target heart rate being achieved/fatigue. The peak blood pressure was 156/70 mmHg. Rate-pressure product was 15,400. Myocardial perfusion protocol. 11 mCi of technetium 99m sestamibi was injected at rest. The patient exercised according to regular Kyree protocol for total duration of 5 minutes and at peak exercise 35 mCi of technetium 99m sestamibi was injected stress images were obtained stress and rest images were reconstructed in comparing the short axis vertical long and horizontal long axis. Gated images were also obtained. Perfusion SPECT analysis: Review of the stress images demonstrate normal uptake of tracer noted in all areas of the myocardium. The resting images similarly demonstrate normal uptake of tracer noted in all areas of the myocardium. No areas of reversibility are noted to suggest ischemia no previous infarct was noted. Gated SPECT analysis: The gated ejection fraction is 77%. Conclusion: Normal exercise myocardial perfusion stress test at a moderate workload Preserved ejection fraction.
== END | disposition home or self-care (01) ==
LOC: CVS 07:24
PROVIDERS: PCP Internal Medicine; Referring Provider Nurse Practitioner Gerontology; Visit Provider Nurse Practitioner Gerontology
DX: Z01.810 Encounter for preprocedural cardiovascular examination (principal); R93.1 Abnormal findings on diagnostic imaging of heart and coronary circulation
CPT/HCPCS: 78452; 93017; A9500; A4216

== ENCOUNTER 2024-05-08 13:00 | Outpatient (CLI) | payer MEDICARE, BC, SELFPAY ==
[2024-05-11 12:29] LABS: Hematocrit 41.2 % (37-47); Hemoglobin 12.9 g/dL (12.0-15.0); Mean Corp Hgb Conc 31.3 g/dL (32-36); Mean Corpuscular Hgb 29.1 pg (27.0-32.0); Mean Platelet Vol. 10.6 fl (6.2-12.0); Platelet Count 230 K/mm3 (150-450); RBC Distribution Width CV 14.9 % (11.6-14.6); RBC Distribution Width SD 51.3 fl (35.1-43.9); Red Blood Count 4.43 M/mm3 (4.2-5.4); White Blood Count 5.4 K/mm3 (4.4-11.0)
[2024-05-11 13:14] LABS: ALB/GLOB Ratio 0.8 RATIO (0.9-2.4); AST(SGOT) 18 U/L (15-37); Alanine Aminotransfer ALT/SGPT 17 U/L (13-56); Albumin, Serum 3.4 g/dL (3.2-5.0); Alkaline Phosphatase 84 U/L (45-117); Anion Gap 5 (5-15); BUN 19 mg/dL (7-18); Calcium,Total 8.9 mg/dL (8.5-10.1); Chloride 110 mmol/L (98-107); Creatinine, Serum 0.73 mg/dL (0.55-1.02); EST Glomerular Filtration Rate 84 mL/min (>60); Est Glom Filt Rate - Afr Amer 101 mL/min (>60); Glucose 78 mg/dL (74-106); Potassium 3.7 mmol/L (3.5-5.1); Protein, Total 7.4 g/dL (6.4-8.2); Sodium Level 140 mmol/L (136-145)
== END 2024-05-08 23:00 | disposition home or self-care (01) ==
LOC: SDC 10-07 22:01
PROVIDERS: Anesthesiology; PCP Internal Medicine; Referring Provider Obstetrics & Gynecology; Visit Provider Obstetrics & Gynecology
DX: Z01.818 Encounter for other preprocedural examination (principal); Z53.9 Procedure and treatment not carried out, unspecified reason
CPT/HCPCS: 36415; 80053; 83735; 84443; 85027; 86850; 86900; 86901

== ENCOUNTER → 2024-05-13 | Outpatient (CLI) | payer MEDICARE, BC, SELFPAY ==
--- NOTE | 2024-05-13 13:36 | RAD_ITS ---
STUDY: X-RAY CHEST REASON FOR EXAM: Female, 69 years old. SHORTNESS OF BREATH TECHNIQUE: Frontal and lateral views of the chest. COMPARISON: 11/19/2023. FINDINGS: The lungs are clear and expanded. There is no demonstrated pleural abnormality. Normal size heart. Normal mediastinum and janessa. Normal visualized pulmonary arteries. Normal visualized aortic arch and descending thoracic aorta. Normal visualized thoracic spine. Surgical changes of the visualized lumbar spine. Normal visualized ribs, clavicles, and shoulders. There is no demonstrated abnormality of the visualized soft tissue structures of the upper abdomen. RAD/Chest PA and Lateral IMPRESSION: No definite acute or significant abnormality seen. Electronically Signed: Brett Matamoros MD at 19:31 EDT ,
== END | disposition home or self-care (01) ==
LOC: MTRAD 13:35
PROVIDERS: PCP Internal Medicine; Referring Provider Urology; Visit Provider Urology
DX: J06.9 Acute upper respiratory infection, unspecified (principal); R06.02 Shortness of breath
CPT/HCPCS: 71046

== ENCOUNTER → 2024-05-19 | Outpatient (CLI) | payer MEDICARE, BC, SELFPAY | END | disposition home or self-care (01) | LOC: LABSPEC 15:52 | PROVIDERS: PCP Internal Medicine; Referring Provider Internal Medicine Pulmonary Disease; Visit Provider Internal Medicine Pulmonary Disease | DX: J44.0 Chronic obstructive pulmonary disease with (acute) lower respiratory infection (principal); R05.9 Cough, unspecified | CPT/HCPCS: 87070; 87205 ==

== ENCOUNTER → 2024-09-25 | Outpatient (CLI) | payer MEDICARE, BC, SELFPAY | END | disposition home or self-care (01) | LOC: LABSPEC 10:56 | PROVIDERS: PCP Internal Medicine; Referring Provider Internal Medicine Pulmonary Disease; Visit Provider Internal Medicine Pulmonary Disease | DX: J44.9 Chronic obstructive pulmonary disease, unspecified (principal) | CPT/HCPCS: 87070; 87205 ==

== ENCOUNTER → 2024-10-01 | Outpatient (CLI) | payer MEDICARE, BC, SELFPAY | END | disposition home or self-care (01) | LOC: LAB 10:33 | PROVIDERS: PCP Internal Medicine; Referring Provider Internal Medicine Pulmonary Disease; Visit Provider Internal Medicine Pulmonary Disease | DX: J44.9 Chronic obstructive pulmonary disease, unspecified (principal) | CPT/HCPCS: 87015; 87116; 87206 ==

== ENCOUNTER → 2024-10-14 | Outpatient (CLI) | payer MEDICARE, BC, SELFPAY ==
--- NOTE | 2024-10-14 16:00 | CT_ITS ---
PROCEDURE: LOW DOSE CT LUNG SCREENING REASON FOR EXAM: HX OF NICOTINE DEPENDENCE Patient has smoked 2 packs per day for 52 years. TECHNIQUE: Low Dose CT Lung Screening without contrast COMPARISON: None. FINDINGS: PULMONARY NODULES: (Only nodules >6mm are reported) Nodules described below are on series 1 unless otherwise specified. Pulmonary Nodules: No concerning pulmonary nodules. Hardware:None Lymph Nodes:No mediastinal hilar or axillary lymphadenopathy. Heart and Vasculature:Normal heart size. No pericardial effusion.Thoracic aorta and pulmonary arteries have normal contours; noncontrast technique limits evaluation. Coronary Artery Calcifications: Present Lungs and Airways: Mild emphysematous changes are present. Is evidence of scarring at the lung apices more prominent on the right side. Pleura:No pleural effusion. No pneumothorax. Upper Abdomen:Visualized portions of the upper abdominal viscera are unremarkable. Bones:Degenerative changes of the thoracic spine. CT/Low Dose CT Lung Screening IMPRESSION: 1. BASED ON THE ACR LUNG RADS FOR THE MOST SUSPICIOUS NODULE (IF ANY) DESCRIBE D IN THIS REPORT, THE OVERALL LUNG RADS SCORE IS 2.2 - BENIGN (BASED ON IMAGING FEATURES OR INDOLENT BEHAVIOR). RECOMMEND 12-MON TH SCREENING LDCT.. 2. SMOKING CESSATION COUNSELING IS RECOMMENDED IF THE PATIENT IS STILL SMOKING . 3. OTHER SIGNIFICANT FINDINGSNone. One or more dose reduction techniques were used (e.g., Automated exposure contr ol, adjustment of the mA and/or kV according to patient size, use of iterative reconstruction technique). The following information is provided for reference:Lung-RADS 2021 Assessment C ategories. Additional information involving Lung-RADS is available at www.acr.org. 0-INCOMPLETE 1-NEGATIVE:No nodules or definitely benign nodules. Complete, central, popcorn , or centric ring calcifications OR fat containing 2-BENIGN APPEARANCE (based on imaging features or indolent behavior). Juxtaple ural nodule: < 10mm AND solid; smooth margins; oval, entiform, or triangular shape Solid nodule: <6mm at baseline or new< 4mm Part solid Nodule: < 6mm total mean diameter at baseline Nonsolid nodule:(GGN) < 30mm OR >=30mm stable or slowly growing Airway nodule, subsegmental at baseline, new, or stable Category 3 nodule stabl e or decreased in size at 6-month follow-up CT or Category 3 or 4A nodules that resolve on follow-up OR category 4B findings prov en to be benign following diagnotic work up. 3 - Probably Benign (Based on imaging features or behavior) Solid Nodule: >= 6 to <8mm at baseline OR new 4 to <6mm Part-solid nodule: >= 6mm toal mean diam. with solid component <6mm at baseline OR new < 6mm total mean diam. Non-solid nodule: GGN >= 30mm at baseline or new Atypical pulmonary cyst: Growing cystic component (mean diam.) of thick-walled cyst Category 4A nodule stable or decreased in size at 3-month follow-up CT (excl.ai rway). 4A - Suspicious Solid nodule: >=8 to < 15mm at baseline OR growing < 8mm OR new 6 to < 8mm Part solid nodule: >= 6mm total mean diam. w/ solid component >=6mm to < 8mm at baseline OR new or growing < 4mm solid component Airway nodule, segmental or more proximal at baseline or new Atypical pulmonary cyst: Thick-walled OR multilocular at baseline OR becomes mu ltilocular 4B - Very Suspicious Airway nodule, segmental or more proximal, and stable or growing Solid nodule: >= 15mm at baseline OR new or growing >= 8mm Part solid nodule: Solid component >= 8mm OR new or growing >= 4mm solid compon ent Atypical pulmonary cyst: Thick-walled with growing wall thickness/nodularity OR Growing multilocular (mean diam.) OR Multilocular with increased loculation or new/increased opacity Slow-growing solid or part solid nodule w/ growth over multiple screening exams 4X - Very Suspicious Category 3 or 4 nodules with additional features that increase the suspicion fo r lung cancer. S - Clinically Significant or potentially significant findings (non-lung cancer ) Reading Location: [id number]
== END | disposition home or self-care (01) ==
LOC: CT 15:57
PROVIDERS: PCP Internal Medicine; Referring Provider Internal Medicine Pulmonary Disease; Visit Provider Internal Medicine Pulmonary Disease
DX: Z87.891 Personal history of nicotine dependence (principal)
CPT/HCPCS: 71271

== ENCOUNTER → 2024-10-21 | Outpatient (CLI) | payer MEDICARE, BC, SELFPAY ==
[2024-10-21 17:46] LABS: Hematocrit 41.8 % (37-47); Hemoglobin 13.8 g/dL (12.0-15.0); Mean Corpuscular Hgb 30.4 pg (27.0-32.0); Mean Corpuscular Volume 92.1 fL (81-99); Mean Platelet Vol. 10.7 fl (6.2-12.0); Platelet Count 239 K/mm3 (150-450); RBC Distribution Width CV 14.4 % (11.6-14.6); RBC Distribution Width SD 48.7 fl (35.1-43.9); Red Blood Count 4.54 M/mm3 (4.2-5.4); White Blood Count 6.2 K/mm3 (4.4-11.0)
[2024-10-21 19:05] LABS: Anion Gap 12 (5-15); BUN 20 mg/dL (4-19); BUN/Creat Ratio 25.5 RATIO (10-20); Calcium,Total 9.6 mg/dL (7.6-11.0); Chloride 104 mmol/L (98-108); Creatinine, Serum 0.77 mg/dL (0.70-1.20); EST Glomerular Filtration Rate 84 (>60); Glucose 85 mg/dL (70-99); Potassium 4.1 mmol/L (3.3-5.1); Sodium Level 141 mmol/L (133-145)
[2024-10-23 09:47] LABS: Magnesium 1.9 mg/dL (1.5-2.2)
[2024-10-23 10:22] LABS: ALB/GLOB Ratio 1.4 RATIO (0.9-2.4); AST(SGOT) 21 U/L (<=31); Alanine Aminotransfer ALT/SGPT 17 U/L (<=34); Albumin, Serum 4.1 g/dL (3.4-4.8); Alkaline Phosphatase 73 U/L (35-104); Globulin 2.9 g/dL (2.2-4.2); Protein, Total 6.9 g/dL (5.9-8.4); Total Bilirubin 0.16 mg/dL (0.00-1.30)
== END | disposition home or self-care (01) ==
LOC: MTLAB 14:02
PROVIDERS: Anesthesiology; Obstetrics & Gynecology; PCP Internal Medicine; Referring Provider Urology; Visit Provider Urology
DX: Z01.818 Encounter for other preprocedural examination (principal); N39.3 Stress incontinence (female) (male)
CPT/HCPCS: 36415; 80048; 82040; 82247; 83735; 84075; 84155; 84443; 84450; 84460; 85027

== ENCOUNTER → 2024-10-23 | Outpatient (CLI) | payer MEDICARE, BC, SELFPAY ==
[2024-10-23 12:34] LABS: ALB/GLOB Ratio 1.4 RATIO (0.9-2.4); AST(SGOT) 22 U/L (<=31); Alanine Aminotransfer ALT/SGPT 14 U/L (<=34); Alkaline Phosphatase 74 U/L (35-104); Anion Gap 12 (5-15); BUN 19 mg/dL (4-19); BUN/Creat Ratio 26.4 RATIO (10-20); Calcium,Total 9.5 mg/dL (7.6-11.0); Carbon Dioxide 23.9 mmol/L (21.0-32.0); Chloride 104 mmol/L (98-108); Creatinine, Serum 0.72 mg/dL (0.70-1.20); EST Glomerular Filtration Rate 90 (>60); Free T3 3.4 pg/mL (2.18-3.98); Globulin 2.9 g/dL (2.2-4.2); Glucose 121 mg/dL (70-99); Protein, Total 6.9 g/dL (5.9-8.4); Sodium Level 140 mmol/L (133-145); Total Bilirubin 0.24 mg/dL (0.00-1.30)
[2024-10-23 14:51] LABS: Vitamin D,25 Hydroxy 46.5 ng/mL (30-100)
== END | disposition home or self-care (01) ==
PROVIDERS: PCP Internal Medicine; Referring Provider Internal Medicine Pulmonary Disease; Visit Provider Internal Medicine Endocrinology, Diabetes & Metabolism
DX: J44.9 Chronic obstructive pulmonary disease, unspecified (principal); M81.0 Age-related osteoporosis without current pathological fracture; E05.90 Thyrotoxicosis, unspecified without thyrotoxic crisis or storm; R73.03 Prediabetes; E55.9 Vitamin D deficiency, unspecified
CPT/HCPCS: 80053; 82306; 84439; 84481; 86850; 86900; 86901; 87015; 87116; 87206

== ENCOUNTER → 2025-01-06 | Outpatient (CLI) | payer MEDICARE, BC, SELFPAY ==
[2025-01-06 16:36] LABS: Free T3 4.2 pg/mL (2.18-3.98)
== END | disposition home or self-care (01) ==
LOC: LAB 14:08
PROVIDERS: PCP Internal Medicine; Referring Provider Internal Medicine Endocrinology, Diabetes & Metabolism; Visit Provider Internal Medicine Endocrinology, Diabetes & Metabolism
DX: E05.20 Thyrotoxicosis with toxic multinodular goiter without thyrotoxic crisis or storm (principal)
CPT/HCPCS: 36415; 84439; 84443; 84481

== ENCOUNTER → 2025-03-15 | Outpatient (CLI) | payer MEDICARE, BC, SELFPAY ==
[2025-03-15 15:42] LABS: Mucous, Urine 0 SEEN /hpf (<or=2+)
[2025-03-15 18:11] LABS: Hematocrit 40.4 % (37-47); Hemoglobin 13.5 g/dL (12.0-15.0); Immature Granulocytes Count 0.010 X10^3/uL (0.0-0.0); Mean Corp Hgb Conc 33.4 g/dL (32-36); Mean Corpuscular Volume 93.5 fL (81-99); Mean Platelet Vol. 11.3 fl (6.2-12.0); NRBC Flagged by Analyzer 0 % (0-5); Platelet Count 209 K/mm3 (150-450); RBC Distribution Width CV 13.3 % (11.6-14.6); RBC Distribution Width SD 45.7 fl (35.1-43.9); Red Blood Count 4.32 M/mm3 (4.2-5.4); White Blood Count 6.0 K/mm3 (4.4-11.0)
[2025-03-15 18:34] LABS: AST(SGOT) 19 U/L (<=31); Alanine Aminotransfer ALT/SGPT 14 U/L (<=34); Albumin, Serum 4.0 g/dL (3.4-4.8); Alkaline Phosphatase 74 U/L (35-104); Anion Gap 12 (5-15); BUN 27 mg/dL (4-19); BUN/Creat Ratio 37.7 RATIO (10-20); Calcium,Total 9.8 mg/dL (7.6-11.0); Carbon Dioxide 25.2 mmol/L (21.0-32.0); Chloride 107 mmol/L (98-108); Globulin 2.6 g/dL (2.2-4.2); Glucose 89 mg/dL (70-99); Potassium 3.9 mmol/L (3.3-5.1)
[2025-03-15 19:30] LABS: Color, Urine Straw (Yellow); Glucose, Dipstick Normal (Normal); Ketone-Dipstick Negative (Negative); Leukocyte Esterase-Dipstick Negative /ul (Negative); Nitrite-Dipstick Negative (Negative); Occult Blood-Urine 25 /ul (Negative); Protein-Dipstick 15 mg/dl (Negative); Specific Gravity, Urine 1.015 (1.002-1.030); Urine Bilirubin Dipstick Negative (Negative)
[2025-03-15 21:53] LABS: Red Blood Cells-Urine 0-5 SEEN /hpf (0-5); Squamous Epithelial Cells - UA 0-5 SEEN /hpf (5-10)
== END | disposition home or self-care (01) ==
LOC: MTLAB 15:35
PROVIDERS: PCP Internal Medicine; Referring Provider Internal Medicine; Visit Provider Internal Medicine
DX: R63.4 Abnormal weight loss (principal)
CPT/HCPCS: 36415; 80053; 81001; 84439; 84443; 85025

== ENCOUNTER 2025-04-09 08:15 | Observation (INO) | payer MEDICARE, BC, SELFPAY ==
--- NOTE | 2024-10-23 15:30 | PAT.ANESEVAL ---
Pre-Assessment Diagnosis/Proposed Procedure Planned Operative Procedure(s): (B) Hysterectomy,Total Vaginal,Bilateral Salpingectomy, Possible Bilateral Salpingo-Oophorectomy (B) ANTERIOR AND POSTERIOR REPAIR, BILATERAL SACROSPINOUS LIGAMENT FIXATION, DERMIS SLING AND CYSTOSCOPY, WITH URETERAL CATHETERIZATION Anesthesia History Anesthesia History - aoc director intelligence officer: Anesthesia History - aoc director intelligence officer Hx Hospitalization No 10/23/24 09:26 Any Problems With Anesthesia No 10/23/24 09:26 Cholinesterase deficiency No 10/23/24 09:26 You/Your Family Experience No 10/23/24 09:26 fever (hyperthermia) with Relationship Recent Exposure to Contagious No 04/20/24 13:41 Disease Does patient have nerve No 10/23/24 09:26 stimulator Patient instructed to have device shut off --Does patient have Pacemaker or ICD? When Was Last Pacemaker Check QUESTION #4 FULL TEXT: You/Your Family Experience fever (hyperthermia) with Anesthesia Last Oral Intake Last Oral intake: Last Oral Intake NPO since Meds taken in AM with sips of water? Meds patient instructed to take am of surgery PONV PONV - aoc director intelligence officer: PONV - aoc director intelligence officer Female Yes 10/23/24 09:26 HX of Motion Sickness Yes 10/23/24 09:26 HX of N/V After Surgery Yes 10/23/24 09:26 Non-Smoker No 10/23/24 09:26 Duration of Surgery greater Yes 10/23/24 09:26 than 60 minutes Number of Risk Factors 4 10/23/24 09:26 PONV Score Severe Risk 10/23/24 09:26 Height & Weight Height & Weight: Anesthesia: Height & Weight Height 5 ft 1 in 05/11/24 11:22 Respiratory Assessment Respiratory Assessment - aoc director intelligence officer: Respiratory Tract Infection Hx - aoc director intelligence officer Hx Respiratory Tract Infection No 10/23/24 09:26 STOP Sleep Apnea STOP Sleep Apnea - aoc director intelligence officer: STOP Sleep Apnea - aoc director intelligence officer Hx Hypertension No 10/23/24 09:26 Hx Sleep Apnea No 10/23/24 09:26 CPAP BIPAP Do you snore loudly (louder No 10/23/24 09:26 than talking or can be heard Do you often feel tired/ No 10/23/24 09:26 fatigued/ sleepy during daytime? Has anyone observed you stop No 10/23/24 09:26 breathing during sleep? STOP Results Negative 10/23/24 09:26 QUESTION #5 FULL TEXT : Do you snore loudly (louder than talking or can be heard through closed doors)? Tobacco Use History Tobacco Use History - aoc director intelligence officer: Tobacco Use History - aoc director intelligence officer Tobacco Use Smoking Status Current every day smoker 10/23/24 09:26 Hx Tobacco Use Yes 10/23/24 09:26 Years Smoking Packs Smoked per Day Smoking Cessation Date was within the last 15 years Hx Smoking Cessation Date 06/05/23 11/15/23 09:19 Hx Smoking Cessation No 10/23/24 09:26 Counseling Hematologic Medial History Hematologic Hx - aoc director intelligence officer: Hematologic Medical Hx - drop forger helper Hx of Blood Transfusion No 10/23/24 09:26 Hx of Transfusion in last 3 No 10/23/24 09:26 Months Date of Last Transfusion (if within last 3 months) Ever experience any problems No 10/23/24 09:26 with transfusion(s)? Specify any problems Hx of Preganancy in last 3 No 10/23/24 09:26 Months Nurse Filling Out Transfusion VCHRISTIN 10/23/24 09:26 & Questions: Date: 10/23/24 10/23/24 09:26 Time: 09:10/23/24 09:26 Patient unable to answer at this time (ie. confused, unrespo /Reproduction History /Reproductive History - aoc director intelligence officer: /Reproductive Hx- aoc director intelligence officer Hx Now No 10/23/24 09:26 Gestational Age (in weeks): EDC: Hx Hx Para Hx Section SAB No 10/23/24 09:26 PFSH Medical History Kidney stone Bladder disease Chronic constipation History of edema Former smoker Urinary tract infection Wears glasses Post-menopausal Cancer Depression Thyroid disease Restless legs Back pain Gastric reflux Shortness of breath on exertion Chronic cough History of pain when walking History of stress test Cardiology follow-up encounter HLD (hyperlipidemia) Pre-diabetes Hyperthyroidism Insomnia Arthritis Abnormal cardiac CT angiography Migraine Osteopenia Emphysema of lung Pre-diabetes GERD (gastroesophageal reflux disease) COPD (chronic obstructive pulmonary disease) Anxiety Home Medications ?Medication ?Instructions ?Recorded ?Last Taken ?Type denosumab 60 mg/mL subcutaneous 60 mg subcut [id number] thinning of 10/12/20 Unknown History syringe (Prolia) the arteries rosuvastatin 10 mg tablet 10 mg PO DAILY cholesterol 04/06/21 11/20/23 History Lactobacillus acidophilus 20 100 mmu cells PO DAILY probiotic 05/24/23 11/20/23 History billion cell capsule (Florajen Acidophilus) acetaminophen 500 mg tablet 1,000 mg PO Q6H PRN PRN pain 11/15/23 Unknown History lorazepam 1 mg tablet 1 mg PO Q12H PRN PRN anxiety 11/15/23 11/21/23 History 0.5 mg citalopram 20 mg tablet 30 mg PO DAILY anxiety 03/17/24 Unknown History fluticasone fur. 100 mcg-umeclid 1 ea inhalation QDAY 03/19/24 Unknown History 62.5 mcg-vilant 25 mcg inhalat.powder (Trelegy Ellipta) esomeprazole magnesium 40 mg 40 mg PO DAILY 03/20/24 Unknown History capsule,delayed release ondansetron HCl 4 mg tablet 4 mg PO Q8H PRN nausea and vomiting 04/24/24 Unknown History albuterol sulfate 90 mcg/actuation 1 inh inhalation Q6H PRN shortness 05/08/24 Unknown History aerosol inhaler of breath or wheezing linaclotide 72 mcg capsule 72 mcg PO QAM 10/19/24 Unknown History (Linzess) polyethylene glycol 3350 17 4 g PO DAILY PRN constipation 10/23/24 Unknown History gram/dose oral powder (ClearLax) promethazine 50 mg tablet 50 mg PO PRN 10/23/24 Unknown History roflumilast 250 mcg tablet 250 mcg PO DAILY 10/23/24 Unknown History sucralfate 1 gram tablet (Carafate) 1 g PO QHS 10/23/24 Unknown History Allergy/AdvReac Type Severity Reaction Status Date / Time Tetracyclines AdvReac Unknown GI upset Verified 10/23/24 09:10 nitrofurantoin (From AdvReac Nausea/Vom/ Verified 10/23/24 09:10 Macrobid) Diarrhea sulfamethoxazole (From AdvReac Upset Verified 10/23/24 09:10 Bactrim) Stomach trimethoprim (From Bactrim) AdvReac Upset Verified 10/23/24 09:10 Stomach Family History Brother Heart disease Father Cirrhosis Mother Cancer lung Grandmother Cancer leukemia Grandmother CVA (cerebral vascular accident) Other Alcoholism Diabetes H/O emotional problems Liver disease Surgical History Hx of lithotripsy History of spinal fusion Status post biopsy of thyroid gland (~11/2018) History of surgery on wrist History of colonoscopy History of esophagogastroduodenoscopy (EGD) History of dilation and curettage History of cholecystectomy History of lumpectomy Social History household members: spouse number of children: 3 current occupational status: retired Smoking Status: Current every day smoker tobacco type: cigarettes alcohol intake: never substance use type: does not use caffeine: Yes Type: carbonated beverages Number of servings: 1 additional social history: Benny Audit: Pertinent Findings Pertinent Findings Stress test pertinent findings: Nuclear Stress Test (04/24/24): The gated ejection fraction is 77%. Normal exercise myocardial perfusion stress test at a moderate workload Additional pertinent findings: Cardiology Visit (04/24/24): Okay to proceed with surgery if stress test in negative Recommendation Anesthesia Recommendation Anesthesia recommendation: OPTIMIZED for anesthesia
--- NOTE | 2025-04-08 18:40 | PCM.HP.BLA ---
History and Physical Vital Signs 03/31/2514:46 04/02/2508:03 04/02/2508:06 Height 5 ft 1 in 5 ft 1 in 5 ft 1 in Weight: 103 lb 96 lb 8 oz BMI 19.4 18.2 BP 114/76 149/75 H Pulse 86 Intake Visit Reasons: Pre op for surgery 04/09 [employer] Consultant Required: No Is patient in pain?: Yes (chronic leg and back pain) Allergies Tetracyclines Adverse Reaction (Unknown, Verified 04/02/25 08:04) GI upsetnitrofurantoin (From Macrobid) Adverse Reaction (Verified 04/02/25 08:04) Nausea/Vom/Diarrheasulfamethoxazole (From Bactrim) Adverse Reaction (Verified 04/02/25 08:04) Upset Stomachtrimethoprim (From Bactrim) Adverse Reaction (Verified 04/02/25 08:04) Upset Stomach Medications ?Medication ?Instructions ?Recorded ?Confirmed ?Type denosumab 60 mg/mL subcutaneous 60 mg subcut [id number] thinning of 05/16/20 04/02/25 History syringe (Prolia) the arteries rosuvastatin 10 mg tablet 10 mg PO DAILY cholesterol 04/06/21 04/02/25 History Lactobacillus acidophilus 20 100 mmu cells PO DAILY probiotic 05/24/23 04/02/25 History billion cell capsule (Florajen Acidophilus) acetaminophen 500 mg tablet 1,000 mg PO Q6H PRN PRN pain 11/15/23 04/02/25 History lorazepam 1 mg tablet 1 mg PO Q12H PRN PRN anxiety 11/15/23 04/02/25 History citalopram 20 mg tablet 30 mg PO DAILY anxiety 03/17/24 04/02/25 History fluticasone fur. 100 mcg-umeclid 1 ea inhalation QDAY 03/19/24 04/02/25 History 62.5 mcg-vilant 25 mcg inhalat.powder (Trelegy Ellipta) esomeprazole magnesium 40 mg 40 mg PO DAILY 03/20/24 04/02/25 History capsule,delayed release ondansetron HCl 4 mg tablet 4 mg PO Q8H PRN nausea and vomiting 04/24/24 04/02/25 History albuterol sulfate 90 mcg/actuation 1 inh inhalation Q6H PRN shortness 05/08/24 04/02/25 History aerosol inhaler of breath or wheezing linaclotide 72 mcg capsule 72 mcg PO QAM 10/19/24 04/02/25 History (Linzess) polyethylene glycol 3350 17 4 g PO DAILY PRN constipation 10/23/24 04/02/25 History gram/dose oral powder (ClearLax) promethazine 50 mg tablet 50 mg PO PRN 10/23/24 04/02/25 History sucralfate 1 gram tablet (Carafate) 1 g PO QHS 10/23/24 04/02/25 History methimazole 5 mg tablet 2.5 mg (1/2 x 5 mg) PO .four days 01/15/25 04/02/25 Rx per week #48 tabs estradiol 0.01% (0.1 mg/gram) 1 g vaginal 3XW 3 months #42.5 03/31/25 04/02/25 Rx vaginal cream grams levofloxacin 500 mg tablet 500 mg PO QDAY 5 days #5 tabs 04/01/25 04/02/25 Rx Is last menstrual period known: No Post menopausal: Yes Patient : No : No PFSH Medical History Acute vaginitis Urinary tract infection Straining to void Vaginal atrophy Yeast infection Kidney stone Bladder disease Chronic constipation History of edema Former smoker Wears glasses Post-menopausal Cancer Depression Thyroid disease Restless legs Back pain Gastric reflux Shortness of breath on exertion Chronic cough History of pain when walking History of stress test Cardiology follow-up encounter HLD (hyperlipidemia) Pre-diabetes Hyperthyroidism Insomnia Arthritis Abnormal cardiac CT angiography Migraine Osteopenia Emphysema of lung Pre-diabetes GERD (gastroesophageal reflux disease) COPD (chronic obstructive pulmonary disease) Anxiety Surgical History Hx of lithotripsy History of spinal fusion Status post biopsy of thyroid gland (~11/2018) History of surgery on wrist History of colonoscopy History of esophagogastroduodenoscopy (EGD) History of dilation and curettage History of cholecystectomy History of lumpectomy Family History Brother Heart diseaseFather CirrhosisMother Cancer lungGrandmother Cancer leukemia Grandmother CVA (cerebral vascular accident)Other Alcoholism Diabetes H/O emotional problems Liver disease Social History household members: spouse number of children: 3 current occupational status: retired Smoking Status: Former smoker alcohol intake: never substance use type: does not use caffeine: Yes Type: carbonated beverages Number of servings: 1 additional social history: Benny HPI Pre op for surgery 04/09 Details: LIBBY NAIDU is a 70 year old who presents for preop visit. she has prolapse that has failed mangement with pessaries and she is ready for surgery now. Female Reproductive History Questions: metrorrhagia: No, dyspareunia: No and PCB: No Menopausal Symptoms: No night sweats History 3 Elective abortions Hx Para 3 Spontaneous abortions Hx # Term Pregnancies Ectopic pregnancies Hx # Pregnancies Multiple births # of living children 3 Past Pregnancies Del. Date Name GA/Weeks Outcome Route Bth Weight Gen Labor Lgth Anesthesia Del [facility] Provider FOB Unknown Benny Unknown Licha Unknown Yuko Unknown Haley () twin, age 2 ROS Const Constitutional: Reports system reviewed and no additional complaints, except as documented; Denies fatigue, headache(s) or night sweats ENT ENT: Reports system reviewed and no additional complaints, except as documented Cardio Card: Denies chest pain Resp Resp: Denies cough or dyspnea GI GI: Reports constipation; Denies abdominal pain, bloating, change in stool character, fecal incontinence, nausea or vomiting : Reports prolapse symptoms, urinary incontinence and vaginal dryness; Denies nipple discharge, pelvic pain, sexual dysfunction, urinary frequency, urinary urgency, vaginal discharge, vaginal odor or vaginal pruritus Musc Musc: Reports arthralgias and back pain; Denies muscle weakness Skin Skin/Breast: Denies alopecia, change in hair, dry skin, breast mass, breast pain, breast skin changes or nipple discharge Neuro Neuro: Reports system reviewed and no additional complaints, except as documented Psych Psych: Denies anxiety or depression Endo Endo: Denies cold intolerance, excessive sweating, heat intolerance or polydipsia Cj/Lymph Hematologic/Lymphatic: Denies easy bleeding, Denies easy bruising and Denies lymphadenopathy Exam Const General: cooperative, healthy appearing, comfortable, no acute distress and well developed Orientation: alert HENMT Head: normal to inspection, normocephalic and atraumatic Ears: hearing grossly normal bilaterally and external ears normal Nose: external nose normal and nares normal Face and sinus: normal facial exam Neck Neck: normal visual inspection, full ROM, no lymphadenopathy and trachea midline Thyroid: thyroid normal Resp Effort & Inspection: normal respiratory effort Auscultation: clear to auscultation bilaterally Cardio Rate: regular rate Rhythm: regular rhythm Heart Sounds: S1 normal and S2 normal GI Inspection: normal to inspection and non-distended Palpation: soft, no hepatosplenomegaly, no hepatomegaly, not rigid and nontender Musc Other: gross motor intact no deficits, full bilateral strength Skin General: no rashes or lesions noted and atrophy Neuro General: patient alert, patient awake, moves all extremities and no focal motor deficits Motor: muscle tone normal throughout Extrem General: normal to inspection and no pedal edema Psych Appearance: grossly normal Mental Status: mental status grossly normal Affect: normal affect Speech and Movement: speech and movement normal Coding Level of Care Code No Charge Diagnoses Incomplete uterovaginal prolapse N81.2 Assessment and Plan Assessment and Plan (1) Incomplete uterovaginal prolapse: Status: Acute Comment: US ordered, celeste coordination for TVHBS/BSO possible. cardiac clearance done. Plan After discussing the patient's diagnosis and treatment plan options, patient wishes to proceed with surgical management. I have discussed with the patient the risks, benefits, and alternatives of the procedure which include but are not limited to risks of anesthesia, bleeding, infection, possible damage to bowel, bladder, or surrounding vasculature which could lead to additional surgery to evaluate any complications. Patient agrees to procedure and wishes to proceed. ACOG/uptodate references given for additional information regarding procedure.
[2025-04-09] VITALS (17 sets, daily range): BP systolic 119–146; BP diastolic 57–72; PULSE 79–95; RESP 14–18; TEMP 36.3–36.7; O2SAT 92–100; BMI 18.3; BMI 19.6
[2025-04-09 06:15] LABS: Hematocrit 42.8 % (37-47); Hemoglobin 14.4 g/dL (12.0-15.0); Mean Corp Hgb Conc 33.6 g/dL (32-36); Mean Corpuscular Volume 92.6 fL (81-99); Mean Platelet Vol. 10.2 fl (6.2-12.0); Platelet Count 191 K/mm3 (150-450); RBC Distribution Width CV 13.5 % (11.6-14.6); RBC Distribution Width SD 45.8 fl (35.1-43.9); Red Blood Count 4.62 M/mm3 (4.2-5.4); White Blood Count 7.8 K/mm3 (4.4-11.0)
[2025-04-09] MEDS: Lactated Ringers 1,000 ML 15 ML IV ×2 (06:19→13:13)
[2025-04-09] MEDS: Scopolamine 1mg/72hr Patch 1 PATCH TD (06:20)
[2025-04-09 06:44] LABS: Magnesium 1.7 mg/dL (1.5-2.2)
--- NOTE | 2025-04-09 07:09 | PCM.HP.BLA ---
History and Physical Date of Admission: 04/09/25 Date of Service: 03/31/25 MR#: [id number] Acct: [id number] Name: LIBBY NAIDU Rep #: [id number] : 1955 Provider: Dr. Keena Williamson MD Age/Sex: 70/F Location[place] [facility] [place] Status: Signed Intake Vital Signs 10/27/2512:55 03/31/2514:46 Height 5 ft 1 in 5 ft 1 in Weight: 103 lb BMI 19.4 BP 114/76 Pulse 86 Intake Visit Reasons: preop H&P, urine, and consent Chief Complaint: preoperation H&P with urine and consent Grants Assistant Required: No Accompanied by: Self Is patient in pain?: No Allergies Tetracyclines Adverse Reaction (Unknown, Verified 03/31/25 14:43) GI upsetnitrofurantoin (From Macrobid) Adverse Reaction (Verified 03/31/25 14:43) Nausea/Vom/Diarrheasulfamethoxazole (From Bactrim) Adverse Reaction (Verified 03/31/25 14:43) Upset Stomachtrimethoprim (From Bactrim) Adverse Reaction (Verified 03/31/25 14:43) Upset Stomach Medications ?Medication ?Instructions ?Recorded ?Confirmed ?Type denosumab 60 mg/mL subcutaneous 60 mg subcut [id number] thinning of 05/16/20 03/31/25 History syringe (Prolia) the arteries rosuvastatin 10 mg tablet 10 mg PO DAILY cholesterol 04/06/21 03/31/25 History Lactobacillus acidophilus 20 100 mmu cells PO DAILY probiotic 05/24/23 03/31/25 History billion cell capsule (Florajen Acidophilus) acetaminophen 500 mg tablet 1,000 mg PO Q6H PRN PRN pain 11/15/23 03/31/25 History lorazepam 1 mg tablet 1 mg PO Q12H PRN PRN anxiety 11/15/23 03/31/25 History citalopram 20 mg tablet 30 mg PO DAILY anxiety 03/17/24 03/31/25 History fluticasone fur. 100 mcg-umeclid 1 ea inhalation QDAY 03/19/24 03/31/25 History 62.5 mcg-vilant 25 mcg inhalat.powder (Trelegy Ellipta) esomeprazole magnesium 40 mg 40 mg PO DAILY 03/20/24 03/31/25 History capsule,delayed release ondansetron HCl 4 mg tablet 4 mg PO Q8H PRN nausea and vomiting 04/24/24 03/31/25 History albuterol sulfate 90 mcg/actuation 1 inh inhalation Q6H PRN shortness 05/08/24 03/31/25 History aerosol inhaler of breath or wheezing linaclotide 72 mcg capsule 72 mcg PO QAM 10/19/24 03/31/25 History (Linzess) polyethylene glycol 3350 17 4 g PO DAILY PRN constipation 10/23/24 03/31/25 History gram/dose oral powder (ClearLax) promethazine 50 mg tablet 50 mg PO PRN 10/23/24 03/31/25 History sucralfate 1 gram tablet (Carafate) 1 g PO QHS 10/23/24 03/31/25 History methimazole 5 mg tablet 2.5 mg (1/2 x 5 mg) PO .four days 01/15/25 03/31/25 Rx per week #48 tabs duloxetine 30 mg capsule,delayed mg PO 03/31/25 03/31/25 History release estradiol 0.01% (0.1 mg/gram) 1 g vaginal 3XW 3 months #42.5 03/31/25 03/31/25 Rx vaginal cream grams Have you fallen in the past year?: Yes (couple falls ) [facility] History (Updated 04/01/25 @ 11:[address] Keena Williamson MD) Acute vaginitis Urinary tract infection Straining to void Vaginal atrophy Yeast infection Kidney stone Bladder disease Chronic constipation History of edema Former smoker Wears glasses Post-menopausal Cancer Depression Thyroid disease Restless legs Back pain Gastric reflux Shortness of breath on exertion Chronic cough History of pain when walking History of stress test Cardiology follow-up encounter HLD (hyperlipidemia) Pre-diabetes Hyperthyroidism Insomnia Arthritis Abnormal cardiac CT angiography Migraine Osteopenia Emphysema of lung Pre-diabetes GERD (gastroesophageal reflux disease) COPD (chronic obstructive pulmonary disease) Anxiety Surgical History Hx of lithotripsy History of spinal fusion Status post biopsy of thyroid gland (~11/2018) History of surgery on wrist History of colonoscopy History of esophagogastroduodenoscopy (EGD) History of dilation and curettage History of cholecystectomy History of lumpectomy Family History Brother Heart diseaseFather CirrhosisMother Cancer lungGrandmother Cancer leukemia Grandmother CVA (cerebral vascular accident)Other Alcoholism Diabetes H/O emotional problems Liver disease Social History household members: spouse number of children: 3 current occupational status: retired Smoking Status: Former smoker alcohol intake: never substance use type: does not use caffeine: Yes Type: carbonated beverages Number of servings: 1 additional social history: Benny [facility] Chief Complaint: preoperation H&P with urine and consent Details: LIBBY NAIDU, is a 70 F. The patient is here for preoperative history and physical prior to anterior and posterior repair, bilateral sacrospinous ligament fixation with dermis, mid urethral sling insertion, cystoscopy with bilateral ureteral catheterization. There are no new symptoms since the last visit. The procedure, recovery and expectations were explained. The risks, benefits and alternatives were discussed, including but not limited to, the risks of anesthesia, bleeding, infection, injury, pain and the need for further intervention. We have discussed the risk of exposure to and/or potential harm posed by the COVID-19 virus with having a surgery/procedure at this time. A joint decision was made at this time to proceed with the scheduled surgery/procedure as indicated on the consent form. She did have a urinary tract infection a few weeks ago. She was managed with IM injections to avoid having to take the Macrobid because of nausea and vomiting. She has resumed using estrogen cream and boric acid every other day, she had stopped several months ago. She needs a refill on the estrogen cream. ROS Const Constitutional: No chills, fatigue, fever(s), headache(s), night sweats, weakness, weight change, abnormal sleep pattern or change in appetite Eyes Eyes: No change in vision ENT ENT: No headache(s) or dry mouth Resp Respiratory: No cough, chest congestion, shortness of breath or wheezing Cardio Cardiology: Positive for other (No chest pain.); No shortness of breath, irregular heart rhythm or lightheadedness Gastro GI: Positive for other (No nausea.); No abdominal pain, change in bowel habits, constipation, diarrhea or vomiting Musc Musculoskeletal: No abnormal gait Skin Skin: No yellowing of the eye, lesions, itchy eyes, rash or skin ulcer Neuro Neurology: No abnormal gait, confusion, dizziness, weakness, headache(s) or memory loss Psych Psychiatric: No abnormal sleep pattern, No change in appetite, No confusion and No memory loss Endo Endocrine: No fatigue, increased thirst/drinking or weight change Aller/Imm Allergy/Immunologic: No itchy eyes or wheezing Cj/Lymp Hematologic/Lymphatic: No easy bleeding, easy bruising or enlarged lymph nodes Exam Const General: cooperative, healthy appearing, comfortable, no acute distress and well developed Nutritional Appearance: underweight Orientation: alert, awake and oriented x3 HENMT Head: normal to inspection Ears: hearing grossly normal bilaterally Nose: external nose normal Mouth: oral mucosae normal Eyes General: appearance normal, both eyes and all related structures Neck Neck: normal visual inspection Neck mass: No Lymphatic: no lymphadenopathy noted Chest Chest palpation & inspection: normal inspection of the chest Resp Effort & Inspection: normal respiratory effort, able to speak in complete sentences and symmetric chest movement Cardio Rate: regular rate Rhythm: regular rhythm Other: Vaginal swab sent for culture Skin General: no rashes or lesions noted Neuro General: patient alert, patient awake and patient oriented x3 Cranial Nerves: CN's II-XI intact bilaterally Cognition: normal cognition Speech: speech normal Gait: gait assisted Method: walking stick Motor: muscle tone normal throughout and other (walking with cane) Extrem General: no edema Psych Appearance: grossly normal Mental Status: mental status grossly normal Mood: congruent mood Affect: normal affect Speech and Movement: speech and movement normal Attitude: cooperative Thought Process: normal Thought Content: normal Judgment: judgment good Results POC UA Auto w/o Microscopy Office Urine Color ? Last Edit by Rosalba Batres on 03/31/25 14:51 Office Urine Clarity ? Last Edit by Rosalba Batres on 03/31/25 14:51 Office Urine Glucose Negative Last Edit by Rosalba Batres on 03/31/25 14:51 Office Urine Ketones Negative Last Edit by Rosalba Batres on 03/31/25 14:51 Office Urine Bilirubin Small (1+) Last Edit by Rosalba Batres on 03/31/25 14:51 Office Urine Urobilinogen Negative Last Edit by Rosalba Batres on 03/31/25 14:51 Off Ur Spec [place] 1.015 Last Edit by Rosalba Batres on 03/31/25 14:51 Office Urine pH 6 Last Edit by Rosalba Batres on 03/31/25 14:51 Office Urine Protein Trace Last Edit by Rosalba Batres on 03/31/25 14:51 Office Urine Blood Trace Last Edit by Rosalba Batres on 03/31/25 14:51 Office Urine Blood Hemolyzed Negative Last Edit by Rosalba Batres on 03/31/25 14:51 Office Urine Nitrate Negative Last Edit by Rosalba Batres on 03/31/25 14:51 Off Ur Leukocytes Negatve Last Edit by Rosalba Batres on 03/31/25 14:51 Coding Level of Care Code Off vis,est,level 4 Diagnoses Incomplete uterovaginal prolapse N81.2 Vaginal atrophy N95.2 Straining to void R39.16 Urinary tract infection N39.0 Acute vaginitis N76.0 Assessment and Plan Assessment and Plan (1) Incomplete uterovaginal prolapse: Status: Acute Comment: US ordered, celeste coordination for TVHBS/BSO possible. cardiac clearance done. (2) Vaginal atrophy: Status: Acute (3) Straining to void: Status: Acute (4) Urinary tract infection: Status: Acute (5) Acute vaginitis: Status: Acute Orders: Orders POC UA Auto w/o Microscopy 03/31/25 N81.2 - Incomplete uterovaginal prolapse Medications: New estradiol 0.01%(0.1mg/gram) 1 g vaginal 3XW 42.5 grams 3RF 3 months Plan Vaginal and urine cultures today Continue vaginal estrogen with refill Proceed with surgical intervention as scheduled Clinical Quality Measures Falls Risk Screening/Assistive Devices Have you fallen in the past year?: Yes (couple falls ) 04/01/25 1117 <Electronically signed by Keena Williamson MD> Date Keena Williamson MD
[2025-04-09] MEDS: Magnesium 2 GM for ERAS IV (07:11)
--- NOTE | 2025-04-09 07:22 | PRE.ANES_ITS ---
ASA Classification* ASA Classification ASA Classification: 3 Assessment & Plan Anesthesia* Anesthesia Assessment Anesthesia Assessment: Discussed sedation and/or anesthesia options, risks, benefits, and alternatives with patient/parents/legal guardian/POA. Questions invited. The patient/parents/legal guardian/POA seems to understand and agrees to proceed with anesthesia plan. Reviewed the physical assessment, medical history, allergy history and patient home medications list prior to surgery/procedure/anesthetic and documented any changes. Performed airway and anesthesia risk assessments. Anesthesia Type Anesthesia Type: General History Source History Obtained from:: Patient and Chart Anesthesia Focused Assessment* Temperature: 97.9 F Pulse Rate: 79 Blood Pressure: 119/57 Respiratory Rate: 18 Pulse Ox: 95 Oxygen Delivery Method: Room Air Airway Assessment Mouth opens: >3 cm Mallampati Score: I Teeth Condition: Caps/Crowns (Patient has several crowns. They are all tight.) Neck Range of motion (ROM): Limited ROM (Somewhat Decreased) Labs Anesthesia Preop lab: CBC WBC 7.8 K/mm3 (4.4-11.0) 04/09/25 06:02 04/09/25 RBC 4.62 M/mm3 (4.2-5.4) 04/09/25 06:02 04/09/25 Hgb 14.4 g/dL (12.0-15.0) 04/09/25 06:02 04/09/25 Hct 42.8 % (37-47) 04/09/25 06:02 04/09/25 Plt Count 191 K/mm3 (150-450) 04/09/25 06:02 04/09/25 CHEMISTRY Potassium 3.9 mmol/L (3.3-5.1) 03/15/25 15:41 03/15/25 Sodium 145 mmol/L (133-145) 03/15/25 15:41 03/15/25 Magnesium 1.7 mg/dL (1.5-2.2) 04/09/25 06:02 04/09/25 BUN 27 mg/dL (4-19) H 03/15/25 15:41 03/15/25 Creatinine 0.72 mg/dL (0.70-1.20) 03/15/25 15:41 03/15/25 Glucose 89 mg/dL (70-99) 03/15/25 15:41 03/15/25 POC Glucose 153 mg/dL (70-110) H 11/10/15 12:25 11/10/15 TSH 0.228 uIU/mL (0.300-4.200) L 03/15/25 15:41 COAG PT 13.0 SECONDS (11.7-14.9) 05/22/23 13:42 Pre-Assessment Diagnosis/Proposed Procedure Planned Operative Procedure(s): TOTAL VAGINAL HYSTERECTOMY BILAT SALPINGECTOMY POSS BILAT SALPINOOPHORECTOMY PER DR HERNANDEZ Anesthesia History Anesthesia History - geophysical prospector: Anesthesia History - geophysical prospector Hx Hospitalization Yes: 06/06/24-07/05/2024 TCU 04/08/25 15:06 POST OP LUMBAR FUSION/BILAT LEGS PARTIAL NUMBNESS Any Problems With Anesthesia No: PATIENT HAS FEAR OF 04/08/25 15:06 VOMITING DUE TO HIGH ANXIETY Cholinesterase deficiency No 04/08/25 15:06 You/Your Family Experience No 04/08/25 15:06 fever (hyperthermia) with Relationship Recent Exposure to Contagious No 04/09/25 06:05 Disease Does patient have nerve No 04/08/25 15:06 stimulator Patient instructed to have device shut off --Does patient have Pacemaker No 04/09/25 06:05 or ICD? When Was Last Pacemaker Check QUESTION #4 FULL TEXT: You/Your Family Experience fever (hyperthermia) with Anesthesia Last Oral Intake Last Oral intake: Last Oral Intake NPO since 05:00 04/09/25 06:05 Meds taken in AM with sips of Yes 04/09/25 06:05 water? Meds patient instructed to Nexium, methimazole, Zofran, 04/09/25 06:05 take am of surgery citalopram, trilogy, mucous ER Any additional information?: Yes NPO since: 05:00 (Patient had her preop Ensure at 5 AM.) Meds taken in AM with sips of water?: Yes PONV PONV - geophysical prospector: PONV - geophysical prospector Female Yes 04/08/25 15:06 HX of Motion Sickness Yes 04/08/25 15:06 HX of N/V After Surgery Yes 04/08/25 15:06 Non-Smoker No 04/08/25 15:06 Duration of Surgery greater Yes 04/08/25 15:06 than 60 minutes Number of Risk Factors 4 04/08/25 15:06 PONV Score Severe Risk 04/08/25 15:06 Height & Weight Height & Weight: Anesthesia: Height & Weight Height 5 ft 1 in 04/09/25 06:05 Weight: 44 kg 04/09/25 06:05 Body Mass Index (BMI) 18.3 04/09/25 06:05 Respiratory Assessment Respiratory Assessment - geophysical prospector: Respiratory Tract Infection Hx - geophysical prospector Hx Respiratory Tract Infection No 04/08/25 15:06 STOP Sleep Apnea STOP Sleep Apnea - geophysical prospector: STOP Sleep Apnea - geophysical prospector Hx Hypertension No 04/08/25 15:06 Hx Sleep Apnea No 04/08/25 15:06 CPAP BIPAP Do you snore loudly (louder No 04/08/25 15:06 than talking or can be heard Do you often feel tired/ No 04/08/25 15:06 fatigued/ sleepy during daytime? Has anyone observed you stop No 04/08/25 15:06 breathing during sleep? STOP Results Negative 04/08/25 15:06 QUESTION #5 FULL TEXT : Do you snore loudly (louder than talking or can be heard through closed doors)? Tobacco Use History Tobacco Use History - geophysical prospector: Tobacco Use History - geophysical prospector Tobacco Use Smoking Status Former smoker 04/08/25 15:06 Hx Tobacco Use Yes 04/08/25 15:06 Years Smoking Packs Smoked per Day Smoking Cessation Date was Yes - quit smoking within 15 04/08/25 15:06 within the last 15 years years Hx Smoking Cessation Date 06/05/23 11/15/23 09:19 Hx Smoking Cessation Yes 04/08/25 15:06 Counseling Hematologic Medial History Hematologic Hx - geophysical prospector: Hematologic Medical Hx - documentation specialist Hx of Blood Transfusion No 04/08/25 15:06 Hx of Transfusion in last 3 No 04/08/25 15:06 Months Date of Last Transfusion (if within last 3 months) Ever experience any problems No 04/08/25 15:06 with transfusion(s)? Specify any problems Hx of Preganancy in last 3 No 04/08/25 15:06 Months Nurse Filling Out Transfusion DSCHRIBER 04/08/25 15:06 & Questions: Date: 04/08/25 04/08/25 15:06 Time: 15:06 04/08/25 15:06 Patient unable to answer at this time (ie. confused, unrespo /Reproduction History /Reproductive History - geophysical prospector: /Reproductive Hx- geophysical prospector Hx Now No 04/08/25 15:06 Gestational Age (in weeks): EDC: Hx Hx Para Hx Section SAB No 04/08/25 15:06 Active Medications Active Medications: Current Medications Generic Name Dose Route Start Last Admin Trade Name Freq PRN Reason Stop Dose Admin Acetaminophen 1,000 mg 04/09/25 07:30 04/09/25 06:21 Acetaminophen 500 Mg Tablet PO 04/09/25 07:31 1,000 mg PREOP ONE Administration Celecoxib 400 mg 04/09/25 07:30 04/09/25 06:21 Celecoxib 200 Mg Capsule PO 04/09/25 07:31 400 mg PREOP ONE Administration Dexamethasone Sodium Phosphate 8 mg 04/09/25 07:30 Dexamethasone 4 Mg/Ml Vial IV 04/09/25 07:31 INTRAOP ONE Enoxaparin Sodium 40 mg 04/09/25 07:30 04/09/25 06:20 Enoxaparin 40 Mg/0.4 Ml Syringe SC 04/09/25 07:31 40 mg PREOP ONE Administration Gabapentin 600 mg 04/09/25 07:30 04/09/25 06:21 Gabapentin 600 Mg Tablet PO 04/09/25 07:31 600 mg PREOP ONE Administration Lactated Ringer's 1,000 mls @ 40 mls/hr 04/09/25 07:30 IV .Q25H KUN Cefazolin Sodium 2 gm/ Sodium 110 mls @ 150 mls/hr 04/09/25 07:30 Chloride IV 04/09/25 08:13 INTRAOP ONE Lactated Ringer's 1,000 mls @ 15 mls/hr 04/09/25 06:00 04/09/25 06:58 IV Infused .Q48H KUN Infusion Dextrose/Lactated Ringer's 1,000 mls @ 15 mls/hr 04/09/25 06:45 04/09/25 06:59 IV 15 mls/hr .Q48H KUN Administration Magnesium Sulfate 2 gm/ 104 mls @ 208 mls/hr 04/09/25 07:05 04/09/25 07:11 Dextrose IV 04/09/25 07:34 208 mls/hr PREOP ONE Administration Insulin Human Lispro 0 unit 04/09/25 07:30 Insulin Lispro 100 Unit/Ml Insuln.Pen SC Q4H PRN PRN BG >/= 180, SEE PROTOCOL Protocol Ondansetron HCl 4 mg 04/09/25 07:30 Ondansetron 4 Mg/2 Ml Vial IV 04/09/25 07:31 INTRAOP ONE Scopolamine HBr 1 patch 04/09/25 07:30 04/09/25 06:20 Scopolamine 1mg/72hr Patch TD 04/09/25 07:31 1 patch PREOP ONE Administration PFSH Medical History Acute vaginitis Straining to void Vaginal atrophy Kidney stone Bladder disease Chronic constipation History of edema Former smoker Urinary tract infection Wears glasses Post-menopausal Cancer Depression Thyroid disease Restless legs Back pain Gastric reflux Shortness of breath on exertion Chronic cough History of pain when walking History of stress test Cardiology follow-up encounter HLD (hyperlipidemia) Pre-diabetes Hyperthyroidism Insomnia Arthritis Abnormal cardiac CT angiography Migraine Osteopenia Emphysema of lung Pre-diabetes GERD (gastroesophageal reflux disease) COPD (chronic obstructive pulmonary disease) Anxiety Home Medications ?Medication ?Instructions ?Recorded ?Last Taken ?Type denosumab 60 mg/mL subcutaneous 60 mg subcut [id number] thinning of 05/16/20 Unknown History syringe (Prolia) the arteries rosuvastatin 10 mg tablet 10 mg PO DAILY cholesterol 0 04/06/21 04/08/25 History Lactobacillus acidophilus 20 100 mmu cells PO DAILY pr obiotic 05/24/23 04/08/25 History billion cell capsule (Florajen Acidophilus) acetaminophen 500 mg tablet 1,000 mg PO Q6H PRN PRN pa in 11/15/23 04/07/25 History lorazepam 1 mg tablet 1 mg PO Q12H PRN PRN anxiety 11/15/23 04/08/25 History citalopram 20 mg tablet 30 mg PO DAILY anxiety 03/1704/09/25 History fluticasone fur. 100 mcg-umeclid 1 ea inhalation QDAY 03/19/24 04/09/25 History 62.5 mcg-vilant 25 mcg inhalat.powder (Trelegy Ellipta) esomeprazole magnesium 40 mg 40 mg PO DAILY 03/20/24 0 04/09/25 History capsule,delayed release ondansetron HCl 4 mg tablet 4 mg PO Q8H PRN nausea and vomiting 04/24/24 04/09/25 History albuterol sulfate 90 mcg/actuation 1 inh inhalation Q6 H PRN shortness 05/08/24 Unknown History aerosol inhaler of breath or wheezing linaclotide 72 mcg capsule 72 mcg PO QAM 10/19/2411/27 History (Linzess) polyethylene glycol 3350 17 4 g PO DAILY PRN constipat ion 10/23/24 Unknown History gram/dose oral powder (ClearLax) sucralfate 1 gram tablet (Carafate) 1 g PO QHS 5 04/08/25 History methimazole 5 mg tablet 2.5 mg (1/2 x 5 mg) PO .four days 01/15/25 04/09/25 Rx per week #48 tabs estradiol 0.01% (0.1 mg/gram) 1 g vaginal 3XW 3 months #42.5 03/31/25 04/07/25 Rx vaginal cream grams Allergy/AdvReac Type Severity Reaction Status Date / Time Tetracyclines AdvReac Unknown GI upset Verified 04/09/25 06:01 nitrofurantoin (From AdvReac Nausea/Vom/ Verified 04/09/25 06:01 Macrobid) Diarrhea sulfamethoxazole (From AdvReac Upset Verified 04/09/25 06:01 Bactrim) Stomach trimethoprim (From Bactrim) AdvReac Upset Verified 04/09/25 06:01 Stomach Family History Brother Heart disease Father Cirrhosis Mother Cancer lung Grandmother Cancer leukemia Grandmother CVA (cerebral vascular accident) Other Alcoholism Diabetes H/O emotional problems Liver disease Surgical History Hx of lithotripsy History of spinal fusion Status post biopsy of thyroid gland (~11/2018) History of surgery on wrist History of colonoscopy History of esophagogastroduodenoscopy (EGD) History of dilation and curettage History of cholecystectomy History of lumpectomy Social History household members: spouse number of children: 3 current occupational status: retired Smoking Status: Former smoker alcohol intake: never substance use type: does not use caffeine: Yes Type: carbonated beverages Number of servings: 1 additional social history: Benny Review of Systems (Anesthesia) ROS Narrative System reviewed and no additional complaints, except as documented.
--- NOTE | 2025-04-09 07:30 | UT_PTH ---
PATIENT: LIBBY NAIDU LOC: MS3 U#:[id number] AGE/SX: 70/F ROOM: [facility] [place] RE04/09/[address]: Dr. Keena Williamson MD : 1955 BED: 1 DIS: 04/10/2025 SPEC #: [id number] RECD: 04/09/25 12:18 STATUS: JACQUE ALFARO #: [id number] BC: 04/09/25 07:[address]: Hayley Dickens DEPT: SURGICAL PATHOLOGY RECD BY: Evan Peterson ENTERED: 04/09/25 14:36 SP TYPE: UTERUS OTHR DR: MD Dr. Esther Brown DO Tissues: A - Uterus, NOS Procedures: Surgery Specimen Level V HEADER OPERATION: ERAS, hysterectomy, total vaginal conversion to laparoscopic PRE-OP DIAGNOSIS: Incomplete uterovaginal prolapse, vaginal atrophy, staining to void, urinary tract infection, acute vaginitis TISSUE SUBMITTED: A- Uterus, cervix, bilateral fallopian tubes and bilateral ovaries MICROSCOPIC DIAGNOSIS A. Uterus, cervix, fallopian tubes, ovaries, ERAS, total vaginal conversion laparoscopic hysterectomy with bilateral salpingo-oophorectomy: Cervix: Benign squamous epithelium and endocervical glandular tissue Endometrium: Inactive/weakly proliferative endometrium Bilateral ovaries: Corpora albicantia Bilateral fallopian tubes: Benign fallopian tubes with plical fibrosis and benign paratubal cysts MICROSCOPIC DESCRIPTION Slides are reviewed. GROSS DESCRIPTION A. Received in formalin labeled with the patient's name and date of . Designated as uterus, cervix, bilateral fallopian tubes and bilateral ovaries is a 52 g, 6.3 x 5.3 x 2.6 cm uterus with attached adnexa. The serosa is márquez-pink and somewhat shaggy on the anterior aspect (appears iatrogenic in nature). The attached cervix is márquez-pink focally erythematous and irregular, measuring 3.4 x 3.4 cm; the 0.8 cm os is patent. Mucoid containing cysts are present. The specimen is inked as follows: [id number]-orange. Opening reveals a 4.9 x 2.0 cm narrow endometrial canal lined by minimal márquez-red endometrium that measures up to 0.2 cm thick. The myometrium is pale-márquez and measures up to 1.4 cm thick. No definitive lesions are identified. The márquez-pink bilateral fallopian tubes are fimbriated and measure 3.8 by 1.4 cm (L) and 4.4 x 1.3 cm (R). Few paratubal cyst are present, 0.1 cm to 0.5 cm The márquez-white cerebriform ovaries are solid and measure 2.3 x 1.7 x 0.9 cm (L) and 2.3 x 1.5 x 0.9 cm (R). Hospital Manager sections are submitted as follows: A1: Anterior cervixA2: Posterior cervixA3: Anterior endomyometriumA4: Posterior endomyometriumA5: Left fallopian tubeA6: Right fallopian tubeA7: Left ovaryA8: Right ovary MO 04/09/2025 CPT:50043
[2025-04-09] MEDS: Lidocaine 1% (5 ml sdv) 5 ML Vial IV (07:38)
[2025-04-09] MEDS: Cefazolin 1 GM/5 ML Vial 2 GM IV (07:45)
[2025-04-09] MEDS: fentaNYL 100 MCG/2 ML Ampul 200 MCG IV (09:28)
[2025-04-09] MEDS: Lactated Ringers 3,000 ML 3000 ML IV (10:01)
[2025-04-09] MEDS: Estrogens,Conj. 1 Tube 1 DOSE (11:00)
--- NOTE | 2025-04-09 11:14 | OP.PCM_ITS ---
Problems Associated Problem List Diagnoses (1) S/P laparoscopic assisted vaginal hysterectomy (LAVH): (2) Incomplete uterovaginal prolapse: Procedures Urinary/Genital [id number]: [id number] LAVH+BS/O <250gr Uterus Operative Report (Standard) Operative Information Date of Procedure: 04/09/25 Pre-Operative Diagnosis: see problem list, limited vaginal access Post-Operative Diagnosis: same Surgery/Procedure Performed: laparoscopic assisted vaginal hysterectomy bilateral salpingo oophorectomy mobility scooter repairer: Yes Performance Improvement Analyst: Yoli Roberto Tasks completed by advertising sales assistant: Opening & closing, Trocar and Retracting Additional printing assistant?: No Type of Anesthesia: General RN Documented Start/Stop Times: Operation Date: 04/09/25 07:30 Case Time Into Pre-Op 04/09/25 05:35 Anesthesia Start 04/09/25 07:33 Into Room 04/09/25 07:33 Procedure Start 04/09/25 08:00 Procedure End 04/09/25 11:15 Anesthesia End 04/09/25 11:37 Out of Room 04/09/25 11:37 Into Recovery 04/09/25 11:40 Out of Recovery 04/09/25 13:19 Procedure Start Time: 07:33 Procedure Stop Time: 11:15 Select all DRAINS/GRAFTS/IMPLANTS that apply: Drains (villagomez) Drain details: villagomez Estimated Blood Loss: 200 Fluids Replaced: crystalloid Specimen collected: Yes Description of specimen(s) removed: uterus and tubes Description of surgery: Patient received preoperative antibiotics and SCDs were on preoperatively. Patient was taken back to the operating room and placed in the dorsal lithotomy position. General anesthesia was induced and patient was prepped and draped in normal sterile fashion. vaginal exam performed and prolapse present but very limited vaginal access noted even with relaxation from anesthesia. decision to speak to to obtain consent for LAVHBSO. consent obtaine michelle patient reprepped and draped to perform LAVHBSO. Uterine manipulator was placed inside the uterus and Villagomez catheter placed in the bladder. The umbilicus was grasped with towel clamps and an intraumbilical incision was made after injecting with quarter percent Marcaine and a Veress needle entered into the abdomen confirmed to be intra-abdominal with a low opening pressure. Abdomen was insufflated with CO2 gas and the Veress needle removed and the 5 mm trocar was placed under direct visualization without complication. Right and left lower quadrants were transilluminated and injected with quarter percent Marcaine and 5 mm ports placed under direct visualization. Pelvis was well visualized see operative findings for additional information. Bilateral fallopian tubes and ovaries were identified and the IP ligaments transected with the LigaSure device bilaterally to removed both tubes and ovaries. The broad ligament was opened up by transecting the round ligament bilaterally and skeletonizing the uterine vessels bilaterally, and creating a bladder flap using the LigaSure device. The uterine arteries were transected bilaterally with good visualization of the bladder and the ureters were seen to be inferior lateral to the operative area. Attention was then paid to the vaginal portion of the procedure and the cervix was grasped with Marbella clamps and circumferentially injected with dilute vasopressin. A circumferential incision was made and the vaginal mucosa was mobilized off posteriorly and the cul-de-sac entered into sharply and a longneck speculum placed. The anterior cul-de-sac was then identified and entered into sharply. The uterosacral ligaments were clamped cut and suture ligated with 0 Monocryl bilaterally followed by the cardinal ligaments which were clamped cut and suture ligated bilaterally with 0 Monocryl. The uterus serially descended and was removed without difficulty with minimal morcellation. Pelvic sidewall pedicles were checked and noted to have excellent hemostasis. The vaginal mucosa was reapproximated incorporating the posterior peritoneum. This was reapproximated using 0 Vicryl [id number] sutures. Excellent hemostasis was noted. Attention paid to the abdominal portion of the procedure again. The pelvis and cul-de-sac was well visualized and no significant active bleeding noted but some raw areas were seen on the peritoneum and therefore surgiflow was applied. P ressure was taken down and the areas visualized and noted of excellent hemostasis. All ports were removed under direct visualization without complication and the abdomen was desufflated of air. The instruments removed from the abdomen and the vagina vaginal sweep was negative. Port sites on the abdomen were closed with 4-0 Monocryl interrupted sutures and Steri's and windows were applied. Dr Williamson then began her portion. Surgical Findings: signficiant prolapse Complications Complications: No
--- NOTE | 2025-04-09 11:32 | PCM.OPRPT ---
Operative Report (Standard) Operative Information Date of Procedure: 04/09/25 Pre-Operative Diagnosis: Incomplete uterovaginal prolapse, stress urinary incontinence Post-Operative Diagnosis: Same Surgery/Procedure Performed: Anterior and posterior repair, right sacrospinous ligament fixation, mid urethral sling insertion, cystoscopy with bilateral ureteral catheterization life skills coordinator: Yes Service Center Specialist: Yoli Roberto Tasks completed by medical billing assistant: Retracting Type of Anesthesia: General RN Documented Start/Stop Times: Operation Date: 04/09/25 07:30 Case Time Into Pre-Op 04/09/25 05:35 Anesthesia Start 04/09/25 07:33 Into Room 04/09/25 07:33 Procedure Start 04/09/25 08:00 Procedure End 04/09/25 11:15 Procedure Start Time: 10:00 Procedure Stop Time: 11:15 Select all DRAINS/GRAFTS/IMPLANTS that apply: Drains Drain details: Urethral Izquierdo catheter Estimated Blood Loss: 25 cc Specimen collected: No Description of surgery: The patient is a 70-year-old female with pelvic organ prolapse who presents for surgical intervention. Informed consent was obtained. She underwent a laparoscopic-assisted vaginal hysterectomy per Dr. Dickens and the cuff line was closed. At this time the case was turned over to id. Her Izquierdo catheter was removed and the cystoscope was inserted through the urethra under direct visualization into the urinary bladder. The bladder was visualized in its entirety revealing a few areas of bruising but no evidence of foreign body, mass, or ulceration. The ureteral orifices were located in the correct anatomic position and the area of the trigone. A 5 German whistle-tip catheter was used to gently cannulate each ureteral orifice and it was advanced to 20 cm without obstruction, bladder or evidence of injury. At this time the cystoscope and catheter were removed and the Izquierdo catheter was replaced. She was placed into exaggerated dorsal lithotomy position in Trendelenburg. On evaluation of her prolapse, it was much less pronounced than it was in the office prior to the uterus being removed. The biggest defect was the posterior vaginal wall and apical support. The cuff line was located very anteriorly in position and the bladder length was short. The decision was made to support her apex from the posterior aspect. The submucosa was injected with vasopressin for hydrostatic dissection and hemostatic control. A midline incision posteriorly was made. Sharp and blunt dissection was performed until the right sacrospinous ligament was identified and cleaned from surrounding tissues. Ethibond suture was placed using the saffron device and good support was obtained from the sacrospinous ligament. The sutures were then passed through the apex in full-thickness fashion. Attention was then turned towards the rectovaginal fascia which was brought together in a 2 layer closure with interrupted 2-0 Vicryl suture. The perineal body was reinforced as well. The midline incision was closed using running interlocking 2-0 Vicryl. At this time the 2-0 Ethibond suture was tied into position reinforcing the apical support. There was a very small anterior defect identified and a plication was performed. The anterior vaginal wall was isolated and injected submucosally with vasopressin. A midline incision was made and dissection was performed until the pubocervical fascia was identified. This was brought together in a 2 layer interrupted closure and the vaginal mucosa was then closed. The mid urethra was then isolated and injected submucosally. A midline incision was made and dissection was performed on either side of the urethra with care being taken to avoid entry into the vaginal mucosa or the urethra. The trocars provided were then used to place the Altis mid urethral sling into the transobturator complexes bilaterally. The sling lay flat against the urethra without excessive tension. The tensioning suture was cut. The incision was closed using running interlocking 2-0 Vicryl. The patient was then taken out of Trendelenburg positioning. The Izquierdo catheter was removed. The cystoscope was inserted through the urethra under direct visualization. Once again the same bruising of the mucosa was identified with no evidence of foreign body, injury seen. The whistle-tip catheter once again was utilized to cannulate and evaluate each ureter. The catheter was advanced without difficulty to 20 cm bilaterally with no evidence of injury or obstruction. At this time the cystoscope was removed and the Izquierdo catheter was reinserted to straight drain with 10 cc in the balloon. The counts were correct. The patient's vagina was packed with vaginal estrogen cream and packing. She was awakened and taken to the recovery room in good condition. There were no complications during this procedure. Surgical Findings: Prolapse not as significant following hysterectomy. Use of dermis was aborted Complications Complications: No Admit VTE Documentation VTE Present on Admission: Yes VTE Mechan Device Prophylaxis: SCD's VTE Pharm Prophylaxis ordered?: Yes
--- NOTE | 2025-04-09 11:45 | PCM.POST.ANE ---
Anesthesia: Postop Eval I Current Vital Signs Temperature: 98.1 F Pulse Rate: 92 Blood Pressure: 146/60 Respiratory Rate: 16 Pulse Ox: 96 Oxygen Delivery Method: Venturi Mask Oxygen Flow Rate (L/min): 8 Assessment Airway patent: Yes Spontaneous unlabored respirations: Yes Mental status: Asleep nausea: No Vomiting: No Anesthesia Complication: No Fluid Hydration Crystalloid volume administer (ml): 2,700 Total IV fluid infused: 2,700 Progress Note Anesthesia document: Postop Eval 1 completed: Yes
[2025-04-09] MEDS: Lactated Ringers 1,000 ML 70 ML IV (14:38)
--- NOTE | 2025-04-09 19:17 | PN.OBGYN_ITS ---
Subjective Subjective evaluated and going well overall, some buttox pain and eye pain, was hesitant to take narcotics due to fear of constipation. Objective Data Objective Data Vital Signs: Vital Signs Temp Pulse Resp BP Pulse Ox O2 Del Method O2 Flow Rate 97.8 F 86 16 140/72 H 96 Nasal Cannula 2 04/09/25 17:29 04/09/25 17:29 04/09/25 17:29 04/09/25 17:29 04/09/25 17:29 04/09/25 17:29 04/09/25 17:29 Oxygen Flow Rate (L/min) 2 Oxygen Delivery Method Nasal Cannula Weight: 103 lb 13.404 oz Body Mass Index (BMI) 19.6 Intake & Output: Intake and Output for Last 24 Hours 04/07/25 04/08/25 04/09/25 23:59 23:59 23:59 Intake Total 1022.25 / 1022.25 Output Total 1050 / 1050 Balance -27.75 / -27.75 Medical Nutrition Assessment Dietitian: Malnutrition Criteria Met Start: 04/09/25 15:20 Freq: Status: Active Protocol: Document 04/09/25 15:21 SLA (Rec: 04/09/25 15:21 SLA [id number]) Nutrition Malnutrition Evidence of Yes Malnutrition Exists Malnutrition (severe Chronic ): Evidenced By Suboptimal Energy Intake (Severe),Physical Changes ( Moderate) Intake Problem Inadequate Oral Intake Etiology related to medication prescribed by lead pharmacy technician in Sep 2024 causing pt to have no appetite Signs/Symptoms as evidenced by ~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 Lab / Micro Data 04/09/25 06:02 Labs: Laboratory Results - last 24 hr 04/09/25 06:02: WBC 7.8, RBC 4.62, Hgb 14.4, Hct 42.8, MCV 92.6, MCH 31.2, MCHC 33.6, RDW Std Deviation 45.8 H, RDW Coeff of Wilder 13.5, Plt Count 191, MPV 10.2, Magnesium 1.7, Blood Type B POSITIVE, Antibody Screen NEGATIVE 09/05/25 13:13: POC Glucose 126 H Physical Exam GI GI Narrative: soft nttp nd incisions intact Narrative: minimal blood on pad Assessment & Plan (1) S/P laparoscopic assisted vaginal hysterectomy (LAVH): COMMENT: rony jain combo case with celeste PLAN: Plan routine postop care
[2025-04-09] MEDS: Erythromycin Base 1 OPTH.TUBE 1 APPLIC RIGHT EYE (20:59)
--- NOTE | 2025-04-09 21:27 | POSTOPAN2_ITS ---
Anesthesia Postop Eval I Sum Postop Eval Completion status Anesthesia document: Postop Eval 1 completed: Yes Anesthesia Postop Eval I Summary Anesthesia Postop Eval I Summary: Anesthesia Postop Eval I: Assessment Summary Airway patent Yes 04/09/25 11:46 [email or web address] Spontaneous unlabored Yes 04/09/25 11:46 [email or web address] respirations Mental status Asleep 04/09/25 11:46 [email or web address] nausea No 04/09/25 11:46 [email or web address] Vomiting No 04/09/25 11:46 [email or web address] Anesthesia Postop Eval I: Fluid Summary Crystalloid volume administer 2,700 04/09/25 11:46 [email or web address] (ml) Colloids volume administered ( ml) Blood Product volume administered (ml) Total IV fluid infused 2,700 04/09/25 11:46 [email or web address] Anesthesia Postop Eval I: Summary Notes Anesthesia Complication No 04/09/25 11:46 [email or web address] Anesthesia Complication Comment: Post-operative progress note Anesthesia: Postop Eval II Evaluation Mental status: Awake and Calm Pain Level: 3 nausea: No Vomiting: No Complications Anesthesia Complication: No
--- NOTE | 2025-04-09 21:27 | PCM.POSTANE2 ---
Anesthesia Postop Eval I Sum Postop Eval Completion status Anesthesia document: Postop Eval 1 completed: Yes Anesthesia Postop Eval I Summary Anesthesia Postop Eval I Summary: Anesthesia Postop Eval I: Assessment Summary Airway patent Yes 04/09/25 11:46 MOBILE SOLUTIONS [email or web address] Spontaneous unlabored Yes 04/09/25 11:46 MOBILE SOLUTIONS [email or web address] respirations Mental status Asleep 04/09/25 11:46 MOBILE SOLUTIONS [email or web address] nausea No 04/09/25 11:46 MOBILE SOLUTIONS [email or web address] Vomiting No 04/09/25 11:46 MOBILE SOLUTIONS [email or web address] Anesthesia Postop Eval I: Fluid Summary Crystalloid volume administer 2,700 04/09/25 11:46 MOBILE SOLUTIONS [email or web address] (ml) Colloids volume administered ( ml) Blood Product volume administered (ml) Total IV fluid infused 2,700 04/09/25 11:46 MOBILE SOLUTIONS [email or web address] Anesthesia Postop Eval I: Summary Notes Anesthesia Complication No 04/09/25 11:46 MOBILE SOLUTIONS [email or web address] Anesthesia Complication Comment: Post-operative progress note Anesthesia: Postop Eval II Evaluation Mental status: Awake and Calm Pain Level: 3 nausea: No Vomiting: No Complications Anesthesia Complication: No
[2025-04-10] MEDS: Lactated Ringers 1,000 ML 70 ML IV (00:46)
[2025-04-10 01:28] VITALS: BP 112/58; PULSE 81; RESP 16; TEMP 36.8; O2SAT 96
[2025-04-10 05:28] VITALS: BP 124/66; PULSE 75; RESP 16; TEMP 36.9; O2SAT 96
[2025-04-10 07:26] LABS: Hematocrit 33.9 % (37-47); Hemoglobin 11.3 g/dL (12.0-15.0); Mean Corp Hgb Conc 33.3 g/dL (32-36); Mean Corpuscular Volume 93.9 fL (81-99); Mean Platelet Vol. 11.0 fl (6.2-12.0); Platelet Count 152 K/mm3 (150-450); RBC Distribution Width CV 13.5 % (11.6-14.6); RBC Distribution Width SD 46.1 fl (35.1-43.9); Red Blood Count 3.61 M/mm3 (4.2-5.4); White Blood Count 7.5 K/mm3 (4.4-11.0)
[2025-04-10 07:44] LABS: Anion Gap 8 (5-15); BUN 14 mg/dL (4-19); BUN/Creat Ratio 22.2 RATIO (10-20); Calcium,Total 8.3 mg/dL (7.6-11.0); Carbon Dioxide 24.8 mmol/L (21.0-32.0); Chloride 106 mmol/L (98-108); Estimated Creatinine Clearance 48.65 ml/min (50-250); Glucose 88 mg/dL (70-99); Potassium 3.7 mmol/L (3.3-5.1)
[2025-04-10 08:39] VITALS: BP 116/61; PULSE 72; RESP 16; TEMP 36.6; O2SAT 91
[2025-04-10] MEDS: Linacolotide 145 MCG CAPSULE PO (08:43)
[2025-04-10] MEDS: Erythromycin Base 1 OPTH.TUBE 1 APPLIC RIGHT EYE (08:43)
[2025-04-10] MEDS: FLUTICASONE/UMECLIDIN/VILANTER 1 INH INHALER INHALATION (08:43)
[2025-04-10] MEDS: Ensure Plus High Protein 120 ML LIQUID PO (08:49)
[2025-04-10 09:14] VITALS: O2SAT 95
--- NOTE | 2025-04-10 09:24 | PCM.PN.GU ---
Subjective Subjective She is doing well overnight. She does report some significant rectal pain that does seem to wax and wane. We discussed that this is likely secondary to her procedure and that with the packing and catheter removed it should improve. There is only nausea with her pain. There has been no vomiting. No shortness of breath, and only mild abdominal discomfort. Objective Data Objective Data Per nursing she was drowsy last night and received most of her fluids via IV. Vital Signs: Vital Signs Temp Pulse Resp BP Pulse Ox O2 Del Method O2 Flow Rate 97.8 F 72 16 116/61 95 Nasal Cannula 2 04/10/25 08:39 04/10/25 08:39 04/10/25 08:39 04/10/25 08:39 04/10/25 09:14 04/10/25 09:14 04/10/25 09:14 Oxygen Flow Rate (L/min) 2 Oxygen Delivery Method Nasal Cannula Weight: 103 lb 13.404 oz Body Mass Index (BMI) 19.6 Intake & Output: Intake and Output for Last 24 Hours 04/08/25 04/09/25 04/10/25 23:59 23:59 23:59 Intake Total 1022.25 / 1022.25 1109.33 / 1109.33 Output Total 1050 / 1050 600 / 600 Balance -27.75 / -27.75 509.33 / 509.33 Medical Nutrition Assessment Dietitian: Malnutrition Criteria Met Start: 04/09/25 15:20 Freq: Status: Active Protocol: Document 04/09/25 15:21 SLA (Rec: 04/09/25 15:21 SLA [id number]) Nutrition Malnutrition Evidence of Yes Malnutrition Exists Malnutrition (severe Chronic ): Evidenced By Suboptimal Energy Intake (Severe),Physical Changes ( Moderate) Intake Problem Inadequate Oral Intake Etiology related to medication prescribed by airport operations duty manager in Sep 2024 causing pt to have no appetite Signs/Symptoms as evidenced by ~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 Lab / Micro Data 04/10/25 06:22 04/10/25 06:22 Labs: Laboratory Results - last 24 hr 04/09/25 13:13: POC Glucose 126 H 04/10/25 06:22: WBC 7.5, RBC 3.61 L, Hgb 11.3 L, Hct 33.9 L, MCV 93.9, MCH 31.3, MCHC 33.3, RDW Std Deviation 46.1 H, RDW Coeff of Wilder 13.5, Plt Count 152, MPV 11.0, Sodium 139, Potassium 3.7, Chloride 106, Carbon Dioxide 24.8, Anion Gap 8, BUN 14, Creatinine 0.65 L, Estim Creat Clear Calc 48.65 L, Est GFR (MDRD) Non-Af 95, BUN/Creatinine Ratio 22.2 H, Glucose 88, Calcium 8.3 Physical Exam Narrative She is on the toilet at the time of exam. Abdomen is soft, flat, nondistended and not significantly tender. Izquierdo catheter is draining Pyridium tinged urine. Packing and catheter were removed without incident. Packing still with areas of white, not saturated. No evidence of significant bleeding on exam. Lower extremities are not edematous. SCDs in place. She ambulated with cane from the toilet to the bed. Const alert, oriented x3 and no apparent distress General Appearance: cooperative HEENT normocephalic Assessment & Plan Assessment/Plan (1) S/P laparoscopic assisted vaginal hysterectomy (LAVH): (2) Incomplete uterovaginal prolapse: (3) Chronic constipation: (4) Vaginal atrophy: PLAN: Plan Continue supportive care Trial of void today Add MiraLAX Toradol this morning for rectal spasms Recheck hemoglobin at noon. I feel that the drop in hemoglobin is likely secondary from dilutional effect as there is no evidence of bleeding from a clinical standpoint. Plan for discharge later this afternoon pending lab results and patient's status
--- NOTE | 2025-04-10 09:30 | DCINST_ITS ---
Discharge Instructions Diet Discharge Diet: No restrictions Activity Discharge Activity: May Shower (No tub bathing, swimming or hot tubs) May resume sexual activity in: 8 weeks Lifting Restrictions: 5 pound lifting limit for 8 weeks Additional Activity Instructions:: No exercise, strenuous activity Dressing / Incision Call your doctor if your incision/area has: Continuous Slow Oozing, Sudden Increased Bleeding, Increased Pain/ Swelling, Increased Redness, Foul Smelling Discharge and - (Call if using a pad an hour, passing large clots, concerned) Call your doctor if you observe: Fever of 101 or Higher, Inability to urinate, Inability to have a bowel movement and Uncontrolled pain Follow Up Care Please Follow Up With: Keena Williamson MD When: The office will call on Saturday to make follow-up arrangements depending on how well she voids. Test Results: Test results from this visit will be discussed in further detail at your follow- up appointment, if applicable. Discharge Plan Admission Admit Date/Time: 04/09/25 08:15 Attending Provider: Keena Williamson Primary Care Provider: Esther Malik Discharge Orders/Prescriptions Prescriptions: New oxycodone-acetaminophen 5-325 mg tablet 1 tab PO Q8H PRN (Reason: pain) 3 Days Qty: 10 0RF cephalexin 500 mg capsule 500 mg PO Q12 3 Days Qty: 6 0RF ondansetron 4 mg tablet,disintegrating 4 mg PO Q8H PRN (Reason: nausea and vomiting) Qty: 10 0RF Continued Prolia 60 mg/mL syringe 60 mg SC [id number] Patient Comments: Per Admission Nurse, this will not be administered while on TCU, Can not go out for injection either rosuvastatin 10 mg tablet 10 mg PO DAILY esomeprazole magnesium 40 mg capsule,delayed release(DR/EC) 40 mg PO DAILY Trelegy Ellipta 100-62.5-25 mcg blister with device 1 ea inhalation QDAY ondansetron HCl 4 mg tablet 4 mg PO Q8H PRN (Reason: nausea and vomiting) Linzess 72 mcg capsule 72 mcg PO QAM estradiol 0.01 % (0.1 mg/gram) cream 1 g vaginal 3XW 90 Days Qty: 42.5 3RF citalopram 20 mg tablet 30 mg PO DAILY Patient Comments: depression Florajen Acidophilus 20 billion cell capsule 100 mmu cells PO DAILY albuterol sulfate 90 mcg/actuation HFA aerosol inhaler 1 inh inhalation Q6H PRN (Reason: shortness of breath or wheezing) lorazepam 1 mg tablet 1 mg PO Q12H PRN PRN (Reason: anxiety) acetaminophen 500 mg Tablet 1,000 mg PO Q6H PRN PRN (Reason: pain) sucralfate [Carafate] 1 gram tablet 1 g PO QHS polyethylene glycol 3350 [ClearLax] 17 gram/dose powder 4 g PO DAILY PRN (Reason: constipation) methimazole 5 mg tablet 2.5 mg PO .four days per week Qty: 48 1RF Referrals / Follow Up: Esther Malik DO [Primary Care Provider] - Disposition Disposition (needs filled in before D/C Order can be placed): Home, Self Care
--- NOTE | 2025-04-10 09:31 | PN.OBGYN_ITS ---
Subjective Subjective Patient doing well without complaints. Tolerating PO. Ambulating without difficulty. Denies chest pain, shortness of breath, calf pain/swelling, fevers, chills, lightheadedness. Objective Data Objective Data Vital Signs: Vital Signs Temp Pulse Resp BP Pulse Ox O2 Del Method O2 Flow Rate 97.8 F 72 16 116/61 95 Nasal Cannula 2 04/10/25 08:39 04/10/25 08:39 04/10/25 08:39 04/10/25 08:39 04/10/25 09:14 04/10/25 09:14 04/10/25 09:14 Oxygen Flow Rate (L/min) 2 Oxygen Delivery Method Nasal Cannula Weight: 103 lb 13.404 oz Body Mass Index (BMI) 19.6 Intake & Output: Intake and Output for Last 24 Hours 04/08/25 04/09/25 04/10/25 23:59 23:59 23:59 Intake Total 1022.25 / 1022.25 1109.33 / 1109.33 Output Total 1050 / 1050 600 / 600 Balance -27.75 / -27.75 509.33 / 509.33 Medical Nutrition Assessment Dietitian: Malnutrition Criteria Met Start: 04/09/25 15:20 Freq: Status: Active Protocol: Document 04/09/25 15:21 SLA (Rec: 04/09/25 15:21 SLA [id number]) Nutrition Malnutrition Evidence of Yes Malnutrition Exists Malnutrition (severe Chronic ): Evidenced By Suboptimal Energy Intake (Severe),Physical Changes ( Moderate) Intake Problem Inadequate Oral Intake Etiology related to medication prescribed by dust operator in Sep 2024 causing pt to have no appetite Signs/Symptoms as evidenced by ~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 Lab / Micro Data 04/10/25 11:34 04/10/25 06:22 Labs: Laboratory Results - last 24 hr 04/09/25 13:13: POC Glucose 126 H 04/10/25 06:22: WBC 7.5, RBC 3.61 L, Hgb 11.3 L, Hct 33.9 L, MCV 93.9, MCH 31.3, MCHC 33.3, RDW Std Deviation 46.1 H, RDW Coeff of Wilder 13.5, Plt Count 152, MPV 11.0, Sodium 139, Potassium 3.7, Chloride 106, Carbon Dioxide 24.8, Anion Gap 8, BUN 14, Creatinine 0.65 L, Estim Creat Clear Calc 48.65 L, Est GFR (MDRD) Non-Af 95, BUN/Creatinine Ratio 22.2 H, Glucose 88, Calcium 8.3 ROS Constitutional Constitutional: Reports systems reviewed and no addt'l complaints, except as documented Cardiovascular Cardiovascular: Reports systems reviewed and no addt'l complaints, except as documented Respiratory/Chest Respiratory/Chest: Reports systems reviewed and no addt'l complaints, except as documented Gastrointestinal Gastrointestinal: Reports systems reviewed and no addt'l complaints, except as documented Physical Exam Const alert, oriented x3 and no apparent distress HEENT Head and Scalp: atraumatic Resp normal respiratory effort GI soft to palpation and non-tender Assessment & Plan (1) Endometrial thickening on ultrasound: COMMENT: 4mm No bleeding, nl emb (2) Incomplete uterovaginal prolapse: (3) S/P laparoscopic assisted vaginal hysterectomy (LAVH): COMMENT: rony sm combo case with celeste PLAN: Plan patient is s/p lavhbso pelvic floor repair POD 1 1. routine ERAS protocol postop care- increase ambulation, encourage oral intake and oral control of pain. scds hold lovenox, repeat hg at noon, likely dilutional drop. if stable then patient stable for discharge to home.
[2025-04-10] MEDS: 0.9% Saline Lock 10 ML Syringe IV (09:38)
[2025-04-10] MEDS: Polyethylene Glycol 3350 17 GM PACKET PO (11:27)
[2025-04-10 11:48] LABS: Hematocrit 33.7 % (37-47); Hemoglobin 11.2 g/dL (12.0-15.0); Immature Granulocytes Count 0.030 X10^3/uL (0.0-0.0); Mean Corp Hgb Conc 33.2 g/dL (32-36); Mean Corpuscular Volume 95.2 fL (81-99); Mean Platelet Vol. 10.4 fl (6.2-12.0); NRBC Flagged by Analyzer 0 % (0-5); Platelet Count 152 K/mm3 (150-450); RBC Distribution Width CV 13.5 % (11.6-14.6); RBC Distribution Width SD 47.5 fl (35.1-43.9); Red Blood Count 3.54 M/mm3 (4.2-5.4); White Blood Count 8.6 K/mm3 (4.4-11.0)
[2025-04-10 15:00] VITALS: BP 126/73; PULSE 74; RESP 16; TEMP 36.4; O2SAT 94
== END 2025-04-10 16:50 | disposition home or self-care (01) ==
LOC: SDC 11:48 → MS3 11:48
PROVIDERS: Anesthesiology; Admitting Provider Urology; PCP Internal Medicine; Referring Provider Obstetrics & Gynecology; Visit Provider Urology
PROC: (CPT 58260; principal; 2025-04-09 07:10)
DX: N81.2 Incomplete uterovaginal prolapse (principal); J43.9 Emphysema, unspecified; N39.3 Stress incontinence (female) (male); N39.0 Urinary tract infection, site not specified; Z87.891 Personal history of nicotine dependence; E78.5 Hyperlipidemia, unspecified; N76.0 Acute vaginitis; K59.09 Other constipation; N83.291 Other ovarian cyst, right side; N83.292 Other ovarian cyst, left side; Z79.899 Other long term (current) drug therapy; Z79.51 Long term (current) use of inhaled steroids; K21.9 Gastro-esophageal reflux disease without esophagitis; R39.16 Straining to void; N95.2 Postmenopausal atrophic vaginitis
CPT/HCPCS: 58552; 57288; 57282; 57260; 00944; 36415; 80048; 82962; 83735; 85025; 85027; 86850; 86900; 86901; 88307; 94668; 96372; 96374; 96376; 97802; 99221; 99406; C1771; A4216; C1758; G0378; J2405

== ENCOUNTER → 2025-04-23 | Outpatient (CLI) | payer MEDICARE, BC, SELFPAY ==
--- NOTE | 2025-04-23 09:10 | US_ITS ---
PROCEDURE: KIDNEY AND BLADDER 04/23/2025 REASON FOR EXAM: ABD PAIN TECHNIQUE: Procedure Code: USKI Modality: US Procedure: KIDNEY AND BLADDER COMPARISON: October 12, 2023 FINDINGS: Kidneys: Right kidney is 10.4 x 6.0 x 4.7 cm, while the left is 11.1 x 4.6 x 5.7 cm. Echotexture of the kidneys is normal. However, there are multiple echogenic calculi of the upper, mid and lower poles. Largest of the right midpole is 0.5 cm and another at the lower pole is 0.5 cm. Conversely, right midpole calculus is 5 mm and another at the midpole is 3 mm. [place]: Absent Cysts or Masses: Absent Other: Urinary bladder is normal. Bilateral ureteral jets are present. US/Kidney and Bladder IMPRESSION: Bilateral nonobstructing renal calculi. Reading Location: [id number]
== END | disposition home or self-care (01) ==
LOC: US 09:07
PROVIDERS: PCP Internal Medicine; Referring Provider Urology; Visit Provider Urology
DX: R10.9 Unspecified abdominal pain (principal)
CPT/HCPCS: 76770

== ENCOUNTER → 2025-05-03 | Outpatient (CLI) | payer MEDICARE, BC, SELFPAY ==
--- OUTSIDE RECORDS SUMMARY | 2025-03-04 13:46 | XMS RPT_ITS ---
Author Name Auto Generated Organization [place] Care Team Providers Care Kitchen Runner Name Role Phone MIHIR HOBBS Primary Care Unavailab MIHIR Tse Primary Care Unavailab TENISHA Yadav Attending Unavailable MIHIR HOBBS Primary Care UnavailMARKO Morgan Referring Unavailable MIHIR HOBBS Primary Care Unavailab MARKO Brizuela Attending Unavailable REBA CHRISTIANSON Attending Unavailable FABY, MIHIR DUENAS Primary Care Unavailab le PROBLEMS DATE TYPE CONDITION / CODE ATTENDING STATUS [facility] 03/04/2025 Active Urinary frequenc y / R35.0(ICD-10) TENISHA WARD Active [facility] 03/04/2025 Active Vaginal itching / N89.8(ICD-10) TENISHA WARD Active [facility] 03/04/2025 Active Vaginal discharg e / N89.8(ICD-10) TENISHA WARD Active [facility] 02/17/2025 Active Acute wrist pain , right / M25.531(ICD-10) NA Active [facility] 11/20/2024 Active Dysuria / R30.0(ICD-10) REBA CHRISTIANSON Active [facility] PROCEDURES No Procedure Records Found RESULTS CNPN Observed: 03/08/2025 12:00 AM Status: COMPLETED Source: [facility] Telephone (WOUCA) CHERYLE OTERO ([id number]) 1955 F Date Time Provider Department 03/08/25 VENANCIO DAN During your visit today, we recorded the following information about you: Karina Kern MA 03/08/2025 3:15 PM Signed Pt has called in to obtain a RX for Macrobid. She tried to get other options from her PCP, but was unable to reach them. [facility] is where she would like it sent. Karina Kern MA Allergies As of Date: 03/08/2025 Noted Allergy Reaction AMOXICILLIN 06/30/2018 8 - GI Upset BACTRIM (SULFAMETHOXAZOLE-TRIMETH*10/11/2018 8 - GI Upset CLARITHROMYCIN 07/07/2022 14 - Other: See Comments DOXYCYCLINE 07/07/2022 8 - GI Upset MACROBID (NITROFURANTOIN MONOHYD/*08/24/2023 8 - GI Upset Date Reviewed: 03/08/2025 Reviewed by: Venancio Dan APRN.FRAME STRAIGHTENER - Fully Assessed Prescriptions as of 03/29/2025 - LINZESS 145 mcg capsule Take 145 mcg by mouth once daily. - roflumilast (DALIRESP) 250 mcg tablet Take 250 mcg by mouth once daily. - estradiol (ESTRACE) 0.01 % (0.1 mg/gram) vaginal cream Use 1 g vaginally three times a week. - TRELEGY ELLIPTA 100-62.5-25 mcg inhalation powder Inhale 1 puff as instructed once daily. - STIMULANT LAXATIVE PLUS 8.6-50 mg per tablet Take 2 tablets by mouth every 12 hours. - sucralfate (CARAFATE) 1 gram tablet Take 1 tablet by mouth once daily. - promethazine (PHENERGAN) 25 mg tablet TAKE 2 TABLETS BY MOUTH EVERY 6 (SIX) hours NEEDED - citalopram (CELEXA) 20 mg tablet Take 20 mg by mouth once daily. - LORazepam (ATIVAN) 0.5 mg Take 0.5 mg by mouth once daily as needed. - methIMAzole (TAPAZOLE) 5 mg tablet - ondansetron HCl (ZOFRAN ORAL) Take by mouth. - rosuvastatin (CRESTOR) 10 mg tablet - esomeprazole (NEXIUM) 40 mg capsule Take 1 capsule by mouth twice daily before meals. 1/2 hr before meal. - albuterol HFA 90 mcg/actuation inhaler Inhale 2 Puffs as instructed every 4 hours as needed. Indications: CHRONIC OBSTRUCTIVE PULMONARY DISEASE Problem List As Of Date 03/08/2025 Noted Resolved MASS IN BREAST [N63.0] 02/14/2009 DIFFUS CYSTIC MASTOPATHY [N60.19] 03/17/2009 Encounter Status:Closed by KARINA KERN on 03/29/25 BACTERIAL VAGINOSIS NAAT Collected: 2:28 PM Status: F Source: [facility] Order Comment: Specimen Type : SWAB Ordering Facility: [facility] Address: [address] [place] [address] TYPE CODE TESTS RESULT OUT OF RANGE REFERENCE UNITS LAB 73793-8(LOINC) BV bacteria rRNA Vag Ql WILBUR+probe Not detected Not detected Performed By: #### CVJAMESON DYE MP #### [facility] CLIA [id number] [address] [place] [address] STATES OF [place] VALENTINA/TRICHOMONAS NAAT Collected: 2:28 PM Status: F Source: [facility] Order Comment: Specimen Type : SWAB Ordering Facility: [facility] Address: [address] [place] [address] TYPE CODE TESTS RESULT OUT OF RANGE REFERENCE UNITS LAB 80410-0(LOINC ) Valentina DNA Vag Ql WILBUR+probe Not detected Not detected Result Comment: The Valentina species group target includes C. albicans, C. tropicalis, C. parapsilosis, and C. dubliniensis. LAB 45810-5(LOINC ) C glabrata RNA Vag Ql WILBUR+probe Not detected Not detected LAB 87590-8(LOINC ) T vaginalis DNA Spec Ql WILBUR+probe Not detected Not detected Performed By: #### CVTV BVA MP #### [facility] CLIA [id number] [address] [place], [place] [id number] [place] BACTERIA UR CULT Observed: 03/04/2025 2:28 PM Status: F Source: [facility] ORGANISM ID: 1 >=100,000 CFU/ml Enterococcus faecalis Cephalosporins, clindamycin, and TMP-SMX are not effective for the treatment of enterococcal infections. ORGANISM ID: 1 (ENTEROCOCCUS FAECALIS) ----- ----- ANTIBIOTIC INTERPRETATION BRAIN STATUS REFERENCE RANGE ----- ----- Ampicillin S <=2 F Susceptible <=8 , Resistant >8 Vancomycin S 1 F Susceptible <=4 , Intermediate >4 , Resistant >16 Nitrofurantoin S <=16 F Susceptible <=32 , Intermediate >32 , Resistant >64 Performed By: #### 630-4 ### # [facility] CLIA [id number] [address] [place] [address] STATES [place] PROGRESS Observed: 03/04/2025 2:13 PM Status: COMPLETED Source: [facility] HNO ID: [id number] Author: TENISHA WARD APRN.[facility] Service: ? Author Type: Nurse Practitioner Type: Progress Notes Filed: 03/04/2025 14:34 Note Text: [facility] Otero is a 70 year old female. Patient presents with: Urinary Problem: Possible UTI, frequency, possible yeast x 3 days HPI UTI Symptoms: - Urgency, frequency, and dysuria. - History of recurrent UTIs, leading to cancellation of a hysterectomy twice. Yeast Infection Symptoms: - Pruritus and clear discharge. - Recent yeast infection resistant to antifungals; treated with boric acid suppositories with resolution of symptoms. - Denies risk of STDs. - Uncertain history of bacterial vaginosis. Review of Systems Gastrointestinal: (-) abdominal pain Genitourinary: (+) urinary urgency, (+) urinary frequency, (+) dysuria, (+) vaginal pruritus, (+) clear vaginal discharge Musculoskeletal: (+) back pain Objective BP 110/70 Pulse 88 Temp 36.7 ?C (98 ?F) Resp 20 Wt 43.7 kg (96 lb 5.5 oz) SpO2 96% Physical Exam General: No acute distress. CV: Heart sounds normal. Resp: Breath sounds normal. Abd: No tenderness on palpation. { 1. Urinary frequency (R35.0) - Urine dip showed trace blood, otherwise unremarkable; prior negative dips have yielded positive cultures. - Urine culture ordered to confirm or rule out UTI. - Will defer treatment until culture results are available. 2. Vaginal itching (N89.8) 3. Vaginal discharge (N89.8) - Symptoms may be due to yeast infection or bacterial vaginosis. - Self-swab ordered for yeast and bacterial vaginosis testing; trichomonas will be tested by default. - Will defer treatment until results are available. - Advised patient to contact previous provider to identify antifungal medication that caused adverse effects (vision problems and hallucinations) and inform our office to update allergy records. and Recording using [employer] software for draft documentation of the visit was discussed with the patient/authorized access service representative; all questions welcomed and answered. Patient/authorized access service representative agreed to proceed MDM Procedures CNOV Observed: 03/04/2025 2:00 PM Status: COMPLETED Source: [facility] Office Visit (WOUCA) CHERYLE OTERO ([id number]) 1955 F Date Time Provider Department 03/04/25 2:00 PM TENISHA WARD During your visit today, we recorded the following information about you: Temperature Pulse Respiration Blood pressure 98 degrees 88/minute 20/minute 110/70 Weight 43.7 kg Tenisha Ward APRN.FRAME STRAIGHTENER 03/04/2025 2:34 PM Signed [facility] Ary Otero is a 70 year old female. Patient presents with: Urinary Problem: Possible UTI, frequency, possible yeast x 3 days HPI UTI Symptoms: - Urgency, frequency, and dysuria. - History of recurrent UTIs, leading to cancellation of a hysterectomy twice. Yeast Infection Symptoms: - Pruritus and clear discharge. - Recent yeast infection resistant to antifungals; treated with boric acid suppositories with resolution of symptoms. - Denies risk of STDs. - Uncertain history of bacterial vaginosis. Review of Systems Gastrointestinal: (-) abdominal pain Genitourinary: (+) urinary urgency, (+) urinary frequency, (+) dysuria, (+) vaginal pruritus, (+) clear vaginal discharge Musculoskeletal: (+) back pain Objective BP 110/70 Pulse 88 Temp 36.7 ?C (98 ?F) Resp 20 Wt 43.7 kg (96 lb 5.5 oz) SpO2 96% Physical Exam General: No acute distress. CV: Heart sounds normal. Resp: Breath sounds normal. Abd: No tenderness on palpation. { 1. Urinary frequency (R35.0) - Urine dip showed trace blood, otherwise unremarkable; prior negative dips have yielded positive cultures. - Urine culture ordered to confirm or rule out UTI. - Will defer treatment until culture results are available. 2. Vaginal itching (N89.8) 3. Vaginal discharge (N89.8) - Symptoms may be due to yeast infection or bacterial vaginosis. - Self-swab ordered for yeast and bacterial vaginosis testing; trichomonas will be tested by default. - Will defer treatment until results are available. - Advised patient to contact previous provider to identify antifungal medication that caused adverse effects (vision problems and hallucinations) and inform our office to update allergy records. and Recording using [employer] software for draft documentation of the visit was discussed with the patient/authorized access service representative; all questions welcomed and answered. Patient/authorized access service representative agreed to proceed MDM Procedures Venancio Dan APRN.[facility] 03/08/2025 5:00 PM Signed Addended by: VENANCIO DAN on: 03/08/2025 05:00 PM Modules accepted: Orders Allergies As of Date: 03/04/2025 Noted Allergy Reaction AMOXICILLIN 06/30/2018 8 - GI Upset BACTRIM (SULFAMETHOXAZOLE-TRIMETH*10/11/2018 8 - GI Upset CLARITHROMYCIN 07/07/2022 14 - Other: See Comments DOXYCYCLINE 07/07/2022 8 - GI Upset MACROBID (NITROFURANTOIN MONOHYD/*08/24/2023 8 - GI Upset Date Reviewed: 03/04/2025 Reviewed by: Karina Kern MA - Fully Assessed Reason for Visit: Urinary Problem [252] Cmt: Possible UTI, frequency, possible yeast x 3 days Primary Visit Diagnosis:Urinary frequency [R35.0] Other Visit Diagnoses:Vaginal itching [N89.8] Vaginal discharge [N89.8] Order(s):UA DIP, URINE (POC) [[id number]] Order #: [id number]. #:[id number] BACTERIAL CULTURE, URINE [SQURCUL] Order #: [id number]. #:[id number] BACTERIAL VAGINOSIS NAAT [SQBVAMP] Order #: [id number]. #:[id number] VALENTINA/TRICHOMONAS NAAT [SQCVTV] Order #: [id number]. #:[id number] nitrofurantoin monohydrate and macrocrystal (MACROBID) 100 mg capsuleTake 1 capsule by mouth two times a day for 5 days.Disp: 10 capsuleRfl: 0 Prescriptions as of 03/08/2025 - nitrofurantoin monohydrate and macrocrystal (MACROBID) 100 mg capsule Take 1 capsule by mouth two times a day for 5 days. - LINZESS 145 mcg capsule Take 145 mcg by mouth once daily. - roflumilast (DALIRESP) 250 mcg tablet Take 250 mcg by mouth once daily. - estradiol (ESTRACE) 0.01 % (0.1 mg/gram) vaginal cream Use 1 g vaginally three times a week. - TRELEGY ELLIPTA 100-62.5-25 mcg inhalation powder Inhale 1 puff as instructed once daily. - STIMULANT LAXATIVE PLUS 8.6-50 mg per tablet Take 2 tablets by mouth every 12 hours. - sucralfate (CARAFATE) 1 gram tablet Take 1 tablet by mouth once daily. - promethazine (PHENERGAN) 25 mg tablet TAKE 2 TABLETS BY MOUTH EVERY 6 (SIX) hours NEEDED - citalopram (CELEXA) 20 mg tablet Take 20 mg by mouth once daily. - LORazepam (ATIVAN) 0.5 mg Take 0.5 mg by mouth once daily as needed. - methIMAzole (TAPAZOLE) 5 mg tablet - ondansetron HCl (ZOFRAN ORAL) Take by mouth. - rosuvastatin (CRESTOR) 10 mg tablet - esomeprazole (NEXIUM) 40 mg capsule Take 1 capsule by mouth twice daily before meals. 1/2 hr before meal. - albuterol HFA 90 mcg/actuation inhaler Inhale 2 Puffs as instructed every 4 hours as needed. Indications: CHRONIC OBSTRUCTIVE PULMONARY DISEASE Problem List As Of Date 03/04/2025 Noted Resolved MASS IN BREAST [N63.0] 02/14/2009 DIFFUS CYSTIC MASTOPATHY [N60.19] 03/17/2009 Prescriptions ordered this encounter Disp Refills Start End NITROFURANTOIN MONOHYDRATE AND MACROCR* 10 c* 0 03/08/2025 03/13/2025 Route: PO Sig: Take 1 capsule by mouth two times a day for 5 days. Encounter Status:Closed by TENISHA WARD on 03/04/25 XR WRIST 4V PA/LAT/OBL/SCAPH RT Observed: 02/17/2025 1:51 PM Status: F Source: [facility] * * *Final Report* * * DATE OF EXAM: Feb 17 2025 1:51PM WOX [id number] - XR WRIST 4V PA/LAT/OBL/SCAPH RT / PROCEDURE REASON: Acute wrist pain, right * * * * Physician Interpretation * * * * History: Pain FINDINGS: 4 views of the right wrist have been obtained. The bones are well-mineralized without evidence of fracture or dislocation. Joint spaces are maintained. There is mild chondrocalcinosis seen in the ulnar carpal space. IMPRESSION: No acute process is seen. Volunteer Recruitment Coordinator: BRENDA Transcribe Date/Time: Feb 17 2025 1:52P Dictated by : PAUL ROSE MD This examination was interpreted and the report reviewed and electronically signed by: PAUL ROSE MD on Feb 17 2025 1:53PM EST [id number] PROGRESS Observed: 02/17/2025 1:50 PM Status: COMPLETED Source: [facility] HNO ID: [id number] Author: GEOVANNA ALFRED RT(R) Service: ? Author Type: Improvement Nurse Type: Progress Notes Filed: 02/17/2025 13:50 Note Text: Radiology Service Progress Note PATIENT NAME: Cheryle Otero DATE OF SERVICE: February 17, 2025 TIME: 1:50 PM PATIENT IDENTITY VERIFICATION COMPLETED USING TWO (2) IDENTIFIERS: Name and Date of confirmed by patient verbally. FALL SCREENING: Has the patient had 2 falls in the last year or 1 fall with injury or currently using an Ambulatory Assistive Device (Walker, Cane, Wheelchair, Crutches, etc.)? Yes, Patient High Risk for Falls What interventions were put in place to prevent falls during this visit? Increased Observations by Caregivers PATIENT GENDER DATA: Assigned female at . status: : No status: NO. PATIENT RELEVANT IMPLANT DATA REVIEWED: Yes PATIENT PRESENTS WITH AN IMPLANTABLE OR ATTACHED BENDER HAND: No RADIOLOGY DEPARTMENT: General X-ray: Exam(s) Completed: Upper Extremity X-Ray(s): Wrist, right PERIPHERAL IV DATA: Not applicable SIGNED BY: RT Antonia(R) February 17, 2025 1:50 PM PROGRESS Observed: 02/17/2025 1:36 PM Status: COMPLETED Source: [facility] HNO ID: [id number] Author: MARKO GASPAR MD Service: ? Author Type: Physician Type: Progress Notes Filed: 02/17/2025 14:15 Note Text: [facility] Subjective Cheryle Otero is a 70 year old female. Patient presents with: right wrist and hand pain: X 2 days-cannot recall an injury Right wrist pain: Duration: 2 days ago without known injury Location: Dorsal right wrist Character: Constant aching Radiation: No. Aggravating: bending and lifting Relieving: Pain relievers: Tylenol Associated: swelling, lifted robot saw cleaner before pain started Pertinent negatives: Denies numbness, fever, chills, known injury Review of Systems Objective BP 110/60 Pulse 85 Temp 36.7 ?C (98 ?F) (Tympanic) Resp 18 Wt 43.8 kg (96 lb 9 oz) SpO2 95% Physical Exam Constitutional: General: She is not in acute distress. Musculoskeletal: Hands: Comments: Mild edema dorsal wrist/proximal hand. Pain with radial and ulnar deviation more than flexion and extension. Normal passive supination pronation. Tender snuffbox and carpal bones. Nontender distal radius and ulna. Distal sensation intact. Neurological: Mental Status: She is alert. {ASSESSMENT/PLAN: 1. Acute wrist pain, right - ICD9: 719.43, ICD10: M25.531 - XR WRIST INJURY 4V PA/LAT/OBL/SCAPH RIGHT FINDINGS: 4 views of the right wrist have been obtained. The bones are well-mineralized without evidence of fracture or dislocation. Joint spaces are maintained. There is mild chondrocalcinosis seen in the ulnar carpal space. Treat with rest, ice, compression, and anti-inflammatory. Advance activity as tolerated. - Placed in cock up splint from vendor stock -use as needed - MELOXICAM 7.5 MG TABLET (reports long-term diclofenac was discontinued by her caramel cutter hand because of stomach irritation. Denies history of stomach ulcer or kidney disease). Marko Gaspar MD Differential Diagnoses - exacerbation of arthritis is more likely for the following reason(s): suggested by HANDP - wrist fracture is less likely for the following reason(s): no evidence on imaging Procedures CNOV Observed: 02/17/2025 1:30 PM Status: COMPLETED Source: [facility] Office Visit (WOUCA) CHERYLE OTERO ([id number]) 1955 F Date Time Provider Department 02/17/25 1:30 PM MARKO GASPAR During your visit today, we recorded the following information about you: Temperature Pulse Respiration Blood pressure 98 degrees 85/minute 18/minute 110/60 Weight 43.8 kg Marko Gaspar MD 02/17/2025 2:15 PM Signed [facility] Subjective Cheryle Angle is a 70 year old female. Patient presents with: right wrist and hand pain: X 2 days-cannot recall an injury Right wrist pain: Duration: 2 days ago without known injury Location: Dorsal right wrist Character: Constant aching Radiation: No. Aggravating: bending and lifting Relieving: Pain relievers: Tylenol Associated: swelling, lifted robot saw cleaner before pain started Pertinent negatives: Denies numbness, fever, chills, known injury Review of Systems Objective BP 110/60 Pulse 85 Temp 36.7 ?C (98 ?F) (Tympanic) Resp 18 Wt 43.8 kg (96 lb 9 oz) SpO2 95% Physical Exam Constitutional: General: She is not in acute distress. Musculoskeletal: Hands: Comments: Mild edema dorsal wrist/proximal hand. Pain with radial and ulnar deviation more than flexion and extension. Normal passive supination pronation. Tender snuffbox and carpal bones. Nontender distal radius and ulna. Distal sensation intact. Neurological: Mental Status: She is alert. {ASSESSMENT/PLAN: 1. Acute wrist pain, right - ICD9: 719.43, ICD10: M25.531 - XR WRIST INJURY 4V PA/LAT/OBL/SCAPH RIGHT FINDINGS: 4 views of the right wrist have been obtained. The bones are well-mineralized without evidence of fracture or dislocation. Joint spaces are maintained. There is mild chondrocalcinosis seen in the ulnar carpal space. Treat with rest, ice, compression, and anti-inflammatory. Advance activity as tolerated. - Placed in cock up splint from vendor stock -use as needed - MELOXICAM 7.5 MG TABLET (reports long-term diclofenac was discontinued by her caramel cutter hand because of stomach irritation. Denies history of stomach ulcer or kidney disease). Marko Gaspar MD Differential Diagnoses - exacerbation of arthritis is more likely for the following reason(s): suggested by HANDP - wrist fracture is less likely for the following reason(s): no evidence on imaging Procedures Allergies As of Date: 02/17/2025 Noted Allergy Reaction AMOXICILLIN 06/30/2018 8 - GI Upset BACTRIM (SULFAMETHOXAZOLE-TRIMETH*10/11/2018 8 - GI Upset CLARITHROMYCIN 07/07/2022 14 - Other: See Comments DOXYCYCLINE 07/07/2022 8 - GI Upset MACROBID (NITROFURANTOIN MONOHYD/*08/24/2023 8 - GI Upset Date Reviewed: 02/17/2025 Reviewed by: Teresa Rivera LPN - Fully Assessed Reason for Visit: right wrist and hand pain [Other] Cmt: X 2 days-cannot recall an injury Primary Visit Diagnosis:Acute wrist pain, right [M25.531] Order(s):XR WRIST INJURY 4V PA/LAT/OBL/SCAPH RIGHT [[id number]] Order #: [id number] FUTURE meloxicam (MOBIC) 7.5 mg tabletTake 1 tablet by mouth once daily for 10 days.Disp: 10 tabletRfl: 0 Prescriptions as of 02/17/2025 - meloxicam (MOBIC) 7.5 mg tablet Take 1 tablet by mouth once daily for 10 days. - LINZESS 145 mcg capsule Take 145 mcg by mouth once daily. - roflumilast (DALIRESP) 250 mcg tablet Take 250 mcg by mouth once daily. - estradiol (ESTRACE) 0.01 % (0.1 mg/gram) vaginal cream Use 1 g vaginally three times a week. - TRELEGY ELLIPTA 100-62.5-25 mcg inhalation powder Inhale 1 puff as instructed once daily. - STIMULANT LAXATIVE PLUS 8.6-50 mg per tablet Take 2 tablets by mouth every 12 hours. - sucralfate (CARAFATE) 1 gram tablet Take 1 tablet by mouth once daily. - promethazine (PHENERGAN) 25 mg tablet TAKE 2 TABLETS BY MOUTH EVERY 6 (SIX) hours NEEDED - citalopram (CELEXA) 20 mg tablet Take 20 mg by mouth once daily. - LORazepam (ATIVAN) 0.5 mg Take 0.5 mg by mouth once daily as needed. - methIMAzole (TAPAZOLE) 5 mg tablet - ondansetron HCl (ZOFRAN ORAL) Take by mouth. - rosuvastatin (CRESTOR) 10 mg tablet - esomeprazole (NEXIUM) 40 mg capsule Take 1 capsule by mouth twice daily before meals. 1/2 hr before meal. - albuterol HFA 90 mcg/actuation inhaler Inhale 2 Puffs as instructed every 4 hours as needed. Indications: CHRONIC OBSTRUCTIVE PULMONARY DISEASE Problem List As Of Date 02/17/2025 Noted Resolved MASS IN BREAST [N63.0] 02/14/2009 DIFFUS CYSTIC MASTOPATHY [N60.19] 03/17/2009 Prescriptions ordered this encounter Disp Refills Start End MELOXICAM 7.5 MG TABLET 10 t* 0 02/17/2025 02/27/2025 Route: PO Sig: Take 1 tablet by mouth once daily for 10 days. Medications Discontinued During This Encounter Prescriptions - albuterol (PROVENTIL) 2.5 mg /3 mL (0.083 %) nebulizer solution (Discontinued) Reported on 11/20/2024 - DICLOFENAC 75 MG TAB, DELAYED RELEASE (Discontinued) Reported on 02/07/2024 - diphenhydrAMINE (BENADRYL) 25 mg capsule (Discontinued) Reported on 08/24/2023 - gabapentin (NEURONTIN) 100 mg capsule (Discontinued) Reported on 11/20/2024 - olopatadine (PATANOL) 0.1 % ophthalmic solution (Discontinued) Reported on 11/20/2024 Level of Service: OFFICE/OUTPATIENT ESTABLISHED MOD [facility] 30 MIN [68837] Encounter Status:Closed by MARKO GASPAR on 02/17/25 VALENTINA/TRICHOMONAS NAAT Collected: 2:27 PM Status: F Source: [facility] Order Comment: Specimen Type : SWAB Ordering Facility: [facility] Address: [address] [place] [address] TYPE CODE TESTS RESULT OUT OF RANGE REFERENCE UNITS LAB 70496-8([facility] ) Valentina DNA Vag Ql WILBUR+probe Not detected Not detected Result Comment: The Valentina species group target includes C. albicans, C. tropicalis, C. parapsilosis, and C. dubliniensis. LAB 75506-5(LOINC ) C glabrata RNA Vag Ql WILBUR+probe Detected Abnormal Not detected [facility] 36078[facility] T vaginalis DNA Spec Ql WILBUR+probe Not detected Not detected Performed By: #### CVTV #### [facility] CLIA [id number] [address] [place] [address] [place] [address] [place] BACTERIA UR CULT Observed: 11/20/2024 2:27 PM Status: F Source: [facility] ORGANISM ID: 1 10,000 -<50,000 CFU/ml Normal urogenital abdirashid Performed By: #### 630-4 ### # [facility] CLIA [id number] [address] [place] [address] [place] [address] [place] PROGRESS Observed: 11/20/2024 1:54 PM Status: COMPLETED Source: [facility] HNO ID: [id number] Author: REBA CHRISTIANSON PA Service: ? Author Type: Physician Children'S Program Coordinator Type: Progress Notes Filed: 11/20/2024 14:05 Note Text: [facility] Subjective Cheryle Otero is a 69 year old female. No chief complaint on file. HPI 69-year-old female presents for yeast and UTI testing. Patient was supposed to have a hysterectomy, but when they went to do it, they discovered she had a UTI. She states she was told she had yeast in her urine as well. She was prescribed dived Macrobid and voriconazole on 11/02/2024. She completed these on 11/09/2024. She was supposed to go in today to have repeat testing to make sure everything is cleared, but did not realize that her gynecologists office closes at noon. She is scheduled for hysterectomy next week again. She states that her dysuria is now resolved. Patient denies any vaginal discharge or itching, abdominal pain, fevers, vomiting. No other complaints PAST MEDICAL HISTORY Diagnosis Date Chronic obstructive asthma, unspecified Generalized osteoarthrosis, unspecified site PAST SURGICAL HISTORY Procedure Laterality Date BREAST BIOPSY Right 1994 [facility] CHOLECYSTECTOMY HX 2005 [facility] COLONOSCOPY 03/2016 Dr. Michele EXC CYST/ABERRANT BREAST TISSUE OPEN 1/> LESION Right 03/08/09 EXC CYST/ABERRANT BREAST TISSUE OPEN 1/> LESION Right 03/08/09 WRIST SURGERY HX Left 05/14/16 Dr. Salinas ALLERGIES Amoxicillin, Bactrim [Sulfamethoxazole-Trimethoprim], Clarithromycin, Doxycycline, and Macrobid [Nitrofurantoin Monohyd/M-Cryst] MEDICATIONS LINZESS 145 mcg capsule Take 145 mcg by mouth once daily. roflumilast (DALIRESP) 250 mcg tablet Take 250 mcg by mouth once daily. estradiol (ESTRACE) 0.01 % (0.1 mg/gram) vaginal cream Use 1 g vaginally three times a week. TRELEGY ELLIPTA 100-62.5-25 mcg inhalation powder Inhale 1 puff as instructed once daily. STIMULANT LAXATIVE PLUS 8.6-50 mg per tablet Take 2 tablets by mouth every 12 hours. sucralfate (CARAFATE) 1 gram tablet Take 1 tablet by mouth once daily. promethazine (PHENERGAN) 25 mg tablet TAKE 2 TABLETS BY MOUTH EVERY 6 (SIX) hours NEEDED citalopram (CELEXA) 20 mg tablet Take 20 mg by mouth once daily. LORazepam (ATIVAN) 0.5 mg Take 0.5 mg by mouth once daily as needed. methIMAzole (TAPAZOLE) 5 mg tablet ondansetron HCl (ZOFRAN ORAL) Take by mouth. rosuvastatin (CRESTOR) 10 mg tablet esomeprazole (NEXIUM) 40 mg capsule Take 1 capsule by mouth twice daily before meals. 1/2 hr before meal. albuterol HFA 90 mcg/actuation inhaler Inhale 2 Puffs as instructed every 4 hours as needed. Indications: CHRONIC OBSTRUCTIVE PULMONARY DISEASE gabapentin (NEURONTIN) 100 mg capsule Take 200 mg by mouth three times a day with meals. (Patient not taking: Reported on 11/20/2024) olopatadine (PATANOL) 0.1 % ophthalmic solution Use 1 Drop in both eyes twice daily. (Patient not taking: Reported on 11/20/2024) albuterol (PROVENTIL) 2.5 mg /3 mL (0.083 %) nebulizer solution Use 3 mL via nebulizer one time only for 1 dose. Use over 5-15minutes. (Patient not taking: Reported on 11/20/2024) diphenhydrAMINE (BENADRYL) 25 mg capsule Take 25 mg by mouth at bedtime as needed. Indications: INSOMNIA (Patient not taking: Reported on 08/24/2023) DICLOFENAC 75 MG TAB, DELAYED RELEASE Take one(1) tablet two(2) times daily. (Patient not taking: Reported on 02/07/2024) FAMILY HISTORY Problem Relation Age of Onset Alcohol/Drug Mother Cancer Mother Diabetes Mother Alcohol/Drug Father Allergies Father Alcohol/Drug Brother Allergies Brother Diabetes Brother Diabetes Maternal Grandmother Allergies Paternal Grandfather Social History Tobacco Use Smoking status: Every Day Current packs/day: 1.50 Average packs/day: 1.5 packs/day for 20.0 years (30.0 ttl pk-yrs) Types: Cigarettes Smokeless tobacco: Never Substance Use Topics Alcohol use: Yes Alcohol/week: 2.0 standard drinks of alcohol Types: 2 Cans of Beer (12oz) per week Comment: Rarely Drug use: No Review of Systems Constitutional: Negative for chills and fever. Cardiovascular: Negative for chest pain. Gastrointestinal: Negative for abdominal pain, diarrhea and vomiting. Genitourinary: Negative for dysuria (resolved), frequency, pelvic pain, urgency, vaginal bleeding, vaginal discharge and vaginal pain. Objective BP 110/66 Pulse 87 Temp 36.4 ?C (97.6 ?F) Resp 20 Wt 47 kg (103 lb 9.9 oz) SpO2 97% Physical Exam Vitals reviewed. Constitutional: General: She is not in acute distress. Appearance: Normal appearance. She is not toxic-appearing. HENT: Nose: Nose normal. Mouth/Throat: Mouth: Mucous membranes are moist. Eyes: Conjunctiva/sclera: Conjunctivae normal. Cardiovascular: Rate and Rhythm: Normal rate and regular rhythm. Pulmonary: Effort: Pulmonary effort is normal. Breath sounds: Normal breath sounds. Abdominal: General: Abdomen is flat. Palpations: Abdomen is soft. Tenderness: There is no abdominal tenderness. There is no guarding or rebound. Genitourinary: Comments: Deferred Skin: General: Skin is warm and dry. Neurological: Mental Status: She is alert. {ASSESSMENT/PLAN: 1. Dysuria - ICD9: 788.1, ICD10: R30.0 - UA positive for small blood - Send urine for culture - Patient education for prevention given - UA DIP, URINE (POC) - BACTERIAL CULTURE, URINE - VALENTINA/TRICHOMONAS NAAT - Patient scheduled for hysterectomy next week, needed repeat urine and yeast testing. Swab sent. Urine culture sent. Asymptomatic. Will follow-up with her vendor relationship manager once results return Diagnosis and treatment plan were discussed and questions were answered to the patient's satisfaction. Pt acknowledged understanding of concepts and follow up plan. Specific signs and symptoms that would indicate the need for higher level of care were discussed in detail warranting prompt ER evaluation. BIRDIE Holliday History and Record Review External record(s) reviewed: prior outpatient record. Differential Diagnoses - Prior UTIs/yeast infection - Pyelonephritis is less likely for the following reason(s): HANDP not suggestive - UTI is less likely for the following reason(s): HANDP not suggestive Disposition The patient was discharged. Procedures CNOV Observed: 11/20/2024 1:30 PM Status: COMPLETED Source: [facility] Office Visit (WSTR) CHERYLE OTERO ([id number]) 1955 F Date Time Provider Department 11/20/24 1:30 PM [facility] During your visit today, we recorded the following information about you: Temperature Pulse Respiration Blood pressure 97.6 degrees 87/minute 20/minute 110/66 Weight 47 kg Reba Christianson PA 11/20/2024 2:05 PM Signed [facility] Subjective Cheryle Otero is a 69 year old female. No chief complaint on file. HPI 69-year-old female presents for yeast and UTI testing. Patient was supposed to have a hysterectomy, but when they went to do it, they discovered she had a UTI. She states she was told she had yeast in her urine as well. She was prescribed dived Macrobid and voriconazole on 11/02/2024. She completed these on 11/09/2024. She was supposed to go in today to have repeat testing to make sure everything is cleared, but did not realize that her gynecologists office closes at noon. She is scheduled for hysterectomy next week again. She states that her dysuria is now resolved. Patient denies any vaginal discharge or itching, abdominal pain, fevers, vomiting. No other complaints PAST MEDICAL HISTORY Diagnosis Date Chronic obstructive asthma, unspecified Generalized osteoarthrosis, unspecified site PAST SURGICAL HISTORY Procedure Laterality Date BREAST BIOPSY Right 1994 [facility] CHOLECYSTECTOMY HX 2005 [facility] COLONOSCOPY 03/2016 Dr. Michele EXC CYST/ABERRANT BREAST TISSUE OPEN 1/> LESION Right 03/08/09 EXC CYST/ABERRANT BREAST TISSUE OPEN 1/> LESION Right 03/08/09 WRIST SURGERY HX Left 10/10/16 Dr. Salinas ALLERGIES Amoxicillin, Bactrim [Sulfamethoxazole-Trimethoprim], Clarithromycin, Doxycycline, and Macrobid [Nitrofurantoin Monohyd/M-Cryst] MEDICATIONS LINZESS 145 mcg capsule Take 145 mcg by mouth once daily. roflumilast (DALIRESP) 250 mcg tablet Take 250 mcg by mouth once daily. estradiol (ESTRACE) 0.01 % (0.1 mg/gram) vaginal cream Use 1 g vaginally three times a week. TRELEGY ELLIPTA 100-62.5-25 mcg inhalation powder Inhale 1 puff as instructed once daily. STIMULANT LAXATIVE PLUS 8.6-50 mg per tablet Take 2 tablets by mouth every 12 hours. sucralfate (CARAFATE) 1 gram tablet Take 1 tablet by mouth once daily. promethazine (PHENERGAN) 25 mg tablet TAKE 2 TABLETS BY MOUTH EVERY 6 (SIX) hours NEEDED citalopram (CELEXA) 20 mg tablet Take 20 mg by mouth once daily. LORazepam (ATIVAN) 0.5 mg Take 0.5 mg by mouth once daily as needed. methIMAzole (TAPAZOLE) 5 mg tablet ondansetron HCl (ZOFRAN ORAL) Take by mouth. rosuvastatin (CRESTOR) 10 mg tablet esomeprazole (NEXIUM) 40 mg capsule Take 1 capsule by mouth twice daily before meals. 1/2 hr before meal. albuterol HFA 90 mcg/actuation inhaler Inhale 2 Puffs as instructed every 4 hours as needed. Indications: CHRONIC OBSTRUCTIVE PULMONARY DISEASE gabapentin (NEURONTIN) 100 mg capsule Take 200 mg by mouth three times a day with meals. (Patient not taking: Reported on 11/20/2024) olopatadine (PATANOL) 0.1 % ophthalmic solution Use 1 Drop in both eyes twice daily. (Patient not taking: Reported on 11/20/2024) albuterol (PROVENTIL) 2.5 mg /3 mL (0.083 %) nebulizer solution Use 3 mL via nebulizer one time only for 1 dose. Use over 5-15minutes. (Patient not taking: Reported on 11/20/2024) diphenhydrAMINE (BENADRYL) 25 mg capsule Take 25 mg by mouth at bedtime as needed. Indications: INSOMNIA (Patient not taking: Reported on 08/24/2023) DICLOFENAC 75 MG TAB, DELAYED RELEASE Take one(1) tablet two(2) times daily. (Patient not taking: Reported on 02/07/2024) FAMILY HISTORY Problem Relation Age of Onset Alcohol/Drug Mother Cancer Mother Diabetes Mother Alcohol/Drug Father Allergies Father Alcohol/Drug Brother Allergies Brother Diabetes Brother Diabetes Maternal Grandmother Allergies Paternal Grandfather Social History Tobacco Use Smoking status: Every Day Current packs/day: 1.50 Average packs/day: 1.5 packs/day for 20.0 years (30.0 ttl pk-yrs) Types: Cigarettes Smokeless tobacco: Never Substance Use Topics Alcohol use: Yes Alcohol/week: 2.0 standard drinks of alcohol Types: 2 Cans of Beer (12oz) per week Comment: Rarely Drug use: No Review of Systems Constitutional: Negative for chills and fever. Cardiovascular: Negative for chest pain. Gastrointestinal: Negative for abdominal pain, diarrhea and vomiting. Genitourinary: Negative for dysuria (resolved), frequency, pelvic pain, urgency, vaginal bleeding, vaginal discharge and vaginal pain. Objective BP 110/66 Pulse 87 Temp 36.4 ?C (97.6 ?F) Resp 20 Wt 47 kg (103 lb 9.9 oz) SpO2 97% Physical Exam Vitals reviewed. Constitutional: General: She is not in acute distress. Appearance: Normal appearance. She is not toxic-appearing. HENT: Nose: Nose normal. Mouth/Throat: Mouth: Mucous membranes are moist. Eyes: Conjunctiva/sclera: Conjunctivae normal. Cardiovascular: Rate and Rhythm: Normal rate and regular rhythm. Pulmonary: Effort: Pulmonary effort is normal. Breath sounds: Normal breath sounds. Abdominal: General: Abdomen is flat. Palpations: Abdomen is soft. Tenderness: There is no abdominal tenderness. There is no guarding or rebound. Genitourinary: Comments: Deferred Skin: General: Skin is warm and dry. Neurological: Mental Status: She is alert. {ASSESSMENT/PLAN: 1. Dysuria - ICD9: 788.1, ICD10: R30.0 - UA positive for small blood - Send urine for culture - Patient education for prevention given - UA DIP, URINE (POC) - BACTERIAL CULTURE, URINE - VALENTINA/TRICHOMONAS NAAT - Patient scheduled for hysterectomy next week, needed repeat urine and yeast testing. Swab sent. Urine culture sent. Asymptomatic. Will follow-up with her vendor relationship manager once results return Diagnosis and treatment plan were discussed and questions were answered to the patient's satisfaction. Pt acknowledged understanding of concepts and follow up plan. Specific signs and symptoms that would indicate the need for higher level of care were discussed in detail warranting prompt ER evaluation. BIRDIE Holliday History and Record Review External record(s) reviewed: prior outpatient record. Differential Diagnoses - Prior UTIs/yeast infection - Pyelonephritis is less likely for the following reason(s): HANDP not suggestive - UTI is less likely for the following reason(s): HANDP not suggestive Disposition The patient was discharged. Procedures Allergies As of Date: 11/20/2024 Noted Allergy Reaction AMOXICILLIN 06/30/2018 8 - GI Upset BACTRIM (SULFAMETHOXAZOLE-TRIMETH*10/11/2018 8 - GI Upset CLARITHROMYCIN 07/07/2022 14 - Other: See Comments DOXYCYCLINE 07/07/2022 8 - GI Upset MACROBID (NITROFURANTOIN MONOHYD/*08/24/2023 8 - GI Upset Date Reviewed: 05/09/2024 Reviewed by: Boogie Roe LPN - Fully Assessed Primary Visit Diagnosis:Dysuria [R30.0] Order(s):UA DIP, URINE (POC) [3213430] Order #: [id number]. #:[id number] BACTERIAL CULTURE, URINE [SQURCUL] Order #: [id number]. #:[id number] VALENTINA/TRICHOMONAS NAAT [SQCVTV] Order #: [id number]. #:[id number] Prescriptions as of 11/20/2024 - LINZESS 145 mcg capsule Take 145 mcg by mouth once daily. - roflumilast (DALIRESP) 250 mcg tablet Take 250 mcg by mouth once daily. - estradiol (ESTRACE) 0.01 % (0.1 mg/gram) vaginal cream Use 1 g vaginally three times a week. - TRELEGY ELLIPTA 100-62.5-25 mcg inhalation powder Inhale 1 puff as instructed once daily. - STIMULANT LAXATIVE PLUS 8.6-50 mg per tablet Take 2 tablets by mouth every 12 hours. - sucralfate (CARAFATE) 1 gram tablet Take 1 tablet by mouth once daily. - promethazine (PHENERGAN) 25 mg tablet TAKE 2 TABLETS BY MOUTH EVERY 6 (SIX) hours NEEDED - gabapentin (NEURONTIN) 100 mg capsule Take 200 mg by mouth three times a day with meals. - citalopram (CELEXA) 20 mg tablet Take 20 mg by mouth once daily. - LORazepam (ATIVAN) 0.5 mg Take 0.5 mg by mouth once daily as needed. - methIMAzole (TAPAZOLE) 5 mg tablet - ondansetron HCl (ZOFRAN ORAL) Take by mouth. - rosuvastatin (CRESTOR) 10 mg tablet - olopatadine (PATANOL) 0.1 % ophthalmic solution Use 1 Drop in both eyes twice daily. - albuterol (PROVENTIL) 2.5 mg /3 mL (0.083 %) nebulizer solution Use 3 mL via nebulizer one time only for 1 dose. Use over 5-15minutes. - esomeprazole (NEXIUM) 40 mg capsule Take 1 capsule by mouth twice daily before meals. 1/2 hr before meal. - albuterol HFA 90 mcg/actuation inhaler Inhale 2 Puffs as instructed every 4 hours as needed. Indications: CHRONIC OBSTRUCTIVE PULMONARY DISEASE - diphenhydrAMINE (BENADRYL) 25 mg capsule Take 25 mg by mouth at bedtime as needed. Indications: INSOMNIA - DICLOFENAC 75 MG TAB, DELAYED RELEASE Take one(1) tablet two(2) times daily. Medication notes this encounter ALBUTEROL SULFATE 2.5 MG/3 ML (0.083 %) SOLUTION FOR NEBULIZATION >> Boogie Roe LPN 11/20/2024 1:45 PM >> BOOGIE ROE Fri Nov 20, 2024 1:45 PM Problem List As Of Date 11/20/2024 Noted Resolved MASS IN BREAST [N63.0] 02/14/2009 DIFFUS CYSTIC MASTOPATHY [N60.19] 03/17/2009 Encounter Status:Closed by REBA CHRISTIANSON on 11/20/24 PROGRESS Observed: 05/09/2024 12:29 PM Status: COMPLETED Source: [facility] ID: [id number] Author: TENISHA WARD APRN.FRAME STRAIGHTENER Service: ? Author Type: Nurse Practitioner Type: Progress Notes Filed: 05/09/2024 12:38 Note Text: CC: Patient presents with: Cough: SOB, Wheeze, had runny nose, sneezing and scratchy throat x 3 days HPI: Cheryle Otero is a 69 year old female who presents to the office with complaint of chest congestion, cough, productive, and rhinorrhea for a few days. Symptoms are worsening Associated symptoms includes hoarse voice and dyspnea. Denies nausea, vomiting , and diarrhea. Treatments tried include nothing so far. with no relief of symptoms. Sick contacts: unknown. History of asthma, frequent episodes of bronchitis, chronic bronchitis, bronchiectasis or COPD: No Smoker: No Seasonal/environmental allergies: No The ROS is otherwise negative. The patient's pmh, medications, allergies, and past visits are reviewed. PHYSICAL EXAM: BP 99/64 Pulse 84 Temp 36.5 ?C (97.7 ?F) Resp 20 Wt 51 kg (112 lb 7 oz) SpO2 97% General appearance: alert, cooperative, pleasant, in no acute distress Head: Normocephalic Eyes: EOM's intact, conjunctiva pink and moist, no icterus, sclera white, non-injected Ears: Right ear: External ear/canal- Normal, TM - clear with good landmarks. Left ear: External ear/canal- Normal, TM - clear with good landmarks Oropharynx:moist without lesions, No erythema, exudates or tonsillar hypertrophy. Heart: Negative. RRR without obvious murmur, gallop, or rubs. No ectopy. Lungs: clear to auscultation, without rales or wheeze, good air exchange PAST MEDICAL HISTORY Diagnosis Date Chronic obstructive asthma, unspecified Generalized osteoarthrosis, unspecified site PAST SURGICAL HISTORY Procedure Laterality Date BREAST BIOPSY Right 1994 [facility] CHOLECYSTECTOMY HX 2005 [facility] COLONOSCOPY 03/2016 Dr. Michele EXC CYST/ABERRANT BREAST TISSUE OPEN 1/> LESION Right 03/08/09 EXC CYST/ABERRANT BREAST TISSUE OPEN 1/> LESION Right 03/08/09 WRIST SURGERY HX Left 05/14/16 Dr. Salinas ALLERGIES Amoxicillin, Bactrim [Sulfamethoxazole-Trimethoprim], Clarithromycin, Doxycycline, and Macrobid [Nitrofurantoin Monohyd/M-Cryst] MEDICATIONS STIMULANT LAXATIVE PLUS 8.6-50 mg per tablet Take 2 tablets by mouth every 12 hours. sucralfate (CARAFATE) 1 gram tablet Take 1 tablet by mouth once daily. promethazine (PHENERGAN) 25 mg tablet TAKE 2 TABLETS BY MOUTH EVERY 6 (SIX) hours NEEDED gabapentin (NEURONTIN) 100 mg capsule Take 200 mg by mouth three times a day with meals. citalopram (CELEXA) 20 mg tablet Take 20 mg by mouth once daily. LORazepam (ATIVAN) 0.5 mg Take 0.5 mg by mouth once daily as needed. methIMAzole (TAPAZOLE) 5 mg tablet ondansetron HCl (ZOFRAN ORAL) Take by mouth. rosuvastatin (CRESTOR) 10 mg tablet albuterol (PROVENTIL) 2.5 mg /3 mL (0.083 %) nebulizer solution Use 3 mL via nebulizer one time only for 1 dose. Use over 5-15minutes. esomeprazole (NEXIUM) 40 mg capsule Take 1 capsule by mouth twice daily before meals. 1/2 hr before meal. albuterol HFA 90 mcg/actuation inhaler Inhale 2 Puffs as instructed every 4 hours as needed. Indications: CHRONIC OBSTRUCTIVE PULMONARY DISEASE doxycycline (VIBRA-TABS) 100 mg tablet Take 1 tablet by mouth two times a day for 7 days. olopatadine (PATANOL) 0.1 % ophthalmic solution Use 1 Drop in both eyes twice daily. diphenhydrAMINE (BENADRYL) 25 mg capsule Take 25 mg by mouth at bedtime as needed. Indications: INSOMNIA (Patient not taking: Reported on 08/24/2023) DICLOFENAC 75 MG TAB, DELAYED RELEASE Take one(1) tablet two(2) times daily. (Patient not taking: Reported on 02/07/2024) FAMILY HISTORY Problem Relation Age of Onset Alcohol/Drug Mother Cancer Mother Diabetes Mother Alcohol/Drug Father Allergies Father Alcohol/Drug Brother Allergies Brother Diabetes Brother Diabetes Maternal Grandmother Allergies Paternal Grandfather Social History Tobacco Use Smoking status: Every Day Current packs/day: 1.50 Average packs/day: 1.5 packs/day for 20.0 years (30.0 ttl pk-yrs) Types: Cigarettes Smokeless tobacco: Never Substance Use Topics Alcohol use: Yes Alcohol/week: 2.0 standard drinks of alcohol Types: 2 Cans of Beer (12oz) per week Comment: Rarely Drug use: No ASSESSMENT/PLAN: 1. Respiratory infection - ICD9: 519.8, ICD10: J98.8 - DOXYCYCLINE HYCLATE 100 MG TABLET Patient about trialing doxycycline. She says she has used her Phenergan before when taking antibiotics with success. She is willing to do this again as the Z-Darrian does not mix with her Celexa. Prescription instructions reviewed with patient as applicable. Potential red flag symptoms discussed with the patient. Reviewed appropriate action plan to take if red flag symptoms occur. Patient agreeable to treatment plan. Tenisha Ward APRN.KIKE CNOV Observed: 05/09/2024 12:15 PM Status: COMPLETED Source: [facility] Office Visit (WSTR) CHERYLE OTERO ([id number]) 1955 F Date Time Provider Department 05/09/24 12:15 PM TENISHA WARD GARRETT During your visit today, we recorded the following information about you: Temperature Pulse Respiration Blood pressure 97.7 degrees 84/minute 20/minute 99/64 Weight 51 kg Tenisha Ward APRN.CNP 05/09/2024 12:38 PM Signed CC: Patient presents with: Cough: SOB, Wheeze, had runny nose, sneezing and scratchy throat x 3 days HPI: Cheryle Otero is a 69 year old female who presents to the office with complaint of chest congestion, cough, productive, and rhinorrhea for a few days. Symptoms are worsening Associated symptoms includes hoarse voice and dyspnea. Denies nausea, vomiting , and diarrhea. Treatments tried include nothing so far. with no relief of symptoms. Sick contacts: unknown. History of asthma, frequent episodes of bronchitis, chronic bronchitis, bronchiectasis or COPD: No Smoker: No Seasonal/environmental allergies: No The ROS is otherwise negative. The patient's pmh, medications, allergies, and past visits are reviewed. PHYSICAL EXAM: BP 99/64 Pulse 84 Temp 36.5 ?C (97.7 ?F) Resp 20 Wt 51 kg (112 lb 7 oz) SpO2 97% General appearance: alert, cooperative, pleasant, in no acute distress Head: Normocephalic Eyes: EOM's intact, conjunctiva pink and moist, no icterus, sclera white, non-injected Ears: Right ear: External ear/canal- Normal, TM - clear with good landmarks. Left ear: External ear/canal- Normal, TM - clear with good landmarks Oropharynx:moist without lesions, No erythema, exudates or tonsillar hypertrophy. Heart: Negative. RRR without obvious murmur, gallop, or rubs. No ectopy. Lungs: clear to auscultation, without rales or wheeze, good air exchange PAST MEDICAL HISTORY Diagnosis Date Chronic obstructive asthma, unspecified Generalized osteoarthrosis, unspecified site PAST SURGICAL HISTORY Procedure Laterality Date BREAST BIOPSY Right 1994 [facility] CHOLECYSTECTOMY HX 2005 [facility] COLONOSCOPY 03/2016 Dr. Michele EXC CYST/ABERRANT BREAST TISSUE OPEN 1/> LESION Right 03/08/09 EXC CYST/ABERRANT BREAST TISSUE OPEN 1/> LESION Right 03/08/09 WRIST SURGERY HX Left 05/14/16 Dr. Salinas ALLERGIES Amoxicillin, Bactrim [Sulfamethoxazole-Trimethoprim], Clarithromycin, Doxycycline, and Macrobid [Nitrofurantoin Monohyd/M-Cryst] MEDICATIONS STIMULANT LAXATIVE PLUS 8.6-50 mg per tablet Take 2 tablets by mouth every 12 hours. sucralfate (CARAFATE) 1 gram tablet Take 1 tablet by mouth once daily. promethazine (PHENERGAN) 25 mg tablet TAKE 2 TABLETS BY MOUTH EVERY 6 (SIX) hours NEEDED gabapentin (NEURONTIN) 100 mg capsule Take 200 mg by mouth three times a day with meals. citalopram (CELEXA) 20 mg tablet Take 20 mg by mouth once daily. LORazepam (ATIVAN) 0.5 mg Take 0.5 mg by mouth once daily as needed. methIMAzole (TAPAZOLE) 5 mg tablet ondansetron HCl (ZOFRAN ORAL) Take by mouth. rosuvastatin (CRESTOR) 10 mg tablet albuterol (PROVENTIL) 2.5 mg /3 mL (0.083 %) nebulizer solution Use 3 mL via nebulizer one time only for 1 dose. Use over 5-15minutes. esomeprazole (NEXIUM) 40 mg capsule Take 1 capsule by mouth twice daily before meals. 1/2 hr before meal. albuterol HFA 90 mcg/actuation inhaler Inhale 2 Puffs as instructed every 4 hours as needed. Indications: CHRONIC OBSTRUCTIVE PULMONARY DISEASE doxycycline (VIBRA-TABS) 100 mg tablet Take 1 tablet by mouth two times a day for 7 days. olopatadine (PATANOL) 0.1 % ophthalmic solution Use 1 Drop in both eyes twice daily. diphenhydrAMINE (BENADRYL) 25 mg capsule Take 25 mg by mouth at bedtime as needed. Indications: INSOMNIA (Patient not taking: Reported on 08/24/2023) DICLOFENAC 75 MG TAB, DELAYED RELEASE Take one(1) tablet two(2) times daily. (Patient not taking: Reported on 02/07/2024) FAMILY HISTORY Problem Relation Age of Onset Alcohol/Drug Mother Cancer Mother Diabetes Mother Alcohol/Drug Father Allergies Father Alcohol/Drug Brother Allergies Brother Diabetes Brother Diabetes Maternal Grandmother Allergies Paternal Grandfather Social History Tobacco Use Smoking status: Every Day Current packs/day: 1.50 Average packs/day: 1.5 packs/day for 20.0 years (30.0 ttl pk-yrs) Types: Cigarettes Smokeless tobacco: Never Substance Use Topics Alcohol use: Yes Alcohol/week: 2.0 standard drinks of alcohol Types: 2 Cans of Beer (12oz) per week Comment: Rarely Drug use: No ASSESSMENT/PLAN: 1. Respiratory infection - ICD9: 519.8, ICD10: J98.8 - DOXYCYCLINE HYCLATE 100 MG TABLET Patient about trialing doxycycline. She says she has used her Phenergan before when taking antibiotics with success. She is willing to do this again as the Z-Darrian does not mix with her Celexa. Prescription instructions reviewed with patient as applicable. Potential red flag symptoms discussed with the patient. Reviewed appropriate action plan to take if red flag symptoms occur. Patient agreeable to treatment plan. Tenisha Ward APRN.FRAME STRAIGHTENER Allergies As of Date: 05/09/2024 Noted Allergy Reaction AMOXICILLIN 06/30/2018 8 - GI Upset BACTRIM (SULFAMETHOXAZOLE-TRIMETH*10/11/2018 8 - GI Upset CLARITHROMYCIN 07/07/2022 14 - Other: See Comments DOXYCYCLINE 07/07/2022 8 - GI Upset MACROBID (NITROFURANTOIN MONOHYD/*08/24/2023 8 - GI Upset Date Reviewed: 05/09/2024 Reviewed by: Boogie Roe LPN - Fully Assessed Reason for Visit: Cough [28] Cmt: SOB, Wheeze, had runny nose, sneezing and scratchy throat x 3 days Primary Visit Diagnosis:Respiratory infection [J98.8] Order(s):doxycycline (VIBRA-TABS) 100 mg tabletTake 1 tablet by mouth two times a day for 7 days.Disp: 14 tabletRfl: 0 Prescriptions as of 05/09/2024 - doxycycline (VIBRA-TABS) 100 mg tablet Take 1 tablet by mouth two times a day for 7 days. - STIMULANT LAXATIVE PLUS 8.6-50 mg per tablet Take 2 tablets by mouth every 12 hours. - sucralfate (CARAFATE) 1 gram tablet Take 1 tablet by mouth once daily. - promethazine (PHENERGAN) 25 mg tablet TAKE 2 TABLETS BY MOUTH EVERY 6 (SIX) hours NEEDED - gabapentin (NEURONTIN) 100 mg capsule Take 200 mg by mouth three times a day with meals. - citalopram (CELEXA) 20 mg tablet Take 20 mg by mouth once daily. - LORazepam (ATIVAN) 0.5 mg Take 0.5 mg by mouth once daily as needed. - methIMAzole (TAPAZOLE) 5 mg tablet - ondansetron HCl (ZOFRAN ORAL) Take by mouth. - rosuvastatin (CRESTOR) 10 mg tablet - olopatadine (PATANOL) 0.1 % ophthalmic solution Use 1 Drop in both eyes twice daily. - albuterol (PROVENTIL) 2.5 mg /3 mL (0.083 %) nebulizer solution Use 3 mL via nebulizer one time only for 1 dose. Use over 5-15minutes. - esomeprazole (NEXIUM) 40 mg capsule Take 1 capsule by mouth twice daily before meals. 1/2 hr before meal. - albuterol HFA 90 mcg/actuation inhaler Inhale 2 Puffs as instructed every 4 hours as needed. Indications: CHRONIC OBSTRUCTIVE PULMONARY DISEASE - diphenhydrAMINE (BENADRYL) 25 mg capsule Take 25 mg by mouth at bedtime as needed. Indications: INSOMNIA - DICLOFENAC 75 MG TAB, DELAYED RELEASE Take one(1) tablet two(2) times daily. Problem List As Of Date 05/09/2024 Noted Resolved MASS IN BREAST [N63.0] 02/14/2009 DIFFUS CYSTIC MASTOPATHY [N60.19] 03/17/2009 Prescriptions ordered this encounter Disp Refills Start End DOXYCYCLINE HYCLATE 100 MG TABLET 14 t* 0 05/09/2024 05/16/2024 Route: ORAL Sig: Take 1 tablet by mouth two times a day for 7 days. Medications Discontinued During This Encounter Prescriptions - budesonide-formoterol (SYMBICORT) 160-4.5 mcg/actuation inhaler (Discontinued) Reported on 02/07/2024 - denosumab (PROLIA) 60 mg/mL syrg (Discontinued) Reported on 02/07/2024 - fluticasone mriisgk-ponmkyrocrzi-qjigwmljil (TRELEGY ELLIPTA) 100-62.5-25 mcg powder inhaler (Discontinued) Reported on 02/07/2024 - fluticasone-salmeterol (ADVAIR DISKUS) 100-50 mcg/dose inhaler (Discontinued) Reported on 07/07/2022 - phenazopyridine (PYRIDIUM) 200 mg tablet (Discontinued) Reported on 08/24/2023 - raloxifene hcl(EVISTA 60 MG TAB) (Discontinued) Reported on 02/07/2024 - trimethoprim (PROLOPRIM) 100 mg tablet (Discontinued) Reported on 08/24/2023 - tamsulosin (FLOMAX) 0.4 mg (Discontinued) Reported on 10/11/2023 Encounter Status:Closed by TENISHA WARD on 05/09/24 ALLERGIES DATE TYPE / CODE NAME / CODE REACTION SEVERITY SOURCE 08/24/2023 DRUG/23484290 3(SNOMED CT) NITROFURANTOIN MONOHYD/M-CRYST GI UPSET [facility] 07/07/2022 DRUG INGREDI/12675 1003(SNOMED CT) CLARITHROMYCIN OTHER: SEE C [facility] 07/07/2022 DRUG INGREDI/49056 1003(SNOMED CT) DOXYCYCLINE GI UPSET [facility] 10/11/2018 DRUG/40948712 3(SNOMED CT) SULFAMETHOXAZOLE-TRIME THOPRIM GI UPSET [facility] 06/30/2018 DRUG INGREDI/49687 1003(SNOMED CT) AMOXICILLIN GI UPSET [facility] ENCOUNTERS ADMIT/DISCHARGE ACCOUNT NUMBER ADMITTING ENCOUNTER CLASS LOC ATION SOURCE 03/04/2025/ 5 [id number] [facility] 02/17/2025 [id number] [facility] 02/17/2025/ 5 [id number] [facility] 11/20/2024/ 5 [id number] [facility] 05/09/2024/ 4 [id number] [facility] ing:[facility] PAYERS ENCOUNTER GUARANTOR PAYER SUBSCRIBER SOURCE 03/04/2025 Primary Insuranc e:MEDICARE A AND BPolicy Number: [id number] Date:1285-64-82Tydt Name:Oracio GRIFFIN: [id number] [place], [place] [address] [place] [address] 03/04/2025 Secondary Insura nce:[facility] MEDICARE SUPPLEMENTPolicy Number: [id number] Date:1820-36-64Frai Name:Maria Fernanda GRIFFIN: [id number] [place] [address] [facility] 02/17/2025 Primary Insuranc e:MEDICARE A AND BPolicy Number: [id number] Date:8416-51-27Clhu Name:Oracio GRIFFIN: [id number] [place], [place] [address] [place] [address] 02/17/2025 Secondary Insura nce:ANTH MEDICARE SUPPLEMENTPolicy Number: [id number] Date:9145-75-12Lbfn Name:Maria Fernanda HARGROVEOB: [id number] [place] [address] [facility] 02/17/2025 Primary Insuranc e:MEDICARE A AND BPolicy Number: [id number] Date:5795-44-31Jlhm Name:Oracio ANGLEDOB: [id number] [place] [address] [facility] 02/17/2025 Secondary Insura nce:[employer] MEDICARE SUPPLEMENTPolicy Number: [id number] Date:6518-16-86Dxyw Name:Maria Fernanda ANGLEDOB: [id number] [place] [address] [facility] 11/20/2024 Primary Insuranc e:MEDICARE A AND BPolicy Number: [id number] Date:8114-20-21Qugv Name:Oracio ANGLEDOB: [id number] [place] [address] [facility] 11/20/2024 Secondary Insura nce:[employer] MEDICARE SUPPLEMENTPolicy Number: [id number] Date:6262-57-22Pprq Name:Maria Fernanda ANGLEDOB: [id number] [place] [address] [facility] 05/09/2024 Primary Insuranc e:MEDICARE A AND BPolicy Number: [id number] Date:3662-78-72Ears Name:Oracio ANGLEDOB: [id number] [place] [address] [facility] 05/09/2024 Secondary Insura nce:[employer] MEDICARE SUPPLEMENTPolicy Number: [id number] Date:2676-03-02Ptpf Name:Maria Fernanda ANGLEDOB: [id number] [place] [address] [facility]
[2025-05-03 18:28] LABS: Free T3 3.8 pg/mL (2.18-3.98)
== END | disposition home or self-care (01) ==
PROVIDERS: PCP Internal Medicine; Referring Provider Nurse Practitioner Family; Visit Provider Nurse Practitioner Family
DX: E05.90 Thyrotoxicosis, unspecified without thyrotoxic crisis or storm (principal)
CPT/HCPCS: 36415; 84439; 84443; 84481